=== PATIENT | female | born 1975 | race Caucasian/White ===

== ENCOUNTER 2022-08-12 19:47 | Emergency (ER) | payer MEDICAID, SELFPAY ==
[2022-08-12 20:44] VITALS: BP 157/96; PULSE 75; RESP 22; TEMP 37.3; O2SAT 95
--- NOTE | 2022-08-12 22:01 | ED_ITS ---
HPI - Abdominal Pain General Chief Complaint: Abdominal Pain Stated Complaint: Stomach pain past 4 days Time Seen by Provider: 08/12/22 21:40 History of Present Illness HPI narrative: 46-year-old woman presenting to the emergency department with complaint of 4 days of a burning epigastric pain. Over time she wants to eat she throws up. Status post cholecystectomy some years ago. No diarrhea no constipation. Has also been short of breath since COVID diagnosis in 2019. Did try what sounds like a liquid antacid but has not really helped. This pain does seem similar to her gallbladder related pain she had once upon a time. She later says it also hurts when she urinates. Sounds like ran out of her rescue inhaler a couple of days ago. Related Data Home Medications Medication Instructions Recorded Confirmed albuterol sulfate 90 mcg/actuation 2 inh inhalation Q4H PRN 08/12/22 08/12/22 aerosol inhaler budesonide-formoterol HFA 160 1 inh inhalation QHS 08/12/22 08/12/22 mcg-4.5 mcg/actuation aerosol inhaler (Symbicort) cetirizine 10 mg tablet 10 mg PO DAILY 08/12/22 08/12/22 fluticasone furoate 100 1 inh inhalation DAILY 08/12/22 08/12/22 mcg-vilanterol 25 mcg/dose inhalation powder (Breo Ellipta) Previous Rx's Medication Instructions Recorded albuterol sulfate 90 mcg/actuation 2 inh inhalation QID PRN shortness 08/13/22 aerosol inhaler of breath or wheezing #8.5 grams omeprazole 40 mg capsule,delayed 40 mg PO DAILY 14 days #14 caps 08/13/22 release ondansetron 4 mg disintegrating 4 mg PO QID PRN nausea and 08/13/22 tablet vomiting #12 tabs prednisone 20 mg tablet 40 mg PO DAILY 4 days #8 tabs 08/13/22 Allergies Allergy/AdvReac Type Severity Reaction Status Date / Time oseltamivir [From Tamiflu] Allergy Mild Hives Verified 08/12/22 20:50 penicillin V Allergy Mild Rash Verified 03/18/22 11:57 dandelion (Taraxacum Allergy Unknown test Verified 08/12/22 20:50 officinale) indicated cat and dog Allergy Mild Congestion, Uncoded 03/18/22 11:57 shortness of breath grass, pollens Allergy Mild Congestion, Uncoded 03/18/22 11:57 shortness of breath Review of Systems Status of ROS Reports: 10 or more systems reviewed and unremarkable except as noted in History and below [facility] Medical History Asthma Epiploic appendagitis History of severe acute respiratory syndrome coronavirus 2 (SARS-CoV-2) disease Surgical History History of cholecystectomy History of tubal ligation Family History Father Diabetes Gout High blood pressure Sister Diabetes mellitus during Maternal Grandmother Ovarian cancer Social History Narrative: Does not drink alcohol Does not use illicit drugs Non-smoker Smoking Status: Unknown if ever smoked Exam Narrative: Exam Narrative: Unpleasant. Clearly a little uncomfortable. Carefully casually groomed. Cranial nerves 2-12 intact. Mild labored breathing. Decreased breath sounds and diffuse trace wheeze. Rather sore to palpation in the central epigastrium. Abdomen otherwise soft and nontender. Normoactive bowel sounds. No right upper quadrant pain. Extremities are without edema. Const: Vital Signs, click to edit/add: Vital Signs - 24 hr 08/12/22 20:44 08/12/22 22:14 08/12/22 22:14 Temperature 99.1 F Pulse Rate [Left P ulse Oximeter] 75 66 Respiratory Rate 22 20 Blood Pressure [Ri ght Upper Arm] 157/96 H Pulse Oximetry 95 96 96 Oxygen Delivery Me thod Room Air Room Air 08/12/22 23:50 08/13/22 01:10 Temperature Pulse Rate [Left P ulse Oximeter] 69 69 Respiratory Rate 12 Blood Pressure [Ri ght Upper Arm] 115/85 Pulse Oximetry 95 95 Oxygen Delivery Me thod Room Air Room Air Documenting provider has reviewed patient's vital signs: yes Course Vital Signs Vital signs: Initial Vital Signs Temperature 99.1 F 08/12/22 20:44 Temperature Source Temporal Artery Scan 08/12/22 20:44 Pulse Rate 75 08/12/22 20:44 Respiratory Rate 22 08/12/22 20:44 Blood Pressure 157/96 H 08/12/22 20:44 Blood Pressure Mean 116 08/12/22 20:44 Blood Pressure Position Sitting 08/12/22 20:44 Pulse Oximetry 95 08/12/22 20:44 Oxygen Delivery Method 08/12/22 20:44 Vital Signs Temperature 99.1 F 08/12/22 20:44 Pulse Rate 75 08/12/22 20:44 Respiratory Rate 22 08/12/22 20:44 Blood Pressure 157/96 H 08/12/22 20:44 Pulse Oximetry 95 08/12/22 20:44 Oxygen Delivery Method 08/12/22 20:44 Temperature 99.1 F 08/12/22 20:44 Pulse Rate 69 08/13/22 01:10 Respiratory Rate 12 08/12/22 23:50 Blood Pressure 115/85 08/13/22 01:10 Pulse Oximetry 95 08/13/22 01:10 Oxygen Delivery Method 08/13/22 01:10 MDM - Abdominal Pain MDM Narrative Medical decision making narrative: Given DuoNeb. Reauscultation improved air movement and nearly no wheeze. Given Zofran and GI cocktail. Initially the GI cocktail did not seem to be helping much but with reassessment the pain seemed to have mostly resolved. Was able to tolerate oral intake. Did give prednisone as well. Labs reassuring. Lab Data Attestation: I reviewed the patient's lab results. Labs: Lab Results 08/12/22 08/12/22 08/12/22 Range/Units 22:50 22:50 22:50 WBC 10.22 (4.50-11.00) K/uL RBC 4.07 (4.00-5.20) m/uL Hgb 12.4 (12.0-16.0) gm/dL Hct 37.6 (33.0-51.0) % MCV 92 (80-100) fL MCH 31 (26-34) pg MCHC 33 (32-36) gm/dL RDW Coeff of Suzie 13.6 (11.5-15.5) % Plt Count 366 (140-440) K/uL Neut % (Auto) 59.1 (42.0-72.0) % Lymph % (Auto) 29.8 (20-44) % [place] % (Auto) 5.8 (0.0-11.0) % Eos % (Auto) 4.2 (0.0-7.0) % Baso % (Auto) 0.6 (0.0-3.0) % Neut # (Auto) 6.04 (1.7-7.0) K/uL Lymph # (Auto) 3.05 H (0.90-2.90) K/uL [place] # (Auto) 0.60 (0.00-0.90) K/UL Eos # (Auto) 0.43 (0.00-0.50) K/uL Baso # (Auto) 0.06 (0.00-0.30) K/uL Abs Immat Gran (auto) 0.05 (0.00-0.30) K/uL Imm/Tot Granulo (auto) 0.5 % Sodium 139 (135-149) mmol/L Potassium 3.5 L (3.6-5.1) mmol/L Chloride 107 (96-114) mmol/L Carbon Dioxide 26 (20-32) mmol/L BUN 24 (5-24) mg/dL Creatinine 0.7 (0.5-1.5) mg/dL Estimated Creat Clear 91.32 Estimated GFR 109 ml/min Glucose 101 (60-115) mg/dL Calcium 9.1 (8.4-10.6) mg/dL Total Bilirubin 0.3 (0.1-1.5) mg/dL Direct Bilirubin 0.1 (0.0-0.5) mg/dL AST 19 (12-35) U/L ALT 18 (4-35) U/L Alkaline Phosphatase 85 (40-150) U/L C-Reactive Protein < 0.5 L (0.5-1.0) mg/dL Total Protein 6.8 (6.0-8.3) g/dL Albumin 4.2 (3.3-5.0) g/dL Lipase 75 (23-300) U/L HCG, Qual Urine Color (Yellow) Urine Appearance (Clear) Urine pH (5.0-8.5) Ur Specific [place] (1.000-1.030) Urine Protein (Negative) Urine Glucose (UA) (Negative) Urine Ketones (Negative) Urine Blood (Negative) Urine Nitrite (Negative) Urine Bilirubin (Negative) Urine Urobilinogen (0.2-1.0) Ur Leukocyte Esterase (Negative) Urine RBC (0-2) Urine WBC (0-5) Ur Squamous Epith Cells (None-Few) Other Sediment (None) Urine Bacteria (None) 08/13/22 Range/Units 00:30 WBC (4.50-11.00) K/uL RBC (4.00-5.20) m/uL Hgb (12.0-16.0) gm/dL Hct (33.0-51.0) % MCV (80-100) fL MCH (26-34) pg MCHC (32-36) gm/dL RDW Coeff of Suzie (11.5-15.5) % Plt Count (140-440) K/uL Neut % (Auto) (42.0-72.0) % Lymph % (Auto) (20-44) % [place] % (Auto) (0.0-11.0) % Eos % (Auto) (0.0-7.0) % Baso % (Auto) (0.0-3.0) % Neut # (Auto) (1.7-7.0) K/uL Lymph # (Auto) (0.90-2.90) K/uL [place] # (Auto) (0.00-0.90) K/UL Eos # (Auto) (0.00-0.50) K/uL Baso # (Auto) (0.00-0.30) K/uL Abs Immat Gran (auto) (0.00-0.30) K/uL Imm/Tot Granulo (auto) % Sodium (135-149) mmol/L Potassium (3.6-5.1) mmol/L Chloride (96-114) mmol/L Carbon Dioxide (20-32) mmol/L BUN (5-24) mg/dL Creatinine (0.5-1.5) mg/dL Estimated Creat Clear Estimated GFR ml/min Glucose (60-115) mg/dL Calcium (8.4-10.6) mg/dL Total Bilirubin (0.1-1.5) mg/dL Direct Bilirubin (0.0-0.5) mg/dL AST (12-35) U/L ALT (4-35) U/L Alkaline Phosphatase (40-150) U/L C-Reactive Protein (0.5-1.0) mg/dL Total Protein (6.0-8.3) g/dL Albumin (3.3-5.0) g/dL Lipase (23-300) U/L HCG, Qual Cancelled Urine Color Yellow (Yellow) Urine Appearance Cloudy A (Clear) Urine pH 6.0 (5.0-8.5) Ur Specific [place] >= 1.030 (1.000-1.030) Urine Protein Negative (Negative) Urine Glucose (UA) Negative (Negative) Urine Ketones Trace A (Negative) Urine Blood Trace-intact A (Negative) Urine Nitrite Positive A (Negative) Urine Bilirubin Negative (Negative) Urine Urobilinogen 0.2 (0.2-1.0) Ur Leukocyte Esterase Negative (Negative) Urine RBC 0-2 (0-2) Urine WBC 2-5 (0-5) Ur Squamous Epith Cells Few (None-Few) Other Sediment YEAST (None) Urine Bacteria Many A (None) Discharge Plan Discharge Clinical Impression: Asthma exacerbation, Epigastric abdominal pain, Dehydration Patient Disposition: Home, Self-Care Condition: Improved Additional Instructions: Slow advance of diet over the next 24-36 hours. Diluted juices, soup broths to thicker soups and smoothies. Rice. [place]. This omeprazole can help decrease acid in your stomach. Would take this for 2 weeks and then reassess. We will be culturing your urine and call you if something comes of it. I think what he you were feeling was mostly related to dehydration. Prescriptions: New prednisone 20 mg tablet 40 mg PO DAILY 4 Days Qty: 8 1RF Rx Instructions: days 11-21 of therapy albuterol sulfate 90 mcg/actuation HFA aerosol inhaler 2 inh inhalation QID PRN (Reason: shortness of breath or wheezing) Qty: 8.5 1RF ondansetron 4 mg tablet,disintegrating 4 mg PO QID PRN (Reason: nausea and vomiting) Qty: 12 0RF Rx Instructions: dissolve in mouth omeprazole 40 mg capsule,delayed release(DR/EC) 40 mg PO DAILY 14 Days Qty: 14 0RF No Action cetirizine 10 mg tablet 10 mg PO DAILY albuterol sulfate 90 mcg/actuation HFA aerosol inhaler 2 inh INHALATION Q4H PRN budesonide-formoterol [Symbicort] 160-4.5 mcg/actuation HFA aerosol inhaler 1 inh inhalation QHS fluticasone furoate-vilanterol [Breo Ellipta] 100-25 mcg/dose blister with device 1 inh inhalation DAILY Follow Up/Referrals: Kathy Hou PA-C [Primary Care Provider] - Stand Alone Forms: Fluid-1 Info Instructions
[2022-08-12] MEDS: ONDANSETRON ODT 4 MG TAB PO (22:09)
[2022-08-12] MEDS: IPRAT-ALBUT 0.5-2.5 MG/3 ML NEB 1 NEB IH (22:09)
[2022-08-12] MEDS: GI COCKTAIL (VISC LIDO/ANTACID) 30 ML PO (22:10)
[2022-08-12 22:14] VITALS: PULSE 66; RESP 20; O2SAT 96
--- OUTSIDE RECORDS SUMMARY | 2022-08-12 22:20 | XMS_ITS | Encounter Summary ---
:1975 Author Organization [place] Address [facility] [place] [address] Care Team Providers Name Role Phone [facility] Primary Care Provider + [phone] Enrique Saenz MD Unavailable [phone] Glendy Brush Unavailable Pat Chavez PA-C Unavailable Encounter Details Date Type Department Care Team Description 05/13/2022 Travel Social History Tobacco Use Types Packs/Day Years Used Date Smoking Tobacco: Never Smokeless Tobacco: Never Sex Assigned at Date Recorded Not on file COVID-19 Exposure Response Date Recorded In the last 10 days, have you been in contact with No / Unsu re 05/13/2022 2:25 PM CDT someone who was confirmed or suspected to have Coronavirus/COVID-19? documented as of this encounter Plan of Treatment Not on filedocumented as of this encounter Visit Diagnoses Not on filedocumented in this encounter Additional Health Concerns Assessment Noted Time PHQ-9 Depression Total Score: 11 02/27/2022 9:09 AM CD T documented as of this encounter Care Teams Manager Presentation Relationship Specialty Start Date End Date [facility] PCP - General 11/20/21 [facility] [address] [place] [phone] Enrique Saenz MD Cardiovascular Disease 02/27/22 MD Ryan [address] [place] [address] Glendy Brush, Cardiac Rehabilitation 03/25/22 03/25/23 EP Therapist [place] [address] [address] [id number] Pat Chavez, Assigned Neuroscience 03/01/22 PA-C Provider [address] [place] [address] documented as of this encounter
--- OUTSIDE RECORDS SUMMARY | 2022-08-12 22:20 | XMS_ITS | Clinical Summary ---
:1975 Author Organization [place] Address [facility] [place] [address] Care Team Providers Name Role Phone [facility] Primary Care Provider [phone] Enrique Saenz MD Unavailable [phone] Glendy Brush Unavailable Pat Chavez PA-C Unavailable Allergies Active Allergy Reactions Severity Noted Date Comments Penicillins 04/12/2012 Medications Medication Sig Dispensed Refills Start Date End Date Status albuterol Take 1 vial (2.5 30 mL 0 03/11/2021 Ac tive (PROVENTIL) (2.5 mg) by MG/3ML) 0.083% neb nebulization solutionIndication every 6 hours as s: Severe needed for persistent asthma shortness of with exacerbation breath / dyspnea or wheezing EPINEPHrine (ANY Inject 0.3 mLs 0.6 mL 0 11/20/2021 Active BX GENERIC EQUIV) (0.3 mg) into the 0.3 MG/0.3ML muscle once as injection 2-pack needed for anaphylaxis budesonide-formote Inhale 2 puffs 10 g 3 03/08/2022 Active rol (SYMBICORT) into the lungs 160-4.5 MCG/ACT daily InhalerIndications : Severe persistent asthma with exacerbation albuterol (PROAIR Inhale 2 puffs 18 g 11 03/08/2022 Active HFA/PROVENTIL into the lungs HFA/VENTOLIN HFA) every 6 hours 108 (90 Base) MCG/ACT inhalerIndications : Anaphylaxis, initial encounter ipratropium - Take 1 vial (3 90 mL 0 02/21/2022 Discontinued albuterol 0.5 mLs) by 2 mg/2.5 mg/3 mL nebulization (DUONEB) 0.5-2.5 every 6 hours as (3) MG/3ML neb needed for solution shortness of breath / dyspnea or wheezing Active Problems Problem Noted Date Intermittent asthma with status asthmaticus, unspecifi ed asthma severity 03/07/2022 Elevated blood pressure reading without diagnosis of h ypertension 03/10/2021 Severe persistent asthma with exacerbation 03/10/2021 Acute respiratory failure with hypoxia 03/10/2021 Encounters Date Type Specialty Care Team Description 07/10/2022 Office Visit Kathy Nolasco SLP Shortness o f breath (Primary Dx) 07/10/2022 PRE VISIT Kathy Nolasco SLP Previsit 06/24/2022 Virtual Visit Sleep Medicine Pat Chavez, [facility] for PA-C appointment (Primary Rudy, Rose Dx) LAYLA Charles 06/19/2022 Office Visit Pat Washburn, Carlosnes s of breath PA-C (Primary Dx) Kathy Zepeda SLP 06/19/2022 PRE VISIT Kathy Nolasco SLP Previsit 05/20/2022 Travel 05/15/2022 Hospital Encounter CARDIAC REHAB Pat Chavez PA-C 1, Pulmonary Rehab 05/15/2022 Travel 05/13/2022 Hospital Encounter CARDIAC REHAB Pat Chavez PA-C 1, Pulmonary Rehab 05/13/2022 Travel from Last 3 Months Immunizations Name Administration Dates Next Due COVID-19 Vaccine 18+ (Moderna) 09/18/2021, 01/03/2021, 12/06 HepB-Adult 07/18/2016 Influenza Vaccine >6 months 09/18/2021, 07/15/2016 (Alfuria,Fluzone) MMR 12/13/2010 Td (Adult), Adsorbed 12/14/2010, 03/30/2008 Tdap (Adacel,Boostrix) 07/18/2016 Social History Tobacco Use Types Packs/Day Years Used Date Smoking Tobacco: Never Smokeless Tobacco: Never Sex Assigned at Date Recorded Not on file Last Filed Vital Signs Vital Sign Reading Time Taken Comments Blood Pressure 131/80 03/08/2022 8:06 AM CDT Pulse 92 03/08/2022 8:06 AM CDT Temperature 36.9 ??C (98.5 ??F) 03/08/2022 8:06 AM CDT Respiratory Rate 18 03/08/2022 8:06 AM CDT Oxygen Saturation 93% 03/08/2022 8:06 AM CDT Inhaled Oxygen Concentration - - Weight 86 kg (189 lb 8 oz) 03/07/2022 7:41 PM CDT Height 165.1 cm (5' 5) 02/23/2022 6:57 PM CDT Body Mass Index 31.53 02/23/2022 6:57 PM CDT Plan of Treatment Health Maintenance Due Date Last Done Comments ADVANCE CARE PLANNING 1975 ANNUAL REVIEW OF HM ORDERS 1976 ASTHMA ACTION PLAN [address] COLONOGRAPHY 1976 DEPRESSION ACTION PLAN 1976 FIT-DNA (Cologuard) 1976 FIT 1976 FLEX SIG 1976 MAMMO SCREENING 1976 YEARLY PREVENTIVE VISIT 1976 Pneumococcal Vaccine: 1982 Pediatrics (0 to 5 Years) and At-Risk Patients (6 to 64 Years) (1 - PCV) COLONOSCOPY 1986 COLORECTAL CANCER SCREENING 1986 HIV SCREENING 11/26/1991 HEPATITIS C SCREENING 1994 PAP 1997 HEPATITIS B IMMUNIZATION (2 08/15/2016 07/18/2016 of 3 - 3-dose series) COVID-19 Vaccine (4 - Booster 11/13/2021 09/18/2021, for Moderna series) 01/03/2021, 12/06/2020 LIPID 2021 INFLUENZA VACCINE (#1) 2022 09/18/2021, 07/15/2016 PHQ-9 08/29/2022 02/27/2022 DTAP/TDAP/TD IMMUNIZATION (2 07/18/2026 07/18/2016, - Td or Tdap) 12/14/2010, 03/30/2008 IPV IMMUNIZATION Aged Out No longer eligi ble based on patient's age to complete this to [facility] MENINGITIS IMMUNIZATION Aged Out No longe r eligible based on patient's age to complete this to [facility] Insurance Payer Benefit Plan / Subscriber ID Effective Dates Phone Addre ss Type Group [facility] [id number] 2021-Present [phone] [address] [place] [address] Advance Directives For more information, please contact: [phone] Latest Code Status on File Code Status Date Activated Date Inactivated Comments Full Code 03/07/2022 5:56 PM 03/08/2022 5:27 PM All basic and advanced life-sustaining interventions ar e performed as appropriate Question Answer Comments Code status determined by: Discussion with patient/ legal de cision maker Code Status History Code Status Date Activated Date Inactivated Comments Full Code 03/10/2021 9:22 AM 03/11/2021 11:56 AM All basic a nd advanced life-sustaining interventions are performed as bubba ropriate Question Answer Comments Code status determined by: Discussion with patient/ legal de cision maker Care Teams Trader Relationship Specialty Start Date End Date [facility] PCP - General 11/20/21 [place] [address] [place] [phone] Enrique Saenz MD Cardiovascular Disease 02/27/22 MD Ryan [address] [place] [phone] Glendy Brush, Cardiac Rehabilitation 03/25/22 03/25/23 EP Therapist [facility] [address] [phone] Pat Chavez, Assigned Neuroscience 03/01/22 MACKC Provider [address] [place] [address]
--- OUTSIDE RECORDS SUMMARY | 2022-08-12 22:20 | XMS_ITS | Encounter Summary ---
:1975 Author Organization [place] Address [facility] [place] [address] Care Team Providers Name Role Phone [facility] Primary Care Provider + [phone] Enrique Saenz MD Unavailable [phone] Glendy Brush Unavailable Pat Chavez PA-C Unavailable Reason for Visit Reason Onset Date Comments Previsit 06/19/2022 Encounter Details Date Type Department Care Team Description 06/19/2022 PRE VISIT [facility] Voice Sa julia Zepeda, PROFILING MACHINE SETUP OPERATOR Previsit Clinic [address] [place] [phone] Social History Tobacco Use Types Packs/Day Years Used Date Smoking Tobacco: Never Smokeless Tobacco: Never Sex Assigned at Date Recorded Not on file documented as of this encounter Miscellaneous Notes Telephone Encounter - Bebe Leyva Alana - 02/28/2022 1:48 PM CDT FUTURE VISIT INFORMATION FUTURE VISIT INFORMATION: ?? Date: 06/19/2022 ?? Time: 10 AM ?? Location: [facility] [place] REFERRAL INFORMATION: ?? Referring provider: Dr. Pat Arana ?? Referring providers clinic: [facility] - [facility]R ?? Reason for visit/diagnosis: Dyspnea, Covid RECORDS REQUESTED FROM: Clinic name Comments Records Status Imaging Status [facility] ([facility] 05/29/22, 02/27/22 - PMR OV with Dr. Kathy Brown [place] [facility] [place] 02/23/22 - ED OV with Dr. Duran 02/21/22 - ED OV with Dr. Cota 11/20/21 - ED OV with Dr. Mills 03/10/21 - Admission with [facility] [place] 09/19/20 - UC OV with Dr. Bushra Brown [facility] - Imaging 02/23/22 - CT Chest 11/20/21 - XR Chest 03/10/21 - XR Chest [facility] PACs documented in this encounter Plan of Treatment Not on filedocumented as of this encounter Visit Diagnoses Not on filedocumented in this encounter Additional Health Concerns Assessment Noted Time PHQ-9 Depression Total Score: 11 02/27/2022 9:09 AM CD T documented as of this encounter Care Teams Flight Teacher Relationship Specialty Start Date End Date Clinic, [facility] PCP - General 11/20/21 [facility] [address] [facility] [place] [phone] Enrique Saenz MD Cardiovascular Disease 02/27/22 MD Ryan [address] [place] [phone] Glendy Brush, Cardiac Rehabilitation 03/25/22 03/25/23 EP Therapist [facility] [address] [place] [address] Pat Chavez, Assigned Neuroscience 03/01/22 PA-C Provider [address] [place] [id number] documented as of this encounter
--- OUTSIDE RECORDS SUMMARY | 2022-08-12 22:20 | XMS_ITS | Encounter Summary ---
:1975 Author Organization [place] Address [facility] [place] [address] Care Team Providers Name Role Phone [facility] Primary Care Provider + [phone] Enrique Saenz MD Unavailable [phone] Glendy Brush Unavailable Pat Chavez PA-C Unavailable Encounter Details Date Type Department Care Team Description 05/20/2022 Travel Social History Tobacco Use Types Packs/Day Years Used Date Smoking Tobacco: Never Smokeless Tobacco: Never Sex Assigned at Date Recorded Not on file COVID-19 Exposure Response Date Recorded In the last 10 days, have you been in contact with No / Unsu re 05/20/2022 11:27 AM CDT someone who was confirmed or suspected to have Coronavirus/COVID-19? documented as of this encounter Plan of Treatment Not on filedocumented as of this encounter Visit Diagnoses Not on filedocumented in this encounter Additional Health Concerns Assessment Noted Time PHQ-9 Depression Total Score: 11 02/27/2022 9:09 AM CD T documented as of this encounter Care Teams Drafting Clerk Relationship Specialty Start Date End Date [facility] PCP - General 11/20/21 [facility] [address] [place] [phone] Enrique Saenz MD Cardiovascular Disease 02/27/22 MD Ryan [address] [place] [address] Glendy Brush, Cardiac Rehabilitation 03/25/22 03/25/23 EP Therapist [place] [address] [address] [phone] Pat Chavez, Assigned Neuroscience 03/01/22 PA-C Provider [address] [place] [address] documented as of this encounter
--- OUTSIDE RECORDS SUMMARY | 2022-08-12 22:20 | XMS_ITS | Encounter Summary ---
:1975 Author Organization [place] Address [address] [place] [address] Care Team Providers Name Role Phone [facility] Primary Care Provider + [phone] Enrique Saenz MD Unavailable [phone] Glendy Brush Unavailable Pat Chavez PA-C Unavailable Reason for Visit Reason Onset Date Comments No Show 06/24/2022 Consultation (Routine: Next available opening) - Authorized Specialty Diagnoses / Procedures Referred By Contact Refer red To Contact Diagnoses Snoring Pat Chavez PA-C [address] [place], [place] [address] Referral ID Status Reason Start Date Expiration Date Visits V isits Requested Authorized [id number] Authorized 02/27/2022 02/27/2023 1 1 Encounter Details Date Type Department Care Team Description 06/24/[address] [facility] [place] [address] No-show for Sleep Center [facility] PA-C [address] [phone] appointment (Primary [place] Dx) [address] [place] [address] Social History Tobacco Use Types Packs/Day Years Used Date Smoking Tobacco: Never Smokeless Tobacco: Never Sex Assigned at Date Recorded Not on file documented as of this encounter Progress Notes [facility] [place] PA-C - 06/24/2022 1:30 PM CDT This patient was a no show for this scheduled appointment. documented in this encounter Plan of Treatment Not on filedocumented as of this encounter Visit Diagnoses Diagnosis No-show for appointment - Primary documented in this encounter Additional Health Concerns Assessment Noted Time PHQ-9 Depression Total Score: 11 02/27/2022 9:09 AM CD T documented as of this encounter Care Teams Safe Deposit Attendant Relationship Specialty Start Date End Date Clinic, [facility] PCP - General 11/20/21 [facility] [address] [place] [address] Enrique Saenz MD Cardiovascular Disease 02/27/22 MD Ryan [address] [place] [phone] Glendy Brush, Cardiac Rehabilitation 03/25/22 03/25/23 EP Therapist [facility] [address] [place] [phone] Pat Chavez, Assigned Neuroscience 03/01/22 LAYLA Provider [address] [place] [phone] documented as of this encounter
--- OUTSIDE RECORDS SUMMARY | 2022-08-12 22:20 | XMS_ITS | Encounter Summary ---
:1975 Author Organization [place] Address formerly [facility] [place] [address] Care Team Providers Name Role Phone [facility] Primary Care Provider + [phone] Enrique Saenz MD Unavailable [phone] Glendy Brush Unavailable Pat Chavez PA-C Unavailable Encounter Details Date Type Department Care Team Description 05/15/2022 Travel Social History Tobacco Use Types Packs/Day Years Used Date Smoking Tobacco: Never Smokeless Tobacco: Never Sex Assigned at Date Recorded Not on file COVID-19 Exposure Response Date Recorded In the last 10 days, have you been in contact with No / Unsu re 05/15/2022 2:28 PM CDT someone who was confirmed or suspected to have Coronavirus/COVID-19? documented as of this encounter Plan of Treatment Not on filedocumented as of this encounter Visit Diagnoses Not on filedocumented in this encounter Additional Health Concerns Assessment Noted Time PHQ-9 Depression Total Score: 11 02/27/2022 9:09 AM CD T documented as of this encounter Care Teams Operating Room Manager Relationship Specialty Start Date End Date [facility] PCP - General 11/20/21 [facility] [address] [place] [phone] Enrique Saenz MD Cardiovascular Disease 02/27/22 MD Ryan [address] [place] [address] Glendy Brush, Cardiac Rehabilitation 03/25/22 03/25/23 EP Therapist [place] [address] YARI MARTINEZ [phone] Pat Chavez, Assigned Neuroscience 03/01/22 PA-C Provider [address] [place] [address] documented as of this encounter
--- OUTSIDE RECORDS SUMMARY | 2022-08-12 22:20 | XMS_ITS | Encounter Summary ---
:1975 Author Organization [place] Address [facility] [place] [address] Care Team Providers Name Role Phone [facility] Primary Care Provider + [phone] Enrique Saenz MD Unavailable [phone] Glendy Brush Unavailable Pat Chavez PA-C Unavailable Reason for Visit Reason Onset Date Comments Previsit 07/10/2022 Encounter Details Date Type Department Care Team Description 07/10/2022 PRE VISIT [facility] Voice Sa julia Zepeda, GLASS NOVELTY MAKER Previsit Clinic [address] [place] [phone] Social History Tobacco Use Types Packs/Day Years Used Date Smoking Tobacco: Never Smokeless Tobacco: Never Sex Assigned at Date Recorded Not on file documented as of this encounter Miscellaneous Notes Telephone Encounter - Bebe Leyva Alana - 06/20/2022 8:59 AM CDT FUTURE VISIT INFORMATION FUTURE VISIT INFORMATION: ?? Date: 07/10/2022 ?? Time: 3 PM ?? Location: [facility] REFERRAL INFORMATION: ?? Referring provider: Dr.Elena Bennie Arana ?? Referring providers clinic: [facility] ?? Reason for visit/diagnosis: Dyspnea, covid RECORDS REQUESTED FROM: Clinic name Comments Records Status Imaging Status [facility] 02/27/22 - PMR OV with Dr. Kathy Brown [facility] [place] 02/23/22 - ED OV with Dr. Duran 02/21/22 - ED OV with Dr. Cota 11/20/21 - ED OV with Dr. Mills 03/10/21 - Admission with Dr. Breanna Brown [facility] [place] 09/19/20 - UC OV with Dr. Bushra Brown [facility] - Imaging 02/23/22 - CT Chest 11/20/21 - XR Chest 03/10/21 - XR Chest [facility] PACs documented in this encounter Plan of Treatment Not on filedocumented as of this encounter Visit Diagnoses Not on filedocumented in this encounter Additional Health Concerns Assessment Noted Time PHQ-9 Depression Total Score: 11 02/27/2022 9:09 AM CD T documented as of this encounter Care Teams Post Doctoral Researcher Relationship Specialty Start Date End Date Clinic, [facility] PCP - General 11/20/21 [facility] [place] [address] [place] [address] Enrique Saenz MD Cardiovascular Disease 02/27/22 MD Ryan [address] [place] [address] 875215 Glendy Brush, Cardiac Rehabilitation 03/25/22 03/25/[address] [facility] [address] [place] [phone] Pat Chavez, Assigned Neuroscience 03/01/22 PA-C Provider [address] [place] [address] documented as of this encounter
--- OUTSIDE RECORDS SUMMARY | 2022-08-12 22:20 | XMS_ITS | Encounter Summary ---
:1975 Author Organization [place] Address [address] [place] [address] Care Team Providers Name Role Phone [facility], [facility] Primary Care Provider + [phone] Enrique Saenz MD Unavailable Glendy Brush Unavailable Pat Chavez PA-C Unavailable Reason for Visit Rehab Therapy Cardiac Therapy (Routine: Next available opening) - Authorized Specialty Diagnoses / Procedures Referred By Contact Refer red To Contact CARDIAC REHAB Diagnoses Mild intermittent asthma with exacerbation Post-COVID chronic dyspnea [address] [place] [address] Phone: Referral ID Status Reason Start Date Expiration Date Visits V isits Requested Authorized [id number] Authorized 02/28/2022 08/30/2022 365 365 Encounter Details Date Type Department Care Team Description 05/15/2022 Hospital Encounter [facility] Pat Chavez PA-C [address] [place] [address] Cardiac and Pulmonary 1, [facility] [address] [place] [address] Social History Tobacco Use Types Packs/Day Years Used Date Smoking Tobacco: Never Smokeless Tobacco: Never Sex Assigned at Date Recorded Not on file COVID-19 Exposure Response Date Recorded In the last 10 days, have you been in contact with No / Unsu re 05/15/2022 2:28 PM CDT someone who was confirmed or suspected to have Coronavirus/COVID-19? documented as of this encounter Medications at Time of Discharge Medication Sig Dispensed Refills Start Date End Date albuterol (PROAIR Inhale 2 puffs into the 18 g 11 03/08 HFA/PROVENTIL lungs every 6 hours HFA/VENTOLIN HFA) 108 (90 Base) MCG/ACT inhalerIndications: Anaphylaxis, initial encounter albuterol (PROVENTIL) Take 1 vial (2.5 mg) by 30 mL 0 0 03/11/2021 (2.5 MG/3ML) 0.083% neb nebulization every 6 solutionIndications: hours as needed for Severe persistent asthma shortness of breath / with exacerbation dyspnea or wheezing budesonide-formoterol Inhale 2 puffs into the 10 g 3 0 03/08/2022 (SYMBICORT) 160-4.5 lungs daily MCG/ACT InhalerIndications: Severe persistent asthma with exacerbation EPINEPHrine (ANY BX Inject 0.3 mLs (0.3 mg) 0.6 mL 0 GENERIC EQUIV) 0.3 into the muscle once as MG/0.3ML injection needed for anaphylaxis 2-pack documented as of this encounter Plan of Treatment Not on filedocumented as of this encounter Visit Diagnoses Not on filedocumented in this encounter Additional Health Concerns Assessment Noted Time PHQ-9 Depression Total Score: 11 02/27/2022 9:09 AM CD T documented as of this encounter Care Teams Knitting Machine Mechanic Relationship Specialty Start Date End Date [facility] PCP - General 11/20/21 [facility] [address] [place] [address] Enrique Saenz MD Cardiovascular Disease 02/27/22 MD Ryan [address] [place] [address] Glendy Brush, Cardiac Rehabilitation 03/25/22 03/25/23 EP Therapist [place] [address] YARI MARTINEZ [phone] Pat Chavez, Assigned Neuroscience 03/01/22 LAYLA Provider [address] [place] [address] [phone] documented as of this encounter
--- OUTSIDE RECORDS SUMMARY | 2022-08-12 22:20 | XMS_ITS | Encounter Summary ---
:1975 Author Organization [place] Address [facility] [place] [address] Care Team Providers Name Role Phone [facility], [facility] Primary Care Provider + [phone] Enrique Saenz MD Unavailable [phone] Glendy Brush Unavailable Pat Chavez PA-C Unavailable Reason for Visit Consultation (Routine: Next available opening) - Pending Review Specialty Diagnoses / Procedures Referred By Contact Refer red To Contact Otolaryngology Diagnoses Post-COVID chronic dyspnea Pat Chavez PA-C [address] [place] [phone] Referral ID Status Reason Start Date Expiration Date Visits V isits Requested Authorized [id number] Pending 02/27/2022 02/27/2023 1 1 Review Encounter Details Date Type Department Care Team Description 06/19/[address] [facility] Anahi Chavez PA-C [address] [place] [address] Shortness of breath Voice Clinic Kathy Zepeda, CARLOS [address] [place] [address] (Primary Dx) [address] 4[address] [place] [address] Social History Tobacco Use Types Packs/Day Years Used Date Smoking Tobacco: Never Smokeless Tobacco: Never Sex Assigned at Date Recorded Not on file COVID-19 Exposure Response Date Recorded In the last 10 days, have you been in contact with No / Unsu re 05/20/2022 11:27 AM CDT someone who was confirmed or suspected to have Coronavirus/COVID-19? documented as of this encounter Progress Notes Kathy Zepeda, CARLOS - 06/19/2022 10:00 AM CDT Patient no showed for today's initial evaluation for post-Covid dyspnea. Franca Solorzano (voice), M.S., [facility] Speech-Language Pathologist [facility] [phone] [email or web address] Pronouns: she/her/hers documented in this encounter Plan of Treatment Not on filedocumented as of this encounter Visit Diagnoses Diagnosis Shortness of breath - Primary documented in this encounter Additional Health Concerns Assessment Noted Time PHQ-9 Depression Total Score: 11 02/27/2022 9:09 AM CD T documented as of this encounter Care Teams Special Certificate Dictator Relationship Specialty Start Date End Date Clinic, [facility] PCP - General 11/20/21 [facility] [address] [place] [address] Enrique Saenz MD Cardiovascular Disease 02/27/22 MD Ryan [address] [place] [address] Glendy Brush, Cardiac Rehabilitation 03/25/22 03/25/23 EP Therapist [facility] [address] [place] [address] Pat Chavez, Assigned Neuroscience 03/01/22 PA-C Provider [address] [place] [address] documented as of this encounter
--- OUTSIDE RECORDS SUMMARY | 2022-08-12 22:21 | XMS_ITS | Encounter Summary ---
:1975 Author Organization [place] Address [address] [place] [address] Care Team Providers Name Role Phone [facility], [facility] Primary Care Provider + [phone] Enrique Saenz MD Unavailable [phone] Glendy Brush Unavailable Pat Chavez PA-C Unavailable Reason for Visit Rehab Therapy Cardiac Therapy (Routine: Next available opening) - Authorized Specialty Diagnoses / Procedures Referred By Contact Refer red To Contact CARDIAC REHAB Diagnoses Mild intermittent asthma with exacerbation Post-COVID chronic dyspnea [address] [place] [address] Phone: Referral ID Status Reason Start Date Expiration Date Visits V isits Requested Authorized [id number] Authorized 02/28/2022 08/30/2022 365 365 Encounter Details Date Type Department Care Team Description 04/22/2022 Hospital Encounter [facility] Pat Chavez PA-C [address] [place] [address] Cardiac and Pulmonary 1, [facility] [address] [place] [address] Social History Tobacco Use Types Packs/Day Years Used Date Smoking Tobacco: Never Smokeless Tobacco: Never Sex Assigned at Date Recorded Not on file COVID-19 Exposure Response Date Recorded In the last 10 days, have you been in contact with No / Unsu re 04/22/2022 2:40 PM CDT someone who was confirmed or [...] documented as of this encounter Care Teams Outside Sales Associate Relationship Specialty Start Date End Date [facility] PCP - General 11/20/21 [facility] [address] [place] [address] Enrique Saenz MD Cardiovascular Disease 02/27/22 MD Ryan [address] [place] [address] Glendy Brush, Cardiac Rehabilitation 03/25/22 03/25/23 EP Therapist [place] [address] YARI MARTINEZ [phone] Pat Chavez, Assigned Neuroscience 03/01/22 LAYLA Provider [address] [place] [phone] documented as of this encounter
--- OUTSIDE RECORDS SUMMARY | 2022-08-12 22:21 | XMS_ITS | Encounter Summary ---
:1975 Author Organization [place] Address [facility] [place] [address] Care Team Providers Name Role Phone [facility] Primary Care Provider + [phone] Enrique Saenz MD Unavailable [phone] Glendy Brush Unavailable Pat Chavez PA-C Unavailable Encounter Details Date Type Department Care Team Description 04/03/2022 Travel Social History Tobacco Use Types Packs/Day Years Used Date Smoking Tobacco: Never Smokeless Tobacco: Never Sex Assigned at Date Recorded Not on file COVID-19 Exposure Response Date Recorded In the last 10 days, have you been in contact with No / Unsu re 04/03/2022 2:14 PM CDT someone who was confirmed or suspected to have Coronavirus/COVID-19? documented as of this encounter Plan of Treatment Not on filedocumented as of this encounter Visit Diagnoses Not on filedocumented in this encounter Additional Health Concerns Assessment Noted Time PHQ-9 Depression Total Score: 11 02/27/2022 9:09 AM CD T documented as of this encounter Care Teams Seo Team Lead Relationship Specialty Start Date End Date [facility] PCP - General 11/20/21 [facility] [address] [place] [address] Enrique Saenz MD Cardiovascular Disease 02/27/22 MD Ryan [address] [place] [address] Glendy Brush, Cardiac Rehabilitation 03/25/22 03/25/23 EP Therapist [place] [address] YARI MARTINEZ [phone] Pat Chavez, Assigned Neuroscience 03/01/22 PA-C Provider [address] [place] [address] documented as of this encounter
--- OUTSIDE RECORDS SUMMARY | 2022-08-12 22:21 | XMS_ITS | Encounter Summary ---
:1975 Author Organization [place] Address [address] [place] [address] Care Team Providers Name Role Phone [facility], [facility] Primary Care Provider + [phone] Enrique Saenz MD Unavailable [phone] Glendy Brush Unavailable Pat Chavez PA-C Unavailable Reason for Visit Rehab Therapy Cardiac Therapy (Routine: Next available opening) - Authorized Specialty Diagnoses / Procedures Referred By Contact Refer red To Contact CARDIAC REHAB Diagnoses Mild intermittent asthma with exacerbation Post-COVID chronic dyspnea [address] [place] [address] Phone: Referral ID Status Reason Start Date Expiration Date Visits V isits Requested Authorized [id number] Authorized 02/28/2022 08/30/2022 365 365 Encounter Details Date Type Department Care Team Description 04/17/2022 Hospital Encounter [facility] Pat Chavez PA-C [address] [place] [address] Cardiac and Pulmonary 1, [facility] [address] [place] [address] Social History Tobacco Use Types Packs/Day Years Used Date Smoking Tobacco: Never Smokeless Tobacco: Never Sex Assigned at Date Recorded Not on file COVID-19 Exposure Response Date Recorded In the last 10 days, have you been in contact with No / Unsu re 04/17/2022 2:28 PM CDT someone who was confirmed [...] documented as of this encounter Care Teams It Account Manager Relationship Specialty Start Date End Date [facility] PCP - General 11/20/21 [facility] [address] [place] [address] Enrique Saenz MD Cardiovascular Disease 02/27/22 MD Ryan [address] [place] [address] Glendy Brush, Cardiac Rehabilitation 03/25/22 03/25/23 EP Therapist [place] [address] YARI MARTINEZ [address] Pat Chavez, Assigned Neuroscience 03/01/22 LAYLA Provider [address] [place] [phone] documented as of this encounter
--- OUTSIDE RECORDS SUMMARY | 2022-08-12 22:21 | XMS_ITS | Encounter Summary ---
:1975 Author Organization [place] Address [address] [place] [address] Care Team Providers Name Role Phone [facility], [facility] Primary Care Provider + [phone] Enrique Saenz MD Unavailable [phone] Glendy Brush Unavailable Pat Chavez PA-C Unavailable Reason for Visit Rehab Therapy Cardiac Therapy (Routine: Next available opening) - Authorized Specialty Diagnoses / Procedures Referred By Contact Refer red To Contact CARDIAC REHAB Diagnoses Mild intermittent asthma with exacerbation Post-COVID chronic dyspnea [address] [place] [address] Phone: Referral ID Status Reason Start Date Expiration Date Visits V isits Requested Authorized [id number] Authorized 02/28/2022 08/30/2022 365 365 Encounter Details Date Type Department Care Team Description 03/25/2022 Hospital Encounter [facility] Pat Chavez PA-C [address] [place] [address] Cardiac and Pulmonary 2, [facility] [address] [place] [address] Social History Tobacco Use Types Packs/Day Years Used Date Smoking Tobacco: Never Smokeless Tobacco: Never Sex Assigned at Date Recorded Not on file COVID-19 Exposure Response Date Recorded In the last 10 days, have you been in contact with No / Unsu re 03/25/2022 2:38 PM CDT someone who was confirmed or [...] documented as of this encounter Care Teams Attorney At Law Relationship Specialty Start Date End Date [facility] De La [facility] PCP - General 11/20/21 [facility] [address] [place] [address] Enrique Saenz MD Cardiovascular Disease 02/27/22 MD Ryan [address] [place] [address] Glendy Brush, Cardiac Rehabilitation 03/25/22 03/25/23 EP Therapist [place] [address] YARI MARTINEZ [phone] Pat Chavez, Assigned Neuroscience 03/01/22 LAYLA Provider [address] [place] [phone] documented as of this encounter
--- OUTSIDE RECORDS SUMMARY | 2022-08-12 22:21 | XMS_ITS | Encounter Summary ---
:1975 Author Organization [place] Address [facility] [place] [address] Care Team Providers Name Role Phone [facility] Primary Care Provider + [phone] Enrique Saenz MD Unavailable [phone] Glendy Brush Unavailable Pat Chavez PA-C Unavailable Encounter Details Date Type Department Care Team Description 04/10/2022 Travel Social History Tobacco Use Types Packs/Day Years Used Date Smoking Tobacco: Never Smokeless Tobacco: Never Sex Assigned at Date Recorded Not on file COVID-19 Exposure Response Date Recorded In the last 10 days, have you been in contact with No / Unsu re 04/10/2022 2:23 PM CDT someone who was confirmed or suspected to have Coronavirus/COVID-19? documented as of this encounter Plan of Treatment Not on filedocumented as of this encounter Visit Diagnoses Not on filedocumented in this encounter Additional Health Concerns Assessment Noted Time PHQ-9 Depression Total Score: 11 02/27/2022 9:09 AM CD T documented as of this encounter Care Teams Advice Clerk Relationship Specialty Start Date End Date [facility] PCP - General 11/20/21 [facility] [address] [place] [address] Enrique Saenz MD Cardiovascular Disease 02/27/22 MD Ryan [address] [place] [address] Glendy Brush, Cardiac Rehabilitation 03/25/22 03/25/23 EP Therapist [place] [address] YARI MARTINEZ [phone] Pat Chavez, Assigned Neuroscience 03/01/22 PA-C Provider [address] [place] [address] documented as of this encounter
--- OUTSIDE RECORDS SUMMARY | 2022-08-12 22:21 | XMS_ITS | Encounter Summary ---
:1975 Author Organization [place] Address [address] [place] [address] Care Team Providers Name Role Phone Clinic, [facility] Primary Care Provider + [phone] Enrique Saenz MD Unavailable [phone] Glendy Brush Unavailable Pat Chavez PA-C Unavailable Reason for Visit Rehab Therapy Cardiac Therapy (Routine: Next available opening) - Authorized Specialty Diagnoses / Procedures Referred By Contact Refer red To Contact CARDIAC REHAB Diagnoses Mild intermittent asthma with exacerbation Post-COVID chronic dyspnea [address] [place] [address] Phone: Referral ID Status Reason Start Date Expiration Date Visits V isits Requested Authorized [id number] Authorized 02/28/2022 08/30/2022 365 365 Encounter Details Date Type Department Care Team Description 04/03/2022 Hospital Encounter [facility] Pat Chavez PA-C [address] [place] [address] Cardiac and Pulmonary 1, [facility] Rehabilitation [address] [place] [address] Social History Tobacco Use Types [...] documented as of this encounter Care Teams Rehab Office Coordinator Relationship Specialty Start Date End Date [facility] De La Paz PCP - General 11/20/21 [facility] [address] [place] [address] Enrique Saenz MD Cardiovascular Disease 02/27/22 MD Ryan [address] [place] [address] Glendy Brush, Cardiac Rehabilitation 03/25/22 03/25/23 EP Therapist [place] [address] YARI MARTINEZ [address] Pat Chavez, Assigned Neuroscience 03/01/22 LAYLA Provider [address] [place] [phone] documented as of this encounter
--- OUTSIDE RECORDS SUMMARY | 2022-08-12 22:21 | XMS_ITS | Encounter Summary ---
:1975 Author Organization [place] Address [address] [place] [address] Care Team Providers Name Role Phone [facility], [facility] Primary Care Provider + [phone] Enrique Saenz MD Unavailable [phone] Glendy Brush Unavailable Pat Chavez PA-C Unavailable Reason for Visit Rehab Therapy Cardiac Therapy (Routine: Next available opening) - Authorized Specialty Diagnoses / Procedures Referred By Contact Refer red To Contact CARDIAC REHAB Diagnoses Mild intermittent asthma with exacerbation Post-COVID chronic dyspnea [address] [place] [address] Phone: Referral ID Status Reason Start Date Expiration Date Visits V isits Requested Authorized [id number] Authorized 02/28/2022 08/30/2022 365 365 Encounter Details Date Type Department Care Team Description 04/10/2022 Hospital Encounter [facility] Pat Chavez PA-C [address] [place] [address] Cardiac and Pulmonary 1, [facility] [address] [place] [address] Social History Tobacco Use Types [...] documented as of this encounter Care Teams Car Wash Attendant Automatic Relationship Specialty Start Date End Date [facility]ette De La Paz PCP - General 11/20/21 [facility] [address] [place] [address] Enrique Saenz MD Cardiovascular Disease 02/27/22 MD Ryan [address] [place] [address] Glendy Brush, Cardiac Rehabilitation 03/25/22 03/25/23 EP Therapist [place] [address] YARI MARTINEZ [phone] Pat Chavez, Assigned Neuroscience 03/01/22 LAYLA Provider [address] [place] [phone] documented as of this encounter
--- OUTSIDE RECORDS SUMMARY | 2022-08-12 22:21 | XMS_ITS | Encounter Summary ---
:1975 Author Organization [place] Address Counts include 234 beds at the [facility] [place] [address] Care Team Providers Name Role Phone [facility] Primary Care Provider + [phone] Enrique Saenz MD Unavailable [phone] Glendy Brush Unavailable Pat Chavez PA-C Unavailable Encounter Details Date Type Department Care Team Description 04/01/2022 Travel Social History Tobacco Use Types Packs/Day Years Used Date Smoking Tobacco: Never Smokeless Tobacco: Never Sex Assigned at Date Recorded Not on file COVID-19 Exposure Response Date Recorded In the last 10 days, have you been in contact with No / Unsu re 04/01/2022 2:16 PM CDT someone who was confirmed or suspected to have Coronavirus/COVID-19? documented as of this encounter Plan of Treatment Not on filedocumented as of this encounter Visit Diagnoses Not on filedocumented in this encounter Additional Health Concerns Assessment Noted Time PHQ-9 Depression Total Score: 11 02/27/2022 9:09 AM CD T documented as of this encounter Care Teams Propulsion Systems Engineer Relationship Specialty Start Date End Date [facility] PCP - General 11/20/21 [facility] [address] [place] [phone] Enrique Saenz MD Cardiovascular Disease 02/27/22 MD Ryan [address] [place] [address] Glendy Brush, Cardiac Rehabilitation 03/25/22 03/25/23 EP Therapist [place] [address] [address] [phone] Pat Chavez, Assigned Neuroscience 03/01/22 PA-C Provider [address] [place] [address] documented as of this encounter
--- OUTSIDE RECORDS SUMMARY | 2022-08-12 22:21 | XMS_ITS | Encounter Summary ---
:1975 Author Organization [place] Address [facility]ly [facility] [place] [address] Care Team Providers Name Role Phone [facility] Primary Care Provider + [phone] Enrique Saenz MD Unavailable [phone] Glendy Brush Unavailable Pat Chavez PA-C Unavailable Encounter Details Date Type Department Care Team Description 04/24/2022 Travel Social History Tobacco Use Types Packs/Day Years Used Date Smoking Tobacco: Never Smokeless Tobacco: Never Sex Assigned at Date Recorded Not on file COVID-19 Exposure Response Date Recorded In the last 10 days, have you been in contact with No / Unsu re 04/24/2022 4:08 PM CDT someone who was confirmed or suspected to have Coronavirus/COVID-19? documented as of this encounter Plan of Treatment Not on filedocumented as of this encounter Visit Diagnoses Not on filedocumented in this encounter Additional Health Concerns Assessment Noted Time PHQ-9 Depression Total Score: 11 02/27/2022 9:09 AM CD T documented as of this encounter Care Teams Trackmobile Operator Relationship Specialty Start Date End Date [facility] PCP - General 11/20/21 [facility] [address] [place] [phone] Enrique Saenz MD Cardiovascular Disease 02/27/22 MD Ryan [address] [place] [address] Glendy Brush, Cardiac Rehabilitation 03/25/22 03/25/23 EP Therapist [place] [address] [address] [phone] Pat Chavez, Assigned Neuroscience 03/01/22 PA-C Provider [address] [place] [address] documented as of this encounter
--- OUTSIDE RECORDS SUMMARY | 2022-08-12 22:21 | XMS_ITS | Encounter Summary ---
:1975 Author Organization [place] Address [address] [place] [address] Care Team Providers Name Role Phone [facility] Primary Care Provider + [phone] Enrique Saenz MD Unavailable [phone] Pat Chavez PA-C Unavailable Encounter Details Date Type Department Care Team Description 03/19/2022 Virtual Visit [facility] Lul Chaudhari LGSW BINTA (g eneralized anxiety disorder) (Primary Dx); Mental Health & Major depres sive disorder, recurrent episode, moderate with atypical features (H); Addiction [place] PTSD (post -traumatic stress disorder) [facility] [address] [place] [phone] Social History Tobacco Use Types Packs/Day Years Used Date Smoking Tobacco: Never Smokeless Tobacco: Never Sex Assigned at Date Recorded Not on file COVID-19 Exposure Response Date Recorded In the last 10 days, have you been in contact with No / Unsu re 03/11/2022 3:17 PM CDT someone who was confirmed or suspected to have Coronavirus/COVID-19? documented as of this encounter Progress Notes Lul Chaudhari LGSW - 03/19/2022 12:30 PM CDT Images from the original note were not included. [facility] Counseling Provider Name: Lul Chaudhari Credentials: TRAINING REPRESENTATIVE PATIENT'S NAME: Crystal Garcia PREFERRED NAME: PRONOUNS: she/her : 1975 AD[address]ESS: [address] [facility] [address] [facility]. NUMBER: [id number] DATE OF SERVICE: 03/19/22 START TIME: 12.30 END TIME: .30 PREFERRED PHONE: [phone] May we leave a program related message: Yes SERVICE MODALITY: Video Visit: Provider verified identity through the following two step process. Patient provided: Patient is known previously to provider Telemedicine Visit: The patient's condition can be safely assessed and treated via synchronous audioand visual telemedicine encounter. Reason for Telemedicine Visit: Patient has requested telehealth visit Originating Site (Patient Location): Patient's home Distant Site (Provider Location): Provider Remote Setting- Home Office Consent: The patient/guardian has verbally consented to: the potential risks and benefits of telemedicine (video visit) versus in person care; bill my insurance or make self-payment for services provided; and responsibility for payment of non-covered services. Patient would like the video invitation sent by: My Chart Mode of Communication:?? Video Conference via [employer] As the provider I attest to compliance with applicable laws and regulations related to telemedicine. UNIVERSAL ADULT Mental Health DIAGNOSTIC ASSESSMENT Identifying Information: Patient is a 46 year old, individual. Patient was referred for an assessment by referring provider. Patient attended the session alone. Chief Complaint: The reason for seeking services at this time is: Pt reported ???stress and depression.?? Pt reported having parenting challenges with first child who is currently in collage and stressed about current housing situation as her sold their home and bought a new one that needs a lot of repairs and there have not completed the repair work after one years of work being done on the new home. Currently renting pending the completion of repair work to move in.. The problem(s) began 02/17/2020. Patient has not attempted to resolve these concerns in the past. Social/Family History: Patient reported [place] They were raised by biological parents . Patient reported that their childhood was dysfunctional and very stressful with mum, grew up feeling very insincure. Patient described their current relationships with family of origin as stressful. The patient describes their cultural background as . Cultural influences and impact on patient's life structure, values, norms, and healthcare: . Contextual influences on patient's health include: Family Factors relating to childhood traumas and Health- Seeking Factors relating to anxiety, depression and panic attacks. These factors will be addressed in the Preliminary Treatment plan. Patientidentified their preferred language to be other. Patient reported they does not need the assistance of an jackaroo or other support involved in therapy. Patient reported had no significant delays in developmental tasks. Patient's highest education levelwas some college . Patient identified the following learning problems: none reported. Modifications will not be used to assist communication in therapy. Patient reports they are able to understand written materials. Patient reported the following relationship history Had a relationship with boyfriend at 17 and had a kid that later and later had another relationship And had a child before meeting current . Patient's current relationship status is for 22 years. Patient identified their sexual orientation as heterosexual. Patient reported having 3 child(seb). Patient identified and kids as part of their support system. Patient identified the quality of these relationships as ,supportive. Patient's current living/housing situation involves staying in own home/apartment. The immediate members of family and household include Cristela, 22,son and they report that housing is stable. Patient is currently employed fulltime. Patient reports their finances are obtained through employment. Patient does not identify finances as a current stressor. Patient reported that they have not been involved with the legal system. . Patient did not report being under probation/ parole/ jurisdiction. They are not under any current court jurisdiction. . Patient's Strengths and Limitations: Patient identified the following strengths or resources that will help them succeed in treatment: pentecostalism / episcopalian, commitment to health and well being, beth / spirituality, friends / good social support, family support, positive work environment, motivation and work ethic. Things that may interferewith the patient's success in treatment include: physical health concerns. Assessments: The following assessments were completed by patient for this visit: PHQ9: PHQ-9 SCORE 02/27/2022 PHQ-9 Total Score MyChart 11 (Moderate depression) PHQ-9 Total Score 11 GAD7: BINTA-7 SCORE 02/27/2022 Total Score 7 (mild anxiety) Total Score 7 PROMIS 10-Global Health (all questions and answers displayed): PROMIS 10 03/05/2022 In general, would you say your health is: 1 In general, would you say your quality of life is: 3 In general, how would you rate your physical health? 2 In general, how would you rate your mental health, including your mood and your ability to think? 3 In general, how would you rate your satisfaction with your social activities and relationships? 4 In general, please rate how well you carry out your usual social activities and roles. (This includes activities at home, at work and in your community, and responsibilities as a parent, child, spouse,employee, friend, etc.) 4 To what extent are you able to carry out your everyday physical activities such as walking, climbingstairs, carrying groceries, or moving a chair? 2 In the past 7 days, how often have you been bothered by emotional problems such as feeling anxious, depressed, or irritable? 4 In the past 7 days, how would you rate your fatigue on average? 3 In the past 7 days, how would you rate your pain on average, where 0 means no pain, and 10 means worst imaginable pain? 2 Global Mental Health Score 12 Global Physical Health Score 11 PROMIS TOTAL - SUBSCORES 23 Some recent data might be hidden Personal and Family Medical History: Patient does report a family history of mental health concerns. Patient reports family history is not on file.. Patient does report Mental Health Diagnosis and/or Treatment. Patient Patient reported the followingprevious diagnoses which include(s): Depression. Patient reported symptoms began 2003. Patient has received mental health services in the past: therapy with [facility]. Psychiatric Hospitalizations: [facility] . Patient denies a history of civil commitment. Patient is not receiving other mental health services. These include none. Patient has had a physical exam to rule out medical causes for current symptoms. Date of last physical exam was within the past year. Client was encouraged to follow up with PCP if symptoms were to develop. The patient has a [facility] Primary Care Provider, who is named Clinic, [facility].. Patient reports the following current medical concerns: asthma and no current dental concerns. Patient denies any issues with pain.. There are significant appetite / nutritional concerns / weight changes. Patient does not report a history of head injury / trauma / cognitive impairment. Patient reports not taking any current medications Medication Adherence: Patient reports not taking. . Patient Allergies: Allergies Allergen Reactions ??? Penicillins Medical History: No past medical history on file. Current Mental Status Exam: Appearance: Appropriate Eye Contact: Good Psychomotor: Normal Gait / station: no problem Attitude / Demeanor: Cooperative Interested Friendly Pleasant Speech Rate / Production: Emotional Volume: Normal volume Language: no obvious problem Mood: Anxious Depressed Anhedonia Affect: Tearful Worrisome Thought Content: Clear Thought Process: Coherent Associations: No loosening of associations Insight: Fair Judgment: fair Orientation: Person Place Time Situation Attention/concentration: Good Substance Use: Patient did not report a family history of substance use concerns; see medical history section for details. Patient has not received chemical dependency treatment in the past. Patient has not ever beento detox. Patient is not currently receiving any chemical dependency treatment. Substance History of use Age of first use Date of last use Pattern and duration of use (include amounts and frequency) Alcohol never used REPORTS SUBSTANCE USE: N/A Cannabis never used REPORTS SUBSTANCE USE: N/A Amphetamines never used REPORTS SUBSTANCE USE: N/A Cocaine/crack never used REPORTS SUBSTANCE USE: N/A Hallucinogens never used REPORTS SUBSTANCE USE: N/A Inhalants never used REPORTS SUBSTANCE USE: N/A Heroin never used REPORTS SUBSTANCE USE: N/A Other Opiates never used REPORTS SUBSTANCE USE: N/A Benzodiazepine never used REPORTS SUBSTANCE USE: N/A Barbiturates never used REPORTS SUBSTANCE USE: N/A Over the counter meds REPORTS SUBSTANCE USE: N/A Caffeine currently use 16 REPORTS SUBSTANCE USE: reports using substance 1 times per day and has 1 cup at a time. Patient reports heaviest use is current use. Nicotine never used REPORTS SUBSTANCE USE: N/A Other substances not listed above: Identify: REPORTS SUBSTANCE USE: N/A Patient reported the following problems as a result of their substance use: . Substance Use: No symptoms Based on the negative CAGE score and clinical interview there are not indications of drug or alcoholabuse. Significant Losses / Trauma / Abuse / Neglect Issues: Patient did not serve in the . There are indications or report of significant loss, trauma, abuse or neglect issues related to: areindications or report of significant loss, trauma, abuse or neglect issues related to. Reported of first child when pt was 17 Concerns for possible neglect are not present. Safety Assessment: Patient denies current homicidal ideation and behaviors. Patient denies current self-injurious ideation and behaviors. Patient denied risk behaviors associated with substance use. Patient denies any high risk behaviors associated with mental health symptoms. Patient reports the following current concerns for their personal safety: None. Patient reports there are firearms in the house. yes, they are secured. . History of Safety Concerns: Patient denied a history of homicidal ideation. Patient denied a history of personal safety concerns. Patient denied a history of assaultive behaviors. Patient denied a history of sexual assault behaviors. Patient denied a history of risk behaviors associated with substance use. Patient denies any history of high risk behaviors associated with mental health symptoms. Patient reports the following protective factors: forward or future oriented thinking; regular physical activity Risk Plan: See Recommendations for Safety and Risk Management Plan Review of Symptoms per patient report: Depression: Change in sleep, Lack of interest, Change in energy level, Feelings of hopelessness, Feelings of helplessness, Low self-worth, Feeling sad, down, or depressed and Frequent crying Lulu: No Symptoms Psychosis: No Symptoms Anxiety: Excessive worry, Nervousness, Physical complaints, such as headaches, stomachaches, muscle tension, Sleep disturbance and Ruminations Panic: Palpitations, Shortness of breath, Numbness and Sense of impending doom Post Traumatic Stress Disorder: Experienced traumatic event emotional abuse and neglect from mother,Reexperiencing of trauma, Avoids traumatic stimuli, Increased arousal and Nightmares Eating Disorder: No Symptoms ADD / ADHD: No symptoms Conduct Disorder: No symptoms Autism Spectrum Disorder: No symptoms Obsessive Compulsive Disorder: Cleaning Patient reports the following compulsive behaviors and treatment history: None reported. Diagnostic Criteria: Generalized Anxiety Disorder - Restlessness or feeling keyed up or on edge. - Being easily fatigued. - Difficulty concentrating or mind going blank. - Sleep disturbance (difficulty falling or staying asleep, or restless unsatisfying sleep). D. The focus of the anxiety and worry is not confined to features of an [place] I disorder. E. The anxiety, worry, or physical symptoms cause clinically significant distress or impairment in social, occupational, or other important areas of functioning. F. The disturbance is not due to the direct physiological effects of a substance (e.g., a drug of abuse, a medication) or a general medical condition (e.g., hyperthyroidism) and does not occur exclusively during a Mood Disorder, a Psychotic Disorder, or a Pervasive Developmental Disorder. - The aformentioned symptoms began 2 year(s) ago and occurs 5 days per week and is experienced as moderate. Major Depressive Disorder - Depressed mood. Note: In children and adolescents, can be irritable mood. - Diminished interest or pleasure in all, or almost all, activities. - Decreased sleep. - Fatigue or loss of energy. - Feelings of worthlessness or inappropriate guilt. - Diminished ability to think or concentrate, or indecisiveness. B) The symptoms cause clinically significant distress or impairment in social, occupational, or other important areas of functioning C) The episode is not attributable to the physiological effects of a substance or to another medicalcondition D) The occurence of major depressive episode is not better explained by other thought / psychotic disorders E) There has never been a manic episode or hypomanic episode Post- Traumatic Stress Disorder A. The person has been exposed to a traumatic event in which both of the following were present: (1) the person experienced, witnessed, or was confronted with an event or events that involved actual or threatened or serious injury, or a threat to the physical integrity of self or others B. The traumatic event is persistently reexperienced in one (or more) of the following ways: - Recurrent and intrusive distressing recollections of the event, including images, thoughts, or perceptions. Note: In young children, repetitive play may occur in which themes or aspects of the trauma are expressed. - Recurrent distressing dreams of the event. Note: In children, there may be frightening dreams without recognizable content. - Intense psychological distress at exposure to internal or external cues that symbolize or resemble an aspect of the traumatic event. C. Persistent avoidance of stimuli associated with the trauma and numbing of general responsiveness (not present before the trauma), as indicated by three (or more) of the following: - Markedly diminished interest or participation in significant activities. - Feeling of detachment or estrangement from others. - Sense of a foreshortened future (e.g., does not expect to have a career, marriage, children, or anormal life span). D. Persistent symptoms of increased arousal (not present before the trauma), as indicated by two (ormore) of the following: - Difficulty falling or staying asleep. - Irritability or outbursts of anger. E. Duration of the disturbance is more than 1 month. F. The disturbance causes clinically significant distress or impairment in social, occupational, or other important areas of functioning. Functional Status: Patient reports the following functional impairments: childcare / parenting, health maintenance and work / vocational responsibilities. Nonprogrammatic care: Patient is requesting basic services to address current mental health concerns. Clinical Summary: 1. Reason for assessment: Parenting challenges, housing problem, stressful filial relationship with mother and childhood traumas . 2. Psychosocial, Cultural and Contextual Factors: stressful relationship with mother/ housing/ parenting . 3. Principal DSM5 Diagnoses (Sustained by DSM5 Criteria Listed Above): 296.32 (F33.1) Major Depressive Disorder, Recurrent Episode, Moderate _ and With atypical features 300.02 (F41.1) Generalized Anxiety Disorder 309.81 (F43.10) Posttraumatic Stress Disorder (includes Posttraumatic Stress Disorder for Children 6Years and Younger) With delayed expression. 4. Other Diagnoses that is relevant to services: None at this time. 5. Provisional Diagnosis: 300.01 (F41.0) Panic Disorder as evidenced by reported Palpitations, Shortness of breath, Numbness and Sense of impending doom . 6. Prognosis: Expect Improvement. 7. Likely consequences of symptoms if not treated: Current condition could deteriorate causing adverse health problems with a negative impact on pt's psychosocial functioning. 8. Client strengths include: caring, employed, goal-focused, good listener, motivated and responsible parent . Recommendations: 1. Plan for Safety and Risk Management: Safety and Risk: Recommended that patient call 911 or go to the local ED should there be a change in any of these risk factors.. Report to child / adult protection services was NA. 2. Patient's identified NA. 3. Initial Treatment will focus on: Anxiety - with focus cognitive distortion and utilisng stress reduction skills. 4. Resources/Service Plan: Crib Tender services are not indicated. Modifications to assist communication are not indicated. Additional disability accommodations are not indicated. 5. Collaboration: Collaboration / coordination of treatment will be initiated with the following support professionals: None at this time. 6. Referrals: The following referral(s) will be initiated: NA. Next Scheduled Appointment: 04/02. A Release of Information has been obtained for the following: NA. Emergency Contact Erin: [phone] was obtained. 7. SANAM: SANAM: Discussed the general effects of drugs and alcohol on health and well-being. 8. Records: These were reviewed at time of assessment. Information in this assessment was obtained from the medical record and provided by patient who is a good historian. Patient will have open access to their mental health medical record. Provider Name/ Credentials: JULISSA Glynn March 19, 2022 ----- Service Performed and Documented by [facility]------ This note was reviewed and clinical supervision by FRANDY Jay [facility] 03/24/2022 documented in this encounter Plan of Treatment Not on filedocumented as of this encounter Visit Diagnoses Diagnosis BINTA (generalized anxiety disorder) - Jemma wagner Generalized anxiety disorder Major depressive disorder, recurrent epi sode, moderate with atypical features (H) PTSD (post-traumatic stress disorder) Posttraumatic stress disorder documented in this encounter Additional Health Concerns Assessment Noted Time PHQ-9 Depression Total Score: 11 02/27/2022 9:09 AM CD T documented as of this encounter Care Teams Lumpia Wrapper Maker Relationship Specialty Start Date End Date Clinic, [facility] PCP - General 11/20/21 [place] [address] [place] [phone] Enrique Saenz MD Cardiovascular Disease 02/27/22 MD Ryan [address] [place] [address] Pat Chavez, Assigned Neuroscience 03/01/22 [facility] Provider [address] [place] [address] [phone] documented as of this encounter
--- OUTSIDE RECORDS SUMMARY | 2022-08-12 22:21 | XMS_ITS | Encounter Summary ---
:1975 Author Organization [place] Address [address] [place] [address] Care Team Providers Name Role Phone Clinic, [facility] Primary Care Provider + [phone] Enrique Saenz MD Unavailable [phone] Glendy Brush Unavailable Pat Chavez PA-C Unavailable Reason for Visit Rehab Therapy Cardiac Therapy (Routine: Next available opening) - Authorized Specialty Diagnoses / Procedures Referred By Contact Refer red To Contact CARDIAC REHAB Diagnoses Mild intermittent asthma with exacerbation Post-COVID chronic dyspnea [address] [place] [place] [address] Phone: Referral ID Status Reason Start Date Expiration Date Visits V isits Requested Authorized [id number] Authorized 02/28/2022 08/30/2022 365 365 Encounter Details Date Type Department Care Team Description 05/08/2022 Hospital Encounter [facility] Pat Chavez PA-C [address] [place] [address] Cardiac and Pulmonary 1, [facility] [address] [place] [address] Social History Tobacco Use Types Packs/Day Years Used Date Smoking Tobacco: Never Smokeless Tobacco: Never Sex Assigned at Date Recorded Not on file COVID-19 Exposure Response Date Recorded In the last 10 days, have you been in contact with No / Unsu re 05/08/2022 2:25 PM CDT someone who was confirmed [...] documented as of this encounter Care Teams Travel Guide Relationship Specialty Start Date End Date Bernadette De La Paz PCP - General 11/20/21 [facility] [address] [place] [address] Enrique Saenz MD Cardiovascular Disease 02/27/22 MD Ryan [address] [place] [address] Glendy Brush, Cardiac Rehabilitation 03/25/22 03/25/23 EP Therapist [place] [address] YARI [place]INEZ [id number] Pat Chavez, Assigned Neuroscience 03/01/22 LAYLA Provider [address] [place] [id number] documented as of this encounter
--- OUTSIDE RECORDS SUMMARY | 2022-08-12 22:21 | XMS_ITS | Encounter Summary ---
:1975 Author Organization [place] Address [facility] [place] [address] Care Team Providers Name Role Phone [facility] Primary Care Provider + [phone] Enrique Saenz MD Unavailable [phone] Glendy Brush Unavailable Pat Chavez PA-C Unavailable Encounter Details Date Type Department Care Team Description 05/01/2022 Travel Social History Tobacco Use Types Packs/Day Years Used Date Smoking Tobacco: Never Smokeless Tobacco: Never Sex Assigned at Date Recorded Not on file COVID-19 Exposure Response Date Recorded In the last 10 days, have you been in contact with No / Unsu re 05/01/2022 2:23 PM CDT someone who was confirmed or suspected to have Coronavirus/COVID-19? documented as of this encounter Plan of Treatment Not on filedocumented as of this encounter Visit Diagnoses Not on filedocumented in this encounter Additional Health Concerns Assessment Noted Time PHQ-9 Depression Total Score: 11 02/27/2022 9:09 AM CD T documented as of this encounter Care Teams Olive Packer Relationship Specialty Start Date End Date [facility] PCP - General 11/20/21 [facility] [address] [place] [phone] Enrique Saenz MD Cardiovascular Disease 02/27/22 MD Ryan [address] [place] [address] Glendy Brush, Cardiac Rehabilitation 03/25/22 03/25/23 EP Therapist [place] [address] YARI MARTINEZ [id number] Pat Chavez, Assigned Neuroscience 03/01/22 PA-C Provider [address] [place] [address] documented as of this encounter
--- OUTSIDE RECORDS SUMMARY | 2022-08-12 22:21 | XMS_ITS | Encounter Summary ---
:1975 Author Organization [place] Address [address] [place] [address] Care Team Providers Name Role Phone Clinic, [facility] Primary Care Provider + [phone] Enriqeu Saenz MD Unavailable [phone] Glendy Brush Unavailable Pat Chavez PA-C Unavailable Reason for Visit Rehab Therapy Cardiac Therapy (Routine: Next available opening) - Authorized Specialty Diagnoses / Procedures Referred By Contact Refer red To Contact CARDIAC REHAB Diagnoses Mild intermittent asthma with exacerbation Post-COVID chronic dyspnea [address] [place] [address] Phone: Referral ID Status Reason Start Date Expiration Date Visits V isits Requested Authorized [id number] Authorized 02/28/2022 08/30/2022 365 365 Encounter Details Date Type Department Care Team Description 04/08/2022 Hospital Encounter [facility] Pat Chavez PA-C [address] [place] [address] Cardiac and Pulmonary 1, Rh Pulmonary Rehab Rehabilitation [address] [place] [address] Social History Tobacco Use Types Packs/Day Years Used Date Smoking Tobacco: Never Smokeless Tobacco: Never Sex Assigned at Date Recorded Not on file COVID-19 Exposure Response Date Recorded In the last 10 days, have you been in contact with No / Unsu re 04/08/2022 2:22 PM CDT someone who was confirmed or [...] documented as of this encounter Care Teams Contract Consultant Relationship Specialty Start Date End Date Bernadette De La Paz PCP - General 11/20/21 [facility] [address] [place] [address] Enrique Saenz MD Cardiovascular Disease 02/27/22 MD Ryan [address] [place] [address] Glendy Brush, Cardiac Rehabilitation 03/25/22 03/25/23 EP Therapist [place] [address] YARI MARTINEZ [id number] Pat Chavez, Assigned Neuroscience 03/01/22 LAYLA Provider [address] [place] [address] [id number] documented as of this encounter
--- OUTSIDE RECORDS SUMMARY | 2022-08-12 22:21 | XMS_ITS | Encounter Summary ---
:1975 Author Organization [place] Address [address] [place] [address] Care Team Providers Name Role Phone Clinic, [facility] Primary Care Provider + [phone] Enrique Saenz MD Unavailable [phone] Glendy Brush Unavailable Pat Chavez PA-C Unavailable Reason for Visit Rehab Therapy Cardiac Therapy (Routine: Next available opening) - Authorized Specialty Diagnoses / Procedures Referred By Contact Refer red To Contact CARDIAC REHAB Diagnoses Mild intermittent asthma with exacerbation Post-COVID chronic dyspnea [address] [place] [address] Phone: Referral ID Status Reason Start Date Expiration Date Visits V isits Requested Authorized [id number] Authorized 02/28/2022 08/30/2022 365 365 Encounter Details Date Type Department Care Team Description 05/01/[address] [facility] Pat Chavez PA-C [address] [place] [address] Cardiac and Pulmonary 1, Rh Pulmonary Rehab Rehabilitation [address] [place] [address] Social History Tobacco Use Types [...] documented as of this encounter Care Teams Rate Marker Relationship Specialty Start Date End Date Bernadette De La Paz PCP - General 11/20/21 [facility] [address] [place] [address] Enrique Saenz MD Cardiovascular Disease 02/27/22 MD Ryan [address] [place] [address] Glendy Brush, Cardiac Rehabilitation 03/25/22 03/25/23 EP Therapist [place] [address] YARI MARTINEZ [phone] Pat Chavez, Assigned Neuroscience 03/01/22 LAYLA Provider [address] [place] [address] [id number] documented as of this encounter
--- OUTSIDE RECORDS SUMMARY | 2022-08-12 22:21 | XMS_ITS | Encounter Summary ---
:1975 Author Organization [place] Address [facility] [place] [address] Care Team Providers Name Role Phone [facility] Primary Care Provider + [phone] Enrique Saenz MD Unavailable [phone] Glendy Brush Unavailable Pat Chavez PA-C Unavailable Encounter Details Date Type Department Care Team Description 04/22/2022 Travel Social History Tobacco Use Types Packs/Day [...] documented as of this encounter Care Teams Gunstock Spray Unit Adjuster Relationship Specialty Start Date End Date [facility] PCP - General 11/20/21 [facility] [address] [place] [phone] Enrique Saenz MD Cardiovascular Disease 02/27/22 MD Ryan [address] [place] [address] Glendy Brush, Cardiac Rehabilitation 03/25/22 03/25/23 EP Therapist [place] [address] YARI MARTINEZ [id number] Pat Chavez, Assigned Neuroscience 03/01/22 PA-C Provider [address] [place] [address] documented as of this encounter
--- OUTSIDE RECORDS SUMMARY | 2022-08-12 22:21 | XMS_ITS | Encounter Summary ---
:1975 Author Organization [place] Address [address] [place] [address] Care Team Providers Name Role Phone [facility] Primary Care Provider + [phone] Enrique Saenz MD Unavailable [phone] Glendy Brush Unavailable Pat Chavez PA-C Unavailable Reason for Visit Rehab Therapy Cardiac Therapy (Routine: Next available opening) - Authorized Specialty Diagnoses / Procedures Referred By Contact Refer red To Contact CARDIAC REHAB Diagnoses Mild intermittent asthma with exacerbation Post-COVID chronic dyspnea [address] [place] [address] Phone: Referral ID Status Reason Start Date Expiration Date Visits V isits Requested Authorized [id number] Authorized 02/28/2022 08/30/2022 365 365 Encounter Details Date Type Department Care Team Description 04/16/2022 Hospital Encounter [facility] Cardiac Pat Chavez and Pulmonary LAYLA [facility] [address] [address] [place], [place] [address] Social History Tobacco Use Types Packs/Day Years Used Date Smoking Tobacco: Never Smokeless Tobacco: Never Sex Assigned at Date Recorded Not on file COVID-19 Exposure Response Date Recorded In the last 10 days, have you been in contact with No / Unsu re 04/16/2022 3:14 PM CDT someone who was confirmed or [...] anaphylaxis 2-pack documented as of this encounter Progress Notes Moon Dodd P, RD, LD - 04/16/2022 3:16 PM CDT NUTRITION ASSESSMENT & EDUCATION NOTE REASON FOR ASSESSMENT Crystal Garcia is a 46 year old female seen by Registered Dietitian for 1:1 Pulmonary Rehab consult NUTRITION HISTORY ?? Information obtained from patient ?? Patient has been instructed to follow no diet in general ?? Previous diet education: none ?? Patient has attended no nutrition classes offered by cardiac rehab ?? Nutrition-related goals: healthy weight loss ?? Grocery shopping, cooking: no time to cook (no set time to eat) OR daughter ?? Frequency of eating out: 2-3 per week ?? Economic factors: (if any) patient has three jobs WORK SCHEDULE: 4:30AM-9:30AM; 10:30AM-3:30PM; 4:30PM-9:30PM Typical intake as follows: - first meal --> 3:30 PM: rice, tortillas, chicken OR other meat - Snacks: banana, vending machine (crackers), enjoys sweets - Fluids: water - just started drinking more water, coffee ?? Changes to diet since cardiac event: drinking more water ?? Barriers to dietary changes: work schedule NUTRITION DIAGNOSIS Food- and nutrition- related knowledge deficit related to general healthful nutrition as evidenced by pt without any formal education on the aforementioned diet INTERVENTIONS Nutrition Prescription: General Healthy Diet Emphasis on plate method for balanced meals Implementation ??? Assessed learning needs and learning preference. ??? Nutrition Education (Content): a) Provided handouts: a. General Healthful Nutrition Therapy b. MyPlate for Meal Planning c. Website info for Choose My Plate ??? Discussed healthy diet recommendations, including balanced meals TID, at least two food groups per snack ??? Nutrition Education (Application): a) Discussed eating habits and recommended alternative food choices: a. Emphasized fruits, vegetables, low sodium nuts/heart healthy fats, fish, low fat dairy b. Reviewed recipes and new food ideas --> encouraged quick options for ease of planning/preparing meals (lean deli meats, low fat cheese, cottage cheese, whole grain crackers, cut up fruits and vegetables, hummus, bulgarian yogurt, overnight oats) c. Encouraged water d. Discussed the importance of sleep and reducing stress Goals/Follow up/Monitoring For Cardiac Rehab Staff ?? Adherence to nutrition related recommendations, follow with cardiac rehab ?? Pt to include 3 meals per day, currently only having 1 plus snacks ?? Additional questions/concerns related to heart healthy guidelines Moon Dodd RD, LD Clinical Dietitian [facility] Cardiac and Pulmonary Rehab Office: [phone] DIRECT PATIENT CARE TIME: 30 MINUTES documented in this encounter Plan of Treatment Not on filedocumented as of this encounter Visit Diagnoses Not on filedocumented in this encounter Additional Health Concerns Assessment Noted Time PHQ-9 Depression Total Score: 11 02/27/2022 9:09 AM CD T documented as of this encounter Care Teams Light Adjuster Relationship Specialty Start Date End Date Bernadette De La Paz PCP - General 11/20/21 [facility] [address] [place] [address] Enrique Saenz MD Cardiovascular Disease 02/27/22 MD Ryan [address] [place] [address] [phone] Glendy Brush, Cardiac Rehabilitation 03/25/22 03/25/23 EP Therapist [place] [address] [place] [id number] Pat Chavez, Assigned Neuroscience 03/01/22 PA-C Provider [address] [place] [address] documented as of this encounter
--- OUTSIDE RECORDS SUMMARY | 2022-08-12 22:21 | XMS_ITS | Encounter Summary ---
:1975 Author Organization [place] Address [facility] [place] [address] Care Team Providers Name Role Phone Ana Cristina [facility] Primary Care Provider + [phone] Enrique Saenz MD Unavailable [phone] Glendy Brush Unavailable Pat Chvaez PA-C Unavailable Encounter Details Date Type Department Care Team Description 05/09/2022 [facility] Voice Sa julia Zepeda, AUTO FORMER MACHINE OPERATOR [phone] [place] [address] [place] [phone] Social History Tobacco Use Types Packs/Day [...] documented as of this encounter Care Teams Airport Electrician Relationship Specialty Start Date End Date Bernadette De La Paz PCP - General 11/20/21 [facility] [address] [place] [address] Enrique Saenz MD Cardiovascular Disease 02/27/22 MD Ryan [address] [place] [address] [phone] Glendy Brush, Cardiac Rehabilitation 03/25/22 03/25/23 EP Therapist [place] [address] [place] [id number] Pat Chavez, Assigned Neuroscience 03/01/22 PA-C Provider [address] [place] [address] documented as of this encounter
--- OUTSIDE RECORDS SUMMARY | 2022-08-12 22:21 | XMS_ITS | Encounter Summary ---
:1975 Author Organization [place] Address formerly [facility] [place] [address] Care Team Providers Name Role Phone [facility] Primary Care Provider + [phone] Enrique Saenz MD Unavailable [phone] Glendy Brush Unavailable Pat Chavez PA-C Unavailable Encounter Details Date Type Department Care Team Description 04/17/2022 Travel Social History Tobacco Use Types Packs/Day [...] documented as of this encounter Care Teams Clothes Model Relationship Specialty Start Date End Date [facility] PCP - General 11/20/21 [facility] [address] [place] [phone] Enrique Saenz MD Cardiovascular Disease 02/27/22 MD Ryan [address] [place] [address] Glendy Brush, Cardiac Rehabilitation 03/25/22 03/25/23 EP Therapist [place] [address] YARI MARTINEZ [id number] Pat Chavez, Assigned Neuroscience 03/01/22 PA-C Provider [address] [place] [address] documented as of this encounter
--- OUTSIDE RECORDS SUMMARY | 2022-08-12 22:21 | XMS_ITS | Encounter Summary ---
:1975 Author Organization [place] Address [facility] [place] [address] Care Team Providers Name Role Phone [facility] Primary Care Provider + [phone] Enrique Saenz MD Unavailable [phone] Pat ChavezC Unavailable Reason for Visit Reason Comments Shortness of Breath Auth/Cert Specialty Diagnoses / Procedures Referred By Contact Refer red To Contact Med Surg Diagnoses Acute respiratory failure with hypoxia (H) Intermittent asthma with status asthmaticus, unspecified asthma severity Intermittent asthma with status asthmaticus, unspecified asthma severity Acute respiratory failure with hypoxia (H) [facility] [address] [place], [place] [address] Phone: Fax: Referral ID Status Reason Start Date Expiration Date Visits Requ ested Visits Authorized [id number] 1 1 Encounter Details Date Type Department Care Team Description 03/07/2022 - [facility] Juan Case DO [facility] [address] [place] [place] [id number] Elevated blood pressure reading without diagnosis of hypertension (Primary Dx); 03/08/2022 Encounter [place] [facility] Shellie Maurer MD [facility] [address] [place] [address] Intermittent asthma with status asthmati cus, unspecified asthma severity; Surgical John Concepcion MD [facility] [address] [place] [address] Acute respiratory failure with hypoxia ( H); [address] Carlitos Aiken MD [address] [place] [address] Severe persistent asthma with exacerbati on; Blvd Anaphylaxis, [place] [address] Social History Tobacco Use Types Packs/Day Years Used Date Smoking Tobacco: Never Smokeless Tobacco: Never Sex Assigned at Date Recorded Not on file COVID-19 Exposure Response Date Recorded In the last 10 days, have you been in contact with No / Unsu re 03/07/2022 5:53 AM CDT someone who was confirmed or suspected to have Coronavirus/COVID-19? documented as of this encounter Last Filed Vital Signs Vital Sign Reading Time Taken Comments Blood Pressure 131/80 03/08/2022 8:06 AM CDT Pulse 92 03/08/2022 8:06 AM CDT Temperature 36.9 ??C (98.5 ??F) 03/08/2022 8:06 AM CDT Respiratory Rate 18 03/08/2022 8:06 AM CDT Oxygen Saturation 93% 03/08/2022 8:06 AM CDT Inhaled Oxygen Concentration - - Weight 86 kg (189 lb 8 oz) 03/07/2022 7:41 PM CDT Height - - Body Mass Index 31.53 02/23/2022 6:57 PM CDT documented in this encounter Discharge Summaries Florin Hahn MD - 03/08/2022 10:36 AM CDT [facility] Hospitalist Discharge Summary Date of Admission: 03/07/2022 Date of Discharge: 03/08/2022 Discharging Provider: Florin Hahn MD Discharge Service: Hospitalist Service Discharge Diagnoses ??? Acute hypoxic respiratory failure due to acute asthma exacerbation. Follow-ups Needed After Discharge Follow-up Appointments Follow-up and recommended labs and tests Follow up with primary care provider, [facility] 7 days for hospital follow- up. No follow up labs or test are needed. Discharge Disposition Discharged to home Condition at discharge: Stable Hospital Course 46-year-old female with history of bronchial asthma and prior ICU hospitalization for exacerbations who presented with increasing shortness of breath, coughing spells and wheezing. She initially required noninvasive positive pressure ventilation secondary to acute hypoxic respiratory failure. Now she has been weaned off oxygen. We will discharge her with steroid burst. She has Breo at home and will change to Symbicort that is covered by her insurance better. Follow-up with primary doctor and pulmonary as an outpatient. Consultations This Hospital Stay PULMONARY IP CONSULT CARE MANAGEMENT / SOCIAL WORK IP CONSULT Code Status Full Code Time Spent on this Encounter I, Florin Hahn MD, personally saw the patient today and spent less than or equal to 30 minutes discharging this patient. Florin Hahn MD [address] SURGICAL [address] [facility] [address] Physical Exam Vital Signs: Temp: 98.5 ??F (36.9 ??C) Temp src: Oral BP: 131/80 Pulse: 92 Resp: 18 SpO2: 93 % O2 Device: None (Room air) Oxygen Delivery: (S) 1 LPM Weight: 189 lbs 8 oz General Appearance: In no acute distress. Eyes: No icterus HEENT: Moist mucosa Respiratory: Clear to auscultation Cardiovascular: S1 is normal GI: Soft and nontender Lymph/Hematologic: Not examined Genitourinary: Not examined Skin: No rash Musculoskeletal: No edema Neurologic: Nonfocal Psychiatric: Normal mood Primary Care Physician [facility] [place] Orders Reason for your hospital stay Asthma exacerbation Follow-up and recommended labs and tests Follow up with primary care provider, [facility] within 7 days for hospital follow- up. No follow up labs or test are needed. Activity Your activity upon discharge: activity as tolerated Diet Follow this diet upon discharge: Orders Placed This Encounter Regular Diet Adult Significant Results and Procedures Most Recent 3 CBC's:Recent Labs Lab Test 03/07/22 0556 02/23/222 11/20/21 1651 WBC 10.7 11.8* 13.1* HGB 12.4 12.6 13.3 MCV 98 95 96 PLT 336 343 356 Most Recent 3 BMP's:Recent Labs Lab Test 03/07/22 0556 02/23/222 11/20/21 1651 NA 140 141 138 POTASSIUM 3.6 3.4 3.4 CHLORIDE 108 109 110* CO2 25 25 25 BUN 19 20 21 CR 0.61 0.84 0.63 ANIONGAP 7 7 3 GABINO 8.3* 8.4* 9.2 GLC 143* 146* 107* Most Recent 2 LFT's:No lab results found., Results for orders placed or performed during the hospital encounter of 03/07/22 XR Chest Port 1 View Narrative EXAM: XR CHEST PORT 1 VIEW LOCATION: [facility] DATE/TIME: 03/07/2022 6:02 AM INDICATION: SOB COMPARISON: None. Impression IMPRESSION: Negative chest. Discharge Medications Current Discharge Medication List START taking these medications Details budesonide-formoterol (SYMBICORT) 160-4.5 MCG/ACT Inhaler Inhale 2 puffs into the lungs daily Qty: 10 g, Refills: 3 Associated Diagnoses: Severe persistent asthma with exacerbation CONTINUE these medications which have CHANGED Details albuterol (PROAIR HFA/PROVENTIL HFA/VENTOLIN HFA) 108 (90 Base) MCG/ACT inhaler Inhale 2 puffs into the lungs every 6 hours Qty: 18 g, Refills: 11 Comments: Pharmacy may dispense brand covered by insurance (Proair, or proventil or ventolin or generic albuterol inhaler) Associated Diagnoses: Anaphylaxis, initial encounter predniSONE (DELTASONE) 20 MG tablet Take 2 tablets (40 mg) by mouth daily for 5 days Qty: 10 tablet, Refills: 0 Associated Diagnoses: Intermittent asthma with status asthmaticus, unspecified asthma severity CONTINUE these medications which have NOT CHANGED Details albuterol (PROVENTIL) (2.5 MG/3ML) 0.083% neb solution Take 1 vial (2.5 mg) by nebulization every 6 hours as needed for shortness of breath / dyspnea or wheezing Qty: 30 mL, Refills: 0 Associated Diagnoses: Severe persistent asthma with exacerbation EPINEPHrine (ANY BX GENERIC EQUIV) 0.3 MG/0.3ML injection 2-pack Inject 0.3 mLs (0.3 mg) into the muscle once as needed for anaphylaxis Qty: 0.6 mL, Refills: 0 STOP taking these medications fluticasone-vilanterol (BREO ELLIPTA) 200-25 MCG/INH inhaler Comments: Reason for Stopping: ipratropium - albuterol 0.5 mg/2.5 mg/3 mL (DUONEB) 0.5-2.5 (3) MG/3ML neb solution Comments: Reason for Stopping: Allergies Allergies Allergen Reactions ??? Penicillins documented in this encounter Medications at Time of Discharge Medication Sig Dispensed Refills Start Date End Date albuterol (PROAIR Inhale 2 puffs into 18 g 11 2 HFA/PROVENTIL the lungs every 6 HFA/VENTOLIN HFA) 108 hours (90 Base) MCG/ACT inhalerIndications: Anaphylaxis, initial encounter albuterol (PROVENTIL) Take 1 vial (2.5 mg) 30 mL 0 02/28 (2.5 MG/3ML) 0.083% neb by nebulization every solutionIndications: 6 hours as needed for Severe persistent shortness of breath / asthma with dyspnea or wheezing exacerbation budesonide-formoterol Inhale 2 puffs into 10 g 3 03/08 (SYMBICORT) 160-4.5 the lungs daily MCG/ACT InhalerIndications: Severe persistent asthma with exacerbation EPINEPHrine (ANY BX Inject 0.3 mLs (0.3 0.6 mL 0 022 GENERIC EQUIV) 0.3 mg) into the muscle MG/0.3ML injection once as needed for 2-pack anaphylaxis predniSONE (DELTASONE) Take 2 tablets (40 mg) 10 tablet 0 0 03/08/2022 03/13/2022 20 MG by mouth daily for 5 tabletIndications: days Intermittent asthma with status asthmaticus, unspecified asthma severity documented as of this encounter Progress Notes John Knapp, RT - 03/07/2022 6:16 AM CDT A BiPAP of 8/4 @ 30% was applied to the pt via the mask for an increase in WOB and/or SOB. The bridge of the nose is clean and dry. Pt is tolerating it well. Will continue to monitor and assess the pt's current respiratory status and needs. RT David on 03/07/2022 at 6:17 AM documented in this encounter H&P Notes Carlitos Wang MD - 03/07/2022 12:48 PM CDT [facility] History and Physical - Hospitalist Service Date of Admission: 03/07/2022 Assessment & Plan Crystal Garcia is a 46 year old female with known history of bronchial asthma, prior ICU hospitalization last year for asthma exacerbation, non-smoker, compliant with her long-term inhaler, who was inher usual state of health until earlier this morning when she started having increasing symptomatology of shortness of breath, coughing spells accompanied with wheezing. Problem list: #1 acute hypoxic respiratory failure initially requiring NIPPV support secondary to acute asthma andexacerbation #2 history of of bronchial asthma -Admit as inpatient. At risk for clinical deterioration. I agree that she is no longer requiring intensive care unit setting hospitalization. Fortunately she was titrated and discontinued on NIPPV -Continue oxygen support as able. Titrate as needed -We will continue IV corticosteroids for today. Consider rapid taper the next day. -I do not see any indications for antibiotics coverage -She mentioned that she is compliant with her long-term inhalers. She was seen by pulmonary service last year. Unfortunately she was not seen yet as outpatient follow-up. I will request formal pulmonary service evaluation during his hospitalization. -May have regular diet if continues to improve. Diet: Regular DVT Prophylaxis: Pneumatic Compression Devices and Ambulate every shift Ceballos Catheter: Not present Central Lines: None Cardiac Monitoring: None Code Status: Full code Clinically Significant Risk Factors Present on Admission # Obesity: Estimated body mass index is 30.45 kg/m?? as calculated from the following: Height as of 02/23/22: 1.651 m (5' 5). Weight as of this encounter: 83 kg (183 lb). Disposition Plan anticipating she will be requiring inpatient care at least in the next 24 to 36 hours The patient's care was discussed with the Patient. Carlitos Wang MD, MD Hospitalist Service [facility] Securely message with the [employer] Console (learn more here) Text page via [employer] Paging/Directory Chief Complaint Increasing shortness of breath History is obtained from the patient History of Present Illness Crystal Garcia is a 46 year old female with known history of bronchial asthma, prior ICU hospitalization last year for asthma exacerbation, non-smoker, compliant with her long-term inhaler, who was inher usual state of health until earlier this morning when she started having increasing symptomatology of shortness of breath, coughing spells accompanied with wheezing. Fortunately no passing out spells and denies any nausea, vomiting, bleeding tendencies, chills, abdominal pain. No mental status changes as well. She used her rescue inhalers that did not provide much relief of symptoms that promptedher to seek medical attention via EMS personnel. Upon initial evaluation she was found to be in distress and subsequently brought to the hospital for further evaluation and care. During her initial stay in the ED she was placed on bilevel PAP support, given with corticosteroids and continuous breathing treatments. Initial cardiac enzymes were negative, lactic acid was normal, bmp was normal. Initial plans for admission to intensive care unit setting due to respiratory failure needing BiPAP support. Case was discussed with [facility] ICU due to unavailability of beds she was not subsequentlytransferred right away. Fortunately her in clinical condition continues to improve. Emergency room and her BiPAP support was switched to oxygen mask and currently Ms. Rojas continues to demonstrate clinical improvement and was able to talk to me in full good sentences during my encounter. She endorses no other new complaints at that time. Review of Systems The 10 point Review of Systems is negative other than noted in the HPI or here. Past Medical History I have reviewed this patient's medical history and updated it with pertinent information if needed. As described above Past Surgical History I have reviewed this patient's surgical history and updated it with pertinent information if needed. No past surgical history on file. Social History I have reviewed this patient's social history and updated it with pertinent information if needed. Social History Tobacco Use ??? Smoking status: Never Smoker ??? 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 Does not have any family with smoke cigarettes Denies smoking marijuana, using or abusing heroine cocaine or any other illicit drugs. Family History No significant family history Prior to Admission Medications Prior to Admission Medications Prescriptions Last Dose Informant Patient Reported? Taking? EPINEPHrine (ANY BX GENERIC EQUIV) 0.3 MG/0.3ML injection 2-pack No No Sig: Inject 0.3 mLs (0.3 mg) into the muscle once as needed for anaphylaxis albuterol (PROAIR HFA/PROVENTIL HFA/VENTOLIN HFA) 108 (90 Base) MCG/ACT inhaler No No Sig: Inhale 2 puffs into the lungs every 6 hours albuterol (PROVENTIL) (2.5 MG/3ML) 0.083% neb solution No No Sig: Take 1 vial (2.5 mg) by nebulization every 6 hours as needed for shortness of breath / dyspnea or wheezing fluticasone-vilanterol (BREO ELLIPTA) 200-25 MCG/INH inhaler No No Sig: Inhale 1 puff into the lungs daily ipratropium - albuterol 0.5 mg/2.5 mg/3 mL (DUONEB) 0.5-2.5 (3) MG/3ML neb solution No No Sig: Take 1 vial (3 mLs) by nebulization every 6 hours as needed for shortness of breath / dyspnea or wheezing predniSONE (DELTASONE) 20 MG tablet No No Sig: Take two tablets (= 40mg) each day for 5 (five) days Facility-Administered Medications: None Allergies Allergies Allergen Reactions ??? Penicillins Physical Exam Vital Signs: Temp: 97.6 ??F (36.4 ??C) Temp src: Oral BP: (!) 123/94 Pulse: 87 Resp: 14 SpO2: 97 % O2 Device: BiPAP/CPAP Weight: 183 lbs 0 oz HEENT; Atraumatic, normocephalic, pinkish conjuctiva, pupils bilateral reactive Skin: warm and moist, no rashes Lymphatics: no cervical or axillary lymphandenopathy Lungs: Fair air entry, bilateral scattered wheezing in all lung aguirre, no crackles Heart: normal rate, normal rhythm, no rubs or gallops. Abdomen: normal bowel sounds, no tenderness, no peritoneal signs, no guarding Extremities: no deformities, no edema Neuro; follow commands, alert and oriented x3, spontaneous speech, coherent, moves all extremities spontaneously Psych; no hallucination, euthymic mood, not agitated Data Data reviewed today: I reviewed all medications, new labs and imaging results over the last 24 hours. I personally reviewed the EKG tracing showing I did not see any available EKG in [facility]. Recent Labs Lab 03/07/22 0556 WBC 10.7 HGB 12.4 MCV 98 PLT 336 NA 140 POTASSIUM 3.6 CHLORIDE 108 CO2 25 BUN 19 CR 0.61 ANIONGAP 7 GABINO 8.3* GLC 143* Most Recent 3 CBC's:Recent Labs Lab Test 03/07/22 0556 02/23/22191111/20/21 1651 WBC 10.7 11.8* 13.1* HGB 12.4 12.6 13.3 MCV 98 95 96 PLT 336 343 356 Most Recent 3 BMP's:Recent Labs Lab Test 03/07/22 0556 02/23/22191111/20/21 1651 NA 140 141 138 POTASSIUM 3.6 3.4 3.4 CHLORIDE 108 109 110* CO2 25 25 25 BUN 19 20 21 CR 0.61 0.84 0.63 ANIONGAP 7 7 3 GABINO 8.3* 8.4* 9.2 GLC 143* 146* 107* Most Recent 3 Troponin's:Recent Labs Lab Test 02/14/19 0029 TROPI <0.015 Most Recent 6 Bacteria Isolates From Any Culture (See EPIC Reports for Culture Details):No lab results found. Most Recent TSH and T4:No lab results found. Most Recent 6 glucoses:Recent Labs Lab Test 03/07/22 0556 02/23/22191111/20/21 1651 03/11/21 0820 03/11/21 0156 03/10/21 2114 GLC 143* 146* 107* 114* 156* 146* Most Recent Urinalysis:No lab results found. Most Recent ABG:Recent Labs Lab Test 03/07/22 0556 PH 7.30* Most Recent ESR & CRP:No lab results found. Recent Results (from the past 24 hour(s)) XR Chest Port 1 View Narrative EXAM: XR CHEST PORT 1 VIEW LOCATION: [facility] DATE/TIME: 03/07/2022 6:02 AM INDICATION: SOB COMPARISON: None. Impression IMPRESSION: Negative chest. documented in this encounter ED Notes Rose Pineda RN - 03/07/2022 3:30 PM CDT Switched pt from 3L oxymask to 3L NC. O2 maintained 96-97%. Pt denied increased work of breathing with change Shellie Maurer MD - 03/07/2022 11:19 AM CDT Patient is reassessed with initial plan to transfer to [facility], however no bed is available at that hospital and the patient is doing much better. She had a trial off of BiPAP and did well, and now is requiring 2 to 3 L of oxygen via nasal cannula with no distress at rest without hypoxia or significant respiratory distress. She becomes dyspneic with any movement or talking and therefore will still require admission but can be admitted here to a medical bed. I spoke with Dr. Wang who excepted the patient to his service. The patient felt comfortable this plan. All questions were answered prior to transfer of care. Disposition: The patient is admitted to the hospitalist service accepted by Dr. Wang. Diagnosis: (J45.22) Intermittent asthma with status asthmaticus, unspecified asthma severity (J96.01) Acute respiratory failure with hypoxia (H) Shellie Maurer MD 03/07/22 1122 Shahida Marcus RN - 03/07/2022 10:33 AM CDT [facility] ED Nurse Handoff Report Crystal Garcia is a 46 year old female ED Chief complaint: Shortness of Breath . ED Diagnosis: Final diagnoses: Intermittent asthma with status asthmaticus, unspecified asthma severity Acute respiratory failure with hypoxia (H) Allergies: Allergies Allergen Reactions ??? Penicillins Code Status: Full Code Activity level - Baseline/Home: Independent. Activity Level - Current: Independent. Lift room needed: No. Bariatric: No Residential Advisor Needed: No Isolation: No. Infection: Not Applicable. Vital Signs: Vitals: 03/07/22 0945 03/07/22 1000 03/07/22 1015 03/07/22 1030 BP: (!) 126/91 128/85 129/77 122/81 Pulse: 101 93 98 94 Resp: 16 18 15 18 Temp: TempSrc: SpO2: 100% 98% 97% 98% Weight: Cardiac Rhythm: , Pain level: Patient confused: No. Patient Falls Risk: Yes. Elimination Status: Has voided Patient Report - Initial Complaint: SOB. Focused Assessment: Arrived via EMS. Per EMS, pt was at work when sudden onset of difficulty breathing occurred. Hx of asthma Tests Performed: labs. Abnormal Results: . Treatments provided: Pt was initially placed on bipap with continuous neb, but has been weaned to oxymask. IVF, ABX, mag, solumedrol given. Family Comments: son at bedside OBS brochure/video discussed/provided to patient: N/A ED Medications: Medications albuterol (PROVENTIL) 60 mg in sodium chloride 0.9 % 32 mL continuous nebulization solution (15 mg/hr Nebulization New Bag 03/07/22629) budesonide (PULMICORT) neb solution 1 mg (1 mg Nebulization Given 03/07/22819) azithromycin 500 mg (ZITHROMAX) in 0.9% NaCl 250 mL intermittent infusion 500 mg (500 mg IntravenousNew Bag 03/07/22853) magnesium sulfate 2 g in water intermittent infusion (0 g Intravenous Stopped 03/07/22653) 0.9% sodium chloride BOLUS (0 mLs Intravenous Stopped 03/07/22853) albuterol (PROVENTIL) (2.5 MG/3ML) 0.083% neb solution (2.5 mg Given 03/07/22 0612) methylPREDNISolone sodium succinate (solu-MEDROL) injection 125 mg (125 mg Intravenous Given 03/07/22 0854) Drips infusing: No For the majority of the shift, the patient's behavior Green. Interventions performed were . Sepsis treatment initiated: No Patient tested for COVID 19 prior to admission: YES ED Nurse Name/Phone Number: Jessica SOLO, 10:33 AM RECEIVING UNIT ED HANDOFF REVIEW Above ED Nurse Handoff Report was reviewed: yes Reviewed by: Shahida Marcus, RN on March 07, 2022 at 3:44 PM Donna Osorio RN - 03/07/2022 6:02 AM CDT Arrived via EMS. Per EMS, pt was at work when sudden onset of difficulty breathing occurred. Hx of asthma. A&Ox4 Triage Assessment Row Name 03/07/22600 Triage Assessment (Adult) Airway WDL WDL Respiratory WDL Rhythm/Pattern, Respiratory shortness of breath [place] Coma Scale Best Eye Response 4-->(E4) spontaneous Best Motor Response 6-->(M6) obeys commands Best Verbal Response 5-->(V5) oriented Deepa Coma Scale Score 15 Thi Case DO - 03/07/2022 5:48 AM CDT History Chief Complaint: Shortness of Breath MAME Garcia is a 46 year old female with a history of asthma presenting with shortness of breath. Patient reports she works at [employer] and roughly around 4:30 AM developed sudden onset worsening dyspnea with associated wheezing. She denies any fever, chills, cough, chest pain, nausea, vomiting, abdominal pain diarrhea or other symptoms. She is COVID vaccinated. She reports this seems similar to prior asthma exacerbations. She denies a history of intubation. Of note she was recently evaluated in the ED for similar presentation. She underwent CT PE protocol at that point in time which was unremarkable. On EMS arrival she was notably hypoxic placed on nasal cannula and given 2 DuoNeb nebulizers in addition to an albuterol nebulizer. She was given 125 mg IV Solu-Medrol. ROS: Review of Systems Constitutional: Negative for chills and fever. Respiratory: Positive for shortness of breath. Negative for cough. Cardiovascular: Negative for chest pain. Gastrointestinal: Negative for abdominal pain, diarrhea, nausea and vomiting. All other systems reviewed and are negative. Allergies: Penicillins Medications: albuterol (PROAIR HFA/PROVENTIL HFA/VENTOLIN HFA) 108 (90 Base) MCG/ACT inhaler albuterol (PROVENTIL) (2.5 MG/3ML) 0.083% neb solution EPINEPHrine (ANY BX GENERIC EQUIV) 0.3 MG/0.3ML injection 2-pack fluticasone-vilanterol (BREO ELLIPTA) 200-25 MCG/INH inhaler ipratropium - albuterol 0.5 mg/2.5 mg/3 mL (DUONEB) 0.5-2.5 (3) MG/3ML neb solution predniSONE (DELTASONE) 20 MG tablet Past Medical History: Asthma Past Surgical History: No past surgical history on file. Family History: family history is not on file. Social History: reports that she has never smoked. She has never used smokeless tobacco. PCP: Clinic, [facility] Physical Exam Patient Vitals for the past 24 hrs: BP Temp Temp src Pulse Resp SpO2 Weight 03/07/22 0700 (!) 130/92 -- -- 94 20 98 % -- 03/07/22 0655 126/88 -- -- 92 19 98 % -- 03/07/22 0650 126/87 -- -- 89 19 98 % -- 03/07/22 0645 129/87 -- -- 92 20 99 % -- 03/07/22 0630 (!) 134/93 -- -- 88 26 97 % -- 03/07/22 0625 (!) 132/90 -- -- 92 23 97 % -- 03/07/22 0620 (!) 137/96 -- -- 90 21 97 % -- 03/07/22 0615 (!) 129/93 -- -- 90 24 98 % -- 03/07/22 0612 -- -- -- 91 21 97 % -- 03/07/22 0610 (!) 128/97 -- -- 89 24 97 % -- 03/07/22 0605 (!) 140/93 -- -- 90 30 99 % -- 03/07/22 0600 134/89 -- -- 93 29 99 % -- 03/07/22 0555 (!) 160/101 97.6 ??F (36.4 ??C) Oral 96 27 98 % -- 03/07/22 0554 -- -- -- -- -- -- 83 kg (183 lb) Physical Exam Nursing note and vitals reviewed. Constitutional: Well nourished. Moderate respiratory distress; on 10L Eyes: Conjunctiva normal. Pupils are equal, round, and reactive to light. ENT: Nose normal. Mucous membranes pink and moist. Neck: Normal range of motion. CVS: Normal rate, regular rhythm. Normal heart sounds. Pulmonary: Lungs with diffuse wheezing bilaterally; tachypnea, subcostal retractions GI: Abdomen soft. Nontender, nondistended. No rigidity or guarding. MSK: No calf tenderness or swelling. Neuro: Alert. Follows simple commands. Skin: Skin is warm and dry. Psychiatric: Anxious appearing Emergency Department Course ECG: ECG results from 03/07/22 EKG 12-lead, tracing only Value Systolic Blood Pressure Diastolic Blood Pressure Ventricular Rate 96 Atrial Rate 96 MO Interval 148 QRS Duration 78 QT 372 QTc 469 P [place] 80 R AXIS 21 T [place] 57 Interpretation ECG Sinus rhythm Nonspecific ST abnormality Abnormal ECG When compared with ECG of 23-FEB-2022 19:07, No significant change was found Confirmed by - EMERGENCY ROOM, PHYSICIAN ([id number]), subeditor CASEY WORLEY ([id number]) on 03/07/2022 6:40:58AM Imaging: XR Chest Port 1 View Final Result IMPRESSION: Negative chest. Report per radiology Laboratory: Labs Ordered and Resulted from Time of ED Arrival to Time of ED Departure BASIC METABOLIC PANEL - Abnormal Result Value Sodium 140 Potassium 3.6 Chloride 108 Carbon Dioxide (CO2) 25 Anion Gap 7 Urea Nitrogen 19 Creatinine 0.61 Calcium 8.3 (*) Glucose 143 (*) GFR Estimate >90 CBC WITH PLATELETS AND DIFFERENTIAL - Abnormal WBC Count 10.7 RBC Count 4.14 Hemoglobin 12.4 Hematocrit 40.5 MCV 98 MCH 30.0 MCHC 30.6 (*) RDW 14.0 Platelet Count 336 % Neutrophils 50 % Lymphocytes 38 % Monocytes 7 % Eosinophils 4 % Basophils 1 % Immature Granulocytes 0 NRBCs per 100 WBC 0 Absolute Neutrophils 5.4 Absolute Lymphocytes 4.1 Absolute Monocytes 0.7 Absolute Eosinophils 0.5 Absolute Basophils 0.1 Absolute Immature Granulocytes 0.0 Absolute NRBCs 0.0 ISTAT GASES LACTATE VENOUS POCT - Abnormal Lactic Acid POCT 1.8 Bicarbonate Venous POCT 25 O2 Sat, Venous POCT 30 (*) pCO2V Venous POCT 51 (*) pH Venous POCT 7.30 (*) pO2 Venous POCT 22 (*) TROPONIN I - Normal Troponin I High Sensitivity <3 INFLUENZA A/B & SARS-COV2 PCR MULTIPLEX - Normal Influenza A PCR Negative Influenza B PCR Negative RSV PCR Negative SARS CoV2 PCR Negative ISTAT HCG QUALITATIVE POCT - Normal HCG Qualitative POCT Negative Emergency Department Course: Reviewed: I reviewed nursing notes, vitals, past medical history and Care Everywhere Assessments: I obtained history and examined the patient as noted above. I rechecked patient Consults: 621 I spoke to die casting machine setter Dr. Perez at [facility] Interventions: Medications albuterol (PROVENTIL) 60 mg in sodium chloride 0.9 % 32 mL continuous nebulization solution (15 mg/hr Nebulization New Bag 03/07/22 0630) magnesium sulfate 2 g in water intermittent infusion (0 g Intravenous Stopped 03/07/22 0654) 0.9% sodium chloride BOLUS (1,000 mLs Intravenous New Bag 03/07/22 0606) albuterol (PROVENTIL) (2.5 MG/3ML) 0.083% neb solution (2.5 mg Given 03/07/22 0612) Disposition: The patient was discharged to home. Impression & Plan Medical Decision Making: Patient is a 46-year-old female with history of asthma presenting with acute onset dyspnea.. Patienttransition from nasal cannula to BiPAP immediately on arrival. She was initiated on continuous albuterol in addition to given IV magnesium. Chest x-ray without definitive pneumonia, fluid overload, widened mediastinum or pneumothorax. Labs without evidence to suggest underlying severe sepsis. Strong suspicion that patient's presentation is related to status asthmaticus. She reported significant symptom improvement while on BiPAP and no indication during my observation and no indication for further advanced airway support at this point time. EKG without STEMI; high sensitivity screening troponin negative, no reported active chest pain. Low clinical suspicion for ACS, PE or other serious cardiopulmonary process. The patient however is to benefit from ICU admission with trending of her oxygen needs at this point in time. Unfortunately there are no ICU beds available at [facility] today so she will needformal transfer. She was graciously accepted to [facility] ICU. Critical Care time: was 35 minutes for this patient excluding procedures. Diagnosis: ICD-10-CM 1. Intermittent asthma with status asthmaticus, unspecified asthma severity J45.22 2. Acute respiratory failure with hypoxia (H) J96.01 Discharge Medications: New Prescriptions No medications on file 03/07/2022 Thi Case DO McDonald, Lindsey E, DO 03/07/22 0718 documented in this encounter Miscellaneous Notes Plan of Care - Charmaine Ayala RN - 03/08/2022 1:21 PM CDT Goal Outcome Evaluation: Patient states she is ready for discharge. Per writers assessment, lungs have crackles. She continues to be SOB with walking to the bathroom. She continues to have a cough. States she is feeling betterthan when she came. Patient discharging to home. Medication changes discussed and patient stated unde rstanding. All belongings with patient. Discharge complete. Plan of Care - Jackie Garcia RN - 03/08/2022 6:51 AM CDT Pt A&Ox4. VSS, weaned to 2L of O2 via NC, O2 93%. LING. Denied pain. Up ad dionicio. LS clear w/ diminished bases. Infrequent dry cough. Solu-medrol given. Will cont POC. Plan of Care - Judie Peña RN - 03/07/2022 6:14 PM CDT Goal Outcome Evaluation: A/O x 4, VSS on 2 L NC 93- 95% O2 sat. Pt c/o headache; tylenol given with relief. LS diminished; denied chest pain. Up indep; regular diet. Pharmacy-Admission Medication History - Helen Solomon [facility] - 03/07/2022 1:39 PM CDT Admission medication history interview status for this patient is complete. See [facility] admission navigator for allergy information, prior to admission medications and immunization status. Medication history interview done, indicate source(s): Patient Medication history resources (including written lists, pill bottles, clinic record):[facility]: [place] Changes made to [employer] medication list: Added: None Changed: prednisone Reported as Not Taking: None Removed: albuterol nebs Actions taken by pharmacist (provider contacted, etc):None Additional medication history information:None Medication reconciliation/reorder completed by provider prior to medication history? N (Y/N) Prior to Admission medications Medication Sig Last Dose Taking? Auth Provider [place]eter End Date albuterol (PROAIR HFA/PROVENTIL HFA/VENTOLIN HFA) 108 (90 Base) MCG/ACT inhaler Inhale 2 puffs into the lungs every 6 hours 03/07/2022 at Unknown time Yes Roxana Carlos MD Yes fluticasone-vilanterol (BREO ELLIPTA) 200-25 MCG/INH inhaler Inhale 1 puff into the lungs daily 03/07/2022 at Unknown time Yes Roxana Carlos MD ipratropium - albuterol 0.5 mg/2.5 mg/3 mL (DUONEB) 0.5-2.5 (3) MG/3ML neb solution Take 1 vial (3 mLs) by nebulization every 6 hours as needed for shortness of breath / dyspnea or wheezing 03/07/2022 atUnknown time Yes Cuate Cota MD Yes predniSONE (DELTASONE) 10 MG tablet Take by mouth See Admin Instructions 02/22 started Prednisone taper: TAKE 4 TABLETS DAILY FOR 5 DAYS.THEN 2 TABS FOR 3 DAYS, THEN 1 TAB FOR 3 DAYS, THEN 0.5 TAB X 3 DAY 03/07 Pt had 2 more tabs to complete prednisone taper today 03/07/2022 at Unknown time Yes Unknown, Entered By History albuterol (PROVENTIL) (2.5 MG/3ML) 0.083% neb solution Take 1 vial (2.5 mg) by nebulization every 6 hours as needed for shortness of breath / dyspnea or wheezing Roxana Carlos MD Yes EPINEPHrine (ANY BX GENERIC EQUIV) 0.3 MG/0.3ML injection 2-pack Inject 0.3 mLs (0.3 mg) into the muscle once as needed for anaphylaxis Edwige Mills MD documented in this encounter Plan of Treatment Not on filedocumented as of this encounter Procedures Procedure Name Priority Date/Time Associated Comments Diagnosis XR CHEST PORT 1 VIEW STAT 03/07/2022 6:03 AM R esults for this CDT procedure are i n the results section. ISTAT HCG QUALITATIVE STAT 03/07/2022 6:01 AM Results for this POCT CDT procedure are in the results section. EXTRA GREEN TOP STAT 03/07/2022 5:57 AM Result s for this (LITHIUM HEPARIN) ON CDT procedu re are in ICE the results section. INFLUENZA A/B & STAT 03/07/2022 5:57 AM Result s for this SARS-COV2 PCR CDT procedure are in MULTIPLEX the results section. EXTRA HEPARINIZED STAT 03/07/2022 5:57 AM Resu lts for this SYRINGE CDT procedure are i n the results section. EXTRA TUBE STAT 03/07/2022 5:57 AM Results f or this CDT procedure are i n the results section. EXTRA RED TOP TUBE STAT 03/07/2022 5:57 AM Res ults for this CDT procedure are i n the results section. EXTRA BLUE TOP TUBE STAT 03/07/2022 5:57 AM Re sults for this CDT procedure are i n the results section. CBC WITH PLATELETS STAT 03/07/2022 5:56 AM Res ults for this AND DIFFERENTIAL CDT procedure a re in the results section. CBC WITH PLATELETS & STAT 03/07/2022 5:56 AM R esults for this DIFFERENTIAL CDT procedure are i n the results section. ISTAT GASES LACTATE STAT 03/07/2022 5:56 AM Re sults for this VENOUS POCT CDT procedure are i n the results section. TROPONIN I STAT 03/07/2022 5:56 AM Results f or this CDT procedure are i n the results section. BASIC METABOLIC PANEL STAT 03/07/2022 5:56 AM Results for this CDT procedure are i n the results section. EKG 12-LEAD, TRACING STAT 03/07/2022 5:53 AM R esults for this ONLY CDT procedure are i n the results section. documented in this encounter Results XR Chest Port 1 View (03/07/2022 6:03 AM CDT) Anatomical Region Laterality Modality Chest Digital Radiography Specimen (Source) Anatomical Collection Method Collection Time Re ceived Time Location / / Volume Laterality 03/07/2022 6:02 AM CDT Impressions 03/07/2022 6:31 AM CDT IMPRESSION: Negative chest. Narrative 03/07/2022 6:31 AM CDT EXAM: XR CHEST PORT 1 VIEW LOCATION: [facility] DATE/TIME: 03/07/2022 6:02 AM INDICATION: SOB COMPARISON: None. Procedure Note Aayush Ferraro MD - 03/07/2022Formattin g of this note might be different from the original. EXAM: XR CHEST PORT 1 VIEW LOCATION: [facility] DATE/TIME: 03/07/2022 6:02 AM INDICATION: SOB COMPARISON: None. IMPRESSION: Negative chest. Thi Case DO IMG DIAGNOSTIC IMAGING ORDER [place] iStat HCG Qualitative , POCT (03/07/2022 6:01 AM CDT) [facility] Method Time Signature HCG Negative Negative, 03/07/2022 [facility] Qualitative Indeterminate 6:13 AM CDT POC POCT Specimen Anatomical Collection Method Collection Time Receive d Time (Source) Location / / Volume Laterality Blood, venous BLOOD SPECIMEN / 03/07/2022 6:01 AM 03/2022 6:13 Unknown CDT AM CDT Thi Case DO LAB - BEAKER POCT Performing Organization Address City/[facility]/ZIP Code Phon e Number [place] [address] Care Lab [address] Lab (1st floor, no room number) Extra Green Top ([place] Heparin) ON ICE (03/07/2022 5:57 AM CDT) P athologist Signature Hold Specimen JI 03/07/2022 [facility] 7:18 AM CDT Specimen Anatomical Collection Method / Collection Time Recei binu Time (Source) Location / Volume Laterality Blood STRUCTURE OF RIGHT Venipuncture / 03/07/2022 5:57 07/03/2022 6:11 UPPER LIMB / Unknown AM CDT AM CDT Unknown Thi Case DO LAB - BLOOD ORDERABLES Performing Organization Address City/[facility]/ZIP Code Phon [place] [address] Care Lab [address] Lab (1st floor, no room number) Extra Heparinized Syringe (03/07/2022 5:57 AM CDT) athologist Signature Hold Specimen [facility] 03/07/2022 [facility] 7:18 AM CDT Specimen Anatomical Collection Method / Collection Time Recei binu Time (Source) Location / Volume Laterality Blood, venous STRUCTURE OF RIGHT Venipuncture / 03/07/2022 5:57 03/2022 6:10 UPPER LIMB / Unknown AM CDT AM CDT Unknown Thi Case DO LAB - BLOOD ORDERABLES Performing Organization Address City/[facility]/ZIP Code [place] [address] Care Lab [address] Lab (1st floor, no room number) Extra Red Top Tube (03/07/2022 5:57 AM CDT) athologist Signature Hold Specimen JIC 03/07/2022 [facility] 7:18 AM CDT Specimen Anatomical Collection Method / Collection Time Recei binu Time (Source) Location / Volume Laterality Blood STRUCTURE OF RIGHT Venipuncture / 03/07/2022 5:57 07/0 03/2022 6:12 UPPER LIMB / Unknown AM CDT AM CDT Unknown Thi Case DO LAB - BLOOD ORDERABLES Performing Organization Address City/[facility]/[place] [address] Care Lab [address] Lab (1st floor, no room number) Extra Blue Top Tube (03/07/2022 5:57 AM CDT) P athologist Signature Hold Specimen JIC 03/07/2022 LABORATORY 7:18 AM CDT Specimen Anatomical Collection Method / Collection Time Recei binu Time (Source) Location / Volume Laterality Blood STRUCTURE OF RIGHT Venipuncture / 03/07/2022 5:57 07/0 03/2022 6:11 UPPER LIMB / Unknown AM CDT AM CDT Unknown Thi Case DO LAB - BLOOD ORDERABLES Performing Organization Address City/[facility]/[place] [address] Care Lab [address] Lab (1st floor, no room number) Symptomatic; Unknown Influenza A/B & SARS-CoV2 (COVID-19) Virus PCR Multiplex Nasopharyngeal (03/07/2022 5:57 AM CDT) Analysis Performed At Patho logist Time Signature Influenza A Negative Negative 03/07/2022 LABORATORY PCR 7:11 AM CDT Influenza B Negative Negative 03/07/2022 LABORATORY PCR 7:11 AM CDT RSV PCR Negative Negative 03/07/2022 LABORATORY 7:11 AM CDT SARS CoV2 PCR Negative Negative 03/07/2022 LABORATORY 7:11 AM CDT Comment: NEGATIVE: SARS-CoV-2 (COVID-19) RNA not detected, presumed negative. Specimen Anatomical Location / Collection Method Collection Alfredo e Received Time (Source) Laterality / Volume Swab NASOPHARYNGEAL Non-blood 03/07/2022 5:57 03/07/2022 6:14 STRUCTURE / Unknown Collection / AM CDT AM CDT Unknown Narrative [facility] - 03/07/2022 7:11 AM CDT Testing was performed using the Xpert Xpress CoV2/Flu/RSV Assay on the [employer] GeneXpert Instrument. This test should be ordered for the detection of SARS-CoV-2 and influenza viruses in individuals who meet clinical and/or epidemiological cri teria. Test performance is unknown in asymptomatic patients. This test is for in vitro diagnostic use under the FDA EUA for laboratories certified under CLIA to p erform high or moderate complexity testi ng. This test has not been FDA cleared or approved. A negative result does not rule out the presence of PCR inhibitors in the specimen or target RNA in concentrat ion below the limit of detection for the assay. If only one viral target is positive but coinfection with multiple targets is suspected, the sample should be re-tested with another FDA cleared, approved , or authorized test, if coinfection wou ld change clinical management. This test was validated by the [facility]. These laboratories are certified under the Clinical Laboratory Improvement Amendments of 198 8 (CLIA-88) as qualified to perform high complexity laboratory testing. Thi Case DO LAB - MICRO GENERAL ORDERABL ES Performing Organization Address City/State/ZIP Code Phon [place] [id number] Care Lab [address] Lab (1st floor, no room number) (ABNORMAL) iStat Gases (lactate) venous, POCT (03/07/2022 5:56 AM CDT) [facility] Method Time Signature Lactic Acid POCT 1.8 <=2.0 03/07/2022 [facility] LAB[facility] Y mmol/L 6:13 AM CDT POC Bicarbonate 25 21 - 28 03/07/2022 [facility] Venous POCT mmol/L 6:13 AM CDT POC O2 Sat, Venous 30 (L) 94 - 100 03/07/2022 [facility] POCT % 6:13 AM CDT POC pCO2V Venous 51 (H) 40 - 50 03/07/2022 LABORATORY POCT mm Hg 6:13 AM CDT POC pH Venous POCT 7.30 (L) 7.32 - 03/07/2022 LABORATORY 7.43 6:13 AM CDT POC pO2 Venous POCT 22 (L) 25 - 47 03/07/2022 LABORATORY mm Hg 6:13 AM CDT POC Specimen Anatomical Collection Method Collection Time Receive d Time (Source) Location / / Volume Laterality Blood, venous BLOOD SPECIMEN / 03/07/2022 5:56 AM 07/0 03/2022 6:13 Unknown CDT AM CDT Thi E Case DO LAB - BEAKER POCT Performing Organization Address City/State/ZIP Code Phon e Number [place] [address] Care Lab [address] Lab (1st floor, no room number) (ABNORMAL) CBC with platelets and differential (03/07/2022 5:56 AM CDT) [facility] gist Method Time Signature WBC Count 10.7 4.0 - 03/07/2022 [facility] 11.0 6:20 AM CDT 10e3/uL RBC Count 4.14 3.80 - 03/07/2022 [facility] 5.20 6:20 AM CDT 10e6/uL Hemoglobin 12.4 11.7 - 03/07/2022 [facility] 15.7 g/dL 6:20 AM CDT Hematocrit 40.5 35.0 - 03/07/2022 [facility] 47.0 % 6:20 AM CDT MCV 98 78 - 100 03/07/2022 [facility] fL 6:20 AM CDT MCH 30.0 26.5 - 03/07/2022 [facility] 33.0 pg 6:20 AM CDT MCHC 30.6 (L) 31.5 - 03/07/2022 [facility] 36.5 g/dL 6:20 AM CDT RDW 14.0 10.0 - 03/07/2022 [facility] 15.0 % 6:20 AM CDT Platelet Count 336 150 - 450 03/07/2022 [facility] 10e3/uL 6:20 AM CDT % Neutrophils 50 % 03/07/2022 [facility] 6:20 AM CDT % Lymphocytes 38 % 03/07/2022 [facility] 6:20 AM CDT % Monocytes 7 % 03/07/2022 [facility] 6:20 AM CDT % Eosinophils 4 % 03/07/2022 [facility] 6:20 AM CDT % Basophils 1 % 03/07/2022 [facility] 6:20 AM CDT % Immature 0 % 03/07/2022 [facility] Granulocytes 6:20 AM CDT NRBCs per 100 0 <1 /100 03/07/2022 [facility] WBC 6:20 AM CDT Absolute 5.4 1.6 - 8.3 03/07/2022 [facility] Neutrophils 10e3/uL 6:20 AM CDT Absolute 4.1 0.8 - 5.3 03/07/2022 [facility] Lymphocytes 10e3/uL 6:20 AM CDT Absolute 0.7 0.0 - 1.3 03/07/2022 [facility] Monocytes 10e3/uL 6:20 AM CDT Absolute 0.5 0.0 - 0.7 03/07/2022 [facility] Eosinophils 10e3/uL 6:20 AM CDT Absolute 0.1 0.0 - 0.2 03/07/2022 [facility] Basophils 10e3/uL 6:20 AM CDT Absolute 0.0 <=0.4 03/07/2022 [facility] Immature 10e3/uL 6:20 AM CDT Granulocytes Absolute NRBCs 0.0 10e3/uL 03/07/2022 [facility] 6:20 AM CDT Specimen Anatomical Collection Method / Collection Time Recei binu Time (Source) Location / Volume Laterality Blood STRUCTURE OF RIGHT Venipuncture / 03/07/2022 5:56 07/0 03/2022 6:11 UPPER LIMB / Unknown AM CDT AM CDT Unknown Thi Case DO LAB - BLOOD ORDERABLES Performing Organization Address City/State/ZIP Code [place] [address] Care Lab [address] Lab (1st floor, no room number) Troponin I (03/07/2022 5:56 AM CDT) P athologist Signature Troponin I High <3 <54 ng/L 03/07/2022 [facility] Sensitivity 6:38 AM CDT Comment: This Troponin-I result was obta ined using a Siemens Dimension [place] High Sensitivity Troponin-I assay (TNIH). Eff ective 07/23/21, nine labs/sites in the [facility] switched from a Siemens [place] Contemporary Troponin I assay (CTNI) to a Siemens [place] High-Sensitivity Troponi n I assay (TNIH). Specimen Anatomical Collection Method / Collection Time Recei binu Time (Source) Location / Volume Laterality Blood STRUCTURE OF RIGHT Venipuncture / 03/07/2022 5:56 07/0 03/2022 6:11 UPPER LIMB / Unknown AM CDT AM CDT Unknown Thi Case DO LAB - BLOOD ORDERABLES Performing Organization Address City/State/ZIP Code Phon [place] [address] Care Lab [address] Lab (1st floor, no room number) (ABNORMAL) Basic metabolic panel (03/07/2022 5:56 AM CDT) Analysis Performed At Patho logist Time Signature Sodium 140 133 - 144 03/07/2022 LABORATORY mmol/L 6:35 AM CDT Potassium 3.6 3.4 - 5.3 03/07/2022 LABORATORY mmol/L 6:35 AM CDT Chloride 108 94 - 109 03/07/2022 LABORATORY mmol/L 6:35 AM CDT Carbon Dioxide 25 20 - 32 03/07/2022 LABORATORY (CO2) mmol/L 6:35 AM CDT Anion Gap 7 3 - 14 03/07/2022 [facility] mmol/L 6:35 AM CDT Urea Nitrogen 19 7 - 30 03/07/2022 LABORATORY mg/dL 6:35 AM CDT Creatinine 0.61 0.52 - 03/07/2022 LABORATORY 1.04 mg/dL 6:35 AM CDT Calcium 8.3 (L) 8.5 - 10.1 03/07/2022 LABORATORY mg/dL 6:35 AM CDT Glucose 143 (H) 70 - 99 03/07/2022 LABORATORY mg/dL 6:35 AM CDT GFR Estimate >90 >60 03/07/2022 LABORATORY mL/min/1.7 6:35 AM CDT 3m2 Comment: Effective August 20, 2021 eGF Rcr in adults is calculated using the 2020 CKD-EPI creatinine equation which includ es age and gender (Nunu et al., NEJM, DOI: 10.1056/XAUSqr0085616) Specimen Anatomical Collection Method / Collection Time Recei binu Time (Source) Location / Volume Laterality Blood STRUCTURE OF RIGHT Venipuncture / 03/07/2022 5:56 07/0 03/2022 6:11 UPPER LIMB / Unknown AM CDT AM CDT Unknown Thi Case DO LAB - BLOOD ORDERABLES Performing Organization Address City/State/ZIP Code Phon [place] [address] Care [address] Lab (1st floor, no room number) EKG 12-lead, tracing only (03/07/2022 5:53 AM CDT) Component Value Ref Range Test Analysis Performed Pathologis t Method Time At Signature Systolic Blood mmHg RADIOLOGY Pressure RESULTS Diastolic Blood mmHg RADIOLOGY Pressure RESULTS Ventricular Rate 96 BPM RADIOLOGY RESULTS Atrial Rate 96 BPM RADIOLOGY RESULTS MO Interval 148 ms RADIOLOGY RESULTS QRS Duration 78 ms RADIOLOGY RESULTS QT 372 ms RADIOLOGY RESULTS QTc 469 ms RADIOLOGY RESULTS P [place] 80 degrees RADIOLOGY RESULTS R AXIS 21 degrees RADIOLOGY RESULTS T [place] 57 degrees RADIOLOGY RESULTS Interpretation Sinus rhythm RADIOLOGY ECG Nonspecific ST abnormality RES ULTS Abnormal ECG When compared with ECG of 23-FEB-2022 19:07, No significant change was found Confirmed by - EMERGENCY MIKI Ramos PHYSICIAN ([id number]), subeditor CASEY WORLEY ([id number]) on 03/07/2022 6:40:58 AM Specimen Anatomical Collection Method Collection Time Receive d Time (Source) Location / / Volume Laterality 03/07/2022 5:53 AM 6:40 CDT AM CDT Thi Case DO ECG ORDERABLES Performing Organization Address City/State/ZIP Code Phon e Number RADIOLOGY RESULTS documented in this encounter Visit Diagnoses Diagnosis Elevated blood pressure reading without diagnosis of hypertension - Primary Intermittent asthma with status asthmati cus, unspecified asthma severity Acute respiratory failure with hypoxia ( H) Acute respiratory failure Severe persistent asthma with exacerbati on Unspecified asthma, with exacerbation Anaphylaxis, initial encounter Acute respiratory failure with hypoxia ( H) Acute respiratory failure Intermittent asthma with status asthmati cus, unspecified asthma severity documented in this encounter Admitting Diagnoses Diagnosis Acute respiratory failure with hypoxia ( H) Acute respiratory failure documented in this encounter Administered Medications Inactive Administered Medications - up to 3 most recent administrations Medication Order MAR Action Action Date Dose Rate Site 0.9% sodium chloride BOLUS New Bag 03/07/2022 6:06 AM CDT 1,000 mLs 1000 mL/hr Intravenous, 1,000 mL, ONCE, at 1,000 mL/hr, Administer over 1 Hours, On Thu03/07/22 at 0555, For 1 dose acetaminophen (TYLENOL) Suppository 650 mg 650 mg, Rectal, EVERY 6 HOURS PRN, mild pain, Starting on Thu03/07/22 at 2048, Maximum acetaminophen dose from all sources = 75 mg/kg /day not to exceed 4 grams/day. acetaminophen (TYLENOL) tablet 975 mg Given 03/07/2022 8:56 PM CDT 975 mg 975 mg, Oral, EVERY 6 HOURS PRN, mild pain, Starting on Thu03/07/22 at 2048, Maximum acetaminophen dose from all sources = 75 mg/kg/day not to exceed 4 grams/day. albuterol (PROVENTIL) (2.5 MG/3ML) 0.083% neb Given 6:12 AM CDT 2.5 mg solution Starting on Thu03/07/22 at 0601, For 1 dose, John Knapp: ar ayoubide albuterol (PROVENTIL) 60 mg in New Bag 03/07/2022 6:30 AM CDT 15 m g/hr 8 mL/hr sodium chloride 0.9 % 32 mL continuous nebulization solution 15 mg/hr (8 mL/hr), Nebulization, CONTINUOUS, Administer over 4 Hours, Starting on Thu03/07/22 at 0555, Admin as continuous neb via miniiheart set. Not for IV use. albuterol (PROVENTIL) neb solution 2.5 m g 2.5 mg, Nebulization, EVERY 6 HOURS PRN, wheezing, Starting on Thu03/07/22 at 2001 azithromycin 500 mg (ZITHROMAX) in 0.9% New Bag 03/07/2022 8:54 AM CDT 500 mg NaCl 250 mL intermittent infusion 500 mg STAT, 500 mg, Intravenous, EVERY 24 HOURS, First dose on Thu03/07/22 at 0810, Indications: status asthmaticus, antibiotic prophylaxis budesonide (PULMICORT) neb solution 1 mg Given 03/08/2022 7:27 AM CDT 1 mg 1 mg, Nebulization, 2 TIMES DAILY, First dose on Thu03/07/22 at 0810 Given 03/07/2022 8:10 PM CDT 1 mg Given 03/07/2022 8:20 AM CDT 1 mg ipratropium - albuterol 0.5 mg/2.5 mg/3 mL Given 03/07/2022 8:11 PM CDT (DUONEB) 0.5-2.5 (3) MG/3ML neb solution Starting on Thu03/07/22 at 2007, For 1 dose, Eddie Pritchard: cabinet override ipratropium - albuterol 0.5 mg/2.5 mg/3 mL Given 03/08/2022 7:28 AM CDT 3 mLs (DUONEB) neb solution 3 mL 3 mL, Nebulization, 4 TIMES DAILY RT, First dose on Thu03/07/22 at 2030 magnesium sulfate 2 g in water New Bag 03/07/2022 5:55 AM CDT 2 g 50 mL/hr intermittent infusion 2 g, Intravenous, Administer over 60 Minutes, at 50 mL/hr, ONCE, On Thu03/07/22 at 0555, For 1 dose magnesium sulfate 2 GM/50ML infusion Starting on Thu03/07/22 at 0552, For 1 dose, Sa Evert ra: cabinet override methylPREDNISolone sodium succinate Given 03/07/2022 8:54 AM CDT 125 mg (solu-MEDROL) injection 125 mg 125 mg, Intravenous, ONCE, On Thu03/07/22 at 0810, For 1 dose, Doses greater than or equal to 1000 mg administer over 60 minutes Doses greater than or equal to 500 mg administer over 30-60 minutes Doses greater than or equal to 250 mg administer over 15-30 minutes Doses less than or equal to 125 mg IVP over 3-5 minutes methylPREDNISolone sodium succinate Given 03/08/2022 8:10 AM CDT 40 mg (solu-MEDROL) injection 40 mg 40 mg, Intravenous, EVERY 8 HOURS, First dose on Thu03/07/22 at 1600, Doses greater than or equal to 1000 mg administer over 60 minutes Doses greater than or equal to 500 mg administer over 30-60 minutes Doses greater than or equal to 250 mg administer over 15-30 minutes Doses less than or equal to 125 mg IVP over 3-5 minutes Given 03/08/2022 1:15 AM CDT 40 mg Given 03/07/2022 4:20 PM CDT 40 mg documented in this encounter Active and Recently Administered Medications Times are shown in CDT. Scheduled Medication Order 03/06/2022 03/07/2022 03/08/2022 0.9% sodium chloride BOLUS (COMPLETED) 0 606 (New Bag - Provider: Donna Osorio, RN)0854 (Stopped - Provider: Jessica Funk, RN) Intravenous, 1,000 mL, ONCE, at 1,000 mL /hr, Administer over 1 Hours, On Thu03/07/22 at 0555, For 1 dose azithromycin 500 mg (ZITHROMAX) in 0.9% NaCl 250 mL intermittent infusion 500 mg (CANCELED) 0854 (New Bag - Provider: Omi Funk, RN)0954 (Stopped - Provider: Jessica Funk, RN) STAT, 500 mg, Intravenous, EVERY 24 HOUR S, First dose on Thu03/07/22 at 0810, Indications: status asthmaticus, antibiotic prophylaxis budesonide (PULMICORT) neb solution 1 mg 0820 (Given - Provider: Lindsey Scales RN)2009 (Given - Provider: Eddie Pritchard, RT) 07 (Given - Provider: Zakia Coats, RT) 1 mg, Nebulization, 2 TIMES DAILY, First dose on Thu03/07/22 at 0 810 ipratropium - albuterol 0.5 mg/2.5 mg/3 mL (DUONEB) neb solu tion 3 mL 2010 (Canceled Entry - Provider: Eddie Pritchard RT) 07 (Given - Provider: Zakia Coats RT)1200 (Canceled Entry - Provider: Orders Generic Provider - Comment: Automatically canceled at discontinue of medication order) 3 mL, Nebulization, 4 TIMES DAILY RT, First dose on Thu03/07/22 a t 2030 1600 (Canceled Entry - Provider: Orders Generic Provider - Comment: Automatically canceled at discontinue of medication order) magnesium sulfate 2 g in water intermittent infusion (COMPLE BROCK) 0555 (New Bag - Provider: Donna Osorio, GERMANIA)0654 (Stopped - Provider: Donna Osorio, GERMANIA) 2 g, Intravenous, Administer over 60 Min utes, at 50 mL/hr, ONCE, On Thu03/07/22 at 0555, For 1 dose methylPREDNISolone sodium succinate (solu-MEDROL) injection 125 mg (COMPLETED) 0854 (Given - Provider: Jessica Funk, GERMANIA) 125 mg, Intravenous, ONCE, On Thu03/07/22 at 0810, For 1 dose, Doses greater than or equal to 1000 mg administer over 60 minutes Doses greater than or equal to 500 mg administer over 30-60 minutes Doses greater than or equal to 250 mg administ er over 15-30 minutes Doses less than or equal to 125 mg IVP over 3-5 minutes methylPREDNISolone sodium succinate (solu-MEDROL) injection 40 mg 1620 (Given - Provider: Rose Pineda RN) 0115 (Given - Provider: Jackie Garcia, GERMANIA)0810 (Given - Provider: Charmaine Ayala RN)1600 (Canceled Entry - Provider: Orders Generic Provider - Comment: Automatically canceled at discontinue of medi cation order) 40 mg, Intravenous, EVERY 8 HOURS, First dose on Thu03/07/22 at 1600, Doses greater than or equal to 1000 mg administer over 60 minutes Doses greater than or equal to 500 mg administer over 30-60 minutes Doses greater than or equal to 250 mg a dminister over 15-30 minutes Doses less than or equal to 125 mg IVP over 3-5 minutes Continuous Medication Order 03/06/2022 03/07/2022 03/08/2022 albuterol (PROVENTIL) 60 mg in sodium ch loride 0.9 % 32 mL continuous nebulization solution (CANCELED) 0630 (New Bag - Provider: Chris Knapp, RT) 15 mg/hr (8 mL/hr), Nebulization, CONTIN UOUS, Administer over 4 Hours, Starting on Thu03/07/22 at 0555, Admin as continuous neb via miniiheart set. Not for IV use. PRN Medication Order 03/06/2022 03/07/2022 03/08/2022 acetaminophen (TYLENOL) Suppository 650 mg(Linked Group 1) 2055 (See Alternative - Provider: Judie Brush, GERMANIA) 650 mg, Rectal, EVERY 6 HOURS PRN, mild pain, Starting on Thu03/07/22 at 2048, Maximum acetaminophen dose from all sources = 75 mg/kg/day not to exceed 4 grams/day. acetaminophen (TYLENOL) tablet 975 mg(Linked Group 1) 2055 (Given - Provider: Judie Brush, RN) 975 mg, Oral, EVERY 6 HOURS PRN, mild pa in, Starting on Thu03/07/22 at 2047, Maximum acetaminophen dose from all sources = 75 mg/kg/day not to exceed 4 grams/day. albuterol (PROVENTIL) neb solution 2.5 mg 2.5 mg, Nebulization, EVERY 6 HOURS PRN, wheezing, Starting on Thu03/07/22 at 2001 No Frequency Medication Order 03/06/2022 03/07/2022 03/08/2022 albuterol (PROVENTIL) (2.5 MG/3ML) 0.083% neb solution (COMP LETED) 611 (Given - Provider: John Knapp, RT) Starting on Thu03/07/22 at 06, For 1 dose, John Knapp: reinaldo net override ipratropium - albuterol 0.5 mg/2.5 mg/3 mL (DUONEB) 0.5-2.5 (3) MG/3ML neb solution (COMPLETED) 2010 (Given - Provider: Eddie Pritchard, RT) Starting on Thu03/07/22 at 2006, For 1 dose, Eddie Pritchard: cab inet override Linked Groups Order Group 1: acetaminophen (TYLENOL) tablet 975 mgJump to med 975 mg, Oral, EVERY 6 HOURS PRN, mild pa in, Starting on Thu03/07/22 at 2047
Maximum acetaminophen dose from all sources = 75 mg/kg/day not to exceed 4 grams/day.
Or acetaminophen (TYLENOL) Suppository 650 mgJump to med 650 mg, Rectal, EVERY 6 HOURS PRN, mild pain, Starting on Thu03/07/22 at 2047
Maximum acetaminophen dose from all sources = 75 mg/kg/day not to exceed 4 grams/day.
documented in this encounter Additional Health Concerns Infection Onset Date Last Indicated Resolved Time Rule Out COVID-19 03/07/2022 03/07/2022 03/07/2022 7:1 1 AM CDT Assessment Noted Time PHQ-9 Depression Total Score: 11 02/27/2022 9:09 AM CD T documented as of this encounter Care Teams Coal Cager Relationship Specialty Start Date End Date Clinic, [facility] PCP - General 11/20/21 [place] [address] [place] [phone] Enrique Saenz MD Cardiovascular Disease 02/27/22 MD Ryan [address] [place] [address] Pat Chavez, Assigned Neuroscience 03/01/22 PA-C Provider [address] [place] [address] documented as of this encounter
--- OUTSIDE RECORDS SUMMARY | 2022-08-12 22:21 | XMS_ITS | Encounter Summary ---
:1975 Author Organization [place] Address [facility] [place] [address] Care Team Providers Name Role Phone [facility], [facility] Primary Care Provider + [phone] Enrique Saenz MD Unavailable [phone] Pat Chavez PA-C Unavailable Reason for Visit Reason Comments Post Covid Visit Followup Encounter Details Date Type Department Care Team Description 03/08/2022 Documentation Only [facility] Kathy, Post Covid Visit Physical Medicine and Eusebio Aguilar-[facility]up [facility] [address] [place] [address], [address] [place] [address] [place], [place] (Work) [phone] Social History Tobacco Use Types Packs/Day [...] documented as of this encounter Progress Notes Pipo Henderson - 03/08/2022 4:01 PM CDT Initial Visit Date: 02/27/22 Provider: Kathy Followup Requested STATUS DETAILS Original Provider LAB/Imaging Referrals STATUS Pulmonary Rehab Scheduled 03/11/22 Sleep Eval Scheduled 06/24/22 Cardiology Scheduled 04/08/22 ENT Utility Gelatin Maker Scheduled 06/19/22 Follow-up with Kathy scheduled 05/29/22. Pipo Henderson documented in this encounter Plan of Treatment Not on filedocumented as of this encounter Visit Diagnoses Not on filedocumented in this encounter Additional Health Concerns Assessment Noted Time PHQ-9 Depression Total Score: 11 02/27/2022 9:09 AM CD T documented as of this encounter Care Teams Trapeze Artist Relationship Specialty Start Date End Date Clinic, [facility] PCP - General 11/20/21 [place] [address] [place] [address] Enrique Saenz MD Cardiovascular Disease 02/27/22 MD Ryan [address] [place] [phone] Pat Cahvez, Assigned Neuroscience 03/01/22 PA-C Provider [address] [place] [phone] documented as of this encounter
--- OUTSIDE RECORDS SUMMARY | 2022-08-12 22:21 | XMS_ITS | Encounter Summary ---
:1975 Author Organization [place] Address [facility] [place] [address] Care Team Providers Name Role Phone [facility], [facility] Primary Care Provider + [phone] Enrique Saenz MD Unavailable [phone] Pat Chavez PA-C Unavailable Encounter Details Date Type Department Care Team Description 03/11/2022 Travel Social History Tobacco Use Types Packs/Day [...] documented as of this encounter Care Teams Cloud Automation Tester Relationship Specialty Start Date End Date [facility], [facility] PCP - General 11/20/21 [place] [address] [place] [address] Enrique Saenz MD Cardiovascular Disease 02/27/22 MD Ryan [address] [place] [address] [phone] Pat Chavez, Assigned Neuroscience 7/2/22 LAYLA Provider [address] [place] [address] [phone] documented as of this encounter
--- OUTSIDE RECORDS SUMMARY | 2022-08-12 22:21 | XMS_ITS | Encounter Summary ---
:1975 Author Organization [place] Address [facility] [place] [address] Care Team Providers Name Role Phone [facility] Primary Care Provider + [phone] Enrique Saenz MD Unavailable [phone] Glendy Brush Unavailable Pat Chavez PA-C Unavailable Encounter Details Date Type Department Care Team Description 05/08/2022 Travel Social History Tobacco Use Types Packs/Day [...] documented as of this encounter Care Teams Shoveler Relationship Specialty Start Date End Date [facility] PCP - General 11/20/21 [facility] [address] [place] [phone] Enrique Saenz MD Cardiovascular Disease 02/27/22 MD Ryan [address] [place] [address] Glendy Brush, Cardiac Rehabilitation 03/25/22 03/25/23 EP Therapist [place] [address] [address] [phone] Pat Chavez, Assigned Neuroscience 03/01/22 PA-C Provider [address] [place] [address] documented as of this encounter
--- OUTSIDE RECORDS SUMMARY | 2022-08-12 22:21 | XMS_ITS | Encounter Summary ---
:1975 Author Organization [place] Address [address] [place] [address] Care Team Providers Name Role Phone [facility] Primary Care Provider + [phone] Enrique Saenz MD Unavailable [phone] Pat Chavez PA-C Unavailable Reason for Referral Rehab Therapy Cardiac Therapy (Routine: Next available opening) - Authorized Specialty Diagnoses / Procedures Referred By Contact Refer red To Contact CARDIAC REHAB Diagnoses Mild intermittent asthma with exacerbation Post-COVID chronic dyspnea [address] [address] Phone: Referral ID Status Reason Start Date Expiration Date Visits V isits Requested Authorized [id number] Authorized 02/28/2022 08/30/2022 365 365 Reason for Visit Rehab Therapy Cardiac Therapy (Routine: Next available opening) - Authorized Specialty Diagnoses / Procedures Referred By Contact Refer red To Contact CARDIAC REHAB Diagnoses Mild intermittent asthma with exacerbation Post-COVID chronic dyspnea [address] [address] Phone: Referral ID Status Reason Start Date Expiration Date Visits V isits Requested Authorized [id number] Authorized 02/28/2022 08/30/2022 365 365 Encounter Details Date Type Department Care Team Description 03/11/2022 [facility] Anahi Chavez PA-C [address] [place] [id number] Mild intermittent asthma with exacerbati on; Encounter Cardiac and Pulmonary 1, Rh Pulmonary Rehab Post-COVID chronic dyspnea Rehabilitation [address] [place] [address] Social History Tobacco Use Types [...] asthma severity documented as of this encounter Plan of Treatment Scheduled Referrals Name Type Priority Associated Diagnoses Order S chedule Pulmonary Rehab Referral Routine: Next Mild intermittent 1 Occu rrences Referral available opening asthma with starting 0 03/11/2022 exacerbation until 03/11/2022 Post-COVID chronic dyspnea documented as of this encounter Procedures Procedure Name Priority Date/Time Associated Diagnosis Comme nts OXIMETRY - HIM SCAN 04/24/2022 5:00 PM CDT OXIMETRY - HIM SCAN 03/11/2022 4:30 PM CDT documented in this encounter Results OXIMETRY - HIM SCAN (04/24/2022 5:00 PM CDT) Specimen (Source) Anatomical Collection Method Collection Time Re ceived Time Location / / Volume Laterality 04/24/2022 5:00 PM CDT Narrative This result has an attachment that is no t available. Provider Outside PFT ORDERABLES OXIMETRY - HIM SCAN (03/11/2022 4:30 PM CDT) Specimen (Source) Anatomical Collection Method Collection Time Re ceived Time Location / / Volume Laterality 03/11/2022 4:30 PM CDT Narrative This result has an attachment that is no t available. Provider Outside PFT ORDERABLES documented in this encounter Visit Diagnoses Diagnosis Mild intermittent asthma with exacerbati on Unspecified asthma, with exacerbation Post-COVID chronic dyspnea documented in this encounter Additional Health Concerns Assessment Noted Time PHQ-9 Depression Total Score: 11 02/27/2022 9:09 AM CD T documented as of this encounter Care Teams Desk Interviewer Relationship Specialty Start Date End Date [facility], [facility] PCP - General 11/20/21 [place] [address] [place] [address] Enrique Saenz MD Cardiovascular Disease 02/27/22 MD Ryan [address] [place] [address] [phone] Pat Chavez, Assigned Neuroscience 03/01/22 PA-C Provider [address] [place] [address] documented as of this encounter
--- OUTSIDE RECORDS SUMMARY | 2022-08-12 22:21 | XMS_ITS | Encounter Summary ---
:1975 Author Organization [place] Address [facility] [place] [address] Care Team Providers Name Role Phone [facility] Primary Care Provider + [phone] Enrique Saenz MD Unavailable [phone] Glendy Brush Unavailable Pat Chavez PA-C Unavailable Encounter Details Date Type Department Care Team Description 03/25/2022 Travel Social History Tobacco Use Types Packs/Day [...] documented as of this encounter Care Teams Maintenance Mechanic Supervisor Relationship Specialty Start Date End Date [facility] PCP - General 11/20/21 [facility] [address] [place] [phone] Enrique Saenz MD Cardiovascular Disease 02/27/22 MD Ryan [address] [place] [address] Glendy Brush, Cardiac Rehabilitation 03/25/22 03/25/23 EP Therapist [place] [address] [place] [phone] Pat Chavez, Assigned Neuroscience 03/01/22 PA-C Provider [address] [place] [address] documented as of this encounter
--- OUTSIDE RECORDS SUMMARY | 2022-08-12 22:21 | XMS_ITS | Encounter Summary ---
:1975 Author Organization [place] Address [facility] [place] [address] Care Team Providers Name Role Phone [facility] Primary Care Provider + [phone] Enrique Saenz MD Unavailable [phone] Glendy Brush Unavailable Pat Chavez PA-C Unavailable Encounter Details Date Type Department Care Team Description 04/08/2022 Travel Social History Tobacco Use Types Packs/Day [...] documented as of this encounter Care Teams Pv Design Engineer Relationship Specialty Start Date End Date [facility] PCP - General 11/20/21 [facility] [address] [place] [phone] Enrique Saenz MD Cardiovascular Disease 02/27/22 MD Ryan [address] [place] [address] Glendy Brush, Cardiac Rehabilitation 03/25/22 03/25/23 EP Therapist [place] [address] [place] [phone] Pat Chavez, Assigned Neuroscience 03/01/22 PA-C Provider [address] [place] [address] documented as of this encounter
--- OUTSIDE RECORDS SUMMARY | 2022-08-12 22:21 | XMS_ITS | Encounter Summary ---
:1975 Author Organization [place] Address Count includes the [facility] [place] [address] Care Team Providers Name Role Phone [facility] Primary Care Provider + [phone] Enrique Saenz MD Unavailable Glendy Brush Unavailable Pat Chavez PA-C Unavailable Encounter Details Date Type Department Care Team Description 04/16/2022 Travel Social History Tobacco Use Types Packs/Day [...] documented as of this encounter Care Teams Chemical Treatment Operator Relationship Specialty Start Date End Date [facility] PCP - General 11/20/21 [facility] [address] [place] [phone] Enrique Saenz MD Cardiovascular Disease 02/27/22 MD Ryan [address] [place] [address] Glendy Brush, Cardiac Rehabilitation 03/25/22 03/25/23 EP Therapist [place] [address] [place] [phone] Pat Chavez, Assigned Neuroscience 03/01/22 PA-C Provider [address] [place] [address] documented as of this encounter
--- OUTSIDE RECORDS SUMMARY | 2022-08-12 22:21 | XMS_ITS | Encounter Summary ---
:1975 Author Organization [place] Address [address] [place] [address] Care Team Providers Name Role Phone [facility] [place] [facility] Primary Care Provider + [phone] Enrique Saenz MD Unavailable [phone] Glendy Brush Unavailable Pat Chavez PA-C Unavailable Encounter Details Date Type Department Care Team Description 03/07/2022 Hospital Encounter Tiana Singh MD [address] [facility] [place], [place] [address] (Wo rk) Social History Tobacco Use Types Packs/Day Years [...] filedocumented in this encounter Additional Health Concerns Infection Onset Date Last Indicated Resolved Time Rule Out COVID-19 03/07/2022 03/07/2022 03/07/2022 7:1 1 AM CDT Assessment Noted Time PHQ-9 Depression Total Score: 11 02/27/2022 9:09 AM CD T documented as of this encounter Care Teams Telecommunications Cable Jointer Relationship Specialty Start Date End Date [facility] PCP - General 3/23/22 [facility] [address] [place] [phone] Enrique Saenz MD Cardiovascular Disease 02/27/22 MD Ryan [address] [place], [place] [phone] Glendy Brush, Cardiac Rehabilitation 03/25/22 03/25/23 EP Therapist [facility] [address] [place] [address] Pat Chavez, Assigned Neuroscience 03/01/22 PA-C Provider [address] [place] [address] documented as of this encounter
--- OUTSIDE RECORDS SUMMARY | 2022-08-12 22:21 | XMS_ITS | Encounter Summary ---
:1975 Author Organization [place] Address [address] [place] [address] Care Team Providers Name Role Phone [facility] Primary Care Provider + [phone] Enrique Saenz MD Unavailable [phone] Glendy Brush Unavailable Pat Chavez PA-C Unavailable Reason for Visit Rehab Therapy Cardiac Therapy (Routine: Next available opening) - Authorized Specialty Diagnoses / Procedures Referred By Contact Refer red To Contact CARDIAC REHAB Diagnoses Mild intermittent asthma with exacerbation Post-COVID chronic dyspnea [address] [place] [address] Phone: Referral ID Status Reason Start Date Expiration Date Visits V isits Requested Authorized [id number] Authorized 02/28/2022 08/30/2022 365 365 Encounter Details Date Type Department Care Team Description 04/24/2022 Hospital Encounter [facility] Pat Chavez PA-C [address] [place] [address] Cardiac and Pulmonary 1, Rh Pulmonary Rehab Rehabilitation [address] [place] [address] Social History Tobacco Use Types [...] documented as of this encounter Care Teams Blind Teacher Relationship Specialty Start Date End Date Bernadette De La Paz PCP - General 11/20/21 [facility] [place] [facility] [address] [place] [address] Enrique Saenz MD Cardiovascular Disease 02/27/22 MD Ryan [address] [place] [address] Glendy Brush, Cardiac Rehabilitation 03/25/22 03/25/23 EP Therapist [place] [address] [place] [phone] Pat Chavez, Assigned Neuroscience 03/01/22 LAYLA Provider [address] [place] [phone] documented as of this encounter
--- OUTSIDE RECORDS SUMMARY | 2022-08-12 22:21 | XMS_ITS | Encounter Summary ---
:1975 Author Organization [place] Address [address] [place] [address] Care Team Providers Name Role Phone Clinic, [facility] Primary Care Provider + [phone] Enrique Saenz MD Unavailable [phone] Glendy Brush Unavailable Pat Chavez PA-C Unavailable Reason for Visit Rehab Therapy Cardiac Therapy (Routine: Next available opening) - Authorized Specialty Diagnoses / Procedures Referred By Contact Refer red To Contact CARDIAC REHAB Diagnoses Mild intermittent asthma with exacerbation Post-COVID chronic dyspnea [address] [place] [address] Phone: Referral ID Status Reason Start Date Expiration Date Visits V isits Requested Authorized [id number] Authorized 02/28/2022 08/30/2022 365 365 Encounter Details Date Type Department Care Team Description 04/01/[address] [facility] Pat Chavez PA-C [address] [place] [address] Cardiac and Pulmonary 1, Rh Pulmonary Rehab Rehabilitation [address] [place] [address] Social History Tobacco Use Types [...] documented as of this encounter Care Teams Mergers And Acquisitions Attorney Relationship Specialty Start Date End Date Bernadette De La Paz PCP - General 11/20/21 [facility] [address] [place] [phone] Enrique Saenz MD Cardiovascular Disease 02/27/22 MD Ryan [address] [place] [address] Glendy Brush, Cardiac Rehabilitation 03/25/22 03/25/23 EP Therapist [place] [address] [place] [address] Pat Chavez, Assigned Neuroscience 03/01/22 LAYLA Provider [address] [place] [phone] documented as of this encounter
--- OUTSIDE RECORDS SUMMARY | 2022-08-12 22:22 | XMS_ITS | Encounter Summary ---
:1975 Author Organization [place] Address [address] [place] [address] Care Team Providers Name Role Phone [facility] Primary Care Provider [phone] Encounter Details Date Type Department Care Team Description 01/31/2020 Travel Social History Tobacco Use Types Packs/Day Years Used Date Smoking Tobacco: Never Smokeless Tobacco: Never Sex Assigned at Date Recorded Not on file COVID-19 Exposure Response Date Recorded In the last month, have you been in contact with No / Unsure 01/31/2020 5:57 PM CDT someone who was confirmed or suspected to have Coronavirus / COVID-19? documented as of this encounter Plan of Treatment Not on filedocumented as of this encounter Visit Diagnoses Not on filedocumented in this encounter Care Teams Plant Taxonomist Relationship Specialty Start Date End Date [facility] PCP - General 02/13/19 11/19/[address] [place] [address] documented as of this encounter
--- OUTSIDE RECORDS SUMMARY | 2022-08-12 22:22 | XMS_ITS | Encounter Summary ---
:1975 Author Organization [employer] Address Replaced by [facility] [place] [address] Care Team Providers Name Role Phone [facility], [facility] Primary Care Provider [phone] Reason for Referral (Routine) - Closed Specialty Diagnoses / Procedures Referred By Contact Refer red To Contact Diagnoses Anaphylaxis, initial encounter Torsten Tomlinson MD Procedures RI ADRENALIN EPINEPHRINE 0.1 MG INJECTION [address] [facility] [place] [address] Referral ID Status Reason Start Date Expiration Date Visits Requ ested Visits Authorized [id number] Closed 09/19/2020 09/19/2021 1 1 ON SAWYER Encounter Details Date Type Department Care Team Description 09/19/[address] [facility] Torsten Tomlinson, Anap hylaxis, initial Urgent Care Solo [facility] encounter (Primary [address] [facility] [address]) [place], [place] [id number] [phone] Social History Tobacco Use Types Packs/Day Years Used Date Smoking Tobacco: Never Smokeless Tobacco: Never Sex Assigned at Date Recorded Not on file COVID-19 Exposure Response Date Recorded In the last month, have you been in contact with No / Unsure 09/19/2020 5:14 PM [facility] someone who was confirmed or suspected to have Coronavirus / COVID-19? documented as of this encounter Last Filed Vital Signs Vital Sign Reading Time Taken Comments Blood Pressure 123/86 09/19/2020 5:25 PM [facility] Pulse 88 09/19/2020 5:25 PM [facility] Temperature 36.3 ??C (97.4 ??F) 09/19/2020 5:25 PM [facility]ER Respiratory Rate - - Oxygen Saturation 99% 09/19/2020 5:25 PM [facility] Inhaled Oxygen Concentration - - Weight - - Height - - Body Mass Index - - documented in this encounter Patient Instructions Patient InstructionsToTorsten batista MD - 09/19/2020 5:15 PM CST Possible exposures today: Ingredients from the pork and rice that you had to eat today (pork, peppers, paprika, garlic, etc). Consider also the perfume as a trigger. I am wondering particularly about this. Consider also whether some of the cleaning solutions could be a trigger. For right now, we will prescribe a steroid medication for you to help settle down the allergic response. Continue using the Logan daily. We will add Pepcid (famotidine) for further blockage of histamine and to settle your stomach. I will also prescribe an inhaler for you to use in case you develop wheezing in the chest. I advise seeing an position classification specialist to consider some testing to see if specific triggers can be identified. A primary care provider can help you with a referral to position classification specialist. I don't know whether COVID-19 has anything to do with this; it probably isn't a practical question right now as our treatment will be the same. You do not have symptoms right now that indicate COVID-19. Your current symptoms indicate a severe, acute allergic response. ON SAWYER documented in this encounter Progress Notes Torsten Tomlinson MD - 09/19/2020 5:15 PM CST Assessment & Plan Anaphylaxis, initial encounter This patient presents with acute onset of congestion, dyspnea, subjective throat swelling, eye swelling and wheeze after an unknown exposure. She has a background of chronic rhinitis symptoms that havebeen variably responsive to non-sedating H1 blockers. Differential diagnosis primarily focused on acute anaphylaxis. The trigger is unknown however her coworker's perfume is a definite suspect. Other causes of this acute presentation include acute heart failure or venous thromboembolic event. Neither of these conditions are supported by her exam, fortunately. She responded well to epinephrine and diphenhydramine here in clinic. Will proceed with steroid therapy and expand her antihistamine with scheduled H1 and H2 blockade. I have recommended referral to an outfitter cabin to do some investigation for identifying substances to avoid. - EPINEPHrine (ANY BX GENERIC EQUIV) injection 0.3 mg - diphenhydrAMINE (BENADRYL) injection 50 mg - fexofenadine (LOGAN) 60 MG tablet; Take 1 tablet (60 mg) by mouth daily - RI ADRENALIN EPINEPHRINE 0.1 MG INJECTION - INJECTION INTRAMUSCULAR OR SUB-Q - famotidine (PEPCID) 20 MG tablet; Take 1 tablet (20 mg) by mouth 2 times daily - predniSONE (DELTASONE) 20 MG tablet; Take 3 tablets (60 mg) by mouth daily for 5 days - albuterol (PROAIR HFA/PROVENTIL HFA/VENTOLIN HFA) 108 (90 Base) MCG/ACT inhaler; Inhale 2 puffs into the lungs every 6 hours See Patient Instructions for follow-up Torsten Tomlinson MD [facility] Crystal Garcia, a 44 year old female, presents for evaluation of dyspnea. This happened acutely about 45 minutes ago with associated cough and a sense of post nasal drip. Acute onset of nasal congestion, throat swelling and cough/wheeze, dizziness, itching in the ears and eyes. Prior to onset of thiscurrent reaction she had eaten some spicy pork has difficulty identifying particular exposures (either ingested food or exposure to inhaled substance other than a perfume). She was at work when this happened. 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 She notes that her exposure to a coworker's perfume seems to really be an acute factor. She also is noting a fairly constant sense of metallic taste in the mouth. She has also noted a fairly constant sense of relatively mild nasal congestion on a daily basis that she manages with Logan. Past medical history indicates that she had an illness in March that seems very consistent with COVID-19 including loss of taste/smell, fatigue, headache, diarrhea. Other family members had similar symptoms. Nobody in the family was tested. The family isolated and treated this as if it was COVID-19 but they were told not to pursue in-person medical evaluation at that time. Review of Systems Constitutional, HEENT, cardiovascular, pulmonary, gi and gu systems are negative, except as otherwise noted. Objective BP 123/86 (BP Location: Left arm, Patient Position: Sitting, Cuff Size: Adult Regular) Pulse 88 Temp 97.4 ??F (36.3 ??C) (Oral) SpO2 99% There is no height or weight on file to calculate BMI. Physical Exam GENERAL: adult female, acutely dyspneic and fearful EYES: PERRL, conjunctiva clear, bilateral periocular swelling (mild) HENT: ear canals and TM's normal and edema of the soft palate with post nasal drip NECK: no adenopathy, no asymmetry, masses, or scars and thyroid normal to palpation RESP: upon initial exam, she is tachypneic with diffuse expiratory wheeze; 15 minutes following administration of epinephrine and diphenhydramine IM, the wheeze is cleared and respiratory mechanics arenormalized; speaking full sentences comfortably CV: regular rates and rhythm, normal S1 S2, no S3 or S4 and no murmur, click or rub - ABDOMEN: soft, nontender, without hepatosplenomegaly or masses and bowel sounds normal EXT: no cyanosis, clubbing or edema; peripheral pulses are brisk and symmetric in the radials, dorsalis pedis and posterior tibials bilaterally SKIN: no suspicious lesions or rashes No results found for this or any previous visit (from the past 24 hour(s)). ON SAWYER documented in this encounter Plan of Treatment Not on filedocumented as of this encounter Visit Diagnoses Diagnosis Anaphylaxis, initial encounter - Primary documented in this encounter Administered Medications Inactive Administered Medications - up to 3 most recent administrations Medication Order MAR Action Action Date Dose Rate Site diphenhydrAMINE (BENADRYL) Given 09/19/2020 6:16 PM 50 mg Left Deltoid injection 50 mg BUTTON SAWYER 50 mg, Intramuscular, ONCE, On Thu09/19/20 at 1800, For 1 dose, For ordered IV doses 1-50 mg, give IV Push undiluted. Give each 25mg over a minimum of 1 minute. Extend in non-emergency EPINEPHrine (ANY BX GENERIC EQUIV) Given 09/19/2020 5:10 PM BUTTON SAWYER 0.3 mg Left Thigh injection 0.3 mg 0.3 mg, Intramuscular, ONCE, On Thu09/19/20 at 1800, For 1 dose documented in this encounter Care Teams Administrator Health Care Facility Relationship Specialty Start Date End Date Clinic, [facility] PCP - General 02/13/19 11/19/[address] [place] [id number] documented as of this encounter
--- OUTSIDE RECORDS SUMMARY | 2022-08-12 22:22 | XMS_ITS | Encounter Summary ---
:1975 Author Organization [place] Address [address] [place] [address] Care Team Providers Name Role Phone [facility], [facility] Primary Care Provider [phone] Encounter Details Date Type Department Care Team Description 02/15/2020 Travel Social History Tobacco Use Types Packs/Day Years Used Date Smoking Tobacco: Never Smokeless Tobacco: Never Sex Assigned at Date Recorded Not on file COVID-19 Exposure Response Date Recorded In the last month, have you been in contact with No / Unsure 02/15/2020 7:31 PM CDT someone who was confirmed or suspected to have Coronavirus / COVID-19? documented as of this encounter Plan of Treatment Not on filedocumented as of this encounter Visit Diagnoses Not on filedocumented in this encounter Care Teams Loom Mechanic Relationship Specialty Start Date End Date [facility] PCP - General 02/13/19 11/19/[address] [place] [id number] documented as of this encounter
--- OUTSIDE RECORDS SUMMARY | 2022-08-12 22:22 | XMS_ITS | Encounter Summary ---
:1975 Author Organization [place] Address [facility] [place] [address] Care Team Providers Name Role Phone [facility], 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
--- OUTSIDE RECORDS SUMMARY | 2022-08-12 22:22 | XMS_ITS | Encounter Summary ---
:1975 Author Organization [place] Address [facility] [place] [address] Care Team Providers Name Role Phone [facility], [facility] Primary Care Provider [phone] Reason for Visit Reason Comments Shortness of Breath Encounter Details Date Type Department Care Team Description 11/20/2021 Emergency [facility] Edwige Mills Ana phylaxiseamus, initial encounter; [facility] Emergency Dep t Moderate persistent asthma with exacerba tion [address] [facility] [place], [place] [address] [address] [facility] [phone] [address] [place], [place] [address] (Wo rk) Social History Tobacco Use Types Packs/Day Years Used Date Smoking Tobacco: Never Smokeless Tobacco: Never Sex Assigned at Date Recorded Not on file documented as of this encounter Last Filed Vital Signs Vital Sign Reading Time Taken Comments Blood Pressure 104/76 11/20/2021 7:20 PM CDT Pulse 94 11/20/2021 7:20 PM CDT Temperature 37 ??C (98.6 ??F) 11/20/2021 5:57 PM CDT Respiratory Rate 12 11/20/2021 7:20 PM CDT Oxygen Saturation 97% 11/20/2021 7:20 PM CDT Inhaled Oxygen Concentration - - Weight - - Height - - Body Mass Index - - documented in this encounter Discharge Instructions Discharge InstructionsEdwige Mills MD - 11/20/2021 7:07 PM CDT Take Benadryl 50 mg every 6 hours as needed for allergic reaction (do not drive for 6 hours after ) AttachmentsThe following attachments cannot be sent through Care Everywhere. Anaphylaxis (Vietnamese)Asthma, Acute (Adult) (Vietnamese)documented in this encounter Medications at Time of Discharge Medication Sig Dispensed Refills Start Date End Date albuterol (PROVENTIL) Take 1 vial (2.5 mg) 30 mL 0 02/28 (2.5 MG/3ML) 0.083% neb by nebulization every solutionIndications: 6 hours as needed for Severe persistent shortness of breath / asthma with dyspnea or wheezing exacerbation EPINEPHrine (ANY BX Inject 0.3 mLs (0.3 0.6 mL 0 022 GENERIC EQUIV) 0.3 mg) into the muscle MG/0.3ML injection once as needed for 2-pack anaphylaxis famotidine (PEPCID) 20 Take 1 tablet (20 mg) 10 tablet 0 2021 MG tablet by mouth 2 times daily for 5 days albuterol (PROAIR Inhale 2 puffs into 18 g 0 1 03/08/2022 HFA/PROVENTIL the lungs every 6 HFA/VENTOLIN HFA) 108 hours (90 Base) MCG/ACT inhalerIndications: Anaphylaxis, initial encounter fluticasone-vilanterol Inhale 1 puff into the 1 each 0 0 03/12/2021 03/08/2022 (BREO ELLIPTA) 200-25 lungs daily MCG/INH inhalerIndications: Severe persistent asthma with exacerbation predniSONE (DELTASONE) Take two tablets (= 10 tablet 1 10/3003/07/2022 20 MG tablet 40mg) each day for 5 (five) days documented as of this encounter ED Notes Lindsey Del Rio RN - 11/20/2021 4:24 PM CDT Pt reports sudden onset asthma exacerbation at 1530 today. At clinic, given inhaler. EMS gave duonebx2 and 125mg solu-medrol with improvement of breathing. Pt still wheezing on arrival and tachypnea. End tidal for EMS 21-22. Hx asthma Katherine Barry RN - 11/20/2021 4:17 PM CDT Bed: [facility] Expected date: 11/20/21 Expected time: Means of arrival: Comments: Going to [employer] [place] at 7 pm Edwige Mills MD - 11/20/2021 4:17 PM CDT History Chief Complaint: Shortness of Breath MAME Garcia is a 45 year old female with history of asthma who presents with shortness of breath. The patient reports that she thinks she may be having an allergic reaction and asthma exacerbation after riding in her husbands car today that is filled with paint. She states she had an onset of shortness of breath and dizziness at 1530. The patient was seen in the clinic where her oxygen stats were88 and given inhaler which improved them to 96. The patient was still experiencing symptoms and was transferred to ED for further evaluation and care. EMS reports they gave patient 2 DuoNebs and 200 mgsolumedrol en route and improved oxygen stats to 100. The patient states she still has persistent jeevan rtness of breath and difficulty breathing. The patient denies any fever, chest pain, cough, leg painor swelling and congestion. She denies any known sick contacts and states she was feeling well priorto this afternoon. Review of Systems Constitutional: Negative for fever. HENT: Negative for congestion. Respiratory: Positive for shortness of breath. Negative for cough. Cardiovascular: Negative for chest pain and leg swelling. Musculoskeletal: Negative for myalgias (leg pain). Neurological: Positive for dizziness. All other systems reviewed and are negative. Allergies: Penicillins Tamiflu Medications: Albuterol proair Proventil Neb Pepcid Breo Ellipta Past Medical History: Asthma Seasonal allergies Social History: The patient presents alone. Denies tobacco use. Physical Exam Patient Vitals for the past 24 hrs: BP Temp Temp src Pulse Resp SpO2 11/20/21 1850 114/73 -- -- 87 20 99 % 11/20/21 1815 119/77 -- -- 90 22 98 % 11/20/21 1800 129/76 -- -- 93 16 97 % 11/20/21 1757 -- 98.6 ??F (37 ??C) Oral -- -- -- 11/20/21 1745 128/85 -- -- 86 19 96 % 11/20/21 1730 129/84 -- -- 87 -- -- 11/20/21 1715 130/83 -- -- 91 -- -- 11/20/21 1700 139/89 -- -- 88 26 99 % 11/20/21 1645 137/85 -- -- 89 27 95 % 11/20/21 1630 -- -- -- -- -- 100 % 11/20/21 1625 (!) 143/99 -- -- 91 28 98 % Physical Exam Nursing note and vitals reviewed. Constitutional: Appears well-developed and well-nourished. Speaking full sentences. Auditory wheezes. Labored breathing with moderate tachypnea. Occasional dry sounding cough. HENT: Head: Atraumatic. Mouth/Throat: Oropharynx is clear and moist. No oropharyngeal exudate. Eyes: Pupils are equal, round, and reactive to light. Neck: Normal range of motion. Neck supple. No tracheal deviation present. No thyromegaly present. Cardiovascular: Normal rate, regular rhythm, no murmur Pulmonary/Chest: Expiratory wheezes bilateral with decreased air movement. Abdominal: Soft. Bowel sounds are normal. Exhibits no distension and no mass. There is no tenderness. There is no rebound and no guarding. Musculoskeletal: Exhibits no edema. Lymphadenopathy: No cervical adenopathy. Neurological: Alert and oriented to person, place, and time. Skin: Skin is warm and dry. No rash noted. No pallor. Emergency Department Course Imaging: XR Chest 2 Views Final Result IMPRESSION: Negative chest. Report per radiology Laboratory: Labs Ordered and Resulted from Time of ED Arrival to Time of ED Departure BASIC METABOLIC PANEL - Abnormal Result Value Sodium 138 Potassium 3.4 Chloride 110 (*) Carbon Dioxide (CO2) 25 Anion Gap 3 Urea Nitrogen 21 Creatinine 0.63 Calcium 9.2 Glucose 107 (*) GFR Estimate >90 BLOOD GAS VENOUS - Abnormal pH Venous 7.27 (*) pCO2 Venous 56 (*) pO2 Venous 25 Bicarbonate Venous 25 Base Excess/Deficit (+/-) -2.6 FIO2 0 CBC WITH PLATELETS AND DIFFERENTIAL - Abnormal WBC Count 13.1 (*) RBC Count 4.42 Hemoglobin 13.3 Hematocrit 42.5 MCV 96 MCH 30.1 MCHC 31.3 (*) RDW 14.6 Platelet Count 356 % Neutrophils 53 % Lymphocytes 35 % Monocytes 6 % Eosinophils 5 % Basophils 1 % Immature Granulocytes 0 NRBCs per 100 WBC 0 Absolute Neutrophils 7.0 Absolute Lymphocytes 4.6 Absolute Monocytes 0.8 Absolute Eosinophils 0.6 Absolute Basophils 0.1 Absolute Immature Granulocytes 0.0 Absolute NRBCs 0.0 HCG QUALITATIVE - Normal hCG Serum Qualitative Negative Procedures Emergency Department Course: Assessments: 1617 I obtained history and examined the patient as noted above. 1650 I returned to check on patient. Patient states improvement with interventions below. 1902 I rechecked the patient and explained findings. She is feeling much better and wheezes have resolved. Interventions: Medications magnesium sulfate 2 g in water intermittent infusion (0 g Intravenous Stopped 11/20/211755) predniSONE (DELTASONE) tablet 60 mg (60 mg Oral Given 11/20/211637) albuterol (PROVENTIL) neb solution 5 mg (2.5 mg Nebulization Given 11/20/211757) famotidine (PEPCID) injection 20 mg (20 mg Intravenous Given 11/20/211645) diphenhydrAMINE (BENADRYL) injection 50 mg (50 mg Intravenous Given 11/20/211642) EPINEPHrine (ADRENALIN) kit 0.3 mg (0.3 mg Intramuscular Given 11/20/211647) ipratropium - albuterol 0.5 mg/2.5 mg/3 mL (DUONEB) neb solution 6 mL (6 mLs Nebulization Given 11/20/211644) Disposition: The patient was discharged to home. Impression & Plan [facility] Diagnoses: None Medical Decision Making: Crystal Garcia is a 45 year old female with past medical history of asthma and allergic reactions who presents for evaluation of shortness of breath. Signs and symptoms are consistent with anaphylaxisand asthma exacerbation. A broad differential was considered including foreign body, asthma, pneumonia, bronchitis, reactive airway disease, pneumothorax, cardiac equivalent, viral induced wheezing, allergic phenomena, etc. She feels improved after interventions here in ED. There are no signs at this point of any serious etiologies including those mentioned above. No indication for hospitalization at this time including no hypoxia, no marked increase in respiratory rate, minimal to no retractions, rapidity of resolution, lack of serious systemic symptoms, lack of respiratory difficulty and no oral or pharyngeal swelling. She looks well at discharge and symptoms have stabilized and improved. We didwatch here for 2 hours prior to considering discharge. She was treated here with medications as noted above. Will send home with epipen, steroids, antihistamines. Close followup with primary care physician. Return of anaphylactic symptoms were discussed with patient and they were instructed to inject epi-pen and call 911 should these symptoms occur. There is no signs of anaphylactic shock. Return if increased wheezing, progressive shortness of breath, develops fever greater than 102. All questions were answered and the patient is amenable for discharge at this time. Diagnosis: ICD-10-CM 1. Anaphylaxis, initial encounter T78.2XXA 2. Moderate persistent asthma with exacerbation J45.41 Discharge Medications: New Prescriptions EPINEPHRINE (ANY BX GENERIC EQUIV) 0.3 MG/0.3ML INJECTION 2-PACK Inject 0.3 mLs (0.3 mg) into the muscle once as needed for anaphylaxis FAMOTIDINE (PEPCID) 20 MG TABLET Take 1 tablet (20 mg) by mouth 2 times daily for 5 days PREDNISONE (DELTASONE) 20 MG TABLET Take two tablets (= 40mg) each day for 5 (five) days Scribe Disclosure: Stefany Lowe, am serving as a scribe at 4:22 PM on 11/20/2021 to document services personally performed by Edwige Mills MD based on my observations and the provider's statements to me. Edwige Mills MD 11/21/21 0016 documented in this encounter Plan of Treatment Not on filedocumented as of this encounter Procedures Procedure Name Priority Date/Time Associated Comments Diagnosis XR CHEST 2 VIEWS STAT 11/20/2021 6:29 PM Resul ts for this CDT procedure are i n the results section. CBC WITH PLATELETS STAT 11/20/2021 4:51 PM Res ults for this AND DIFFERENTIAL CDT procedure a re in the results section. CBC WITH PLATELETS & STAT 11/20/2021 4:51 PM R esults for this DIFFERENTIAL CDT procedure are i n the results section. HCG QUALITATIVE STAT 11/20/2021 4:51 PM Result s for this CDT procedure are i n the results section. BLOOD GAS VENOUS STAT 11/20/2021 4:51 PM Resul ts for this CDT procedure are i n the results section. BASIC METABOLIC PANEL STAT 11/20/2021 4:51 PM Results for this CDT procedure are i n the results section. documented in this encounter Results XR Chest 2 Views (11/20/2021 6:29 PM CDT) Anatomical Region Laterality Modality Chest Digital Radiography Specimen (Source) Anatomical Collection Method Collection Time Re ceived Time Location / / Volume Laterality 11/20/2021 6:20 PM CDT Impressions 11/20/2021 6:43 PM CDT IMPRESSION: Negative chest. Narrative 11/20/2021 6:43 PM CDT EXAM: XR CHEST 2 VW LOCATION: [facility] DATE/TIME: 11/20/2021 6:20 PM INDICATION: SOB COMPARISON: 03/10/2021 Procedure Note Josafat Shrestha MD - 11/20/2021Formattin g of this note might be different from the original. EXAM: XR CHEST 2 VW LOCATION: [facility] DATE/TIME: 11/20/2021 6:20 PM INDICATION: SOB COMPARISON: 03/10/2021 IMPRESSION: Negative chest. Edwige Mills MD IMG DIAGNOSTIC IMAGING ORDER HAMIDA (ABNORMAL) CBC with platelets and differential (11/20/2021 4:51 PM CDT) [facility] gist Method Time Signature WBC Count 13.1 (H) 4.0 - 11/20/2021 [facility] 11.0 5:32 PM CDT 10e3/uL RBC Count 4.42 3.80 - 11/20/2021 [facility] 5.20 5:32 PM CDT 10e6/uL Hemoglobin 13.3 11.7 - 11/20/2021 [facility] 15.7 g/dL 5:32 PM CDT Hematocrit 42.5 35.0 - 11/20/2021 [facility] 47.0 % 5:32 PM CDT MCV 96 78 - 100 11/20/2021 [facility] fL 5:32 PM CDT MCH 30.1 26.5 - 11/20/2021 [facility] 33.0 pg 5:32 PM CDT MCHC 31.3 (L) 31.5 - 11/20/2021 [facility] 36.5 g/dL 5:32 PM CDT RDW 14.6 10.0 - 11/20/2021 [facility] 15.0 % 5:32 PM CDT Platelet Count 356 150 - 450 11/20/2021 [facility] 10e3/uL 5:32 PM CDT % Neutrophils 53 % 11/20/2021 [facility] 5:32 PM CDT % Lymphocytes 35 % 11/20/2021 [facility] 5:32 PM CDT % Monocytes 6 % 11/20/2021 [facility] 5:32 PM CDT % Eosinophils 5 % 11/20/2021 [facility] 5:32 PM CDT % Basophils 1 % 11/20/2021 [facility] 5:32 PM CDT % Immature 0 % 11/20/2021 [facility] Granulocytes 5:32 PM CDT NRBCs per 100 0 <1 /100 11/20/2021 [facility] WBC 5:32 PM CDT Absolute 7.0 1.6 - 8.3 11/20/2021 [facility] Neutrophils 10e3/uL 5:32 PM CDT Absolute 4.6 0.8 - 5.3 11/20/2021 [facility] Lymphocytes 10e3/uL 5:32 PM CDT Absolute 0.8 0.0 - 1.3 11/20/2021 [facility] Monocytes 10e3/uL 5:32 PM CDT Absolute 0.6 0.0 - 0.7 11/20/2021 [facility] Eosinophils 10e3/uL 5:32 PM CDT Absolute 0.1 0.0 - 0.2 11/20/2021 [facility] Basophils 10e3/uL 5:32 PM CDT Absolute 0.0 <=0.4 11/20/2021 [facility] Immature 10e3/uL 5:32 PM CDT Granulocytes Absolute NRBCs 0.0 10e3/uL 11/20/2021 [facility] 5:32 PM CDT Specimen Anatomical Collection Method / Collection Time Recei binu Time (Source) Location / Volume Laterality Blood VENOUS LINE / Venipuncture / 11/20/2021 4:51 2 5:05 Unknown Unknown PM CDT PM CDT Edwige Mills MD LAB - BLOOD ORDERABLES Performing Organization Address [facility]/ZIP Code [place] [address] [facility] [address] Lab (1st floor, no room number) HCG QUALitative (blood) (11/20/2021 4:51 PM CDT) [facility] Method Time Signature hCG Serum Negative Negative SAMUEL 11/20/2021 [facility] Qualitative 5:30 PM CDT Comment: This test is for screening purp oses. Results should be interpreted along with the clinical picture. Confirmation testing is available if warranted by ordering [id number], HCG Quantitative . Specimen Anatomical Collection Method / Collection Time Recei binu Time (Source) Location / Volume Laterality Blood VENOUS LINE / Venipuncture / 11/20/2021 4:51 2 5:05 Unknown Unknown PM CDT PM CDT Edwige Mills MD LAB - BLOOD ORDERABLES Performing Organization Address City/[facility]/ZIP Code [place] [address] [facility] [address] Lab (1st floor, no room number) (ABNORMAL) Blood gas venous (11/20/2021 4:51 PM CDT) [facility] Method Time Signature pH Venous 7.27 (L) 7.32 - 11/20/2021 [facility] 7.43 5:59 PM CDT pCO2 Venous 56 (H) 40 - 50 11/20/2021 [facility] mm Hg 5:59 PM CDT pO2 Venous 25 25 - 47 11/20/2021 [facility] mm Hg 5:59 PM CDT Bicarbonate 25 21 - 28 11/20/2021 [facility] Venous mmol/L 5:59 PM CDT Base -2.6 -7.7 - 11/20/2021 [facility] Excess/Deficit 1.9 5:59 PM CDT (+/-) mmol/L FIO2 0 SAMUEL 11/20/2021 [facility] 5:59 PM CDT Specimen Anatomical Collection Method / Collection Time Recei binu Time (Source) Location / Volume Laterality Blood, venous VENOUS LINE / Venipuncture / 11/20/2021 4:51 11/21/19 5:05 Unknown Unknown PM CDT PM CDT Edwige Mills MD LAB - BLOOD ORDERABLES Performing Organization Address City/State/ZIP Code [place] [address] [facility] [address] Lab (1st floor, no room number) (ABNORMAL) Basic metabolic panel (11/20/2021 4:51 PM CDT) Analysis Performed At Patho logist Time Signature Sodium 138 133 - 144 11/20/2021 [facility] mmol/L 5:27 PM CDT Potassium 3.4 3.4 - 5.3 11/20/2021 [facility] mmol/L 5:27 PM CDT Chloride 110 (H) 94 - 109 11/20/2021 [facility] mmol/L 5:27 PM CDT Carbon Dioxide 25 20 - 32 11/20/2021 [facility] (CO2) mmol/L 5:27 PM CDT Anion Gap 3 3 - 14 11/20/2021 [facility] mmol/L 5:27 PM CDT Urea Nitrogen 21 7 - 30 11/20/2021 [facility] mg/dL 5:27 PM CDT Creatinine 0.63 0.52 - 11/20/2021 [facility] 1.04 mg/dL 5:27 PM CDT Calcium 9.2 8.5 - 10.1 11/20/2021 [facility] mg/dL 5:27 PM CDT Glucose 107 (H) 70 - 99 11/20/2021 [facility] mg/dL 5:27 PM CDT GFR Estimate >90 >60 11/20/2021 [facility] mL/min/1.7 5:27 PM CDT 3m2 Comment: Effective August 20, 2021 eGF Rcr in adults is calculated using the 2020 CKD-EPI creatinine equation which includ es age and gender (Nunu et al., NEJM, DOI: 10.1056/AJEBfb7638767) Specimen Anatomical Collection Method / Collection Time Recei binu Time (Source) Location / Volume Laterality Blood VENOUS LINE / Venipuncture / 11/20/2021 4:51 5:05 Unknown Unknown PM CDT PM CDT Edwige Mills MD LAB - BLOOD ORDERABLES Performing Organization Address City/State/ZIP [place] [address] Care Lab [address] Lab (1st floor, no room number) documented in this encounter Visit Diagnoses Diagnosis Anaphylaxis, initial encounter Moderate persistent asthma with exacerba tion Unspecified asthma, with exacerbation documented in this encounter Administered Medications Inactive Administered Medications - up to 3 most recent administrations Medication Order MAR Action Action Date Dose Rate Site albuterol (PROVENTIL) neb solution Given 11/20/2021 5:58 PM CDT 2.5 mg 5 mg 5 mg, Nebulization, ONCE, On Thu11/20/21 at 1630, For 1 dose diphenhydrAMINE (BENADRYL) injection 50 mg Given 11/20/2021 4:43 PM CDT 50 mg 50 mg, Intravenous, ONCE, On Thu11/20/21 at 1630, For 1 dose EPINEPHrine (ADRENALIN) kit 0.3 mg Given 11/20/2021 4:48 PM CDT 0.3 mg 0.3 mg, Intramuscular, ONCE, On Thu11/20/21 at 1635, For 1 dose, See kit labeling for dosing instructions. Not for direct undiluted intravenous injection (1mg/mL = 1:1000). Protect from light. famotidine (PEPCID) injection 20 mg Given 11/20/2021 4:46 PM CDT 20 mg 20 mg, Intravenous, Administer over 2 Minutes, ONCE, On Thu11/20/21 at 1635, For 1 dose, For ordered IV doses 1-20 mg, give IV Push diluted with 5-10 mL NS over a minimum of 2 minutes. ipratropium - albuterol 0.5 mg/2.5 mg/3 mL (DUONEB) 0.5-2.5 (3) MG/3ML neb solution Starting on Thu11/20/21 at 1624, For 1 d Giorgi bojorquez Aja: cabinet override ipratropium - albuterol 0.5 mg/2.5 mg/3 mL Given 11/20/2021 4:45 PM CDT 6 mLs (DUONEB) neb solution 6 mL 6 mL, Nebulization, ONCE, On Thu11/20/21 at 1645, For 1 dose magnesium sulfate 2 g in water Started 11/20/2021 4:45 PM CDT 2 g 50 mL/hr intermittent infusion 2 g, Intravenous, Administer over 60 Minutes, at 50 mL/hr, ONCE, On Thu11/20/21 at 1630, For 1 dose predniSONE (DELTASONE) tablet 60 mg Given 11/20/2021 4:38 PM CDT 60 mg 60 mg, Oral, ONCE, On Thu11/20/21 at 1630, For 1 dose documented in this encounter Active and Recently Administered Medications Times are shown in CDT. Scheduled Medication Order 11/18/2021 11/19/2021 11/20/2021 albuterol (PROVENTIL) neb solution 5 mg (COMPLETED) 1758 (Given - Provider: Nicole Pal RN - Comment: Pt recieved 2 duonebs already. MD wants to give just one albuterol neb.) 5 mg, Nebulization, ONCE, On Thu11/20/21 at 1630, For 1 dose diphenhydrAMINE (BENADRYL) injection 50 mg (COMPLETED) 164 (Given - Provider: Andrés Corona RN) 50 mg, Intravenous, ONCE, On Thu11/20/21 at 1630, For 1 dose EPINEPHrine (ADRENALIN) kit 0.3 mg (COMPLETED) 164 (Given - Provider: Andrés Corona RN) 0.3 mg, Intramuscular, ONCE, On 11/20 at 1635, For 1 dose, See kit labeling for dosing instructions. Not for direct undiluted intravenous injection (1mg/mL = 1:1000). Protect from light. famotidine (PEPCID) injection 20 mg (COMPLETED) 164 (Given - Provider: Andrés Corona RN) 20 mg, Intravenous, Administer over 2 Mi nutes, ONCE, On Thu11/20/21 at 1635, For 1 dose, For ordered IV doses 1-20 mg, give IV Push diluted with 5-10 mL NS over a minimum of 2 minutes. ipratropium - albuterol 0.5 mg/2.5 mg/3 mL (DUONEB) neb solution 6 mL (COMPLETED) 1645 (Given - Provid er: Andrés Corona RN - Comment: MD Gato verbal order) 6 mL, Nebulization, ONCE, On Thu11/20/21 at 1645, For 1 dose magnesium sulfate 2 g in water intermittent infusion (COMPLETED) 164 (Started - Provider: Andrés Corona RN)1756 (Stopped - Provider: Nicole Pal RN) 2 g, Intravenous, Administer over 60 Min utes, at 50 mL/hr, ONCE, On Thu11/20/21 at 1630, For 1 dose predniSONE (DELTASONE) tablet 60 mg (COMPLETED) 163 (Given - Provider: Andrés Corona RN) 60 mg, Oral, ONCE, On Thu11/20/21 at 1630, For 1 dose documented in this encounter Care Teams Biomedical Service Engineer Relationship Specialty Start Date End Date Clinic, [facility] PCP - General 11/20/21 [address] [place] [address] documented as of this encounter
--- OUTSIDE RECORDS SUMMARY | 2022-08-12 22:22 | XMS_ITS | Encounter Summary ---
:1975 Author Organization [place] Address [address] [place] [address] Care Team Providers Name Role Phone [facility] Primary Care Provider [phone] Encounter Details Date Type Department Care Team Description 03/10/2021 Travel Social History Tobacco Use Types Packs/Day Years Used Date Smoking Tobacco: Never Smokeless Tobacco: Never Sex Assigned at Date Recorded Not on file COVID-19 Exposure Response Date Recorded In the last month, have you been in contact with No / Unsure 03/10/2021 7:31 AM CDT someone who was confirmed or suspected to have Coronavirus / COVID-19? documented as of this encounter Plan of Treatment Not on filedocumented as of this encounter Visit Diagnoses Not on filedocumented in this encounter Care Teams Casting Carrier Relationship Specialty Start Date End Date [facility] PCP - General 02/13/19 11/19/[address] [place] [id number] documented as of this encounter
--- OUTSIDE RECORDS SUMMARY | 2022-08-12 22:22 | XMS_ITS | Encounter Summary ---
:1975 Author Organization [place] Address [address] [place] [address] Care Team Providers Name Role Phone [facility], [facility] Primary Care Provider + [phone] Enrique Saenz MD Unavailable [phone] Pat Chavez PA-C Unavailable Reason for Referral Rehab Therapy Cardiac Therapy (Routine: Next available opening) - Pending Review Specialty Diagnoses / Procedures Referred By Contact Refer red To Contact Diagnoses Post-COVID chronic dyspnea Roberto Coleman MD [address] [facility] [address] [place] [address] Referral ID Status Reason Start Date Expiration Date Visits V isits Requested Authorized [id number] Pending 03/04/2022 03/04/2023 1 1 Review Encounter Details Date Type Department Care Team Description 03/04/2022 Orders Only [facility] Cardiac Speaker, Josef, Post-COVID chronic and Pulmonary EP dyspnea (Primary Dx) Rehabilitation [place] [address] [facility], [address] [place] [address] [place] [id number] Social History Tobacco Use Types Packs/Day Years Used Date Smoking Tobacco: Never Smokeless Tobacco: Never Sex Assigned at Date Recorded Not on file COVID-19 Exposure Response Date Recorded In the last 10 days, have you been in contact with No / Unsu re 02/23/2022 6:49 PM CDT someone who was confirmed or suspected to have Coronavirus/COVID-19? documented as of this encounter Plan of Treatment Scheduled Referrals Name Type Priority Associated Diagnoses Order S chedule Pulmonary Rehab Referral Routine: Next Post-COVID chronic Expec ryan: Referral available opening dyspnea 03/04/2022 (Approximate), Expires: 03/04/2023 documented as of this encounter Visit Diagnoses Diagnosis Post-COVID chronic dyspnea - Primary documented in this encounter Additional Health Concerns Assessment Noted Time PHQ-9 Depression Total Score: 11 02/27/2022 9:09 AM CD T documented as of this encounter Care Teams Forklift Mechanic Relationship Specialty Start Date End Date Clinic, [facility] PCP - General 11/20/21 [place] [address] [place] [address] Enrique Saenz MD Cardiovascular Disease 02/27/22 MD [place] [address] [place] [address] Pat Chavez, Assigned Neuroscience 03/01/22 PA-C Provider [address] [place] [address] documented as of this encounter
--- OUTSIDE RECORDS SUMMARY | 2022-08-12 22:22 | XMS_ITS | Encounter Summary ---
:1975 Author Organization [place] Address [facility] [place] [address] Care Team Providers Name Role Phone [facility], [facility] Primary Care Provider [phone] Reason for Visit Reason Comments Asthma Exacerbation Encounter Details Date Type Department Care Team Description [facility] [place] asthma with [address] [facility] exacerbation [place] [address] [address] [facility] [phone] [place], [place] [address] (Wo rk) Social History Tobacco Use Types Packs/Day Years Used Date Smoking Tobacco: Never Smokeless Tobacco: Never Sex Assigned at Date Recorded Not on file documented as of this encounter Last Filed Vital Signs Vital Sign Reading Time Taken Comments Blood Pressure 128/93 02/21/2022 7:15 AM CDT Pulse 92 02/21/2022 7:15 AM CDT Temperature 36.5 ??C (97.7 ??F) 02/21/2022 6:07 AM CDT Respiratory Rate 16 02/21/2022 7:15 AM CDT Oxygen Saturation 93% 02/21/2022 7:15 AM CDT Inhaled Oxygen Concentration - - Weight - - Height - - Body Mass Index - - documented in this encounter Discharge Instructions Discharge InstructionsCuate Cota MD - 02/21/2022 7:26 AM CDT Please alternate Combivent with albuterol at home. Use prednisone daily at home and a tapering dose as prescribed. Continue your Zyrtec. Return to the emergency room with severe increasing shortness ofbreath or chest pain. AttachmentsThe following attachments cannot be sent through Care Everywhere. Asthma Triggers, Understanding (Micronesian)Asthma, Acute (Adult) (Micronesian) documented in this encounter Medications at Time [...] needed for 2-pack anaphylaxis predniSONE (DELTASONE) Take 4 tablets daily 32 tablet 0 03/03/2022 10 MG tablet for 5 days, take 2 tablets daily for 3 days, take 1 tablet daily for 3 days, take half a tablet for 3 days. albuterol (PROAIR Inhale 2 puffs into 18 g 0 03/08/2022 HFA/PROVENTIL the lungs every 6 HFA/VENTOLIN HFA) 108 hours (90 Base) MCG/ACT inhalerIndications: Anaphylaxis, initial encounter fluticasone-vilanterol Inhale 1 puff into the 1 each 0 0 03/12/2021 03/08/2022 (BREO ELLIPTA) 200-25 lungs daily MCG/INH inhalerIndications: Severe persistent asthma with exacerbation ipratropium - albuterol Take 1 vial (3 mLs) by 90 mL 0 02/21/2022 03/08/2022 0.5 mg/2.5 mg/3 mL nebulization every 6 (DUONEB) 0.5-2.5 (3) hours as needed for MG/3ML neb solution shortness of breath / dyspnea or wheezing predniSONE (DELTASONE) Take two tablets (= 10 tablet 1 10/3003/07/2022 20 MG tablet 40mg) each day for 5 (five) days documented as of this encounter ED Notes Lynnette Mckinney RN - 02/21/2022 6:08 AM CDT Pt aox4, ABCs intact. Pt arrives via EMS from work for evaluation of asthma exacerbation. Pt states that she has a hx of asthma exacerbations and seasonal allergies. Pt states that she went to bed feeling congested and woke up SOB so she did an albuterol neb and duoneb that provided her with not relief. Patient went to work because they have very strict policies. Patient states that once she got towork her work of breathing increased and she started to feel dizzy. EMS gave her an albuterol and duoneb. Initially on room air patient was 88%. Triage Assessment Row Name 02/21/22 0608 Respiratory WDL Respiratory WDL X;cough;rhythm/pattern Rhythm/Pattern, Respiratory shortness of breath;shallow;labored;dyspnea on exertion Cough Type congested Lynnette Mckinney RN - 02/21/2022 6:04 AM CDT Bed: HW01 Expected date: Expected time: Means of arrival: Comments: [id number] Cuate Cota MD - 02/21/2022 6:04 AM CDT History Chief Complaint: Asthma Exacerbation HPI Crystal Garcia is a 46 year old female with history of asthma and allergies who presents via EMS with an asthma exacerbation. Per the patient, she felt congested going to be last night. She awoke at 0200 feeling short of breath so she used her nebulizer. After she went to work at 0330 she also felt dizzy and fatigued. She was given albuterol and duoneb en route by EMS. Review of Systems Constitutional: Positive for fatigue. Respiratory: Positive for shortness of breath. Neurological: Positive for dizziness. All other systems reviewed and are negative. Allergies: Penicillins Medications: Albuterol Epinephrine Fluticasone-Vilanterol Prednisone Past Medical History: Asthma, severe Social History: Patient is unaccompanied. Patient arrived via EMS. Physical Exam Patient Vitals for the past 24 hrs: BP Temp Temp src Pulse Resp SpO2 02/21/22 0607 130/86 97.7 ??F (36.5 ??C) Oral 85 24 99 % Physical Exam Vitals reviewed. Constitutional: Appearance: She is obese. HENT: Head: Normocephalic. Right Ear: Tympanic membrane normal. Left Ear: Tympanic membrane normal. Mouth/Throat: Mouth: Mucous membranes are moist. Cardiovascular: Rate and Rhythm: Normal rate and regular rhythm. Pulmonary: Breath sounds: Wheezing present. Abdominal: General: Abdomen is flat. Palpations: Abdomen is soft. Musculoskeletal: General: Normal range of motion. Skin: General: Skin is warm. Capillary Refill: Capillary refill takes less than 2 seconds. Neurological: General: No focal deficit present. Mental Status: She is alert. Psychiatric: Mood and Affect: Mood normal. Emergency Department Course Emergency Department Course: Reviewed: I reviewed nursing notes, vitals and past medical history Assessments: 06 I obtained history and examined the patient as noted above. 07 I rechecked the patient and explained findings. Interventions: 629 predniSONE (DELTASONE) tablet 60 mg 06 ipratropium - albuterol 0.5 mg/2.5 mg/3 mL (DUONEB) neb solution 3 mL Disposition: The patient was discharged to home. Impression & Plan Medical Decision Making: Patient presents with increasing shortness of breath. Patient's examination is normal with a normal respiratory rate and a normal speech pattern without signs of tachypnea or hypoxia. Patient is wheezing. DuoNeb and steroids were given. Patient improved with these interventions. Suspect asthma exacerbation may be related to the heat or the environment. No clinical concern for infection at this time patient is offered reassurance and discharged home and return with worsening condition. No clinical concern for PE pneumonia or other complication due to active wheezing history of asthma and normal other vital signs. Diagnosis: ICD-10-CM 1. Mild intermittent asthma with exacerbation J45.21 Discharge Medications: New Prescriptions IPRATROPIUM - ALBUTEROL 0.5 MG/2.5 MG/3 ML (DUONEB) 0.5-2.5 (3) MG/3ML NEB SOLUTION Take 1 vial (3 mLs) by nebulization every 6 hours as needed for shortness of breath / dyspnea or wheezing PREDNISONE (DELTASONE) 10 MG TABLET Take 4 tablets daily for 5 days, take 2 tablets daily for 3 days, take 1 tablet daily for 3 days, take half a tablet for 3 days. Scribe Disclosure: Jim Lowe, am serving as a scribe at 6:22 AM on 02/21/2022 to document services personally performed by Cuate Cota MD based on my observations and the provider's statements to me. Cuate Cota MD 02/24/22 1521 documented in this encounter Plan of Treatment Not on filedocumented as of this encounter Visit Diagnoses Diagnosis Mild intermittent asthma with exacerbati on Unspecified asthma, with exacerbation documented in this encounter Administered Medications Inactive Administered Medications - up to 3 most recent administrations Medication Order MAR Action Action Date Dose Rate Site ipratropium - albuterol 0.5 mg/2.5 Given 02/21/2022 6:31 AM CDT 3 mLs mg/3 mL (DUONEB) neb solution 3 mL 3 mL, Nebulization, ONCE, On Thu02/21/22 at 0630, For 1 dose predniSONE (DELTASONE) tablet 60 mg Given 02/21/2022 6:30 AM CDT 60 mg 60 mg, Oral, ONCE, On Thu02/21/22 at 0630, For 1 dose documented in this encounter Active and Recently Administered Medications Times are shown in CDT. Scheduled Medication Order 02/19/2022 02/20/2022 02/21/2022 ipratropium - albuterol 0.5 mg/2.5 mg/3 mL (DUONEB) neb solution 3 mL (COMPLETED) 630 (Given - Provid er: Vanessa Flores RN) 3 mL, Nebulization, ONCE, On Thu02/21/22 at 0630, For 1 dose predniSONE (DELTASONE) tablet 60 mg (COMPLETED) 629 (Given - Provider: Vanessa Flores RN) 60 mg, Oral, ONCE, On Thu02/21/22 at 0630, For 1 dose documented in this encounter Care Teams Chief Console Operator Relationship Specialty Start Date End Date Clinic, [facility] PCP - General 11/20/21 [address] [place] [address] documented as of this encounter
--- OUTSIDE RECORDS SUMMARY | 2022-08-12 22:22 | XMS_ITS | Encounter Summary ---
:1975 Author Organization [place] Address [facility] [place] [address] Care Team Providers Name Role Phone [facility], [facility] Primary Care Provider [phone] Reason for Visit Reason Comments Laceration pt was cooking and cut L bhatti d index finger Encounter Details Date Type Department Care Team Description 01/31/2020 Office Visit [facility] Josafat Black Laceration of left Urgent Care Solo Ngo DO index finger without [address] [place] [address] foreign body without [place], [place] damage to nail, initial [id number] encounter (Primary Dx) [phone] Social History Tobacco Use Types Packs/Day Years [...] Sign Reading Time Taken Comments Blood Pressure 116/80 01/31/2020 6:03 PM CDT Pulse 67 01/31/2020 6:03 PM CDT Temperature - - Respiratory Rate 16 01/31/2020 6:03 PM CDT Oxygen Saturation 99% 01/31/2020 6:03 PM CDT Inhaled Oxygen Concentration - - Weight - - Height - - Body Mass Index - - documented in this encounter Progress Notes Josafat Black DO - 01/31/2020 6:00 PM CDT SUBJECTIVE: @RVF@.ident who presents to the clinic with a laceration on the finger sustained hour(s)ago. This is a accidental injury. Mechanism of injury: knife. Associated symptoms: Denies numbness, weakness, or loss of function Last tetanus booster within 10 years: yes No past medical history on file. Allergies Allergen Reactions ??? Penicillins Social History Tobacco Use ??? Smoking status: Never Smoker ??? Smokeless tobacco: Never Used Substance Use Topics ??? Alcohol use: Not on file ROS: Neuro: good distal sensation Motor: normal rom and strenght Hem: capillary refill < 2 sec EXAM: The patient appears today in alert,no apparent distress distressVITALS: BP 116/80 Pulse 67 Resp 16 SpO2 99% Size of laceration: 3 centimeters Characteristics of the laceration: clean and straight Tendon function intact: yes Sensation to light touch intact: yes Pulses/Capillary refill intact: yes ICD-10-CM 1. Laceration of left index finger without foreign body without damage to nail, initial encounter S61.211A REPAIR SUPERFICIAL, WOUND BODY 2.6-7.5 CM acetaminophen (TYLENOL) tablet 1,000 mg Procedure Note:Wound injected with 1 cc's of Lidocaine 1% plain Good anesthesia was obtainedPrepped and draped in the usual sterile fashion Wound cleaned with sterile water Wound irrigatedLaceration was closed using 5-0 nylon interrupted sutures After care instructions:Keep wound clean Sutures out in 10 days Signs of infection discussed today documented in this encounter Plan of Treatment Not on filedocumented as of this encounter Procedures Procedure Name Priority Date/Time Associated Diagnosis Comme nts REPAIR SUPERFICIAL, Routine 01/31/2020 6:59 PM CDT Lacerati on of left WOUND BODY 2.6-7.5 CM index finger withou t foreign body without damage to nail, initial encounter documented in this encounter Visit Diagnoses Diagnosis Laceration of left index finger without foreign body without damage to nail, initial encounter - Primary documented in this encounter Administered Medications Inactive Administered Medications - up to 3 most recent administrations Medication Order MAR Action Action Date Dose Rate Site acetaminophen (TYLENOL) tablet Given 01/31/2020 7:05 PM CDT 1,00 0 mg 1,000 mg 1,000 mg, Oral, ONCE, On Thu01/31/20 at 1915, For 1 dose, Maximum acetaminophen dose from all sources = 75 mg/kg/day not to exceed 4 gram documented in this encounter Care Teams Lead Software Test Engineer Relationship Specialty Start Date End Date Clinic, [facility] PCP - General 02/13/19 11/19/[address] [place] [address] documented as of this encounter
--- OUTSIDE RECORDS SUMMARY | 2022-08-12 22:22 | XMS_ITS | Encounter Summary ---
:1975 Author Organization Penelope Address [facility] [place] [address] Care Team Providers Name Role Phone [facility], [facility] Primary Care Provider [phone] Reason for Referral Mental Health Outpatient (Priority: 1-2 Weeks) - Pending Review Specialty Diagnoses / Procedures Referred By Contact Refer red To Contact Behavioral Health Diagnoses Anxiety Shellie Duran MD [facility] Maurizio HERNADNEZ [address] [place], [place] [id number] 5 Referral ID Status Reason Start Date Expiration Date Visits V isits Requested Authorized [id number] Pending 02/23/2022 02/23/2023 1 1 Review Consultation (Routine: Next available opening) - Pending Review Specialty Diagnoses / Procedures Referred By Contact Refer red To Contact Physical Medicine and Diagnoses Mild intermittent asthma with exacerbation Shellie Duran MD Rehabilitation [facility] Maurizio HERNANDE[address] [place], [place] [address] 5 Referral ID Status Reason Start Date Expiration Date Visits V isits Requested Authorized [id number] Pending 02/23/2022 02/23/2023 1 1 Review Reason for Visit Reason Comments Shortness of Breath Encounter Details Date Type Department Care Team Description 02/23/2022 [facility] Shellie Byrne MD Shortness of breath; [facility] Emergency [facility] d intermittent asthma with exacerbation; Dept [place] Anxiety [address] [facility] [address] [place], [place] [phone] [place] [address] (Wo rk) Social History Tobacco Use Types [...] Sign Reading Time Taken Comments Blood Pressure 115/78 02/23/2022 9:30 PM CDT Pulse 87 02/23/2022 9:30 PM CDT Temperature 36.8 ??C (98.3 ??F) 02/23/2022 6:57 PM CDT Respiratory Rate 18 02/23/2022 9:30 PM CDT Oxygen Saturation 96% 02/23/2022 9:30 PM CDT Inhaled Oxygen Concentration - - Weight 81.2 kg (179 lb) 02/23/2022 6:57 PM CDT Height 165.1 cm (5' 5) 02/23/2022 6:57 PM CDT Body Mass Index 29.79 02/23/2022 6:57 PM CDT documented in this encounter Discharge Instructions AttachmentsThe following attachments cannot be sent through Care Everywhere. Anxiety Reaction ([place])Asthma, Understanding ([place])documented in this encounter Medications at Time of [...] documented as of this encounter ED Notes Monalisa Shah RN - 02/23/2022 9:53 PM CDT Patient discharged home with . Vital signs stable at discharge. Education provided regarding avs reviewed. Pt verbalized understanding. IV removed. Catheter intact. All questions answered. Carey Rowland RN - 02/23/2022 6:53 PM CDT Arrives via EMS from home after feeling like she was wheezing while making dinner in kitchen. Went to take inhaler and family told her she should do a nebulizer. Became anxious and went outside. Reported chest tightness and numbness/tingling of arms. Tachypneic upon arrival to ED. BS=98 en route. Satti ng 96-97% with neb going en route. 94% on RA here in ED. Rcvd duoneb en route. ABCD's intact, A/O x 4. Triage Assessment Row Name 02/23/22 949 Triage Assessment (Adult) Airway WDL WDL Respiratory WDL Respiratory WDL X;all Rhythm/Pattern, Respiratory tachypneic;labored Cough Frequency frequent Cough Type dry Cognitive/Neuro/Behavioral WDL Cognitive/Neuro/Behavioral WDL WDL Kaleb Marcus RN - 02/23/2022 6:42 PM CDT Bed: ED31 Expected date: 02/23/22 Expected time: 6:32 PM Means of arrival: Ambulance Comments: [id number] Shellie Duran MD - 02/23/2022 6:42 PM CDT History Chief Complaint: Shortness of breath HPI Crystal Garcia is a 46 year old female with a history of asthma and allergies who presents via EMS to the emergency department for evaluation of shortness of breath. The patient reports she had a previous COVID infection in May of 2020, and since then she has had continued respiratory complications. Over the last two week the patient endorses she has begun to become easily tired doing simple tasks, and has been deeling like she has been gasping for air. was seen two days ago in this emergency department after a syncopal episode at work. She was prescribed prednisone at that time. Then tonight while making dinner, began to develop mild wheezing. She reports she went to use her inhaler, but became anxious when prompted by her family to use her nebulizer. At this time she alsobegan to develop chest tightness and numbness/tingling of her arms. EMS was called, and upon arrive they found the patient to be tachypneic. The patients O2 stats were 94% on RA, and stating 96-97% with nebulizer. Here, the patient reports her chest feels heavy, as though someone is sitting on her chest. She also reports her a mild headache, and decreased fluid intake. She denied any history of blood clots. She also denied any use of alcohol or smoking. Review of Systems Constitutional: Positive for fatigue. Respiratory: Positive for chest tightness and shortness of breath. Neurological: Positive for weakness, numbness and headaches. All other systems reviewed and are negative. Allergies: Penicillins Medications: albuterol (PROAIR HFA/PROVENTIL HFA/VENTOLIN HFA) 108 (90 Base) MCG/ACT inhaler albuterol (PROVENTIL) (2.5 MG/3ML) 0.083% neb solution EPINEPHrine (ANY BX GENERIC EQUIV) 0.3 MG/0.3ML injection 2-pack fluticasone-vilanterol (BREO ELLIPTA) 200-25 MCG/INH inhaler ipratropium - albuterol 0.5 mg/2.5 mg/3 mL (DUONEB) 0.5-2.5 (3) MG/3ML neb solution predniSONE (DELTASONE) 10 MG tablet predniSONE (DELTASONE) 20 MG tablet Past Medical History: Severe persistent asthma with exacerbation Past Surgical History: Gallbladder removed Social History: Primary care provider: Clinic, [facility] The patient presents to the ED via EMS. Physical Exam Patient Vitals for the past 24 hrs: BP Temp Temp src Pulse Resp SpO2 Height Weight 02/23/22 2130 115/78 -- -- 87 18 96 % -- -- 02/23/222029 117/73 -- -- 90 21 95 % -- -- 02/23/222014 -- -- -- -- -- 94 % -- -- 02/23/221999 133/87 -- -- 88 -- -- -- -- 02/23/22 1930 (!) 133/91 -- -- 89 15 94 % -- -- 02/23/22 1900 120/82 -- -- 81 19 94 % -- -- 02/23/22 1857 (!) 142/82 98.3 ??F (36.8 ??C) Oral 82 24 94 % 1.651 m (5' 5) 81.2 kg (179 lb) Physical Exam General: alert, anxious HENT: mucous membranes moist CV: regular rate, regular rhythm Resp: Tachypnea, increased work of breathing at rest. Poor air movement posteriorly, scattered wheezes anteriorly. GI: abdomen soft and nontender, no guarding MSK: no bony tenderness Skin: appropriately warm and dry Extremities: no edema, calves non-tender Neuro: alert, clear speech, oriented Psych: anxious Emergency Department Course ECG: ECG results from 02/23/22 EKG 12-lead, tracing only Value Systolic Blood Pressure Diastolic Blood Pressure Ventricular Rate 81 Atrial Rate 81 MA Interval 128 QRS Duration 82 QT 376 QTc 436 P Stringer 69 R AXIS -13 T Stringer 47 Interpretation ECG Sinus rhythm Normal ECG When compared with ECG of 13-FEB-2019 23:20, No significant change was found Imaging: CT Chest Pulmonary Embolism w Contrast Final Result IMPRESSION: 1. No pulmonary embolus, aortic dissection, or aneurysm. 2. Status post cholecystectomy. Report per radiology Laboratory: Labs Ordered and Resulted from Time of ED Arrival to Time of ED Departure BASIC METABOLIC PANEL - Abnormal Result Value Sodium 141 Potassium 3.4 Chloride 109 Carbon Dioxide (CO2) 25 Anion Gap 7 Urea Nitrogen 20 Creatinine 0.84 Calcium 8.4 (*) Glucose 146 (*) GFR Estimate 87 D DIMER QUANTITATIVE - Abnormal D-Dimer Quantitative 0.61 (*) BLOOD GAS VENOUS WITH OXYHEMOGLOBIN - Abnormal pH Venous 7.39 pCO2 Venous 42 pO2 Venous 54 (*) Bicarbonate Venous 25 FIO2 0 Oxyhemoglobin Venous 86 (*) Base Excess/Deficit (+/-) -0.2 CBC WITH PLATELETS AND DIFFERENTIAL - Abnormal WBC Count 11.8 (*) RBC Count 4.11 Hemoglobin 12.6 Hematocrit 38.9 MCV 95 MCH 30.7 MCHC 32.4 RDW 14.0 Platelet Count 343 % Neutrophils 70 % Lymphocytes 24 % Monocytes 3 % Eosinophils 2 % Basophils 1 % Immature Granulocytes 0 NRBCs per 100 WBC 0 Absolute Neutrophils 8.3 Absolute Lymphocytes 2.8 Absolute Monocytes 0.4 Absolute Eosinophils 0.3 Absolute Basophils 0.1 Absolute Immature Granulocytes 0.0 Absolute NRBCs 0.0 TROPONIN I - Normal Troponin I High Sensitivity 3 INFLUENZA A/B & SARS-COV2 PCR MULTIPLEX - Normal Influenza A PCR Negative Influenza B PCR Negative RSV PCR Negative SARS CoV2 PCR Negative Procedures: Emergency Department Course: Reviewed: I reviewed nursing notes, vitals, past medical history, Care Everywhere and MIIC Assessments: 1842 I obtained history and examined the patient as noted above. 2144 I rechecked the patient and explained findings. Patient ambulatory with sat 96%, no increased work of Breathing. Interventions: 1918 ipratropium - albuterol 0.5 mg/2.5 mg/3 mL (DUONEB) neb solution 3 mL, Nebulization 1935 ipratropium - albuterol 0.5 mg/2.5 mg/3 mL (DUONEB) neb solution 3 mL, Nebulization Disposition: The patient was discharged to home. Impression & Plan Medical Decision Making: Crystal Garcia is a 46 year old female with history of asthma and shortness of breath since COVID 19 infection, who presents with shortness of breath and anxiety. On exam, she has normal oxygen saturation. She has mild scattered wheezing and tachypnea. There seems to be a component of anxiety as well. No evidence for ACS with negative troponin and EKG without ischemia. D-dimer was elevated, but PE study negative and no evidence for pneumonia or volume overload. Patient is feeling much better following the above interventions. Ambulatory with normal sat. notes history of increased stress related to work and family stressors. Patient has had follow up with multiple specialists given new respiratory issues following COVID 19 infection. I have placed a mental health referral, and also a referral to the long COVID clinic at [facility]. Return to the ED for increased difficulty breathing, fever, chest pain, or other concerns. Covid-19 Crystal Garcia was evaluated during a global COVID-19 pandemic, which necessitated consideration that the patient might be at risk for infection with the SARS-CoV-2 virus that causes COVID-19. Applicable protocols for evaluation were followed during the patient's care. COVID-19 was considered as part of the patient's evaluation. Diagnosis: ICD-10-CM 1. Shortness of breath R06.02 2. Mild intermittent asthma with exacerbation J45.21 Adult Post Covid Clinic Referral 3. Anxiety F41.9 Adult Mental Health Donor Specialist Referral Discharge Medications: Discharge Medication List as of 02/23/2022 9:53 PM Scribe Disclosure: Kathryn Lowe, am serving as a scribe at 6:43 PM on 02/23/2022 to document services personally performed by Shellie Duran MD based on my observations and the provider's statements to me. Shellie Duran MD 02/26/22 5799 documented in this encounter Plan of Treatment Scheduled Referrals Name Type Priority Associated Diagnoses Order S chedule Adult Post Covid Referral Routine: Next Mild intermittent Expec ryan: Clinic Referral available opening asthma with 022 exacerbation (Approximate), Expires: 02/23/2023 Adult Mental Health Referral Priority: 1-2 Weeks Anxiety E xpected: Donor Specialist Referral (Approximate), Expires: 02/23/2023 documented as of this encounter Procedures Procedure Name Priority Date/Time Associated Comments Diagnosis CT CHEST PULMONARY STAT 02/23/2022 8:50 PM Res ults for this EMBOLISM W CONTRAST CDT procedur e are in the results section. INFLUENZA A/B & STAT 02/23/2022 7:19 PM Result s for this SARS-COV2 PCR CDT procedure are in MULTIPLEX the results section. EXTRA TUBE STAT 02/23/2022 7:12 PM Results f or this CDT procedure are i n the results section. EXTRA PURPLE TOP TUBE STAT 02/23/2022 7:12 PM Results for this CDT procedure are i n the results section. EXTRA GREEN TOP STAT 02/23/2022 7:12 PM Result s for this (LITHIUM HEPARIN) TUBE CDT proce dure are in the results section. EXTRA RED TOP TUBE STAT 02/23/2022 7:12 PM Res ults for this CDT procedure are i n the results section. CBC WITH PLATELETS AND STAT 02/23/2022 7:12 PM Results for this DIFFERENTIAL CDT procedure are i n the results section. CBC WITH PLATELETS & STAT 02/23/2022 7:12 PM R esults for this DIFFERENTIAL CDT procedure are i n the results section. TROPONIN I STAT 02/23/2022 7:12 PM Results f or this CDT procedure are i n the results section. D DIMER QUANTITATIVE STAT 02/23/2022 7:12 PM R esults for this CDT procedure are i n the results section. BLOOD GAS VENOUS WITH STAT 02/23/2022 7:12 PM Results for this OXYHEMOGLOBIN CDT procedure are in the results section. BASIC METABOLIC PANEL STAT 02/23/2022 7:12 PM Results for this CDT procedure are i n the results section. EKG 12-LEAD, TRACING STAT 02/23/2022 7:07 PM R esults for this ONLY CDT procedure are i n the results section. documented in this encounter Results CT Chest Pulmonary Embolism w Contrast (02/23/2022 8:50 PM CDT) Anatomical Region Laterality Modality Chest, SUBRAD CT BODY, UMP CT CHEST Comp uted Tomography Specimen (Source) Anatomical Collection Method Collection Time Re ceived Time Location / / Volume Laterality 02/23/2022 8:49 PM CDT Impressions 02/23/2022 9:09 PM CDT IMPRESSION: 1. ??No pulmonary embolus, aortic dissec tion, or aneurysm. 2. ??Status post cholecystectomy. Narrative 02/23/2022 9:09 PM CDT EXAM: CT CHEST PULMONARY EMBOLISM W CONTRAST LOCATION: [facility] DATE/TIME: 02/23/2022 8:49 PM INDICATION: shortness of breath COMPARISON: None. TECHNIQUE: CT chest pulmonary angiogram during arterial phase injection of IV contrast. Multiplanar reformats and MIP reconstructions were performed. Dose reduction techniques were used. CONTRAST: 73mL Isovue 370 FINDINGS: ANGIOGRAM CHEST: Pulmonary arteries are normal caliber and negative for pulmonary emboli. Thoracic aorta is negative for dissection. No CT evidence of right heart strain. LUNGS AND PLEURA: Normal. MEDIASTINUM/AXILLAE: Normal. CORONARY ARTERY CALCIFICATION: None. UPPER ABDOMEN: Status post cholecystecto my. MUSCULOSKELETAL: Normal. Procedure Note John Welsh MD - 02/23/2022F ormatting of this note might be different from the original. EXAM: CT CHEST PULMONARY EMBOLISM W CONT RAST LOCATION: [facility] DATE/TIME: 02/23/2022 8:49 PM INDICATION: shortness of breath COMPARISON: None. TECHNIQUE: CT chest pulmonary angiogram during arterial phase injection of IV contrast. Multiplanar reformats and MIP reconstructions were performed. Dose reduction techniques were used. CONTRAST: 73mL Isovue 370 FINDINGS: ANGIOGRAM CHEST: Pulmonary arteries are normal caliber and negative for pulmonary emboli. Thoracic aorta is negative for dissection. No CT evidence of right heart strain. LUNGS AND PLEURA: Normal. MEDIASTINUM/AXILLAE: Normal. CORONARY ARTERY CALCIFICATION: None. UPPER ABDOMEN: Status post cholecystecto my. MUSCULOSKELETAL: Normal. IMPRESSION: 1. No pulmonary embolus, aortic dissecti on, or aneurysm. 2. Status post cholecystectomy. Shellie Duran MD IMG CT ORDERABLES Symptomatic; Yes; 02/21/2022 Influenza A/B & SARS-CoV2 (COVID-19) Virus PCR Multiplex Nasopharyngeal (02/23/2022 7:19 PM CDT) Analysis Performed At Patho logist Time Signature Influenza A Negative Negative 02/23/2022 [facility] PCR 8:06 PM CDT Influenza B Negative Negative 02/23/2022 [facility] PCR 8:06 PM CDT RSV PCR Negative Negative 02/23/2022 [facility] 8:06 PM CDT SARS CoV2 PCR Negative Negative 02/23/2022 [facility] 8:06 PM CDT Comment: NEGATIVE: SARS-CoV-2 (COVID-19) RNA not detected, presumed negative. Specimen Anatomical Location / Collection Method Collection Alfredo e Received Time (Source) Laterality / Volume Swab NASOPHARYNGEAL Non-blood 02/23/2022 7:19 02/23/2022 7:25 STRUCTURE / Unknown Collection / PM CDT PM CDT Unknown Narrative [facility] - 02/23/2022 8:06 PM CDT Testing was performed using the Xpert Xpress CoV2/Flu/RSV Assay on the [employer] GeneXpert Instrument. This test should be ordered [...] management. This test was validated by the [facility] [employer]. These laboratories are certified under the Clinical Laboratory Improvement Amendments of 198 8 (CLIA-88) as qualified to perform high complexity laboratory testing. Shellie Duran MD LAB - MICRO GENERAL ORDERABL ES Performing Organization Address City/State/[place] [address] Care [facility] [address] Lab (1st floor, no room number) Extra Purple Top Tube (02/23/2022 7:12 PM CDT) athologist Signature Hold Specimen [facility] 02/23/2022 [facility] 8:18 PM CDT Specimen Anatomical Collection Method / Collection Time Recei binu Time (Source) Location / Volume Laterality Blood STRUCTURE OF LEFT Venipuncture / 02/23/2022 7:12 02/23 7:16 HAND / Unknown Unknown PM CDT PM CDT Shellie Duran MD LAB - BLOOD ORDERABLES Performing Organization Address City/[facility]/[place] [phone] Care [facility] [address] Lab (1st floor, no room number) Extra Green Top ([place] Heparin) Tube (02/23/2022 7:12 PM CDT) athologist Signature Hold Specimen [facility] 02/23/2022 [facility] 8:18 PM CDT Specimen Anatomical Collection Method / Collection Time Recei binu Time (Source) Location / Volume Laterality Blood STRUCTURE OF LEFT Venipuncture / 02/23/2022 7:12 02/23 7:16 HAND / Unknown Unknown PM CDT PM CDT Shellie Duran MD LAB - BLOOD ORDERABLES Performing Organization Address City/[facility]/[place] [address] Care [facility] [address] Lab (1st floor, no room number) Extra Red Top Tube (02/23/2022 7:12 PM CDT) athologist Signature Hold Specimen [facility] 02/23/2022 [facility] 8:18 PM CDT Specimen Anatomical Collection Method / Collection Time Recei binu Time (Source) Location / Volume Laterality Blood STRUCTURE OF LEFT Venipuncture / 02/23/2022 7:12 06/26 /2022 7:16 HAND / Unknown Unknown PM CDT PM CDT Shellie Duran MD LAB - BLOOD ORDERABLES Performing Organization Address City/State/ZIP Code Phon e Number [place] [address] Care [facility] [address] Lab (1st floor, no room number) (ABNORMAL) CBC with platelets and differential (02/23/2022 7:12 PM CDT) [facility] Method Time Signature WBC Count 11.8 (H) 4.0 - 02/23/2022 [facility] 11.0 7:19 PM CDT 10e3/uL RBC Count 4.11 3.80 - 02/23/2022 [facility] 5.20 7:19 PM CDT 10e6/uL Hemoglobin 12.6 11.7 - 02/23/2022 [facility] 15.7 g/dL 7:19 PM CDT Hematocrit 38.9 35.0 - 02/23/2022 [facility] 47.0 % 7:19 PM CDT MCV 95 78 - 100 02/23/2022 [facility] fL 7:19 PM CDT MCH 30.7 26.5 - 02/23/2022 [facility] 33.0 pg 7:19 PM CDT MCHC 32.4 31.5 - 02/23/2022 [facility] 36.5 g/dL 7:19 PM CDT RDW 14.0 10.0 - 02/23/2022 [facility] 15.0 % 7:19 PM CDT Platelet Count 343 150 - 450 02/23/2022 [facility] 10e3/uL 7:19 PM CDT % Neutrophils 70 % 02/23/2022 [facility] 7:19 PM CDT % Lymphocytes 24 % 02/23/2022 [facility] 7:19 PM CDT % Monocytes 3 % 02/23/2022 [facility] 7:19 PM CDT % Eosinophils 2 % 02/23/2022 [facility] 7:19 PM CDT % Basophils 1 % 02/23/2022 [facility] 7:19 PM CDT % Immature 0 % 02/23/2022 [facility] Granulocytes 7:19 PM CDT NRBCs per 100 0 <1 /100 02/23/2022 [facility] WBC 7:19 PM CDT Absolute 8.3 1.6 - 8.3 02/23/2022 [facility] Neutrophils 10e3/uL 7:19 PM CDT Absolute 2.8 0.8 - 5.3 02/23/2022 [facility] Lymphocytes 10e3/uL 7:19 PM CDT Absolute 0.4 0.0 - 1.3 02/23/2022 [facility] Monocytes 10e3/uL 7:19 PM CDT Absolute 0.3 0.0 - 0.7 02/23/2022 [facility] Eosinophils 10e3/uL 7:19 PM CDT Absolute 0.1 0.0 - 0.2 02/23/2022 [facility] Basophils 10e3/uL 7:19 PM CDT Absolute 0.0 <=0.4 02/23/2022 [facility] Immature 10e3/uL 7:19 PM CDT Granulocytes Absolute NRBCs 0.0 10e3/uL 02/23/2022 [facility] 7:19 PM CDT Specimen Anatomical Collection Method / Collection Time Recei binu Time (Source) Location / Volume Laterality Blood STRUCTURE OF LEFT Venipuncture / 02/23/2022 7:12 02/23 7:16 HAND / Unknown Unknown PM CDT PM CDT Shellie Duran MD LAB - BLOOD ORDERABLES Performing Organization Address City/State/ZIP Code Phon e Number [place] [address] Care Lab [address] Lab (1st floor, no room number) (ABNORMAL) Blood gas venous and oxyhgb (02/23/2022 7:12 PM CDT) Analysis Performed At Patho logist Time Signature pH Venous 7.39 7.32 - 02/23/2022 [facility] 7.43 7:24 PM CDT pCO2 Venous 42 40 - 50 mm 02/23/2022 [facility] Hg 7:24 PM CDT pO2 Venous 54 (H) 25 - 47 mm 02/23/2022 [facility] Hg 7:24 PM CDT Bicarbonate 25 21 - 28 02/23/2022 [facility] Venous mmol/L 7:24 PM CDT FIO2 0 SAMUEL 02/23/2022 [facility] 7:24 PM CDT Comment: room air Oxyhemoglobin Venous 86 (H) 70 - 75 % 02/23/2022 7:24 PM [facility] CDT Base Excess/Deficit (+/-) -0.2 -7.7 - 1.9 02/23/2022 7: 24 PM [facility] mmol/L CDT Specimen Anatomical Collection Method / Collection Time Recei binu Time (Source) Location / Volume Laterality Blood, venous STRUCTURE OF LEFT Venipuncture / 02/23/2022 7:12 06/2 01/2022 7:16 UPPER LIMB / Unknown PM CDT PM CDT Unknown Shellie Duran MD LAB - BLOOD ORDERABLES Performing Organization Address City/State/ZIP Code Phon e Number [place] [address] Care Lab [address] Lab (1st floor, no room number) Troponin I (now) (02/23/2022 7:12 PM CDT) P athologist Signature Troponin I High 3 <54 ng/L 02/23/2022 [facility] Sensitivity 7:45 PM CDT Comment: This Troponin-I result was obta ined using a Siemens Dimension Waldron High Sensitivity Troponin-I assay (TNIH). Eff ective 07/23/21, nine labs/sites in the [facility] switched from a Siemens Waldron Contemporary Troponin I assay (CTNI) to a Siemens Waldron High-Sensitivity Troponi n I assay (TNIH). Specimen Anatomical Collection Method / Collection Time Recei binu Time (Source) Location / Volume Laterality Blood STRUCTURE OF LEFT Venipuncture / 02/23/2022 7:12 02/23 7:16 HAND / Unknown Unknown PM CDT PM CDT Shellie Duran MD LAB - BLOOD ORDERABLES Performing Organization Address City/[facility]/ZIP Code Phon e Number [place] [address] Care Lab [address] Lab (1st floor, no room number) (ABNORMAL) D dimer quantitative (02/23/2022 7:12 PM CDT) Patholo gist Method Time Signature D-Dimer 0.61 (H) 0.00 - 02/23/2022 [facility] Quantitative 0.50 7:30 PM CDT ug/mL FEU Specimen Anatomical Collection Method / Collection Time Recei binu Time (Source) Location / Volume Laterality Blood STRUCTURE OF LEFT Venipuncture / 02/23/2022 7:12 02/23 7:16 UPPER LIMB / Unknown PM CDT PM CDT Unknown Narrative [facility] - 02/23/2022 7:30 PM CDT This D-dimer assay is intended for use i n conjunction with a clinical pretest probability assessment model to exclude pulmonary embolism (PE) and deep venous thrombosis (DVT) in outpatients suspecte d of PE or DVT. The cut-off value is 0.50 ug/mL FEU. Shellie Duran MD LAB - BLOOD ORDERABLES Performing Organization Address City/State/ZIP Code Phon [place] [address] Care [facility] [address] Lab (1st floor, no room number) (ABNORMAL) Basic metabolic panel (02/23/2022 7:12 PM CDT) Analysis Performed At Patho logist Time Signature Sodium 141 133 - 144 02/23/2022 [facility] mmol/L 7:40 PM CDT Potassium 3.4 3.4 - 5.3 02/23/2022 [facility] mmol/L 7:40 PM CDT Chloride 109 94 - 109 02/23/2022 [facility] mmol/L 7:40 PM CDT Carbon Dioxide 25 20 - 32 02/23/2022 [facility] (CO2) mmol/L 7:40 PM CDT Anion Gap 7 3 - 14 02/23/2022 [facility] mmol/L 7:40 PM CDT Urea Nitrogen 20 7 - 30 02/23/2022 [facility] mg/dL 7:40 PM CDT Creatinine 0.84 0.52 - 02/23/2022 [facility] 1.04 mg/dL 7:40 PM CDT Calcium 8.4 (L) 8.5 - 10.1 02/23/2022 [facility] mg/dL 7:40 PM CDT Glucose 146 (H) 70 - 99 02/23/2022 [facility] mg/dL 7:40 PM CDT GFR Estimate 87 >60 02/23/2022 [facility] mL/min/1.7 7:40 PM CDT 3m2 Comment: Effective August 20, 2021 eGF Rcr in adults is calculated using the 2020 CKD-EPI creatinine equation which includ es age and gender (Nunu et al., NEJM, DOI: 10.1056/XAOZqz4373450) Specimen Anatomical Collection Method / Collection Time Recei binu Time (Source) Location / Volume Laterality Blood STRUCTURE OF LEFT Venipuncture / 02/23/2022 7:12 02/23 7:16 HAND / Unknown Unknown PM CDT PM CDT Shellie Duran MD LAB - BLOOD ORDERABLES Performing Organization Address City/State/ZIP Code Phon e [place] [phone] [facility] [address] Lab (1st floor, no room number) EKG 12-lead, tracing only (02/23/2022 7:07 PM CDT) Component Value Ref Range Test Analysis Performed Pathologis t Method Time At Signature Systolic Blood mmHg RADIOLOGY Pressure RESULTS Diastolic Blood mmHg RADIOLOGY Pressure RESULTS Ventricular Rate 81 BPM RADIOLOGY RESULTS Atrial Rate 81 BPM RADIOLOGY RESULTS MA Interval 128 ms RADIOLOGY RESULTS QRS Duration 82 ms RADIOLOGY RESULTS QT 376 ms RADIOLOGY RESULTS QTc 436 ms RADIOLOGY RESULTS P Stringer 69 degrees RADIOLOGY RESULTS R AXIS -13 degrees RADIOLOGY RESULTS T Stringer 47 degrees RADIOLOGY RESULTS Interpretation Sinus rhythm RADIOLOGY ECG Normal ECG RESULTS When compared with ECG of 13-FEB-2019 23:20, No significant change was found Confirmed by - EMERGENCY MIKI Ramos, PHYSICIAN ([id number]), fan mail editor RUFINA BROWN ([id number]) on 02/24/2022 6:44:29 AM Specimen Anatomical Collection Method Collection Time Receive d Time (Source) Location / / Volume Laterality 02/23/2022 7:07 PM 6:44 CDT AM CDT Shellie Duran MD ECG ORDERABLES Performing Organization Address City/State/ZIP Code Phon e Number RADIOLOGY RESULTS documented in this encounter Visit Diagnoses Diagnosis Shortness of breath Mild intermittent asthma with exacerbati on Unspecified asthma, with exacerbation Anxiety Anxiety state, unspecified documented in this encounter Administered Medications Inactive Administered Medications - up to 3 most recent administrations Medication Order MAR Action Action Date Dose Rate Site iopamidol (ISOVUE-370) solution Given 02/23/2022 8:52 PM CDT 73 mLs 500 mL 500 mL, Intravenous, ONCE, On 02/23/22 at 2054, For 1 dose ipratropium - albuterol 0.5 mg/2.5 mg/3 mL Given 02/23/2022 7:36 PM CDT 3 mLs (DUONEB) neb solution 3 mL 3 mL, Nebulization, EVERY 15 MIN, First dose on 02/23/22 at 1855, For 3 doses, Unless contraindicated per nursing assessment. Notify provider if dose is held. Given 02/23/2022 7:19 PM CDT [address] Scan Flush Use Given 02/23/2022 8:52 PM CDT 92 mLs Intravenous, 100 mL, ONCE, On 02/23/22 at 2054, For 1 dose, This entry is for use by Radiology to intermittently used as a flush in patients receiving a CT scan. documented in this encounter Active and Recently Administered Medications Times are shown in CDT. Scheduled Medication Order 02/21/2022 02/22/2022 02/23/2022 iopamidol (ISOVUE-370) solution 500 mL (COMPLETED) 2051 (Given - Provider: Drew Reaves) 500 mL, Intravenous, ONCE, On 02/23/22 at 2054, For 1 dose ipratropium - albuterol 0.5 mg/2.5 mg/3 mL (DUONEB) neb solution 3 mL 1854 (Due)1918 (Given - Provider: Carey Rowland, RN)193 (Given - Provider: Nicole Pal, GERMANIA) 3 mL, Nebulization, EVERY 15 MIN, First dose on 02/23/22 at 1855, For 3 doses, Unless contraindicated per nursing assessment. Notify provider if dose is held. Sodium Chloride for CT Scan Flush Use (COMPLETED) 2051 (Given - Provider: Drew Reaves) Intravenous, 100 mL, ONCE, On Sun 2 at 2054, For 1 dose, This entry is for use by Radiology to intermittently used as a flush in patients receiving a CT scan. documented in this encounter Additional Health Concerns Infection Onset Date Last Indicated Resolved Time Rule Out COVID-19 02/23/2022 02/23/2022 02/23/2022 8:0 6 PM CDT documented as of this encounter Care Teams Collar Trimmer Relationship Specialty Start Date End Date Clinic, [facility] PCP - General 11/20/21 [id number] [place] [phone] documented as of this encounter
--- OUTSIDE RECORDS SUMMARY | 2022-08-12 22:22 | XMS_ITS | Encounter Summary ---
:1975 Author Organization [place] Address [address] [place] [address] Care Team Providers Name Role Phone [facility]ly [facility] Primary Care Provider [phone] Enrique Saenz MD Unavailable [phone] Pat Chavez PA-C Unavailable Reason for Visit Mental Health Outpatient (Priority: 1-2 Weeks) - Pending Review Specialty Diagnoses / Procedures Referred By Contact Refer red To Contact Behavioral Health Diagnoses Anxiety Shellie Duran MD [facility] [address] [place], [place] [address] Referral ID Status Reason Start Date Expiration Date Visits V isits Requested Authorized [id number] Pending 02/23/2022 02/23/2023 1 1 Review Encounter Details Date Type Department Care Team Description 03/05/2022 Virtual Visit [facility] Shellie Duran MD [facility] [address] [place], [place] [address] Adjustment disorder with mixed anxiety a nd depressed mood (Primary Dx); Mental Health & Abu, Lul, JULISSA Anxiety Addiction [facility] [address] [place] [phone] Social History Tobacco Use Types Packs/Day Years Used Date Smoking Tobacco: Never Smokeless Tobacco: Never Sex Assigned at Date Recorded Not on file COVID-19 Exposure Response Date Recorded In the last 10 days, have you been in contact with No / Unsu re 03/05/2022 9:36 AM CDT someone who was confirmed or suspected to have Coronavirus/COVID-19? documented as of this encounter Progress Notes Lul Chaudhari, JULISSA - 03/05/2022 9:00 AM CDT Images from the original note were not included. [facility] Counseling Mental Health & Addiction Services Progress Note - Initial Visit Patient Name: Crystal Garcia Date: 03/05/2022 Service Type: Individual Visit Start Time: 9.00 Visit End Time: 9.48 Visit #: 1 Attendees: Client attended alone Service Modality: Phone Visit: Provider verified identity through the following two step process. Patient provided: Patient photo, Patient and Patient address The patient has been notified of the following: We have found that certain health care needs can be provided without the need for a face to face visit. This service lets us provide the care you need with a phone conversation. I will have full access to your [facility] medical record during this entire phone call. I will be taking notes for your medical record. Since this is like an office visit, we will bill your insurance company for this service. There are potential benefits and risks of telephone visits (e.g. limits to patient confidentiality) that differ from in-person visits.?Confidentiality still applies for telephone services, and nobody will record the visit. It is important to be in a quiet, private space that is free of distractions (in cluding cell phone or other devices) during the visit.?? If during the course of the call I believe a telephone visit is not appropriate, you will not be charged for this service Consent has been obtained for this service by care security team lead: Yes DATA: Interactive Complexity: No Crisis: No Presenting Concerns/ Current Stressors: Pt reported ???stress and depression.?? Pt reported [...] the completion of repair work to move in. ASSESSMENT: Mental Status Assessment: Appearance: phone session, unable to assess Eye Contact: phone session, unable to assess Psychomotor Behavior: Normal Attitude: Cooperative Interested Orientation: Person Place Time Situation Speech Rate / Production: Normal/ Responsive Volume: Normal Mood: Anxious Depressed Affect: Appropriate Worrisome Thought Content: Clear Thought Form: Coherent Insight: Good Safety Issues and Plan for Safety and Risk Management: Talbot Suicide Severity Rating Scale (Lifetime/Recent) Talbot Suicide Severity Rating (Lifetime/Recent) 03/05/2022 1. Wish to be (Lifetime) 0 2. Non-Specific Active Suicidal Thoughts (Lifetime) 0 Actual Attempt (Lifetime) 0 Has subject engaged in non-suicidal self-injurious behavior? (Lifetime) 0 Interrupted Attempts (Lifetime) 0 Aborted or Self-Interrupted Attempt (Lifetime) 0 Preparatory Acts or Behavior (Lifetime) 0 Calculated C-SSRS Risk Score (Lifetime/Recent) No Risk Indicated Patient denies current fears or concerns for personal safety. Patient denies current or recent suicidal ideation or behaviors. Patient denies current or recent homicidal ideation or behaviors. Patient denies current or recent self injurious behavior or ideation. Patient denies other safety concerns. Recommended that patient call 911 or go to the local ED should there be a change in any of these risk factors. Patient reports there are firearms in the house. The firearms are secured in a locked space. Diagnostic Criteria: Adjustment Disorder A. The development of emotional or behavioral symptoms in response to an identifiable stressor(s) occurring within 3 months of the onset of the stressor(s) B. These symptoms or behaviors are clinically significant, as evidenced by one or both of the following: - Marked distress that is out of proportion to the severity/intensity of the stressor (with consideration for external context & culture) - Significant impairment in social, occupational, or other important areas of functioning C. The stress-related disturbance does not meet criteria for another disorder & is not not an exacerbation of another mental disorder D. The symptoms do not represent normal bereavement E. Once the stressor or its consequences have terminated, the symptoms do not persist for more than an additional 6 months * Adjustment Disorder with Mixed Anxiety and Depressed Mood: The predominant manifestation is a combination of depression and anxiety DSM5 Diagnoses: (Sustained by DSM5 Criteria Listed Above) Diagnoses: Adjustment Disorders 309.28 (F43.23) With mixed anxiety and depressed mood Psychosocial & Contextual Factors: Parenting challenges/ Housing problems WHODAS 2.0 (12 item): No flowsheet data found. Intervention: - Motivational Interviewing: Utilizing OARS to build insight around situation, observing barriers patient is seeing in here ability to effectively manage son's behavioral problems and housing issues and identifying what is needed to mitigate negative feelings associated with stressors. Collateral Reports Completed: Not Applicable PLAN: (Homework, other): 1. Provider will continue Diagnostic Assessment. Patient was given the following to do until next session: Read provided handout about Coping with Stress 2. Provider recommended the following referrals: None at this time. 3. Suicide Risk and Safety Concerns were assessed for Crystal Avilashirley Chaudhari [facility] March 05, 2022 ----- Service Performed and Documented by [facility]------ This note was reviewed and clinical supervision by FRANDY Jay [facility] 03/05/2022 documented in this encounter Plan of Treatment Not on filedocumented as of this encounter Visit Diagnoses Diagnosis Adjustment disorder with mixed anxiety a nd depressed mood - Primary Anxiety Anxiety state, unspecified documented in this encounter Additional Health Concerns Assessment Noted Time PHQ-9 Depression Total Score: 11 02/27/2022 9:09 AM CD T documented as of this encounter Care Teams Felt Carbonizer Relationship Specialty Start Date End Date Clinic, [facility] PCP - General 11/20/21 [place] [address] [place] [phone] Enrique Saenz MD Cardiovascular Disease 02/27/22 MD Ryan [address] [place] [phone] Pat Chavez, Assigned Neuroscience 03/01/22 PA-C Provider [address] [place], [place] [phone] documented as of this encounter
--- OUTSIDE RECORDS SUMMARY | 2022-08-12 22:22 | XMS_ITS | Encounter Summary ---
:1975 Author Organization [place] Address [facility] [place] [address] Care Team Providers Name Role Phone [facility], [facility] Primary Care Provider [phone] Reason for Visit Reason Comments Asthma Auth/Cert Specialty Diagnoses / Procedures Referred By Contact Refer red To Contact Intensive Care Diagnoses Elevated blood pressure reading without diagnosis of hypertension Severe persistent asthma with exacerbation Acute respiratory failure with hypoxia (H) Acute respiratory failure with hypoxia (H) Icu Severe persistent asthma wit h exacerbation Elevated blood pressure reading without diagnosis of hypertension [address] [place] [address] Phone: Fax: Referral ID Status Reason Start Date Expiration Date Visits Requ ested Visits Authorized [id number] 1 1 Encounter Details Date Type Department Care Team Description [facility] [address] [place] [address] Acute respiratory failure with hypoxia ( H); 03/11/2021 Encounter [facility] Roxana Kim MD [address] [place] [address] Severe persistent asthma with exacerbati on; [address] Elevated bloo d pressure reading without diagnosis of hypertension; Dhaval Anaphylaxis, [place] [address] Social History Tobacco Use Types [...] Sign Reading Time Taken Comments Blood Pressure 120/76 03/11/2021 8:00 AM CDT Pulse 65 03/11/2021 8:00 AM CDT Temperature 36.8 ??C (98.3 ??F) 03/11/2021 8:00 AM CDT Respiratory Rate 16 03/11/2021 8:00 AM CDT Oxygen Saturation 96% 03/11/2021 8:00 AM CDT Inhaled Oxygen Concentration - - Weight 80.6 kg (177 lb 11.1 oz) 03/11/2021 2:00 AM CDT Height 165.1 cm (5' 5) 03/10/2021 9:19 AM CDT Body Mass Index 29.57 03/10/2021 9:19 AM CDT documented in this encounter Discharge Summaries Roxana Kim MD - 03/11/2021 8:23 AM CDT [facility] Discharge Summary Name: Crystal Garcia Date of : 1975 Age: [age] year old Date of Discharge: 03/11/2021 9:55 AM Date of Admission: 03/10/2021 Primary Care Provider: [facility] Discharge Physician: Roxana Kim MD Discharging Service: Hospitalist Discharge Diagnoses: 1. Acute respiratory distress secondary to acute asthma exacerbation with mild respiratory acidosis 2. History of COVID-19 in 03/2020 3. Lack of medical insurance 4. Steroid-induced hyperglycemia Follow-ups Needed After Discharge Follow up with PCP in 7-10 days Hospital Course: Crystal Garcia is a 45 year old female with PMH including asthma and allergies who was admitted on 03/10/2021 with 1 day of progressively worsening shortness of breath and was found to have acute asthma exacerbation with mild respiratory acidosis initially requiring BiPAP therapy for respiratory distress. By the time patient arrived on the floor she was no longer requiring BiPAP therapy and respiratory status improved significantly. Treated for asthma exacerbation with steroids and also prescribed Breo Ellipta upon discharge. ?? 1. Acute respiratory distress secondary to acute asthma exacerbation with mild respiratory acidosis:Patient had been on Trelegy but ran out of this medication 5 days ago (cannot afford it due to lack of medical insurance). Developed progressive shortness of breath over the past 24 hours which acutelyworsened. When she presented to the emergency room she had acute respiratory distress requiring BiPAP therapy. By the time she arrived in the ICU she was able to be removed from BiPAP and had improved significantly with treatments in the emergency room (steroids, nebulizers). She has noticed worseningrespiratory symptoms since she had Covid in 03/2020. She received IV Solu-Medrol the night prior to discharge on the day of discharge was transitioned to oral prednisone. She will complete a 10-day prednisone taper. She was seen by pulmonary medicine who recommended that she have a separate prescription for prednisone 20 mg tablets (take 2 pills daily, 40 mg, for 5 days for worsening asthma). She was s tarted on Brio Ellipta which was filled prior to discharge. Refill of albuterol inhaler also given to the patient. Pharmacy liaison was consulted and provided a list of asthma medications as well as placed to fill these given her lack of medical insurance. She will follow up with primary care in 7 to 10 days. ?? 2. History of COVID-19 in 03/2020: Patient had acute illness with cough, fever and malaise with loss of taste and smell in 03/2020. Her entire household was sick. They did not seek medical attention and recovered at home. In the subsequent months she has noticed that she has been having worsening shortness of breath with exertion. COVID-19 negative this admission. ?? 3. Lack of Medical Insurance: SW consulted. ?? 4. Hyperglycemia: Globin A1c was 5.5. Hyperglycemia due to steroids. Discharge Disposition: Discharged to home Allergies: Allergies Allergen Reactions ??? Penicillins Condition on Discharge: Discharge condition: Stable Discharge vitals: Blood pressure 118/82, pulse 65, temperature 97.9 ??F (36.6 ??C), temperature source Oral, resp. rate 18, height 1.651 m (5' 5), weight 80.6 kg (177 lb 11.1 oz), SpO2 96 %. Code status on discharge: Full Code History of Illness: See detailed admission note for full details. Physical Exam: Blood pressure 118/82, pulse 65, temperature 97.9 ??F (36.6 ??C), temperature source Oral, resp. rate 18, height 1.651 m (5' 5), weight 80.6 kg (177 lb 11.1 oz), SpO2 96 %. Wt Readings from Last 1 Encounters: 03/11/21 80.6 kg (177 lb 11.1 oz) General: Alert, awake, no acute distress. HEENT: Normocephalic, atraumatic, eyes anicteric and without scleral injection, EOMI, MMM. Cardiac: RRR, normal S1, S2. No m/g/r. No LE edema. Pulmonary: Normal chest rise, normal work of breathing. Lungs CTAB without crackles or wheezing Abdomen: soft, non-tender, non-distended. Normoactive BS. No guarding or rebound tenderness. Extremities: no deformities. Warm, well perfused. Skin: no rashes or lesions noted. Warm and Dry. Neuro: No focal deficits noted. Speech clear. Coordination and strength grossly normal. Psych: Appropriate affect. Alert and oriented x3 Procedures other than Imaging: BiPAP Telemetry Phlebotomy Imaging: Results for orders placed or performed during the hospital encounter of 03/10/21 XR Chest Port 1 View Narrative XR CHEST PORT 1 VIEW 03/10/2021 7:32 AM HISTORY: sob COMPARISON: Chest x-ray 03/28/2013 Impression IMPRESSION: Negative chest. GARY MCCLOUD MD Consultations: Consultations This Hospital Stay SOCIAL WORK IP CONSULT PHARMACY LIAISON FOR MEDICATION COVERAGE CONSULT PULMONARY IP CONSULT Recent Lab Results: Recent Labs Lab 03/10/21 1446 03/10/21 0632 PHV 7.42 7.32 PO2V 73* 43 PCO2V 35* 52* HCO3V 23 27 Recent Labs Lab 03/10/21 1428 03/10/21 0632 WBC 9.4 8.3 HGB 13.0 13.2 HCT 39.8 41.4 MCV 93 95 PLT 373 411 Recent Labs Lab 03/11/21 0820 03/11/21 0156 03/10/21 2114 03/10/21 0632 NA -- -- -- 140 POTASSIUM -- -- -- 3.6 CHLORIDE -- -- -- 107 CO2 -- -- -- 28 ANIONGAP -- -- -- 5 GLC 114* 156* 146* 111* BUN -- -- -- 21 CR -- -- -- 0.75 GFRESTIMATED -- -- -- >90 GABINO -- -- -- 9.1 Recent Labs Lab 03/11/21 0820 03/11/21 0156 03/10/21 2114 03/10/21 1607 03/10/21 1209 GLC 114* 156* 146* 201* 229* Pending Results: Unresulted Labs Ordered in the Past 30 Days of this Admission No orders found for last 31 day(s). Discharge Instructions and Follow-Up: Discharge Orders Reason for your hospital stay You were hospitalized for an asthma exacerbation which was triggered by running out of your inhaler. You have been changed to a different inhaler (Breo Ellipta) which is less expensive. You will also complete a taper of Prednisone. Follow-up and recommended labs and tests Follow up with primary care provider, [facility], within 7-10 days to evaluate medication change and for hospital follow- up. No follow up labs or test are needed. Activity Your activity upon discharge: activity as tolerated Discharge Instructions You will have an extra prescription of Prednisone. You should take 40 mg daily for 5 days at the start of an asthma exacerbation and notify your primary care doctor. Diet Follow this diet upon discharge: Orders Placed This Encounter Regular Diet Adult Discharge Medications Discharge Medication List as of 03/11/2021 8:47 AM START taking these medications Details fluticasone-vilanterol (BREO ELLIPTA) 200-25 MCG/INH inhaler Inhale 1 puff into the lungs daily, Disp-1 each, R-0, E-Prescribe !! predniSONE (DELTASONE) 20 MG tablet Take 3 tablets (60 mg) by mouth daily for 2 days, THEN 2 tablets (40 mg) daily for 3 days, THEN 1 tablet (20 mg) daily for 4 days., Disp-16 tablet, R-0, E-Prescribe !! predniSONE (DELTASONE) 20 MG tablet Take 40 mg daily for 5 days at the start of an asthma exacerbation, Disp-10 tablet, R-0, E-Prescribe !! - Potential duplicate medications found. Please discuss with provider. CONTINUE these medications which have CHANGED Details albuterol (PROAIR HFA/PROVENTIL HFA/VENTOLIN HFA) 108 (90 Base) MCG/ACT inhaler Inhale 2 puffs into the lungs every 6 hours, Disp-18 g, R-0, E-PrescribePharmacy may dispense brand covered by insurance (Proair, or proventil or ventolin or generic albuterol inhaler) albuterol (PROVENTIL) (2.5 MG/3ML) 0.083% neb solution Take 1 vial (2.5 mg) by nebulization every 6 hours as needed for shortness of breath / dyspnea or wheezing, Disp-30 mL, R-0, E-Prescribe CONTINUE these medications which have NOT CHANGED Details famotidine (PEPCID) 20 MG tablet Take 1 tablet (20 mg) by mouth 2 times daily, Disp-60 tablet, R-1, E-Prescribe STOP taking these medications Afwfygfznwx-Vlhlpuugl-Hhmemmcgkz (TRELEGY ELLIPTA) 200-62.5-25 MCG/INH oral inhaler Comments: Reason for Stopping: Time Spent on this Encounter I, Roxana Kim MD, personally saw the patient today and spent greater than 30 minutes discharging this patient. Roxana Kim MD documented in this encounter Discharge Instructions Discharge InstructionsCox, Roxana Patel MD - 03/11/2021 8:23 AM CDT Pharmacy was able to look at coverage for asthma medications. You can bring this to your primary care doctor as well. Lowest schofield medications in each class that are indicated for asthma shown below. ?? If patient will be uninsured for an extended period of time, I would recommend filling generic medications through [facility]. They are a fully licensed, non-profit mail order pharmacy that offers generic medications at prices far below what any retail pharmacy can offer, even with the use of a discount card. Physicians can e-prescribe medications to them, or existing prescriptions can be transferred. ?? Beta-2 Agonist Inhalers Ventolin: $61/inhaler. Generic albuterol HFA: $59/inhaler. Can be obtained from [email or web address] mail order pharmacy for $35/inhaler. ?? Avery Spiriva: $427. ?? ICS Arnuity: $169. ?? LABA/ICS AirDuo generic: $110. Can be obtained from [facility] mail order pharmacy for $90. Advair generic: $279-$453. Can be obtained from [facility] mail order pharmacy for $100/inhaler (100/50), $120 (250/50) or $150 (500/50). ?? Nebulizer solutions DuoNeb: $17 for 30 vials. Can be obtained from [facility] mail order pharmacy for $25 for 90 vials Albuterol: $14 for 30 vials. Can be obtained from [facility] mail order pharmacy for $15 for 75 vials. documented in this encounter Medications at Time of Discharge Medication Sig Dispensed Refills Start Date End Date albuterol (PROVENTIL) Take 1 vial (2.5 mg) 30 mL 0 02/28 (2.5 MG/3ML) 0.083% neb by nebulization every solutionIndications: 6 hours as needed for Severe persistent shortness of breath / asthma with dyspnea or wheezing exacerbation predniSONE (DELTASONE) Take 3 tablets (60 mg) 16 tablet 0 0 03/12/2021 03/21/2021 20 MG by mouth daily for 2 tabletIndications: days, THEN 2 tablets Severe persistent (40 mg) daily for 3 asthma with days, THEN 1 tablet exacerbation (20 mg) daily for 4 days. albuterol (PROAIR Inhale 2 puffs into 18 g 0 03/08/2022 HFA/PROVENTIL the lungs every 6 HFA/VENTOLIN HFA) 108 hours (90 Base) MCG/ACT inhalerIndications: Anaphylaxis, initial encounter famotidine (PEPCID) 20 Take 1 tablet (20 mg) 60 tablet 1 11/20/2021 MG tabletIndications: by mouth 2 times daily Anaphylaxis, initial encounter fluticasone-vilanterol Inhale 1 puff into the 1 each 0 0 03/12/2021 03/08/2022 (BREO ELLIPTA) 200-25 lungs daily MCG/INH inhalerIndications: Severe persistent asthma with exacerbation predniSONE (DELTASONE) Take 40 mg daily for 5 10 tablet 0 0 03/11/2021 11/20/2021 20 MG days at the start of tabletIndications: an asthma exacerbation Severe persistent asthma with exacerbation documented as of this encounter Progress Notes Melanie Perry LSW - 03/11/2021 9:31 AM CDT CM: SW will ask FC to follow for Health ins support. Pharmacy will fill meds and add to Hospital bill Rodney Bazzi RT - 03/10/2021 10:46 AM CDT RT- Patient transported to ICU from ER 16 on a 1L NC. SpO2 94-96%. No complications noted during transport. Patient remains on 1L NC, BIPAP on standby in room. RT Jessy on 03/10/2021 at 10:47 AM documented in this encounter H&P Notes Roxana Kim MD - 03/10/2021 8:12 AM CDT [facility] Hospitalist Admission Note Name: Crystal Garcia Date of : 1975 Age: [age] year old Date of admission: 03/10/2021 Primary care provider: Ana Cristina, [facility] Chief Complaint: SOB Assessment and Plan: Crystal Garcia is a 45 year old female with PMH including asthma and allergies who was admitted on 03/10/2021 with 1 day of progressively worsening shortness of breath and was found to have acute asthma exacerbation with mild respiratory acidosis initially requiring BiPAP therapy for respiratory distress. 1. Acute respiratory distress secondary to acute asthma exacerbation with mild respiratory acidosis:Patient had been on Trelegy but ran out of this medication 5 days ago (cannot afford it due to lack of medical insurance). Developed progressive shortness of breath over the past 24 hours which acutelyworsened. When she presented to the emergency room she had acute respiratory distress requiring BiPAP therapy. By the time she arrived in the ICU she was able to be removed from BiPAP and had improved significantly with treatments in the emergency room (steroids, nebulizers). She has noticed worseningrespiratory symptoms since she had Covid in 03/2020. -Scheduled DuoNebs -Solu-Medrol 60 mg IV twice daily, if improving tomorrow she can be transitioned to prednisone 60 mgdaily with plan to taper prednisone over 10 days -Pulmonary consulted, appreciate recommendations -Patient should also have a separate prescription for prednisone 20 mg tablets (take 2 pills daily, 40 mg, for 5 days for worsening asthma) -Switch to Breo (this is the inhaler we have on formulary here) -Pharmacy liaison consult to determine which inhaler would be best coverage (Advair versus Dulera versus Symbicort or equivalent with high-dose steroid part) -As needed albuterol Addendum: Patient has been stable into the afternoon, can transfer to the medical floor. 2. History of COVID-19 in 03/2020: Patient had acute illness with cough, fever and malaise with loss of taste and smell in 03/2020. Her entire household was sick. They did not seek medical attention and recovered at home. In the subsequent months she has noticed that she has been having worsening shortness of breath with exertion. -Pending COVID-19 from this admission 3. Lack of Medical Insurance: SW consulted. 4. Hyperglycemia: Likely steroids induced but will check HgbA1c. Add Medium sliding scale insulin. Diet: Regular Diet Adult DVT Prophylaxis: Enoxaparin (Lovenox) SQ Ceballos Catheter: Not present Code Status: Full Code Disposition Plan Expected discharge: Admit to ICU recommended to prior living arrangement once respiratory status improved. Entered: Roxana Kim MD 03/10/2021, 8:12 AM The patient's care was discussed with the Bedside Nurse, Patient, Patient's Family and Pulmonary Sales Enablement Consultant. Roxana Kim MD [facility] Risk Factors Present on Admission History of Present Illness: Crystal Garcia is a 45 year old female with PMH including asthma and allergies who was admitted on 03/10/2021 with 1 day of progressively worsening shortness of breath and was found to have acute asthma exacerbation with mild respiratory acidosis initially requiring BiPAP therapy for respiratory distress. History was obtained through patient interview, chart review and discussion with Dr. Lewis in the ER. The patient tells me that she had COVID-19 in 03/2020. She never sought medical care or had a test but had fever, malaise and shortness of breath with loss of taste and smell. Her entire household was ill and they all recovered at home. Subsequently she noticed that she was having worsening shortness of breath with exertion which had not been up problem prior to this time. She was seen in 08/2020 when she had acute onset shortness of breath with congestion and a sensation of her throat swelling. This reportedly started after she had been eating. She presented to urgent care and received IM epinephrine, antihistamines as well as a burst of prednisone with a referral to allergy. She did see an planning supervisor and had skin testing. She was told she was allergic to 25 different things including a lot of airborne allergens. It was recommended that she avoid allergens and take antihistamines. Due to her persistent respiratory symptoms she saw primary care and was prescribed Trelegy as well as albuterol as needed. She found that Trelegy was very helpful for her respiratory issues but she last took this on 03/05. She ran out of the medication and could not afford it, particularly as she does not have medical insurance. Since this time she has been having worsening shortness of breath with significant coughing and chest tightness. Over the past 24 hours this is worsened significantly to the point that she had severe cough and shortness of breath. Mainly the cough was nonproductive. She had been using her rescue inhaler but this was not effective in relieving her symptoms. She finally woke her up at 6 AM today and came to the emergency room. When she presented to the emergency room she was in respiratory distress so started on BiPAP therapy. She was given steroids and nebulizer treatments and transferred to the ICU. She was taken off BiPAPand appears comfortable. She states she feels much improved from when she presented to the emergencyroom. Past Medical History: 1. Asthma 2. COVID-19 in 03/2020 3. Allergies Past Surgical History: 1. Cholecystectomy Social History: Social History Tobacco Use ??? Smoking status: Never Smoker ??? Smokeless tobacco: Never Used Substance Use Topics ??? Alcohol use: Not on file Social History Social History Narrative ??? Not on file Patient has never smoked. She does not use alcohol. 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 Family History: No history of asthma Allergies: Allergies Allergen Reactions ??? Penicillins Medications: Medications Prior to Admission Medication Sig Dispense Refill Last Dose ??? albuterol (PROAIR HFA/PROVENTIL HFA/VENTOLIN HFA) 108 (90 Base) MCG/ACT inhaler Inhale 2 puffs into the lungs every 6 hours 1 Inhaler 1 03/10/2021 at am ??? albuterol (PROVENTIL) (2.5 MG/3ML) 0.083% neb solution Take 2.5 mg by nebulization every 6 hoursas needed for shortness of breath / dyspnea or wheezing Past Week at Unknown time ??? Hqivztfvsru-Dpnxncarp-Qsggbugvpz (TRELEGY ELLIPTA) 200-62.5-25 MCG/INH oral inhaler Inhale 1 puff into the lungs daily Past Week at Unknown time ??? famotidine (PEPCID) 20 MG tablet Take 1 tablet (20 mg) by mouth 2 times daily 60 tablet 1 Unknown at Unknown time Review of Systems: A Comprehensive greater than 10 system review of systems was carried out. Pertinent positives and negatives are noted above. Otherwise negative for contributory information. Physical Exam: Blood pressure (!) 123/97, pulse 77, temperature 98.4 ??F (36.9 ??C), temperature source Oral, resp.rate 25, weight 72 kg (158 lb 12.8 oz), SpO2 98 %. Wt Readings from Last 1 Encounters: 03/10/21 72 kg (158 lb 12.8 oz) Exam: General: Alert, awake, no acute distress. HEENT: NC/AT, eyes anicteric and without injection, EOMI, face symmetric. Dentition WNL, MMM. Cardiac: RRR, normal S1, S2. No murmurs/g/r. No LE edema Pulmonary: Normal chest rise, normal work of breathing. Somewhat decreased breath sounds but currently no crackles or wheezing Abdomen: soft, non-tender, non-distended. Normoactive BS. No guarding or rebound tenderness. Extremities: no deformities. Warm, well perfused. Skin: no rashes or lesions noted. Warm and Dry. Neuro: No focal deficits noted. Speech clear. Coordination and strength grossly normal. Psych: Appropriate affect. Alert and oriented x3 Data Reviewed Today: Imaging: Results for orders placed or performed during the hospital encounter of 03/10/21 XR Chest Port 1 View Narrative XR CHEST PORT 1 VIEW 03/10/2021 7:32 AM HISTORY: sob COMPARISON: Chest x-ray 03/28/2013 Impression IMPRESSION: Negative chest. GARY MCCLOUD MD Labs: Recent Labs Lab 03/10/21 0632 PHV 7.32 PO2V 43 PCO2V 52* HCO3V 27 Recent Labs Lab 03/10/21 0632 WBC 8.3 HGB 13.2 HCT 41.4 MCV 95 PLT 411 Recent Labs Lab 03/10/21 1209 03/10/21 0942 03/10/21 0632 NA -- -- 140 POTASSIUM -- -- 3.6 CHLORIDE -- -- 107 CO2 -- -- 28 ANIONGAP -- -- 5 GLC 229* 113* 111* BUN -- -- 21 CR -- -- 0.75 GFRESTIMATED -- -- >90 GABINO -- -- 9.1 Recent Labs Lab 03/10/21 0735 DD 0.41 Roxana Kim MD Hospitalist [facility] documented in this encounter Consult Notes Olimpia Silva N - 03/11/2021 7:53 AM CDTAssociated Order(s): PHARMACY LIAISON FOR MEDICATION COVERAGE CONSULT Coverage check on inhalers. Patient is uninsured. Lowest schofield medications in each class that are indicated for asthma shown below. If patient will be uninsured for an extended period of time, I would recommend filling generic medications through [facility]. They are a fully licensed, non-profit mail order pharmacy that offers generic medications at prices far below what any retail pharmacy can offer, even with the use of a discount card. Physicians can e-prescribe medications to them, or existing prescriptions can be transferred. Beta-2 Agonist Inhalers Ventolin: $61/inhaler. Generic albuterol HFA: $59/inhaler. Can be obtained from [facility] [facility] mail order pharmacy for $35/inhaler. Avery Spiriva: $427. ICS Arnuity: $169. LABA/ICS AirDuo generic: $110. Can be obtained from [facility] mail order pharmacy for $90. Advair generic: $279-$453. Can be obtained from [facility] mail order pharmacy for $100/inhaler (100/50), $120 (250/50) or $150 (500/50). Nebulizer solutions DuoNeb: $17 for 30 vials. Can be obtained from [facility] mail order pharmacy for $25 for 90 vials Albuterol: $14 for 30 vials. Can be obtained from [facility] mail order pharmacy for $15 for 75 vials. Cinthya Silva, Communication Assistant/Liaison, Discharge Pharmacy [phone] Barrett Tabares MD - 03/10/2021 9:55 AM CDTAssociated Order(s): PULMONARY IP CONSULT [facility] Pulmonary, Allergy, Critical Care and Sleep Medicine Initial Consultation March 10, 2021 Crystal Garcia Age: [age] year old Date of : 1975 Date of Admission: 03/10/2021 Reason for Consultation: acute asthma Requesting Physician: Dr kim Primary care provider: [facility], [facility] Assessment and Plan: Crystal Garcia is a 45 year old female admitted on 03/10/2021. Acute asthma exacerbation. Mild respiratory acidosis although already improved clinically. Use of Trelegy and asthma as a first medication is a little unusual and probably not necessary. All of this seems to be associated with a likely COVID infection 11 months ago. Recommendations are 4 times daily DuoNebs, IV methylprednisolone at a dose of 40 to 60 mg twice a day and if there is improvement tomorrow switch to 60 mg of prednisone. When ready to be discharged Taper prednisone over to 0 over a 10-day course. Also give a prescription separately for prednisone 20 mg pills take 2 pills daily, 40 mg, for 5 days for asthma worsening Patient was counseled regarding use of a home prednisone plan asthma symptoms worsen. I recommend a more affordable medication such as Advair, Dulera or Symbicort or equivalent with the high-dose steroid part. And prn albuterol. If she does have persistent symptom or has to take the prednisone burst more than once or twice, then follo w-up with a stockroom attendant with pulmonary function testing. Chief Complaint: History obtained from patient, , chart review. History of Present Illness: Patient is a 45-year-old female who prior to March 2020 had no respiratory symptoms. She had excellent exercise capacity and had no allergy problems. In March she and manyof her other household members had acute illness consistent with Covid. She had cough and fever and malaise. She never did seek medical attention and she recovered from the acute illness. However in the months afterwards she noted increased shortness of breath with exertion which was never an issue for her previously. This was not severe however and she did not seek medical attention until an urgent care visit in August where she had progressive shortness of breath, nasal congestion eye swelling and a subjective throat swelling. She was felt to have anaphylaxis and got a subcu injection of epinephrine antihistamines and 5 days of 60 mg of prednisone with referral to allergy. Patient states the prednisone was very effective for her. She did see an planning supervisor, although I do not see any records in the medical record, and had skin testing was told she was allergic to 25 different things including a lot of airborne allergens. No specific recommendations were made beyond allergen avoidance and antihistamines. Patient continued to have episodes of shortness of breath, chest tightness occasional wheezing and cough. She then was prescribed Trelegy inhaler as well as albuterol as needed. However the Trelegy inhaler was not affordable for her and in the last 4 days has had increasing shortness of breath, slightcough productive of minimal yellow sputum. Nocturnal awakening. Chest tightness chest heaviness thatwas not responding to her rescue albuterol therefore she came the emergency room around 7:00 this morning. She was in mild respiratory distress but this improved with BiPAP. She had mild acute respiratory acidosis. She was given intravenous steroids and nebulizers and transferred to the intensive care unit.As she already feels a little bit better and is not needing BiPAP. The patient is a non-smoker. 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 No other exposure to toxic inhalants. No vaping. Never had childhood respiratory chronic illnesses. Past Medical History: Asthma Past Surgical History: Social History: Social History Socioeconomic History ??? Marital status: Spouse name: Not on file ??? Number of children: Not on file ??? Years of education: Not on file ??? Highest education level: Not on file Occupational History ??? Not on file Tobacco Use ??? Smoking status: Never Smoker ??? Smokeless tobacco: Never Used Substance and Sexual Activity ??? Alcohol use: Not on file ??? Drug use: Not on file ??? Sexual activity: Not on file Other Topics Concern ??? Not on file Social History Narrative ??? Not on file Social Determinants of Health Financial Resource Strain: ??? Difficulty of Paying Living Expenses: Food Insecurity: ??? Worried About Running Out of Food in the Last Year: ??? Ran Out of Food in the Last Year: Transportation Needs: ??? Lack of Transportation (Medical): ??? Lack of Transportation (Non-Medical): Physical Activity: ??? Days of Exercise per Week: ??? Minutes of Exercise per Session: Stress: ??? Feeling of Stress : Social Connections: ??? Frequency of Communication with Friends and Family: ??? Frequency of Social Gatherings with Friends and Family: ??? Attends Church Services: ??? Active Member of Clubs or Organizations: ??? Attends Club or Organization Meetings: ??? Marital Status: Intimate Partner Violence: ??? Fear of Current or Ex-Partner: ??? Emotionally Abused: ??? Physically Abused: ??? Sexually Abused: Tobacco: none Significant inhalational exposures: no Family History: Family history. Son and daughter had recurrent bronchitis as a young children but now that they are in their teenage years have had no difficulty are on no medications. Allergies: Please see allergy list which was reviewed this admission. Medications: ??? enoxaparin ANTICOAGULANT 40 mg Subcutaneous Q24H ??? famotidine 20 mg Oral BID ??? fluticasone-vilanterol 1 puff Inhalation Daily ??? methylPREDNISolone 62.5 mg Intravenous BID albuterol, glucose OR dextrose OR glucagon, ondansetron OR ondansetron, polyethylene glycol, prochlorperazine OR prochlorperazine OR prochlorperazine, senna-docusate OR senna-docusate Review of Systems: CONSTITUTIONAL: negative for fever, chills, change in weight INTEGUMENTARY/SKIN: no rash or obvious new lesions ENT/MOUTH: no sore throat, new sinus pain but slight nasal drainage RESP: see interval history CV: negative for chest pain, palpitations or peripheral edema GI: no nausea, vomiting, change in stools : no dysuria MUSCULOSKELETAL: no myalgias, arthralgias ENDOCRINE: blood sugars with adequate control PSYCHIATRIC: mood stable LYMPHATIC: no new lymphadenopathy HEME: no bleeding or easy bruisability NEURO: no numbness, weakness, headaches Physical Exam: Temp: [97.5 ??F (36.4 ??C)-98.4 ??F (36.9 ??C)] 97.5 ??F (36.4 ??C) Pulse: [69-124] 69 Resp: [16-28] 16 BP: (112-182)/(80-125) 123/88 FiO2 (%): [40 %] 40 % SpO2: [91 %-98 %] 94 % No intake or output data in the 24 hours ending 03/10/21 0955 Constitutional: Awake, alert and in no apparent distress, gives history without much dyspnea Eyes: Nonicteric ENT: oral mucosa moist without lesions Neck: without supraclavicular or cervical lymphadenopathy Lungs: Good air flow. Rare wheezes bilateral No crackles. No rhonchi. Cardiovascular: Normal S1 and S2. RRR. No murmur, gallop or rub. Abdomen: soft, nontender, nondistended. No HSM. Musculoskeletal: No edema. Neurologic: Alert and conversant. Skin: Warm, dry. No rash Data: All laboratory and imaging data reviewed. CMP Recent Labs Lab 03/10/21 0942 03/10/21 0632 NA -- 140 POTASSIUM -- 3.6 CHLORIDE -- 107 CO2 -- 28 ANIONGAP -- 5 GLC 113* 111* BUN -- 21 CR -- 0.75 GFRESTIMATED -- >90 GABINO -- 9.1 CBC Recent Labs Lab 03/10/21 0632 WBC 8.3 RBC 4.37 HGB 13.2 HCT 41.4 MCV 95 MCH 30.2 MCHC 31.9 RDW 13.8 PLT 411 INR Recent Labs Lab 03/10/21 0735 INR 0.91 Arterial Blood Gas Recent Labs Lab 03/10/21 0632 O2PER 0 No results found for: SDES No results found for: CULT 5% eosinophils. Chest x-ray images reviewed by me show clear lungs. documented in this encounter ED Notes Nery Rothman RN - 03/10/2021 8:16 AM CDT [facility] ED Nurse Handoff Report Crystal Garcia is a 45 year old female ED Chief complaint: Asthma . ED Diagnosis: Final diagnoses: Acute respiratory failure with hypoxia (H) Severe persistent asthma with exacerbation Elevated blood pressure reading without diagnosis of hypertension Allergies: Allergies Allergen Reactions ??? Penicillins Code Status: Full Code Activity level - Baseline/Home: Independent. Activity Level - Current: Stand by Assist. Lift room needed: No. 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 Infection: Not Applicable. Vital Signs: Vitals: 03/10/21 0700 03/10/21 0715 03/10/21 0730 03/10/21 0731 BP: (!) 131/94 (!) 125/98 (!) 123/97 Pulse: 77 84 77 Resp: Temp: TempSrc: SpO2: 96% 96% 98% Weight: 72 kg (158 lb 12.8 oz) Cardiac Rhythm: , Pain level: Patient confused: No. Patient Falls Risk: No. Elimination Status: Has voided Patient Report - Initial Complaint: Patient having increased SOB due to Asthma. Focused Assessment: Patient diagnosed with COVID last March has had increasing issues with control of Asthma since, today patient arrived unable to get asthma uncontrol Tests Performed: Labs, Imaging. Abnormal Results: Labs Ordered and Resulted from Time of ED Arrival Up to the Time of Departure from the ED BLOOD GAS VENOUS WITH OXYHEMOGLOBIN - Abnormal; Notable for the following components: Result Value pCO2 Venous 52 (*) All other components within normal limits D DIMER QUANTITATIVE - Normal Narrative: This D-dimer assay is intended for use in conjunction with a clinical pretest probability assessment model to exclude pulmonary embolism (PE) and deep venous thrombosis (DVT) in outpatients suspected of PE or DVT. The cut-off value is 0.50 ug/mL FEU. INR - Normal EXTRA RED TOP TUBE EXTRA GREEN TOP (LITHIUM HEPARIN) TUBE EXTRA PURPLE TOP TUBE CBC WITH PLATELETS AND DIFFERENTIAL BASIC METABOLIC PANEL BLOOD GAS VENOUS EXTRA BLOOD CULTURE BOTTLE EXTRA BLUE TOP TUBE EXTRA GREEN TOP (LITHIUM HEPARIN) ON ICE CBC WITH PLATELETS PULSE OXIMETRY NURSING PULSE OXIMETRY NURSING MAY SALINE LOCK IV EXTRA TUBE Narrative: The following orders were created for panel order [place] Draw. Procedure Abnormality Status --------- ------ Extra Red Top Tube[[id number]] Final result Extra Green Top ([place]...[[id number]] Final result Extra Purple Top Tube[[id number]] Final result Please view results for these tests on the individual orders. CBC WITH PLATELETS & DIFFERENTIAL Narrative: The following orders were created for panel order CBC with platelets differential. Procedure Abnormality Status --------- ------ CBC with platelets and d...[[id number]] Final result Please view results for these tests on the individual orders. CBC WITH PLATELETS & DIFFERENTIAL EXTRA TUBE Narrative: The following orders were created for panel order Extra Tube. Procedure Abnormality Status --------- ------ Extra Blood Culture Bottle[[id number]] In process Extra Blue Top Tube[[id number]] Extra Green Top ([place]...[[id number]] In process Please view results for these tests on the individual orders. XR Chest Port 1 View Final Result IMPRESSION: Negative chest. GARY MCCLOUD MD . Treatments provided: Bipap, Medications Family Comments: present OBS brochure/video discussed/provided to patient: N/A ED Medications: Medications 0.9% sodium chloride BOLUS (has no administration in time range) sodium chloride 0.9% infusion (has no administration in time range) methylPREDNISolone sodium succinate (solu-MEDROL) injection 125 mg (125 mg Intravenous Given ) albuterol (PROVENTIL) neb solution 2.5 mg (2.5 mg Nebulization Given 03/10/21 9151) Drips infusing: Yes For the majority of the shift, the patient's behavior Green. Interventions performed were NOne. Sepsis treatment initiated: No Patient tested for COVID 19 prior to admission: YES ED Nurse Name/Phone Number: Nery Rothman RN, 8:16 AM Boyd Felix RN - 03/10/2021 6:23 AM CDT Asthma exacerbation today. 2-3 word dyspnea in triage. Pt states ran out of Trelegy Ellipta 200mcg/62.5mcg/25mcg inhaler. GCS 15 Miguel Lewis MD - 03/10/2021 6:19 AM CDT History Chief Complaint: Asthma HPI Crystal Garcia is a 45 year old female with history of COVID-19 and asthma who presents with shortness of breath. The patient's significant other states that this morning the patient began to be increasingly short of breath and seemed to be gasping for air. The patient has had asthma since being diagnosed with COVID- 19 in March 2020 but is otherwise healthy. The patient says she ran out of her inhaler and feels improved on the breathing machine here in the ER. She notes she is also experiencing nausea and light-headedness. She denies vomiting, diarrhea, blood in stool, or chance of . Review of Systems Respiratory: Positive for shortness of breath. Gastrointestinal: Positive for nausea. Negative for blood in stool, diarrhea and vomiting. Neurological: Positive for light-headedness. All other systems reviewed and are negative. Allergies: Penicillins Medications: Albuterol inhaler Rupal Trelegy ellipta Past Medical History: COVID-19 Asthma Social History: The patient presents with significant other. The patient arrives from home. Physical Exam Patient Vitals for the past 24 hrs: BP Temp Temp src Pulse Resp SpO2 Weight 03/10/21 0900 123/88 -- -- 69 -- 93 % -- 03/10/21 0845 (!) 112/91 -- -- 71 -- 95 % -- 03/10/2130 117/84 -- -- 81 -- 91 % -- 03/10/2115 114/87 -- -- 72 -- 92 % -- 03/10/2100 114/84 -- -- 70 -- 98 % -- 03/10/2145 115/80 -- -- 69 -- 97 % -- 03/10/21730 -- -- -- -- -- -- 72 kg (158 lb 12.8 oz) 03/10/21729 (!) 123/97 -- -- 77 -- 98 % -- 03/10/2115 (!) 125/98 -- -- 84 -- 96 % -- 03/10/21699 (!) 131/94 -- -- 77 -- 96 % -- 03/10/2151 -- -- -- 80 25 96 % -- 03/10/2145 (!) 126/97 -- -- 80 -- 98 % -- 03/10/21629 -- -- -- -- -- 95 % -- 03/10/2124 (!) 182/125 98.4 ??F (36.9 ??C) Oral 124 28 92 % -- Physical Exam General: The patient is alert. Moderate respiratory distress. HENT: Mucous membranes moist. Cardiovascular: Regular rate and rhythm. Good pulses in all four extremities. Normal capillary refill and skin turgor. Respiratory: Wheezing throughout. No nasal flaring. No retractions. No crackles. Gastrointestinal: Abdomen soft. No guarding, no rebound. No palpable hernias. Musculoskeletal: No gross deformity. Skin: No rashes or petechiae. Neurologic: The patient is alert and oriented x3. GCS 15. No testable cranial nerve deficit. Followscommands with clear and appropriate speech. Gives appropriate answers. Good strength in all extremities. No gross neurologic deficit. Gross sensation intact. Pupils are round and reactive. No meningismus. Lymphatic: No cervical adenopathy. No lower extremity swelling. Psychiatric: The patient is non-tearful. Emergency Department Course Imaging: XR Chest Port 1 View Negative chest. GARY MCCLOUD MD Reading per radiology Laboratory: CBC: WBC 8.3, HGB 13.2, PLT 411 BMP: Glucose 111 (H) o/w WNL (Creatinine 0.75) Blood gas venous: pH: 7.32, PCO2: 52 (H), PO2: 43, Bicarbonate: 27, Oxyhgb: 70, FIO2 0 Room Air, base excess -0.3 Ddimer: 0.41 INR: 0.91 Emergency Department Course: Reviewed: I reviewed nursing notes, vitals, past medical history and care everywhere Assessments: 630 I obtained history and examined the patient as noted above. Consults: [address] Kim of the hospitalist service. They agree to accept care of the patient. Interventions: 647 Solu-medrol 125 mg IV 0651 Albuterol 2.5 mg Nebulization Disposition: The patient was admitted to the hospital under the care of Dr. Kim. Impression & Plan Medical Decision Making: The patient presented quite significantly hypoxic short of breath and was very started on BiPAP. Thepatient said this started acutely this morning she has had Covid in the past I therefore did consider the possibly of PE however D-dimer is thankfully negative. There is no signs of pneumothorax on herchest x-ray she does not appear to have flash pulmonary edema. With the wheezing in her lung this sounds more like bronchospasm or an asthma episode. She was treated aggressive with antiasthma medication but improved on the BiPAP and was admitted to the ICU. Critical care time 35 minutes in excluding procedures. Covid-19 Crystal Garcia was evaluated during a global COVID-19 pandemic, which necessitated consideration that the patient might be at risk for infection with the SARS-CoV-2 virus that causes COVID-19. Applicable protocols for evaluation were followed during the patient's care. COVID-19 was considered as part of the patient's evaluation. The plan for testing is: a test was obtained during this visit. Diagnosis: ICD-10-CM 1. Acute respiratory failure with hypoxia (H) J96.01 2. Severe persistent asthma with exacerbation J45.51 3. Elevated blood pressure reading without diagnosis of hypertension R03.0 Scribe Disclosure: Jewell Lowe, am serving as a scribe at 6:31 AM on 03/10/2021 to document services personally performed by Miguel Lewis MD based on my observations and the provider's statements to me. Miguel Lewis MD 03/10/21 1025 documented in this encounter Miscellaneous Notes Plan of Care - Francesca Barrett RN - 03/11/2021 8:34 AM CDT ICU End of Shift Summary. For vital signs and complete assessments, please see documentation flowsheets. Pertinent assessments: A&Ox4. VSS. Eating and drinking well. Denies SOB/LING. 96% RA. Lungs dim, but clear. Headache - ibupofen given, nausea, PO zofran given. AVS reviewed with pt. Discharge home with meds and all belongings at this time with to transport. Major Shift Events: discharge home Plan (Upcoming Events): discharge home Discharge/Transfer Needs: tbd Bedside Shift Report Completed : y Bedside Safety Check Completed: y Plan of Care - Leonora Sotomayor RN - 03/11/2021 5:48 AM CDT ICU End of Shift Summary. For vital signs and complete assessments, please see documentation flowsheets. Pertinent assessments: AO. Denies pain. VSS. Lungs clear. RA. Denies SOB. Ambulating to bathroom, steady on feet. Tolerating diet. Major Shift Events: none Plan (Upcoming Events): SW to see today Discharge/Transfer Needs: Home Bedside Shift Report Completed : Y Bedside Safety Check Completed: Y Plan of Care - German Kirkland RN - 03/10/2021 6:40 PM CDT ICU End of Shift Summary. For vital signs and complete assessments, please see documentation flowsheets. Pertinent assessments: Pt has been stable since the transfer from ED. A/O. Afebrile. Rhythm sinus, no ectopy. Weaned off O2 and sating well on RA. Denies SOB or chest pain/pressure. Pulmonary toilet encouraged. BG in 200s, SSI initiated. Steroids and bronchodilators continued. Will continue to monitor. Major Shift Events: As above Plan (Upcoming Events): To transfer out once bed available. Discharge/Transfer Needs: Transfer to med/surg Bedside Shift Report Completed : y Bedside Safety Check Completed:y Pharmacy-Admission Medication History - Edwina Dominguez - 03/10/2021 8:26 AM CDT Admission medication history interview status for this patient is complete. See [facility] admission navigator for allergy information, prior to admission medications and immunization status. Medication history interview done, indicate source(s): Patient's Cyril Medication history resources (including written lists, pill bottles, clinic record):None Pharmacy: [facility] in [place] Changes made to [employer] medication list: Added: trelegy ellipta, albuterol neb Deleted: rupal Changed: nothing Actions taken by pharmacist (provider contacted, etc):None Additional medication history information: Patient's explained that the patient ran out of her trelegy ellipta inhaler due to their pharmacy not having the inhaler in stock. The patient's said that she has albuterol neb solution that she uses just in case, and that she has been using it more now that she ran out of her trelegy inhaler. The patient had been taking the new inhaler for about 2 months. The patient was filling her prescriptions at [facility] in [place], but her and her recently moved to [place] (3 days ago). They don't have an established [facility] they'd [facility] to [facility], but asked that we send a new prescription of trelegy to a [facility] that has the inhaler on hand. For that reason, the discharge pharmacy is [facility] until we confirm a [facility] nearby that has the inhaler. The patient's was unsure if she was taking famotidine. Additionally, the patient's mentioned she started taking a gummy multivitamin a few days ago. Medication reconciliation/reorder completed by provider prior to medication history? N (Y/N) Prior to Admission medications Medication Sig Last Dose Taking? Auth Provider albuterol (PROAIR HFA/PROVENTIL HFA/VENTOLIN HFA) 108 (90 Base) MCG/ACT inhaler Inhale 2 puffs into the lungs every 6 hours 03/10/2021 at am Yes Torsten Tomlinson MD Tclngabqqsf-Seevwpbll-Avomifxuub (TRELEGY ELLIPTA) 200-62.5-25 MCG/INH oral inhaler Inhale 1 puff into the lungs daily Past Week at Unknown time Yes Unknown, Entered By History albuterol (PROVENTIL) (2.5 MG/3ML) 0.083% neb solution Take 2.5 mg by nebulization every 6 hours as needed for shortness of breath / dyspnea or wheezing Past Week at Unknown at Unknown time Yes Unknown, Entered By History famotidine (PEPCID) 20 MG tablet Take 1 tablet (20 mg) by mouth 2 times daily Unknown at Unknown time Torsten Tomlinson MD Associated attestation - Helen Solomon RPH - 03/10/2021 8:51 AM CDT ok documented in this encounter Plan of Treatment Not on filedocumented as of this encounter Procedures Procedure Name Priority Date/Time Associated Comments Diagnosis GLUCOSE BY METER Routine 03/11/2021 8:20 AM Resul ts for this CDT procedure are i n the results section. GLUCOSE BY METER Routine 03/11/2021 1:56 AM Resul ts for this CDT procedure are i n the results section. GLUCOSE BY METER Routine 03/10/2021 9:14 PM Resul ts for this CDT procedure are i n the results section. GLUCOSE BY METER Routine 03/10/2021 4:07 PM Resul ts for this CDT procedure are i n the results section. BLOOD GAS VENOUS WITH STAT 03/10/2021 2:46 PM Results for this OXYHEMOGLOBIN CDT procedure are in the results section. HEMOGLOBIN A1C Add-On 03/10/2021 2:28 PM Results for this CDT procedure are i n the results section. CBC WITH PLATELETS STAT 03/10/2021 2:28 PM Res ults for this CDT procedure are i n the results section. GLUCOSE BY METER Routine 03/10/2021 12:09 Results for this PM CDT procedure are i n the results section. SARS-COV2 (COVID-19) STAT 03/10/2021 11:13 Res ults for this VIRUS RT-PCR AM CDT procedure are i n the results section. COVID-19 VIRUS STAT 03/10/2021 11:13 Results f or this (CORONAVIRUS) BY PCR AM CDT procedu re are in the results section. GLUCOSE BY METER Routine 03/10/2021 9:42 AM Resul ts for this CDT procedure are i n the results section. EXTRA GREEN TOP STAT 03/10/2021 7:41 AM Result s for this (LITHIUM HEPARIN) ON CDT procedu re are in ICE the results section. EXTRA TUBE STAT 03/10/2021 7:41 AM Results f or this CDT procedure are i n the results section. EXTRA BLOOD CULTURE STAT 03/10/2021 7:41 AM Re sults for this BOTTLE CDT procedure are i n the results section. INR STAT 03/10/2021 7:35 AM Results f or this CDT procedure are i n the results section. D DIMER QUANTITATIVE STAT 03/10/2021 7:35 AM R esults for this CDT procedure are i n the results section. XR CHEST PORT 1 VIEW STAT 03/10/2021 7:32 AM R esults for this CDT procedure are i n the results section. EXTRA TUBE STAT 03/10/2021 6:32 AM Results f or this CDT procedure are i n the results section. EXTRA PURPLE TOP TUBE STAT 03/10/2021 6:32 AM Results for this CDT procedure are i n the results section. EXTRA GREEN TOP STAT 03/10/2021 6:32 AM Result s for this (LITHIUM HEPARIN) TUBE CDT proce dure are in the results section. EXTRA RED TOP TUBE STAT 03/10/2021 6:32 AM Res ults for this CDT procedure are i n the results section. CBC WITH PLATELETS AND STAT 03/10/2021 6:32 AM Results for this DIFFERENTIAL CDT procedure are i n the results section. CBC WITH PLATELETS & STAT 03/10/2021 6:32 AM R esults for this DIFFERENTIAL CDT procedure are i n the results section. BLOOD GAS VENOUS WITH STAT 03/10/2021 6:32 AM Results for this OXYHEMOGLOBIN CDT procedure are in the results section. BASIC METABOLIC PANEL STAT 03/10/2021 6:32 AM Results for this CDT procedure are i n the results section. documented in this encounter Results (ABNORMAL) Glucose by meter (03/11/2021 8:20 AM CDT) P athologist Signature GLUCOSE BY 114 (H) 70 - 99 03/11/2021 [facility] METER POCT mg/dL 9:55 AM CDT POC Specimen Anatomical Collection Method Collection Time Receive d Time (Source) Location / / Volume Laterality Blood BLOOD SPECIMEN / 03/11/2021 8:20 AM 03/11 9:55 Unknown CDT AM CDT Roxana Kim MD LAB - BEAKER POCT Performing Organization Address City/State/ZIP Code [place] [address] [facility] [address] Lab (1st floor, no room number) (ABNORMAL) Glucose by meter (03/11/2021 1:56 AM CDT) P athologist Signature GLUCOSE BY 156 (H) 70 - 99 03/11/2021 [facility] METER POCT mg/dL 2:03 AM CDT POC Specimen Anatomical Collection Method Collection Time Receive d Time (Source) Location / / Volume Laterality Blood BLOOD SPECIMEN / 03/11/2021 1:56 AM 03/11 2:03 Unknown CDT AM CDT Roxana Kim MD LAB - BEAKER POCT Performing Organization Address City/State/ZIP Code [place] [address] Care Lab [address] Lab (1st floor, no room number) (ABNORMAL) Glucose by meter (03/10/2021 9:14 PM CDT) P athologist Signature GLUCOSE BY 146 (H) 70 - 99 03/10/2021 [facility] METER POCT mg/dL 9:21 PM CDT POC Specimen Anatomical Collection Method Collection Time Receive d Time (Source) Location / / Volume Laterality Blood BLOOD SPECIMEN / 03/10/2021 9:14 PM 03/10 9:21 Unknown CDT PM CDT Roxana Kim MD LAB - BEAKER POCT Performing Organization Address City/State/ZIP Code [place] [address] Care Lab [address] Lab (1st floor, no room number) (ABNORMAL) Glucose by meter (03/10/2021 4:07 PM CDT) P athologist Signature GLUCOSE BY 201 (H) 70 - 99 03/10/2021 [facility] METER POCT mg/dL 4:14 PM CDT POC Comment: Dr/RN Notified Specimen Anatomical Collection Method Collection Time Receive d Time (Source) Location / / Volume Laterality Blood BLOOD SPECIMEN / 03/10/2021 4:07 PM 03/10 4:14 Unknown CDT PM CDT Roxana Kim MD LAB - BEAKER POCT Performing Organization Address City/[facility]/ZIP Code [place] [address] Care Lab [address] Lab (1st floor, no room number) (ABNORMAL) Blood gas venous and oxyhgb (03/10/2021 2:46 PM CDT) Analysis Performed At Patho logist Time Signature pH Venous 7.42 7.32 - 03/10/2021 [facility] 7.43 2:57 PM CDT pCO2 Venous 35 (L) 40 - 50 mm 03/10/2021 [facility] Hg 2:57 PM CDT pO2 Venous 73 (H) 25 - 47 mm 03/10/2021 [facility] Hg 2:57 PM CDT Bicarbonate 23 21 - 28 03/10/2021 [facility] Venous mmol/L 2:57 PM CDT FIO2 2 SAMUEL 03/10/2021 [facility] 2:57 PM CDT Comment: Litter Oxyhemoglobin Venous 94 (H) 70 - 75 % 03/10/2021 2:57 PM [facility] CDT Base Excess/Deficit (+/-) -1.4 -7.7 - 1.9 03/10/2021 2: 57 PM [facility] mmol/L CDT Specimen Anatomical Collection Method / Collection Time Recei binu Time (Source) Location / Volume Laterality Blood, venous STRUCTURE OF RIGHT Venipuncture / 03/10/2021 2:46 07/2021 2:47 HAND / Unknown Unknown PM CDT PM CDT Roxana Kim MD LAB - BLOOD ORDERABLES Performing Organization Address [facility]/ZIP [facility] [place] [address] Care Lab [address] Lab (1st floor, no room number) Hemoglobin A1c (03/10/2021 2:28 PM CDT) athologist Signature Hemoglobin A1C 5.5 0.0 - 5.6 03/10/2021 [facility] % 3:32 PM CDT Comment: Normal <5.7% Prediabetes 5.7-6.4% ?? Diabetes 6.5% or higher Note: Adopted from ADA consensus guideli darline. Specimen Anatomical Collection Method / Collection Time Recei binu Time (Source) Location / Volume Laterality Blood STRUCTURE OF LEFT Venipuncture / 03/10/2021 2:28 03/10 3:30 HAND / Unknown Unknown PM CDT PM CDT Roxana Kim MD LAB - BLOOD ORDERABLES Performing Organization Address [facility] [address] Care Lab [address] Lab (1st floor, no room number) CBC (platelets, no diff) (03/10/2021 2:28 PM CDT) athologist Signature WBC Count 9.4 4.0 - 11.0 03/10/2021 [facility] 10e3/uL 3:31 PM CDT RBC Count 4.27 3.80 - 03/10/2021 [facility] 5.20 3:31 PM CDT 10e6/uL Hemoglobin 13.0 11.7 - 03/10/2021 [facility] 15.7 g/dL 3:31 PM CDT Hematocrit 39.8 35.0 - 03/10/2021 [facility] 47.0 % 3:31 PM CDT MCV 93 78 - 100 03/10/2021 [facility] fL 3:31 PM CDT MCH 30.4 26.5 - 03/10/2021 [facility] 33.0 pg 3:31 PM CDT MCHC 32.7 31.5 - 03/10/2021 [facility] 36.5 g/dL 3:31 PM CDT RDW 13.8 10.0 - 03/10/2021 [facility] 15.0 % 3:31 PM CDT Platelet Count 373 150 - 450 03/10/2021 [facility] 10e3/uL 3:31 PM CDT Specimen Anatomical Collection Method / Collection Time Recei binu Time (Source) Location / Volume Laterality Blood STRUCTURE OF LEFT Venipuncture / 03/10/2021 2:28 03/10 3:30 HAND / Unknown Unknown PM CDT PM CDT Roxana Kim MD LAB - BLOOD ORDERABLES Performing Organization Address City/State/ZIP Code [place] [address] Care Lab [address] Lab (1st floor, no room number) (ABNORMAL) Glucose by meter (03/10/2021 12:09 PM CDT) P athologist Signature GLUCOSE BY 229 (H) 70 - 99 03/10/2021 [facility] METER POCT mg/dL 12:17 PM CDT POC Specimen Anatomical Collection Method Collection Time Receive d Time (Source) Location / / Volume Laterality Blood BLOOD SPECIMEN / 03/10/2021 12:09 021 Unknown PM CDT 12:17 PM CDT Roxana Kim MD LAB - BEAKER POCT Performing Organization Address City/State/ZIP Code Phon e [place] [address] Care Lab [address] Lab (1st floor, no room number) SARS-COV2 (COVID-19) Virus RT-PCR (03/10/2021 11:13 AM CDT) Analysis Performed At Patho logist Time Signature SARS CoV2 PCR Negative Negative 03/10/2021 LABORATORY 12:08 PM CDT Comment: NEGATIVE: SARS-CoV-2 (COVID-19) RNA not detected, presumed negative. Specimen Anatomical Location / Collection Method Collection Alfredo e Received Time (Source) Laterality / Volume Swab NASOPHARYNGEAL Non-blood 03/10/2021 11:13 STRUCTURE / Unknown Collection / AM CDT 11:51 AM CDT Unknown Narrative LABORATORY - 03/10/2021 12:08 PM CDT Testing was performed using the ladarius?? SARS-CoV-2 & Influenza A/B Assay on the ladarius?? Miranda?? System. ??This test shoul d be ordered for the detection of SARS-COV-2 in individuals who meet SARS-CoV-2 clini gabino and/or epidemiological criteria. Test performance is unknown in asymptomatic p atients. ??This test is for in vitro diagnostic use under the FDA EUA for lab oratories certified under CLIA to perform moderate and/or high complexity testing. This test has not been FDA cleared or approved. ??A negative test does not rul e out the presence of PCR inhibitors in the specimen or target RNA in concentration below the limit of detection for the assay. The possibility of a false negative shou ld be considered if the patient's recent exposure or clinical presentation sugges ts COVID-19. ??[facility] are certified under the Clinical Laborat ory Improvement Amendments of 1988 (CLIA-88) as qualified to perform moderate and/or high complexity laboratory testing. Roxana Kim MD LAB - MICRO GENERAL ORDERABL ES Performing Organization Address City/State/ZIP Code [place] [address] Care Lab [address] [facility] Lab (1st floor, no room number) (ABNORMAL) Glucose by meter (03/10/2021 9:42 AM CDT) P athologist Signature GLUCOSE BY 113 (H) 70 - 99 03/10/2021 LABORATORY METER POCT mg/dL 9:49 AM CDT POC Specimen Anatomical Collection Method Collection Time Receive d Time (Source) Location / / Volume Laterality Blood BLOOD SPECIMEN / 03/10/2021 9:42 AM 03/10 9:49 Unknown CDT AM CDT Roxana Kim MD LAB - BEAKER POCT Performing Organization Address City/State/ZIP Code Phon e [place] [address] Care Lab [address] Lab (1st floor, no room number) Extra Green Top (Bradford Heparin) ON ICE (03/10/2021 7:41 AM CDT) athologist Signature Hold Specimen JIC 03/10/2021 [facility] 8:46 AM CDT Specimen Anatomical Collection Method Collection Time Receive d Time (Source) Location / / Volume Laterality Blood STRUCTURE OF LEFT VAD(CVC, PICC) / 03/10/2021 7:41 AM 03/10/2021 7:42 UPPER LIMB / Unknown CDT AM CDT Unknown Miguel Lewis MD LAB - BLOOD ORDERABLES Performing Organization Address City/[facility]/ZIP Code [place] [address] Care Lab [address] Lab (1st floor, no room number) Extra Blood Culture Bottle (03/10/2021 7:41 AM CDT) athologist Signature Hold Specimen JIC 03/10/2021 [facility] 8:46 AM CDT Specimen Anatomical Collection Method Collection Time Receive d Time (Source) Location / / Volume Laterality Blood STRUCTURE OF LEFT VAD(CVC, PICC) / 03/10/2021 7:41 AM 03/10/2021 7:42 UPPER LIMB / Unknown CDT AM CDT Unknown Miguel Lewis MD LAB - BLOOD ORDERABLES Performing Organization Address City/[facility]/ZIP Code [place] [address] Care Lab [address] Lab (1st floor, no room number) INR (03/10/2021 7:35 AM CDT) athologist Signature INR 0.91 0.85 - 1.15 03/10/2021 [facility] 7:52 AM CDT Comment: Effective 03/10/2021, the refere nce range for this assay has changed. Specimen Anatomical Collection Method Collection Time Receive d Time (Source) Location / / Volume Laterality Blood STRUCTURE OF LEFT VAD(CVC, PICC) / 03/10/2021 7:35 AM 03/10/2021 7:35 UPPER LIMB / Unknown CDT AM CDT Unknown Miguel Lewis MD LAB - BLOOD ORDERABLES Performing Organization Address City/State/ZIP Code [place] [address] Care Lab [address] Lab (1st floor, no room number) D dimer quantitative (03/10/2021 7:35 AM CDT) Analysis Performed At Patho logist Time Signature D-Dimer 0.41 0.00 - 03/10/2021 [facility] Quantitative 0.50 ug/mL 7:52 AM CDT FEU Specimen Anatomical Collection Method Collection Time Receive d Time (Source) Location / / Volume Laterality Blood STRUCTURE OF LEFT VAD(CVC, PICC) / 03/10/2021 7:35 AM 03/10/2021 7:35 UPPER LIMB / Unknown CDT AM CDT Unknown Narrative [facility] - 03/10/2021 7:52 AM CDT This D-dimer assay is intended for use i n conjunction with a clinical pretest probability assessment model to exclude pulmonary embolism (PE) and deep venous thrombosis (DVT) in outpatients suspecte d of PE or DVT. The cut-off value is 0.50 ug/mL FEU. Miguel Lewis MD LAB - BLOOD ORDERABLES Performing Organization Address City/[facility]/ZIP Code [place] [address] Care Lab [address] Lab (1st floor, no room number) XR Chest Port 1 View (03/10/2021 7:32 AM CDT) Anatomical Region Laterality Modality Chest Digital Radiography Specimen (Source) Anatomical Location Collection Method / Collectio n Time Received Time / Laterality Volume Impressions 03/10/2021 7:38 AM CDT IMPRESSION: Negative chest. GARY MCCLOUD MD Narrative 03/10/2021 7:38 AM CDT XR CHEST PORT 1 VIEW 03/10/2021 7:32 AM HISTORY: sob COMPARISON: Chest x-ray 03/28/2013 Procedure Note Gary Mccloud MD - 03/10/2021Form atting of this note might be different from the original. XR CHEST PORT 1 VIEW 03/10/2021 7:32 AM HISTORY: sob COMPARISON: Chest x-ray 03/28/2013 IMPRESSION: Negative chest. GARY MCCLOUD MD Miguel Lewis MD IMG DIAGNOSTIC IMAGING ORDER HAMIDA CBC with platelets and differential (03/10/2021 6:32 AM CDT) [facility] Signature WBC Count 8.3 4.0 - 11.0 03/10/2021 [facility] 10e3/uL 7:53 AM CDT RBC Count 4.37 3.80 - 03/10/2021 [facility] 5.20 7:53 AM CDT 10e6/uL Hemoglobin 13.2 11.7 - 03/10/2021 [facility] 15.7 g/dL 7:53 AM CDT Hematocrit 41.4 35.0 - 03/10/2021 [facility] 47.0 % 7:53 AM CDT MCV 95 78 - 100 03/10/2021 [facility] fL 7:53 AM CDT MCH 30.2 26.5 - 03/10/2021 [facility] 33.0 pg 7:53 AM CDT MCHC 31.9 31.5 - 03/10/2021 [facility] 36.5 g/dL 7:53 AM CDT RDW 13.8 10.0 - 03/10/2021 [facility] 15.0 % 7:53 AM CDT Platelet Count 411 150 - 450 03/10/2021 [facility] 10e3/uL 7:53 AM CDT % Neutrophils 40 % 03/10/2021 [facility] 7:53 AM CDT % Lymphocytes 49 % 03/10/2021 [facility] 7:53 AM CDT % Monocytes 5 % 03/10/2021 [facility] 7:53 AM CDT % Eosinophils 5 % 03/10/2021 [facility] 7:53 AM CDT % Basophils 1 % 03/10/2021 [facility] 7:53 AM CDT % Immature 0 % 03/10/2021 [facility] Granulocytes 7:53 AM CDT NRBCs per 100 WBC 0 <1 /100 03/10/2021 [facility] RY 7:53 AM CDT Absolute 3.3 1.6 - 8.3 03/10/2021 [facility] Neutrophils 10e3/uL 7:53 AM CDT Absolute 4.1 0.8 - 5.3 03/10/2021 [facility] Lymphocytes 10e3/uL 7:53 AM CDT Absolute 0.4 0.0 - 1.3 03/10/2021 [facility] Monocytes 10e3/uL 7:53 AM CDT Absolute 0.4 0.0 - 0.7 03/10/2021 [facility] Eosinophils 10e3/uL 7:53 AM CDT Absolute 0.1 0.0 - 0.2 03/10/2021 [facility] Basophils 10e3/uL 7:53 AM CDT Absolute Immature 0.0 <=0.0 03/10/2021 [facility] RY Granulocytes 10e3/uL 7:53 AM CDT Absolute NRBCs 0.0 10e3/uL 03/10/2021 [facility] 7:53 AM CDT Specimen Anatomical Collection Method Collection Time Receive d Time (Source) Location / / Volume Laterality Blood STRUCTURE OF LEFT VAD(CVC, PICC) / 03/10/2021 6:32 AM 03/10/2021 6:46 UPPER LIMB / Unknown CDT AM CDT Unknown Miguel Lewis MD LAB - BLOOD ORDERABLES Performing Organization Address City/State/ZIP Code [place] [address] Care Lab [address] Lab (1st floor, no room number) (ABNORMAL) Basic metabolic panel (03/10/2021 6:32 AM CDT) Analysis Performed At Patho logist Time Signature Sodium 140 133 - 144 03/10/2021 [facility] mmol/L 8:31 AM CDT Potassium 3.6 3.4 - 5.3 03/10/2021 [facility] mmol/L 8:31 AM CDT Chloride 107 94 - 109 03/10/2021 [facility] mmol/L 8:31 AM CDT Carbon Dioxide 28 20 - 32 03/10/2021 [facility] (CO2) mmol/L 8:31 AM CDT Anion Gap 5 3 - 14 03/10/2021 [facility] mmol/L 8:31 AM CDT Urea Nitrogen 21 7 - 30 03/10/2021 LABORATORY mg/dL 8:31 AM CDT Creatinine 0.75 0.52 - 03/10/2021 LABORATORY 1.04 mg/dL 8:31 AM CDT Calcium 9.1 8.5 - 10.1 03/10/2021 LABORATORY mg/dL 8:31 AM CDT Glucose 111 (H) 70 - 99 03/10/2021 LABORATORY mg/dL 8:31 AM CDT GFR Estimate >90 >60 03/10/2021 LABORATORY mL/min/1.7 8:31 AM CDT 3m2 Comment: As of March 10, 2021, eGFR is ca lculated by the CKD-EPI creatinine equation, without race adjustment. eGFR can be inf luenced by muscle mass, exercise, and diet. The reported eGFR is an estimation only and is only applicable if the renal function is stable. Specimen Anatomical Collection Method Collection Time Receive d Time (Source) Location / / Volume Laterality Blood STRUCTURE OF LEFT VAD(CVC, PICC) / 03/10/2021 6:32 AM 03/10/2021 6:46 UPPER LIMB / Unknown CDT AM CDT Unknown Miguel Lewis MD LAB - BLOOD ORDERABLES Performing Organization Address City/State/ZIP [place] [address] Care Lab [address] Lab (1st floor, no room number) Extra Purple Top Tube (03/10/2021 6:32 AM CDT) P athologist Signature Hold Specimen [facility] 03/10/2021 LABORATORY 8:03 AM CDT Specimen Anatomical Collection Method Collection Time Receive d Time (Source) Location / / Volume Laterality Blood STRUCTURE OF LEFT VAD(CVC, PICC) / 03/10/2021 6:32 AM 03/10/2021 6:46 UPPER LIMB / Unknown CDT AM CDT Unknown Miguel Lewis MD LAB - BLOOD ORDERABLES Performing Organization Address City/State/ZIP [place] [address] Care Lab [address] Lab (1st floor, no room number) Extra Green Top (Bradford Heparin) Tube (03/10/2021 6:32 AM CDT) P athologist Signature Hold Specimen JIC 03/10/2021 [facility] 8:03 AM CDT Specimen Anatomical Collection Method Collection Time Receive d Time (Source) Location / / Volume Laterality Blood STRUCTURE OF LEFT VAD(CVC, PICC) / 03/10/2021 6:32 AM 03/10/2021 6:46 UPPER LIMB / Unknown CDT AM CDT Unknown Miguel Lewis MD LAB - BLOOD ORDERABLES Performing Organization Address City/State/ZIP Code [place] [address] Care Lab [address] Lab (1st floor, no room number) Extra Red Top Tube (03/10/2021 6:32 AM CDT) athologist Signature Hold Specimen JI 03/10/2021 [facility] 8:03 AM CDT Specimen Anatomical Collection Method Collection Time Receive d Time (Source) Location / / Volume Laterality Blood STRUCTURE OF LEFT VAD(CVC, PICC) / 03/10/2021 6:32 AM 03/10/2021 6:46 UPPER LIMB / Unknown CDT AM CDT Unknown Miguel Lewis MD LAB - BLOOD ORDERABLES Performing Organization Address City/State/ZIP Code [place] [address] Care Lab [address] Lab (1st floor, no room number) (ABNORMAL) Blood gas venous and oxyhgb (03/10/2021 6:32 AM CDT) Analysis Performed At Patho logist Time Signature pH Venous 7.32 7.32 - 03/10/2021 [facility] 7.43 6:55 AM CDT pCO2 Venous 52 (H) 40 - 50 mm 03/10/2021 [facility] Hg 6:55 AM CDT pO2 Venous 43 25 - 47 mm 03/10/2021 [facility] Hg 6:55 AM CDT Bicarbonate 27 21 - 28 03/10/2021 [facility] Venous mmol/L 6:55 AM CDT FIO2 0 SAMUEL 03/10/2021 [facility] 6:55 AM CDT Comment: ROOM AIR Oxyhemoglobin Venous 70 70 - 75 % 03/10/2021 6:55 AM CDT [facility] Base Excess/Deficit (+/-) -0.3 -7.7 - 1.9 03/10/2021 6: 55 AM CDT [facility] mmol/L Specimen Anatomical Collection Method Collection Time Receive d Time (Source) Location / / Volume Laterality Blood, venous STRUCTURE OF LEFT VAD(CVC, PICC) / 03/10/2021 6:32 AM 03/10/2021 6:44 UPPER LIMB / Unknown CDT AM CDT Unknown Miguel Lewis MD LAB - BLOOD ORDERABLES Performing Organization Address City/State/ZIP Code [place] [address] Care Lab [address] Lab (1st floor, no room number) documented in this encounter Visit Diagnoses Diagnosis Acute respiratory failure with hypoxia ( H) Acute respiratory failure Severe persistent asthma with exacerbati on Unspecified asthma, with exacerbation Elevated blood pressure reading without diagnosis of hypertension Anaphylaxis, initial encounter Elevated blood pressure reading without diagnosis of hypertension Severe persistent asthma with exacerbati on Unspecified asthma, with exacerbation Acute respiratory failure with hypoxia ( H) Acute respiratory failure documented in this encounter Admitting Diagnoses Diagnosis Elevated blood pressure reading without diagnosis of hypertension documented in this encounter Administered Medications Inactive Administered Medications - up to 3 most recent administrations Medication Order MAR Action Action Date Dose Rate Site albuterol (PROVENTIL) neb solution Given 03/10/2021 6:51 AM CDT 2.5 mg 2.5 mg 2.5 mg, Nebulization, ONCE, On 03/10/21 at 0650, For 1 dose dextrose 50 % injection 25-50 mL 25-50 mL, Intravenous, EVERY 15 MIN PRN, low blood sug ar, Administer over 1-5 Minutes, Starting on 03/10/21 at 0922 , Use if have IV access, BG less than 70 mg/dL and meet dose criteria below: Dose if conscious and alert (or disorientated) and NPO = 25 mL Dose if unconscious / no t alert = 50 mL Give first dose for initial blood glucose less than 70 mg/dL. If blood glucose at 15 minute recheck is less than or equal to 100 mg/dL continue to a dminister carbohydrate treatment every 15 minutes, as needed, based on blood gluco se and assessment parameters until blood glucose level is above 100 mg/dL. Vesica nt. For ordered doses up to 25 g, give IV Push undiluted. Give each 5g over 1 minute. dextrose 50 % injection 25-50 mL 25-50 mL, Intravenous, EVERY 15 MIN PRN, low blood sug ar, Administer over 1-5 Minutes, Starting on 03/10/21 at 1248 , Use if have IV access, BG less than 70 mg/dL and meet dose criteria below: Dose if conscious and alert (or disorientated) and NPO = 25 mL Dose if unconscious / no t alert = 50 mL Give first dose for initial blood glucose less than 70 mg/dL. If blood glucose at 15 minute recheck is less than or equal to 100 mg/dL continue to a dminister carbohydrate treatment every 15 minutes, as needed, based on blood gluco se and assessment parameters until blood glucose level is above 100 mg/dL. Vesica nt. For ordered doses up to 25 g, give IV Push undiluted. Give each 5g over 1 minute. enoxaparin ANTICOAGULANT (LOVENOX) injection Given 07/2021 11:26 AM CDT 40 mg 40 mg 40 mg, Subcutaneous, EVERY 24 HOURS, First dose on Thu03/10/21 at 1000, HOLD if platelet count falls below 50% of baseline or less than 100,000/??L and notify provider. famotidine (PEPCID) tablet 20 mg Given 03/11/2021 8:11 AM CDT 20 mg 20 mg, Oral, 2 TIMES DAILY, First dose on Thu03/10/21 at 0930 Given 03/10/2021 9:16 PM CDT 20 mg Given 03/10/2021 11:26 AM CDT 20 mg fluticasone-vilanterol (BREO ELLIPTA) 200-25 Given 07/2021 7:43 AM CDT 1 puff MCG/INH inhaler 1 puff 1 puff, Inhalation, DAILY, First dose on Thu03/10/21 at 1000, *Do not use more frequently than once daily.* Rinse mouth after use. Check the dose counter on the inhaler to ensure there are doses remaining before administering. Given 03/10/2021 11:31 AM CDT 1 puff glucagon injection 1 mg 1 mg, Subcutaneous, EVERY 15 MIN PRN, low blood sugar, May repeat x 1 only, Starting on 03/10/21 at 0922, May giv e SQ or IM. ONLY use glucagon IF patient has NO IV access AND is UNABLE to swallo w AND blood glucose is LESS than or EQUAL to 50 mg/dL. If ordered IV, give IV Push over 1 minute . Reconstitute with 1mL sterile water. glucagon injection 1 mg 1 mg, Subcutaneous, EVERY 15 MIN PRN, low blood sugar, May repeat x 1 only, Starting on 03/10/21 at 1248, May giv e SQ or IM. ONLY use glucagon IF patient has NO IV access AND is UNABLE to swallo w AND blood glucose is LESS than or EQUAL to 50 mg/dL. If ordered IV, give IV Push over 1 minute . Reconstitute with 1mL sterile water. glucose gel 15-30 g 15-30 g, Oral, EVERY 15 MIN PRN, low blo od sugar, Starting on 03/10/21 at 0922, Give first dose for initial blood glucose less than 70 mg/dL per the dosing instructions below. If blood glucose at 15 minute rechecks is still less than or equal to 100 mg/dL, continue to administ er doses per blood glucose parameters every 15 minutes, as needed, until blood glucose level is ab ove 100 mg/dL. Dosing Instructions: ~If patient is conscious a nd able to swallow and NO enteral tube For initial BG 51-69mg/dL OR 15 minute reche ck BG 51- 100 mg/dL - give 15 g For BG less than or equal to 50 mg/dL - give 30 g ~ If Enteral tube For initial BG 51-69mg/dL OR 15 minute recheck BG 51- 100 mg/dL - give apple juice 120 mL (4 oz or 15 g of CHO) via enteral tube For BG less than o r equal to 50 mg/dL - Give apple juice 240 mL (8 oz or 30 g of CHO) via enteral tub e ~Oral gel is preferable for conscious and able to swallow patient. ~IF gel unavail able or patient refuses may provide apple juice per Enteral tube dosing instructio ns. Document juice on I and O flowsheet. glucose gel 15-30 g 15-30 g, Oral, EVERY 15 MIN PRN, low blo od sugar, Starting on Thu03/10/21 at 1248, Give first dose for initial blood glucose less than 70 mg/dL per the dosing instructions below. If blood glucose at 15 minute rechecks is still less than or equal to 100 mg/dL, continue to administ er doses per blood glucose parameters every 15 minutes, as needed, until blood glucose level is ab ove 100 mg/dL. Dosing Instructions: ~If patient is conscious a nd able to swallow and NO enteral tube For initial BG 51-69mg/dL OR 15 minute reche ck BG 51- 100 mg/dL - give 15 g For BG less than or equal to 50 mg/dL - give 30 g ~ If Enteral tube For initial BG 51-69mg/dL OR 15 minute recheck BG 51- 100 mg/dL - give apple juice 120 mL (4 oz or 15 g of CHO) via enteral tube For BG less than o r equal to 50 mg/dL - Give apple juice 240 mL (8 oz or 30 g of CHO) via enteral tub e ~Oral gel is preferable for conscious and able to swallow patient. ~IF gel unavail able or patient refuses may provide apple juice per Enteral tube dosing instructio ns. Document juice on I and O flowsheet. ibuprofen (ADVIL/MOTRIN) tablet 400 mg Given 03/11/2021 8:11 AM CDT 400 mg 400 mg, Oral, EVERY 4 HOURS PRN, moderate pain (4-6), Starting on 03/11/21 at 0806, Give with food. insulin aspart (NovoLOG) injection (RAPID Given 03/10/2021 6:04 PM CDT 2 Units ACTING) 1-7 Units, Subcutaneous, 3 TIMES DAILY BEFORE MEALS, First dose on Thu03/10/21 at 1300, Correction Scale - MEDIUM INSULIN RESISTANCE DOSING Do Not give Correction Insulin if Pre-Meal BG less than 140. For Pre-Meal BG 140 - 189 give 1 unit. For Pre-Meal BG 190 - 239 give 2 units. For Pre-Meal BG 240 - 289 give 3 units. For Pre-Meal BG 290 - 339 give 4 units. For Pre-Meal BG 340- 399 give 5 units. For Pre-Meal BG 400-449 give 6 units For Pre-Meal BG greater than or equal to 450 give 7 units. To be given with prandial insulin, and based on pre-meal blood glucose. Notify provider if glucose greater than or equal to 350 mg/dL after administration of correction dose. If given at mealtime, administer within 30 minutes of start of meal insulin aspart (NovoLOG) injection (RAPI D ACTING) 1-5 Units, Subcutaneous, AT BEDTIME, First dose on Thu03/10/21 at 2200, MEDIUM INSULIN RESISTANCE DOSING Do Not give Be dtime Correction Insulin if BG less than 200. For BG 200 - 249 give 1 units. For BG 250 - 299 give 2 units. For BG 300 - 349 give 3 units. For BG 350 -399 give 4 units. For BG gre ater than or equal to 400 give 5 units. Notify provider if glucose greater than or equal to 350 mg/dL after administration of correction dose. If given at mealtim e, administer within 30 minutes of start of meal ipratropium - albuterol 0.5 mg/2.5 mg/3 mL (DUONEB) neb solution 3 mL 3 mL, Nebulization, EVERY 4 HOURS shadia MARIA, Starting on Thu03/10/21 at 1254 methylPREDNISolone sodium succinate Given 03/10/2021 6:48 AM CDT 125 mg (solu-MEDROL) injection 125 mg 125 mg, Intravenous, ONCE, On Thu03/10/21 at 0640, For 1 dose, Doses greater than or equal to 1000mg administer over 60 minutes Doses greater than or equal to 500mg administer over 30-60 minutes Doses greater than or equal to 250mg administer over 15-30 minutes Doses less than or equal to 125mg IVP over 3-5 minutes Give IV Doses 125mg and less IV Push over 2-3 minutes - reconstitute with 2 mL of bacteriostatic water if no diluent is provided. Doses greater than 125 mg need to be in at least 50 mL IVPB. methylPREDNISolone sodium succinate Given 03/10/2021 6:04 PM CDT 62.5 mg (solu-MEDROL) injection 62.5 mg 62.5 mg (rounded from 60 mg), Intravenous, 2 TIMES DAILY, First dose on Thu03/10/21 at 1800, For 1 dose, Doses greater than or equal to 1000mg administer over 60 minutes Doses greater than or equal to 500mg administer over 30-60 minutes Doses greater than or equal to 250mg administer over 15-30 minutes Doses less than or equal to 125mg IVP over 3-5 minutes Give IV Doses 125mg and less IV Push over 2-3 minutes - reconstitute with 2 mL of bacteriostatic water if no diluent is provided. Doses greater than 125 mg need to be in at least 50 mL IVPB. ondansetron (ZOFRAN) injection 4 mg 4 mg, Intravenous, EVERY 6 HOURS PRN, nausea, vomiting , Administer over 2-5 Minutes, Starting on 03/10/21 at 0922 , Give IF patient unable to tolerate oral medication. This is Step 1 of nausea and vomiting lunaashely rubi. If nausea not resolved in 15 minutes, go to Step 2 pro chlorperazine (COMPAZINE). Irritant. For ordered IV doses 0.1-4 mg, give IV Push undiluted over 2-5 minutes. ondansetron (ZOFRAN-ODT) ODT tab 4 mg Given 03/11/2021 8:11 AM CDT 4 mg 4 mg, Oral, EVERY 6 HOURS PRN, nausea, vomiting, Starting on 03/10/21 at 0922, This is Step 1 of nausea and vomiting management. If nausea not resolved in 15 minutes, go to Step 2 prochlorperazine (COMPAZINE). With dry hands, peel back foil backing and gently remove tablet. Do not push oral disintegrating tablet through foil backing. Administer immediately on tongue and oral disintegrating tablet dissolves in seconds, then swallow with saliva. Liquid not required. predniSONE (DELTASONE) tablet 60 mg Given 03/11/2021 8:11 AM CDT 60 mg 60 mg, Oral, DAILY, First dose on 03/11/21 at 0900 prochlorperazine (COMPAZINE) injection 1 0 mg 10 mg, Intravenous, EVERY 6 HOURS PRN, nausea, vomitin g, Administer over 1-2 Minutes, Starting on 03/10/21 at 0922, IF patient u nable to tolerate oral medication. This is Step 2 of nausea and vomiting management. Give if nausea not resolved 15 minutes after giving ondanse jose (ZOFRAN). For ordered IV doses 0.1-10 mg, give IV push undiluted, each 5 mg over 1 minute. prochlorperazine (COMPAZINE) suppository 25 mg 25 mg, Rectal, EVERY 12 HOURS PRN, nausea, vomiting, S tarting on 03/10/21 at 0922, This is Step 2 of nausea and vomit ing management. Give if nausea not resolved 15 minutes after giving ondansetron (ZOFRAN). prochlorperazine (COMPAZINE) tablet 10 m g 10 mg, Oral, EVERY 6 HOURS PRN, vomiting , Starting on 03/10/21 at 0922, This is Step 2 of nausea and vomiting management . Give if nausea not resolved 15 minutes after giving ondansetron (ZOFRAN). senna-docusate (SENOKOT-S/PERICOLACE) 8. 6-50 MG per tablet 1 tablet 1 tablet, Oral, 2 TIMES DAILY PRN, const ipation, Starting on 03/10/21 at 0922, If no bowel movement in 24 hours, increa se to 2 tablets PO. Hold for loose stools. This is the first step of a three step constipation tr eatment. Hold for loose stools. senna-docusate (SENOKOT-S/PERICOLACE) 8. 6-50 MG per tablet 2 tablet 2 tablet, Oral, 2 TIMES DAILY PRN, const ipation, Starting on 03/10/21 at 0922, Hold for loose stools. This is the first step of a thr ee step constipation treatment. Hold for loose stools. documented in this encounter Active and Recently Administered Medications Times are shown in CDT. Scheduled Medication Order 03/09/2021 03/10/2021 03/11/2021 albuterol (PROVENTIL) neb solution 2.5 mg (COMPLETED) 0651 (Given - Provider: RT Tee) 2.5 mg, Nebulization, ONCE, On 03/10/21 at 0650, For 1 dose enoxaparin ANTICOAGULANT (LOVENOX) injection 40 mg 1126 (Given - Provider: German Kirkland RN) 1000 (Canceled Entry - Provider: Orders Generic Provider - Comment: Automatically canceled at discontinue of medication order) 40 mg, Subcutaneous, EVERY 24 HOURS, Fir st dose on 03/10/21 at 1000, HOLD if platelet count falls below 50% of baseline or less than 100,000/??L and notify provider. famotidine (PEPCID) tablet 20 mg 1126 (G iven - Provider: German Kirkland RN)2116 (Given - Provider: Leonora Sotomayor, [place]) 0811 (Given - Provider: Francesca Barrett RN) 20 mg, Oral, 2 TIMES DAILY, First dose on 03/10/21 at 0930 fluticasone-vilanterol (BREO ELLIPTA) 200-25 MCG/INH inhaler 1 puff 1131 (Given - Provider: German Kirkland RN) 0743 (Given - Provider: Lynnette Donohue rf, RT) 1 puff, Inhalation, DAILY, First dose on 03/10/21 at 1000, *Do not use more frequently than once daily.* Rinse mouth after use. Check the dose counter on the inhaler to ensure there are doses remaining before administering. insulin aspart (NovoLOG) injection (RAPID ACTING) 1418 (z Missed (do not use) - Provider: German Kirkland RN - Reason: Other)1804 (Given - Provider: German Kirkland RN) 0831 (z Missed (do not use) - Provider: Francesca Barrett RN - Reason: Order parameters not met) 1-7 Units, Subcutaneous, 3 TIMES DAILY B EFORE MEALS, First dose on Thu03/10/21 at 1300, Correction Scale - MEDIUM INSULIN RESISTANCE DOSING Do Not give Correction Insulin if Pre-Meal BG less than 140. F or Pre-Meal BG 140 - 189 give 1 unit. Fo r Pre-Meal BG 190 - 239 give 2 units. For Pre-Meal BG 240 - 289 give 3 units. For Pre-Meal BG 290 - 339 give 4 units. For Pre-Meal BG 340- 399 give 5 units. For P re-Meal BG 400-449 give 6 units For Pre- Meal BG greater than or equal to 450 give 7 units. To be given with prandial insulin, and based on pre-meal blood glucose. Notify provider if glucose greater than or equal to 350 mg/dL after administrat ion of correction dose. If given at mealtime, administer within 30 minutes of start of meal insulin aspart (NovoLOG) injection (RAPID ACTING) 2114 (z Missed (do not use) - Provider: Leonora Sotomayor RN - Reason: Order parameters not met - Comment: 146) 1-5 Units, Subcutaneous, AT BEDTIME, Fir st dose on 03/10/21 at 2200, MEDIUM INSULIN RESISTANCE DOSING Do Not give Bedtime Correction Insulin if BG less than 200. For BG 200 - 249 give 1 units. For BG 250 - 299 give 2 units. For BG 300 - 34 9 give 3 units. For BG 350 -399 give 4 units. For BG greater than or equal to 400 give 5 units. Notify provider if glucose greater than or equal to 350 mg/dL afte r administration of correction dose. If given at mealtime, administer within 30 minutes of start of meal methylPREDNISolone sodium succinate (solu-MEDROL) injection 125 mg (COMPLETED) 0648 (Given - Provider: Lynnette Mckinney, RN) 125 mg, Intravenous, ONCE, On Thu 1 at 0640, For 1 dose, Doses greater than or equal to 1000mg administer over 60 minutes Doses greater than or equal to 500mg administer over 30-60 minutes Doses g reater than or equal to 250mg administer over 15-30 minutes Doses less than or equal to 125mg IVP over 3-5 minutes Give IV Doses 125mg and less IV Push over 2- 3 minutes - reconstitute with 2 mL of bacte riostatic water if no diluent is provide d. Doses greater than 125 mg need to be in at least 50 mL IVPB. methylPREDNISolone sodium succinate (solu-MEDROL) inje ction 62.5 mg (COMPLETED) 180 (Given - Provider: German Kirkland RN) 62.5 mg (rounded from 60 mg), Intravenou s, 2 TIMES DAILY, First dose on Thu03/10/21 at 1800, For 1 dose, Doses greater than or equal to 1000mg administer over 60 minutes Doses greater than or equal to 5 00mg administer over 30-60 minutes Doses greater than or equal to 250mg administer over 15-30 minutes Doses less than or equal to 125mg IVP over 3-5 minutes Give IV Doses 125mg and less IV Push over 2-3 minutes - reconstitute with 2 mL of bernardino teriostatic water if no diluent is provided. Doses greater than 125 mg need to be in at least 50 mL IVPB. predniSONE (DELTASONE) tablet 60 mg 0811 (Given - Provider: Francesca Barrett RN) 60 mg, Oral, DAILY, First dose on Thu03/11/21 at 0900 PRN Medication Order 03/09/2021 03/10/2021 03/11/2021 albuterol (PROVENTIL) neb solution 2.5 mg 2.5 mg, Nebulization, EVERY 6 HOURS PRN, shortness of breath / dyspnea, wheezing, Starting on 03/10/21 at 0922 dextrose 50 % injection 25-50 mL(Linked Group 1) 25-50 mL, Intravenous, EVERY 15 MIN PRN, low blood sugar, Administer over 1-5 Minutes, Starting on 03/10/21 at 0922, Use if have IV access, BG less than 70 mg/dL and meet dose criteria below: Dose if conscious and alert (or disorientated) and NPO = 25 mL Dose if unconscious / not alert = 50 mL Give first dose for initial blood glucose less than 70 mg/dL. If blood glucose at 15 minute recheck is les s than or equal to 100 mg/dL continue to administer carbohydrate treatment every 15 minutes, as needed, based on blood glucose and assessment parameters until blood glucose level is above 100 mg/dL. Ves icant. For ordered doses up to 25 g, giv e IV Push undiluted. Give each 5g over 1 minute. dextrose 50 % injection 25-50 mL(Linked Group 2) 25-50 mL, Intravenous, EVERY 15 MIN PRN, low blood sugar, Administer over 1-5 Minutes, Starting on 03/10/21 at 1248, Use if have IV access, BG less than 70 mg/dL and meet dose criteria below: Dose if conscious and alert (or disorientated) and NPO = 25 mL Dose if unconscious / not alert = 50 mL Give first dose for initial blood glucose less than 70 mg/dL. If blood glucose at 15 minute recheck is les s than or equal to 100 mg/dL continue to administer carbohydrate treatment every 15 minutes, as needed, based on blood glucose and assessment parameters until blood glucose level is above 100 mg/dL. Ves icant. For ordered doses up to 25 g, giv e IV Push undiluted. Give each 5g over 1 minute. glucagon injection 1 mg(Linked Group 1) 1 mg, Subcutaneous, EVERY 15 MIN PRN, lo w blood sugar, May repeat x 1 only, Starting on 03/10/21 at 0922, May give SQ or IM. ONLY use glucagon IF patient has NO IV access AND is UNABLE to swallow AND blood glucose is LESS than or EQUAL to 50 mg/dL. If ordered IV, give IV Push over 1 minute. Reconstitute with 1mL sterile water. glucagon injection 1 mg(Linked Group 2) 1 mg, Subcutaneous, EVERY 15 MIN PRN, lo w blood sugar, May repeat x 1 only, Starting on 03/10/21 at 1248, May give SQ or IM. ONLY use glucagon IF patient has NO IV access AND is UNABLE to swallow AND blood glucose is LESS than or EQUAL to 50 mg/dL. If ordered IV, give IV Push over 1 minute. Reconstitute with 1mL sterile water. glucose gel 15-30 g(Linked Group 1) 15-30 g, Oral, EVERY 15 MIN PRN, low blo od sugar, Starting on 03/10/21 at 0922, Give first dose for initial blood glucose less than 70 mg/dL per the dosing instructions below. If blood glucose at 15 minute rechecks is still less than or eq ual to 100 mg/dL, continue to administer doses per blood glucose parameters every 15 minutes, as needed, until blood glucose level is above 100 mg/dL. Dosing Inst ructions: ~If patient is conscious and a ble to swallow and NO enteral tube For initial BG 51-69mg/dL OR 15 minute recheck BG 51- 100 mg/dL - give 15 g For BG less than or equal to 50 mg/dL - give 30 g ~ If Enteral tube For initial BG 51-69mg/ dL OR 15 minute recheck BG 51- 100 mg/dL - give apple juice 120 mL (4 oz or 15 g of CHO) via enteral tube For BG less than or equal to 50 mg/dL - Give apple juice 240 mL (8 oz or 30 g of CHO) via entera l tube ~Oral gel is preferable for conscious and able to swallow patient. ~IF gel unavailable or patient refuses may provide apple juice per Enteral tube dosing i nstructions. Document juice on I and O flowsheet. glucose gel 15-30 g(Linked Group 2) 15-30 g, Oral, EVERY 15 MIN PRN, low blo od sugar, Starting on 03/10/21 at 1248, Give first dose for initial blood glucose less than 70 mg/dL per the dosing instructions below. If blood glucose at 15 minute rechecks is still less than or eq ual to 100 mg/dL, continue to administer doses per blood glucose parameters every 15 minutes, as needed, until blood glucose level is above 100 mg/dL. Dosing Inst ructions: ~If patient is conscious and a ble to swallow and NO enteral tube For initial BG 51-69mg/dL OR 15 minute recheck BG 51- 100 mg/dL - give 15 g For BG less than or equal to 50 mg/dL - give 30 g ~ If Enteral tube For initial BG 51-69mg/ dL OR 15 minute recheck BG 51- 100 mg/dL - give apple juice 120 mL (4 oz or 15 g of CHO) via enteral tube For BG less than or equal to 50 mg/dL - Give apple juice 240 mL (8 oz or 30 g of CHO) via entera l tube ~Oral gel is preferable for conscious and able to swallow patient. ~IF gel unavailable or patient refuses may provide apple juice per Enteral tube dosing i nstructions. Document juice on I and O flowsheet. ibuprofen (ADVIL/MOTRIN) tablet 400 mg 810 (Given - Provider: Francesca Barrett RN) 400 mg, Oral, EVERY 4 HOURS PRN, moderat e pain, Starting on Thu03/11/21 at 0806, Give with food. ipratropium - albuterol 0.5 mg/2.5 mg/3 mL (DUONEB) neb solution 3 mL 3 mL, Nebulization, EVERY 4 HOURS PRN, w heezing, Starting on Thu03/10/21 at 1254 ondansetron (ZOFRAN) injection 4 mg(Linked Group 3) 810 (See Alternative - Provider: Francesca Barrett RN) 4 mg, Intravenous, EVERY 6 HOURS PRN, na usea, vomiting, Administer over 2-5 Minutes, Starting on Thu03/10/21 at 0922, Give IF patient unable to tolerate oral medication. This is Step 1 of nausea and vom iting management. If nausea not resolved in 15 minutes, go to Step 2 prochlorperazine (COMPAZINE). Irritant. For ordered IV doses 0.1-4 mg, give IV Push undiluted over 2-5 minutes. ondansetron (ZOFRAN-ODT) ODT tab 4 mg(Linked Group 3) 810 (Given - Provider: Francesca Barrett RN) 4 mg, Oral, EVERY 6 HOURS PRN, nausea, v omiting, Starting on 03/10/21 at 0922, This is Step 1 of nausea and vomiting management. If nausea not resolved in 15 minutes, go to Step 2 prochlorperazine (C OMPAZINE). With dry hands, peel back foi l backing and gently remove tablet. Do not push oral disintegrating tablet through foil backing. Administer immediately on tongue and oral disintegrating tablet d issolves in seconds, then swallow with saliva. Liquid not requir ed. polyethylene glycol (MIRALAX) Packet 17 g 17 g, Oral, DAILY PRN, constipation, Sta rting on 03/10/21 at 0922, Give in 8oz of water, juice, or soda. Hold for loose stools. This is the second step of a three step constipation treatment. 1 Packe t = 17 grams. Mix each gram with at leas t 1/2 ounce (15 mL) of water - 8 ounces for 17 g dose, 4 ounces for 8.5 g dose, 2 ounces for 4 g dose. Follow with the same volume of water. Hold for loose stools. prochlorperazine (COMPAZINE) injection 10 mg(Linked Group 4) 10 mg, Intravenous, EVERY 6 HOURS PRN, n ausea, vomiting, Administer over 1-2 Minutes, Starting on 03/10/21 at 0922, IF patient unable to tolerate oral medication. This is Step 2 of nausea and vomitin g management. Give if nausea not resolve d 15 minutes after giving ondansetron (ZOFRAN). For ordered IV doses 0.1-10 mg, give IV push undiluted, each 5 mg over 1 minute. prochlorperazine (COMPAZINE) suppository 25 mg(Linked Group 4) 25 mg, Rectal, EVERY 12 HOURS PRN, nause a, vomiting, Starting on 03/10/21 at 0922, This is Step 2 of nausea and vomiting management. Give if nausea not resolved 15 minutes after giving ondansetron (ZOFRAN). prochlorperazine (COMPAZINE) tablet 10 mg(Linked Group 4) 10 mg, Oral, EVERY 6 HOURS PRN, vomiting , Starting on 03/10/21 at 0922, This is Step 2 of nausea and vomiting management. Give if nausea not resolved 15 minutes after giving ondansetron (ZOFRAN). senna-docusate (SENOKOT-S/PERICOLACE) 8. 6-50 MG per tablet 1 tablet(Linked Group 5) 1 tablet, Oral, 2 TIMES DAILY PRN, const ipation, Starting on 03/10/21 at 0922, If no bowel movement in 24 hours, increase to 2 tablets PO. Hold for loose stools. This is the first step of a three step constipation treatment. Hold for loose stools. senna-docusate (SENOKOT-S/PERICOLACE) 8. 6-50 MG per tablet 2 tablet(Linked Group 5) 2 tablet, Oral, 2 TIMES DAILY PRN, const ipation, Starting on 03/10/21 at 0922, Hold for loose stools. This is the first step of a three step constipation treatment. Hold for loose stools. Linked Groups Order Group 1: glucose gel 15-30 gJump to med 15-30 g, Oral, EVERY 15 MIN PRN, low blo od sugar, Starting on 03/10/21 at 0922
Give first dose for initial blood glucose less than 70 mg/dL per the dosing instructions below. If bl ood glucose at 15 minute rechecks is sti ll less than or equal to 100 mg/dL, continue to administer doses per blood glucose parameters every 15 minutes, as needed, until blood glucose level is above 100 mg/dL. Dosing Instructions:&n bsp;~If patient is conscious and able to swallow and NO enteral tube For initial BG 51-69mg/dL OR 15 minute recheck BG 51- 100 mg/dL - give 1 5 g For BG less than or equal to 50 mg/dL - give 30 g ~ If Enteral tube For initial BG 51-69mg/dL OR 15 minute recheck BG 51- 100 mg/dL - give apple juice 120 mL (4 oz or 15 g of CHO) via enteral tube For BG le ss than or equal to 50 mg/dL - Give apple juice 240 mL (8 oz or 30 g of CHO) via enteral tube ~Oral gel is preferable for conscious and able to swall ow patient. ~IF gel unavailable or patient refuses may provide apple juice per Enteral tube dosing instructions. Document juice on I and O flowsheet.
Or dextrose 50 % injection 25-50 mLJump to med 25-50 mL, Intravenous, EVERY 15 MIN PRN, low blood sugar, Administer over 1-5 Minutes, Starting on 03/10/21 at 0922
Use if have IV access, BG less than 70 mg/dL and meet dose criteria below: Dose if conscious and alert (or di sorientated) and NPO = 25 mL Dose if unconscious / not alert = 50 mL Give first dose for initial blood glucose less than 70&nb sp; mg/dL. If blood gluc ose at 15 minute recheck is less than or equal to 100 mg/dL continue to administer carbohydrate treatment every 15 minutes, as needed, based on blood glucose and assessment parameters until blood glucose level is above 100 mg/dL. Vesicant. For ordered doses up to 25 g, give IV Push undiluted. Give each 5g over 1 minute.
Or glucagon injection 1 mgJump to med 1 mg, Subcutaneous, EVERY 15 MIN PRN, lo w blood sugar, May repeat x 1 only, Starting on 03/10/21 at 0922
May give SQ or IM. ONLY use glucagon IF patient has NO IV access AND is UNABLE to swa llow AND blood glucose is LESS than or E QUAL to 50 mg/dL. If ordered IV, give IV Push over 1 minute. Reconstitute with 1mL sterile water.
Group 2: glucose gel 15-30 gJump to med 15-30 g, Oral, EVERY 15 MIN PRN, low blo od sugar, Starting on 03/10/21 at 1248
Give first dose for initial blood glucose less than 70 mg/dL per the dosing instructions below. If bl ood glucose at 15 minute rechecks is sti ll less than or equal to 100 mg/dL, continue to administer doses per blood glucose parameters every 15 minutes, as needed, until blood glucose level is above 100 mg/dL. Dosing Instructions:&n bsp;~If patient is conscious and able to swallow and NO enteral tube For initial BG 51-69mg/dL OR 15 minute recheck BG 51- 100 mg/dL - give 1 5 g For BG less than or equal to 50 mg/dL - give 30 g ~ If Enteral tube For initial BG 51-69mg/dL OR 15 minute recheck BG 51- 100 mg/dL - give apple juice 120 mL (4 oz or 15 g of CHO) via enteral tube For BG le ss than or equal to 50 mg/dL - Give apple juice 240 mL (8 oz or 30 g of CHO) via enteral tube ~Oral gel is preferable for conscious and able to swall ow patient. ~IF gel unavailable or patient refuses may provide apple juice per Enteral tube dosing instructions. Document juice on I and O flowsheet.
Or dextrose 50 % injection 25-50 mLJump to med 25-50 mL, Intravenous, EVERY 15 MIN PRN, low blood sugar, Administer over 1-5 Minutes, Starting on 03/10/21 at 1248
Use if have IV access, BG less than 70 mg/dL and meet dose criteria below: Dose if conscious and alert (or di sorientated) and NPO = 25 mL Dose if unconscious / not alert = 50 mL Give first dose for initial blood glucose less than 70&nb sp; mg/dL. If blood gluc ose at 15 minute recheck is less than or equal to 100 mg/dL continue to administer carbohydrate treatment every 15 minutes, as needed, based on blood glucose and assessment parameters until blood glucose level is above 100 mg/dL. Vesicant. For ordered doses up to 25 g, give IV Push undiluted. Give each 5g over 1 minute.
Or glucagon injection 1 mgJump to med 1 mg, Subcutaneous, EVERY 15 MIN PRN, lo w blood sugar, May repeat x 1 only, Starting on 03/10/21 at 1248
May give SQ or IM. ONLY use glucagon IF patient has NO IV access AND is UNABLE to swa llow AND blood glucose is LESS than or E QUAL to 50 mg/dL. If ordered IV, give IV Push over 1 minute. Reconstitute with 1mL sterile water.
Group 3: ondansetron (ZOFRAN-ODT) ODT tab 4 mgJump to med 4 mg, Oral, EVERY 6 HOURS PRN, nausea, v omiting, Starting on 03/10/21 at 0922
This is Step 1 of nausea and vomiting management. If nausea not resolved in 15 minutes, go to Step 2 prochlorperazine (COMPAZINE).&nb sp;With dry hands, peel back foil backing and gently remove tablet. Do not push oral disintegrating tablet through foil backing. Administer immediately on ton allie and oral disintegrating tablet disso lves in seconds, then swallow with saliva. Liquid not required.
Or ondansetron (ZOFRAN) injection 4 mgJump to med 4 mg, Intravenous, EVERY 6 HOURS PRN, na usea, vomiting, Administer over 2-5 Minutes, Starting on 03/10/21 at 0922
Give IF patient unable to tolerate oral medication. This is Step 1 of nausea and vomiting management. If na usea not resolved in 15 minutes, go to Step 2 prochlorperazine (COMPAZINE). Irritant. For ordered IV doses 0.1-4 mg, give IV Push undiluted over 2-5 minutes.
Group 4: prochlorperazine (COMPAZINE) injection 10 mgJump to med 10 mg, Intravenous, EVERY 6 HOURS PRN, n ausea, vomiting, Administer over 1-2 Minutes, Starting on 03/10/21 at 0922
IF patient unable to tolerate oral medication. This is Step 2 of nausea and vomiting management. Give if nausea not resolved 15 minutes after giving ondansetron (ZOFRAN). For ordered IV doses 0.1-10 mg, give IV push undiluted, each 5 mg over 1 minute.
Or prochlorperazine (COMPAZINE) tablet 10 mgJump to med 10 mg, Oral, EVERY 6 HOURS PRN, vomiting , Starting on 03/10/21 at 0922
This is Step 2 of nausea and vomiting management. Give if nausea not resolved 15 minutes after giving ondansetron (ZOFRAN).
Or prochlorperazine (COMPAZINE) suppository 25 mgJump to med 25 mg, Rectal, EVERY 12 HOURS PRN, nause a, vomiting, Starting on 03/10/21 at 0922
This is Step 2 of nausea and vomiting management. Give if nausea not resolved 15 minutes after giving ondansetron (ZOFRAN).
Group 5: senna-docusate (SENOKOT-S/PERICOLACE) 8.6-50 MG per tablet 1 tabletJump to med 1 tablet, Oral, 2 TIMES DAILY PRN, const ipation, Starting on 03/10/21 at 0922
If no bowel movement in 24 hours, increase to 2 tablets PO. Hold for loose stools. T his is the first step of a three step co nstipation treatment. Hold for loose stools.
Or senna-docusate (SENOKOT-S/PERICOLACE) 8.6-50 MG per tablet 2 tabletJump to med 2 tablet, Oral, 2 TIMES DAILY PRN, const ipation, Starting on 03/10/21 at 0922
Hold for loose stools. This is the first step of a three step constipation treatment. Hold for loose stools.
documented in this encounter Care Teams Educational Advisor Relationship Specialty Start Date End Date [facility], [facility] PCP - General 02/13/19 11/19/[address] [place] [id number] documented as of this encounter
--- OUTSIDE RECORDS SUMMARY | 2022-08-12 22:22 | XMS_ITS | Encounter Summary ---
:1975 Author Organization [place] Address [facility] [place] [address] Care Team Providers Name Role Phone [facility], [facility] Primary Care Provider + [phone] Enrique Saenz MD Unavailable [phone] Pat Chavez PA-C Unavailable Encounter Details Date Type Department Care Team Description 03/05/2022 Documentation Only [facility] Physical [facility] [address] [place] [address] [place] [id number] [phone] (Work) [phone] Social History Tobacco Use Types Packs/Day Years Used Date Smoking Tobacco: Never Smokeless Tobacco: Never Sex Assigned at Date Recorded Not on file COVID-19 Exposure Response Date Recorded In the last 10 days, have you been in contact with No / Unsu re 02/23/2022 6:49 PM CDT someone who was confirmed or suspected to have Coronavirus/COVID-19? documented as of this encounter Progress Notes Bryan Alvarado - 03/05/2022 8:18 AM CDT Received records form [facility] and sent to scanning as well as emailed to Dr Ruelas. Bryan Arnold documented in this encounter Plan of Treatment Not on filedocumented as of this encounter Visit Diagnoses Not on filedocumented in this encounter Additional Health Concerns Assessment Noted Time PHQ-9 Depression Total Score: 11 02/27/2022 9:09 AM CD T documented as of this encounter Care Teams Window Glass Cutter Off Relationship Specialty Start Date End Date Clinic, [facility] PCP - General 11/20/21 [place] [address] [place] [phone] Enrique Saenz MD Cardiovascular Disease 02/27/22 MD Ryan [address] [place] [address] Pat Chavez, Assigned Neuroscience 03/01/22 PA-C Provider [address] [place] [address] documented as of this encounter
--- OUTSIDE RECORDS SUMMARY | 2022-08-12 22:22 | XMS_ITS | Encounter Summary ---
:1975 Author Organization [place] Address [facility] [place] [address] Care Team Providers Name Role Phone [facility] Primary Care Provider + [phone] Enrique Saenz MD Unavailable [phone] Glendy Brush Unavailable Pat Chavez PA-C Unavailable Encounter Details Date Type Department Care Team Description 11/20/2021 Documentation Only INTERFACED REPORT Unknown, Provider Social History Tobacco Use Types Packs/Day Years Used Date Smoking Tobacco: Never Smokeless Tobacco: Never Sex Assigned at Date Recorded Not on file documented as of this encounter Plan of Treatment Not on filedocumented as of this encounter Visit Diagnoses Not on filedocumented in this encounter Additional Health Concerns Infection Onset Date Last Indicated Resolved Time Rule Out COVID-19 02/23/2022 02/23/2022 02/23/2022 8:0 6 PM CDT Rule Out COVID-19 03/07/2022 03/07/2022 03/07/2022 7:1 1 AM CDT documented as of this encounter Care Teams Drafting Layout Man Relationship Specialty Start Date End Date [facility] PCP - General 11/20/21 [facility] [address] [place] [id number] Enrique Saenz MD Cardiovascular Disease 02/27/22 MD Ryan [address] [place] [address] Glendy Brush, Cardiac Rehabilitation 03/25/22 03/25/23 EP Therapist [place] [id number] [facility] [phone] Pat Chavez, Assigned Neuroscience 03/01/22 PARamaC Provider [address] [place] [address] documented as of this encounter
--- OUTSIDE RECORDS SUMMARY | 2022-08-12 22:22 | XMS_ITS | Encounter Summary ---
:1975 Author Organization [place] Address [address] [place] [address] Care Team Providers Name Role Phone [facility] Primary Care Provider [phone] Encounter Details Date Type Department Care Team Description 09/19/2020 Travel Social History Tobacco Use Types Packs/Day Years Used Date Smoking Tobacco: Never Smokeless Tobacco: Never Sex Assigned at Date Recorded Not on file COVID-19 Exposure Response Date Recorded In the last month, have you been in contact with No / Unsure 09/19/2020 5:14 PM SPINNER[employer] PERSON someone who was confirmed or suspected to have Coronavirus / COVID-19? documented as of this encounter Plan of Treatment Not on filedocumented as of this encounter Visit Diagnoses Not on filedocumented in this encounter Care Teams Applied Technologist Relationship Specialty Start Date End Date [facility] PCP - General 02/13/19 11/19/[address] [place] [id number] documented as of this encounter
--- OUTSIDE RECORDS SUMMARY | 2022-08-12 22:22 | XMS_ITS | Encounter Summary ---
:1975 Author Organization [place] Address Formerly [facility] [place] [address] Care Team Providers Name Role Phone [facility] Primary Care Provider [phone] Enrique Saenz MD Unavailable [phone] Reason for Referral Consultation (Routine: Next available opening) - Authorized Specialty Diagnoses / Procedures Referred By Contact Refer red To Contact Diagnoses Snoring Pat Chavez PA-C [address] [place] [address] 5 Referral ID Status Reason Start Date Expiration Date Visits V isits Requested Authorized [id number] Authorized 02/27/2022 02/27/2023 1 1 V Cardio consult (Routine: Next available opening) - Pending Review Specialty Diagnoses / Procedures Referred By Contact Refer red To Contact Cardiovascular Disease Diagnoses Orthopnea Chest pressure Pat Chavez PA-C [address] [place] [address] Referral ID Status Reason Start Date Expiration Date Visits V isits Requested Authorized [id number] Pending 02/27/2022 02/27/2023 1 1 Review ehab Therapy Cardiac Therapy (Routine: Next available opening) - Authorized Specialty Diagnoses / Procedures Referred By Contact Refer red To Contact CARDIAC REHAB Diagnoses Mild intermittent asthma with exacerbation Post-COVID chronic dyspnea [id number] [place] [address] Phone: Referral ID Status Reason Start Date Expiration Date Visits V isits Requested Authorized [id number] Authorized 02/28/2022 08/30/2022 365 365 Consultation (Routine: Next available opening) - Pending Review Specialty Diagnoses / Procedures Referred By Contact Refer red To Contact Otolaryngology Diagnoses Post-COVID chronic dyspnea Pat Chavez PA-C [address] [place], [place] [address] Referral ID Status Reason Start Date Expiration Date Visits V isits Requested Authorized [id number] Pending 02/27/2022 02/27/2023 1 1 Review Consultation (Routine: Next available opening) - Pending Review Specialty Diagnoses / Procedures Referred By Contact Refer red To Contact Otolaryngology Diagnoses Post-COVID chronic dyspnea Pat Chavez PA-C [address] [place] [address] 5 Referral ID Status Reason Start Date Expiration Date Visits V isits Requested Authorized [id number] Pending 02/27/2022 02/27/2023 1 1 Review Reason for Visit Reason Comments Video Visit Consultation (Routine: Next available opening) - Pending Review Specialty Diagnoses / Procedures Referred By Contact Refer red To Contact Physical Medicine and Diagnoses Mild intermittent asthma with exacerbation Shellie Duran MD Rehabilitation [facility] [address] [place] [address] 5 Referral ID Status Reason Start Date Expiration Date Visits V isits Requested Authorized [id number] Pending 02/23/2022 02/23/2023 1 1 Review Encounter Details Date Type Department Care Team Description 02/27/2022 Virtual Visit [facility] Shellie Duran MD [facility] [address] [place], [place] [id number] Post-COVID chronic dyspnea (Primary Dx); Physical Medicine and Pat Chavez PA-C [address] [place] [address] Post-COVID chronic fatigue; Rehabilitation Clinic [facility] Orthopnea; [address] [place] [address] SE Chest pressure; 3rd Floor Mild intermittent asthma wit h exacerbation; [place], [place] Long COVID [phone] Social History Tobacco Use Types Packs/Day Years Used Date Smoking Tobacco: Never Smokeless Tobacco: Never Sex Assigned at Date Recorded Not on file COVID-19 Exposure Response Date Recorded In the last 10 days, have you been in contact with No / Unsu re 02/23/2022 6:49 PM CDT someone who was confirmed or suspected to have Coronavirus/COVID-19? documented as of this encounter Patient Instructions Patient InstructionsPat Chavez PA-C - 02/27/2022 10:30 AM CDT Post COVID Self Care Suggestions: Fatigue Management: [email or web address]://www.archives-pmr.org/action/[email or web address]?[email or web address] Self Care: https://fibroguide.med.[facility]/pain-care/self-care/ Recovery World Health Organization: https://apps.who.int/iris/bitstream/handle/70416/553029/WHO-EURO- 3311-574-0219431134-47192-oro.pdf Breathing exercises: https://www.[facility].org/health/sjmiildqow-ttw-jcxdmbbm/coronavirus/coron xbolvk-dvudbjcu-zsupoklpf-exercises Fax number for PM[facility]R Clinic [facility]: [phone] documented in this encounter Progress Notes Pat Chavez PA-C - 02/27/2022 10:30 AM CDT is a 46 year old who is being evaluated via a billable video visit. Patient denies any changes since echeck-in regarding medication and allergies and states all information entered during echeck-in remains accurate. How would you like to obtain your AVS? MyChart If the video visit is dropped, the invitation should be resent by: Text to cell phone: [phone] Will anyone else be joining your video visit? No Assessment/ Impression: 1. Post-COVID chronic dyspnea Patient with dyspnea on exertion and with speaking. Discussed breathing process mechanic and recommend patient see ENT/VOice therapy due to continue shortness of breath on several pulmonary medications. Will also place referral for pulmonary rehab. - Adult ENT Coin Machine Mechanic Referral; Future - Adult ENT Coin Machine Mechanic Referral; Future - Pulmonary Rehab Referral; Future 2. Post-COVID chronic fatigue Patient with chronic fatigue post COVID which is likely due to several reasons. Patient has sleep disturbance from her snoring and may have fatigue due to sleep apnea. I do not have recent labs from outside provider and will request notes along with labs and imaging. Discussed energy conservation and will start the PT/OT COVID-19 program for her. If labs need to be drawn will send patient a message after reviewing current labs and let her know. 3. Snoring Patient endorse snoring, and night time waking's of shortness of breath along with am headaches. Discussed this is concerning for sleep apnea and would contribute to patientsdaytime fatigue. Will placereferral for sleep evaluation. - Adult Sleep Eval & Management Referral; Future 4. Orthopnea/hest pressure Patient with history of snoring as well as now orthopnea and chest pressure. Recent EKG and Echo from October 2021 in [facility] is reassuring however patient does endorse chest pressure, back pain and shortness of breath with exertion. Discussed warning symptoms and when to present for evaluation. Will place referral to Cardiology for further evaluation. - Adult Cardiology Eval Coin Machine Mechanic Referral; Future 6. 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 However these notes are not available in our system. Will request notes to see patients current lung function and imaging. Patient has not completed pulmonary rehab and discussed this with patient to help with her shortness of breath. Referral placed. - Adult Post Covid Clinic Referral - Pulmonary Rehab Referral; Future 7. Long COVID Discussed COVID and Post COVID with patient. Educational materials provided and all questions answered. Plan: 1. I reviewed present knowledge on long-Covid. Education was provided and question were answered. 2. Orders/Referrals as above 3. Will advised patient on test results 4. I will follow up with Crystal Garcia in 3 months. I will review progress and consider need for any other therapeutic interventions. If there are any questions and/or concerns she will call the clinic. On day of encounter time spent in chart review and with patient in consultation, exam, education andcoordination of care, and documentation: 70 minutes Pat Chavez PA-C [facility] PHYSICAL MEDICINE AND REHABILITATION CLINIC [facility] This 46 year old female presents to the [facility] Rehabilitation Medicine Post-COVID clinic as a new consult to evaluate continuing symptoms after COVID infection initially diagnosed The week of May 14 2020.. Crystal Garcia presented to [facility] on week of May 14 2020 complaining of sore throat, congestion, shortness of breath, cough, fever, chills, headache, generalized aches and pains, diarrhea, nausea, fatigue, weakness, decreased taste and decreased smell. Treatment was symptomatic. Continuing symptoms include fatigue, generalized aches, weakness, cough, shortness of breath, headache, dizziness, brain fog, distractibility, anxiety and depression. Patient feels very tired completing a task at work. Patient states this is also happening at home ans she had difficulty competing tasks as well at home without fatigue. Patient since her infection has also notice she becomes short of breath with exertion. Patient has been working with [employer] and has been on several inhalers. Unfortunately outside notes are not available. Patient also will wake up short of breath, patient states she does snore and will wake up gasping for air. Patient will get short of breath when she talks as well. She will get short of breath with activity and need to stop due to chest pressure as well. She also develops fatigue as well. She does endorse upper back pain that she states is tightness. She has not seen cardiology or completed any rehabilitation programs. Patient is also have headaches, she will have this when she is short of breath. She will develop this when shewakes up, she does endorses headaches in the am as well. . Past medical history is significant for Asthma, depression and anxiety. The patient was vaccinated against COVID X3. 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 Crystal Garcia feels they are functioning at 50% of pre COVID level. History of COVID-19 infection: May 2020 Date of first symptoms: May 2020 Diagnosis: PCR ( result unavailable in system) Hospitalization: No Treatment: None Current Symptoms: See subjective Goals of Care: increase energy, decrease shortness of breath, decrease chest pain, decrease anxiety,decrease depression and improve quality of life PHQ Assesment Total Score(s) 02/27/2022 PHQ-2 Score 4 PHQ-9 Score 11 Some recent data might be hidden BINTA-7 Results 02/27/2022 BINTA 7 TOTAL SCORE 7 (mild anxiety) Some recent data might be hidden PTSD Screen Score 02/27/2022 Have you ever experienced this kind of event? No Some recent data might be hidden PROMIS-29 02/27/2022 PROMIS Physical Function T-Score 37.9 (moderate dysfunction) PROMIS Anxiety T-Score 65.3 (moderate) PROMIS Depression T-Score 65.7 (moderate) PROMIS Fatigue T-Score 64.6 (moderate) PROMIS Sleep Disturbance T-Score 57.9 (mild) PROMIS Ability to Participate in Social Roles & Activities T-Score 40.3 (mild dysfunction) PROMIS Pain Interference T-Score 59.9 (mild) PROMIS Pain Intensity 6 No past medical history on file. No past surgical history on file. No family history on file. Social History Tobacco Use ??? Smoking status: Never Smoker ??? Smokeless tobacco: Never Used Current Outpatient Medications: ??? albuterol (PROAIR HFA/PROVENTIL HFA/VENTOLIN HFA) 108 (90 Base) MCG/ACT inhaler, Inhale 2 puffs into the lungs every 6 hours, Disp: 18 g, Rfl: 0 ??? albuterol (PROVENTIL) (2.5 MG/3ML) 0.083% neb solution, Take 1 vial (2.5 mg) by nebulization every 6 hours as needed for shortness of breath / dyspnea or wheezing, Disp: 30 mL, Rfl: 0 ??? EPINEPHrine (ANY BX GENERIC EQUIV) 0.3 MG/0.3ML injection 2-pack, Inject 0.3 mLs (0.3 mg) into the muscle once as needed for anaphylaxis, Disp: 0.6 mL, Rfl: 0 ??? fluticasone-vilanterol (BREO ELLIPTA) 200-25 MCG/INH inhaler, Inhale 1 puff into the lungs daily, Disp: 1 each, Rfl: 0 ??? ipratropium - albuterol 0.5 mg/2.5 mg/3 mL (DUONEB) 0.5-2.5 (3) MG/3ML neb solution, Take 1 vial(3 mLs) by nebulization every 6 hours as needed for shortness of breath / dyspnea or wheezing, Disp:90 mL, Rfl: 0 ??? predniSONE (DELTASONE) 10 MG tablet, Take 4 tablets daily for 5 days, take 2 tablets daily for 3days, take 1 tablet daily for 3 days, take half a tablet for 3 days., Disp: 32 tablet, Rfl: 0 ??? predniSONE (DELTASONE) 20 MG tablet, Take two tablets (= 40mg) each day for 5 (five) days, Disp:10 tablet, Rfl: 1 Answers to ROS/HPI submitted by patient on 02/27/2022 Review of Systems Constitutional: Positive for chills and fatigue. Negative for fever. HENT: Positive for ear pain. Negative for ear discharge, hearing loss, mouth sores, nosebleeds, sinus pain, sore throat, tinnitus and trouble swallowing. Eyes: Negative for pain and redness. Respiratory: Positive for shortness of breath and wheezing. Negative for cough. Gastrointestinal: Positive for diarrhea. Negative for abdominal pain, constipation, heartburn, nausea, rectal pain and vomiting. Endocrine: Positive for polydipsia. Negative for polyphagia. Genitourinary: Positive for dyspareunia, urgency and vaginal discharge. Negative for difficulty urinating, dysuria, flank pain, genital sores and hematuria. Musculoskeletal: Positive for arthralgias, back pain, joint swelling, myalgias and neck pain. Skin: Negative for rash. Neurological: Positive for dizziness, weakness and headaches. Negative for tremors, seizures and numbness. Psychiatric/Behavioral: Positive for decreased concentration. Negative for hallucinations. The patient is nervous/anxious. Objective Vitals - Patient Reported Weight (Patient Reported): 79.8 kg (176 lb) Pain Score: Mild Pain (3) (Just sensitive) Pain Loc: Eye Objective Vitals: No vitals were obtained today due to virtual visit. Physical Exam GENERAL: Healthy, alert and no distress EYES: Eyes grossly normal to inspection. No discharge or erythema, or obvious scleral/conjunctival abnormalities. RESP: No audible wheeze, cough, or visible cyanosis. No visible retractions or increased work of breathing. SKIN: Visible skin clear. No significant rash, abnormal pigmentation or lesions. NEURO: Cranial nerves grossly intact. Mentation and speech appropriate for age. PSYCH: Mentation appears normal, affect normal/bright, judgement and insight intact, normal speech and appearance well-groomed. No results found for: CRP No results found for: SED Last Renal Panel: Sodium Date Value Ref Range Status 02/23/2022 141 133 - 144 mmol/L Final 02/14/2019 141 133 - 144 mmol/L Final Potassium Date Value Ref Range Status 02/23/2022 3.4 3.4 - 5.3 mmol/L Final 02/14/2019 3.4 3.4 - 5.3 mmol/L Final Chloride Date Value Ref Range Status 02/23/2022 109 94 - 109 mmol/L Final 02/14/2019 107 94 - 109 mmol/L Final Carbon Dioxide Date Value Ref Range Status 02/14/2019 27 20 - 32 mmol/L Final Carbon Dioxide (CO2) Date Value Ref Range Status 02/23/2022 25 20 - 32 mmol/L Final Anion Gap Date Value Ref Range Status 02/23/2022 7 3 - 14 mmol/L Final 02/14/2019 7 3 - 14 mmol/L Final Glucose Date Value Ref Range Status 02/23/2022 146 (H) 70 - 99 mg/dL Final 02/14/2019 105 (H) 70 - 99 mg/dL Final Urea Nitrogen Date Value Ref Range Status 02/23/2022 20 7 - 30 mg/dL Final 02/14/2019 22 7 - 30 mg/dL Final Creatinine Date Value Ref Range Status 02/23/2022 0.84 0.52 - 1.04 mg/dL Final 02/14/2019 0.64 0.52 - 1.04 mg/dL Final GFR Estimate Date Value Ref Range Status 02/23/2022 87 >60 mL/min/1.73m2 Final Comment: Effective August 20, 2021 eGFRcr in adults is calculated using the 2020 CKD- EPI creatinine equation which includes age and gender (Nunu et al., NE, DOI: 10.[facility]6/[id number]) 02/14/2019 >90 >60 mL/min/[1.73_m2] Final Comment: Non GFR Calc Starting 08/17/2018, serum creatinine based estimated GFR (eGFR) will be calculated using the Chronic Kidney Disease Epidemiology Collaboration (CKD-EPI) equation. Calcium Date Value Ref Range Status 02/23/2022 8.4 (L) 8.5 - 10.1 mg/dL Final 02/14/2019 8.3 (L) 8.5 - 10.1 mg/dL Final Albumin Date Value Ref Range Status 03/28/2013 4.7 3.9 - 5.1 g/dL Final Lab Results Component Value Date WBC 11.8 02/23/2022 WBC 9.3 02/14/2019 Lab Results Component Value Date RBC 4.11 02/23/2022 RBC 3.81 02/14/2019 Lab Results Component Value Date HGB 12.6 02/23/2022 HGB 11.9 02/14/2019 Lab Results Component Value Date HCT 38.9 02/23/2022 HCT 36.4 02/14/2019 No components found for: MCT Lab Results Component Value Date MCV 95 02/23/2022 MCV 96 02/14/2019 Lab Results Component Value Date MCH 30.7 02/23/2022 MCH 31.2 02/14/2019 Lab Results Component Value Date MCHC 32.4 02/23/2022 MCHC 32.7 02/14/2019 Lab Results Component Value Date RDW 14.0 02/23/2022 RDW 13.8 02/14/2019 Lab Results Component Value Date PLT 343 02/23/2022 PLT 312 02/14/2019 Lab Results Component Value Date A1C 5.5 03/10/2021 No results found for: TSH No results found for: VITDT No results for input(s): MAG in the last [id number] hours. Last Comprehensive Metabolic Panel: Sodium Date Value Ref Range Status 02/23/2022 141 133 - 144 mmol/L Final 02/14/2019 141 133 - 144 mmol/L Final Potassium Date Value Ref Range Status 02/23/2022 3.4 3.4 - 5.3 mmol/L Final 02/14/2019 3.4 3.4 - 5.3 mmol/L Final Chloride Date Value Ref Range Status 02/23/2022 109 94 - 109 mmol/L Final 02/14/2019 107 94 - 109 mmol/L Final Carbon Dioxide Date Value Ref Range Status 02/14/2019 27 20 - 32 mmol/L Final Carbon Dioxide (CO2) Date Value Ref Range Status 02/23/2022 25 20 - 32 mmol/L Final Anion Gap Date Value Ref Range Status 02/23/2022 7 3 - 14 mmol/L Final 02/14/2019 7 3 - 14 mmol/L Final Glucose Date Value Ref Range Status 02/23/2022 146 (H) 70 - 99 mg/dL Final 02/14/2019 105 (H) 70 - 99 mg/dL Final Urea Nitrogen Date Value Ref Range Status 02/23/2022 20 7 - 30 mg/dL Final 02/14/2019 22 7 - 30 mg/dL Final Creatinine Date Value Ref Range Status 02/23/2022 0.84 0.52 - 1.04 mg/dL Final 02/14/2019 0.64 0.52 - 1.04 mg/dL Final GFR Estimate Date Value Ref Range Status 02/23/2022 87 >60 mL/min/1.73m2 Final Comment: Effective August 20, 2021 eGFRcr in adults is calculated using the 2020 CKD- EPI creatinine equation which includes age and gender (Nunu et al., NEJM, DOI: 10.1056/XCSBsk8770608) 02/14/2019 >90 >60 mL/min/[1.73_m2] Final Comment: Non GFR Calc Starting 08/17/2018, serum creatinine based estimated GFR (eGFR) will be calculated using the Chronic Kidney Disease Epidemiology Collaboration (CKD-EPI) equation. Calcium Date Value Ref Range Status 02/23/2022 8.4 (L) 8.5 - 10.1 mg/dL Final 02/14/2019 8.3 (L) 8.5 - 10.1 mg/dL Final Bilirubin Total Date Value Ref Range Status 03/28/2013 0.6 0.2 - 1.3 mg/dL Final Alkaline Phosphatase Date Value Ref Range Status 03/28/2013 69 40 - 150 U/L Final ALT Date Value Ref Range Status 03/28/2013 33 0 - 50 U/L Final AST Date Value Ref Range Status 03/28/2013 18 0 - 45 U/L Final Most Recent D-dimer: Recent Labs Lab Test 02/23/22 1912 DD 0.61* Video-Visit Details Video visit Start time:10:21 AM Type of service: Video Visit Video End Time:10:55 AM Originating Location (pt. Location): Other : Car Distant Location (provider location): [facility] PHYSICAL MEDICINE AND REHABILITATION CLINIC [place] Platform used for Video Visit: Lizzy documented in this encounter Plan of Treatment Scheduled Referrals Name Type Priority Associated Diagnoses Order S chedule Adult ENT Coin Machine Mechanic Referral Routine: Next Post-COVID chronic E xpected: Referral available opening dyspnea 02/27/2022 (Approximate), Expires: 02/27/2023 Adult ENT Coin Machine Mechanic Referral Routine: Next Post-COVID chronic E xpected: Referral available opening dyspnea 02/27/2022 (Approximate), Expires: 02/27/2023 Pulmonary Rehab Referral Routine: Next Mild intermittent Expect ed: Referral available opening asthma with 02/27/2022 exacerbation (Approximate), Post-COVID chronic Expires: dyspnea 02/27/2023 Adult Cardiology Referral Routine: Next Orthopnea Expected: Eval Coin Machine Mechanic available opening Chest pressure 2021 Referral (Approximate), Expires: 02/27/2023 Adult Sleep Eval & Referral Routine: Next Snoring Expected : Management Referral available opening (Approximate), Expires: 02/27/2023 documented as of this encounter Visit Diagnoses Diagnosis Post-COVID chronic dyspnea - Primary Post-COVID chronic fatigue Snoring Other dyspnea and respiratory abnormalit y Orthopnea Chest pressure Other chest pain Mild intermittent asthma with exacerbati on Unspecified asthma, with exacerbation Long COVID documented in this encounter Additional Health Concerns Assessment Noted Time PHQ-9 Depression Total Score: 11 02/27/2022 9:09 AM CD T documented as of this encounter Care Teams Sticker Hand Relationship Specialty Start Date End Date Clinic, [facility] PCP - General 11/20/21 [place] [address] [place] [address] Enrique Saenz MD MD Cardiovascular Disease 02/27/[address] [place] [id number] documented as of this encounter
--- OUTSIDE RECORDS SUMMARY | 2022-08-12 22:22 | XMS_ITS | Encounter Summary ---
:1975 Author Organization [place] Address [address] [place] [address] Care Team Providers Name Role Phone [facility] Primary Care Provider [phone] Encounter Details Date Type Department Care Team Description 02/23/2022 Travel Social History Tobacco Use Types Packs/Day [...] documented as of this encounter Care Teams Air Bag Stripper Relationship Specialty Start Date End Date [facility] PCP - General 11/20/21 [address] [place] [address] documented as of this encounter
--- OUTSIDE RECORDS SUMMARY | 2022-08-12 22:23 | XMS_ITS | Encounter Summary ---
:1975 Author Organization Justin Address [address] [place] [address] Care Team Providers Name Role Phone [facility] Primary Care Provider [phone] Reason for Visit Reason Comments Anxiety Encounter Details Date Type Department Care Team Description 02/13/2019 - Emergency [facility] Roman Rios MD Anxiety; 02/14/2019 [facility] Emergency [facility] [address] [facility] [address] [id number] [place] [address] [phone] (Wo rk) Social History Tobacco Use Types Packs/Day Years Used Date Smoking Tobacco: Never Assessed Sex Assigned at Date Recorded Not on file documented as of this encounter Last Filed Vital Signs Vital Sign Reading Time Taken Comments Blood Pressure 96/66 02/14/2019 2:00 AM CDT Pulse 72 02/14/2019 2:00 AM CDT Temperature 36.8 ??C (98.3 ??F) 02/13/2019 11:20 PM CDT Respiratory Rate 15 02/13/2019 11:20 PM CDT Oxygen Saturation 98% 02/14/2019 2:00 AM CDT Inhaled Oxygen Concentration - - Weight - - Height - - Body Mass Index - - documented in this encounter Discharge Instructions Discharge InstructionsRoman Rios MD - 02/14/2019 1:35 AM CDT Discharge Instructions Mental Health Concerns You were seen today for mental health concerns, such as depression, severe anxiety, or suicidal thinking. Your doctor feels that you do not require hospitalization at this time. However, your symptoms may become worse, and you may need to return to the Emergency Department. Most treatments of depression and suicidal thoughts are a process rather than a single intervention. Medications and counseling can take several weeks or more to help. It is important to follow up as discussed with your family doctor or counselor. By accepting these discharge instructions: You promise to not harm yourself or others. You agree that if you feel you are becoming unable to keep that promise, you will do something to help yourself before you do anything to harm yourself or others. You agree to keep any safety plan arranged on your visit here today. You agree to take any medication prescribed or recommended by your doctor. If you are getting worse, you can contact a friend or a family member, contact your counselor or family doctor, contact a crisis line, or other options discussed with the doctor or therapist today. At any time, you can call 911 and return to the emergency department for more help. You understand that follow-up is essential to your treatment, and you will make and keep appointments recommended on your visit today. How to improve your mental health and prevent suicide: Involve others by letting family, friends, counselors know. Do not isolate yourself. Avoid alcohol or drugs. Remove weapons, poisons from your home. Try to stick to routines for eating, sleeping and getting regular exercise. Try to get into sunlight. Bright natural light not only treats seasonal affective disorder but also depression. Increase safe activities that you enjoy. If you feel worse, contact [phone], or call 911, or your family doctor/counselor for additional assistance. If you were given a prescription for medicine here today, be sure to read all of the information (including the package insert) that comes with your prescription. This will include important information about the medicine, its side effects, and any warnings that you need to know about. The pharmacist who fills the prescription can provide more information and answer questions you may have about the medicine. If you have questions or concerns that the pharmacist cannot address, please call or return to the Emergency Department. Opioid Medication Information Pain medications are among the most commonly prescribed medicines, so we are including this information for all our patients. If you did not receive pain medication or get a prescription for pain medicine, you can ignore it. You may have been given a prescription for an opioid (narcotic) pain medicine and/or have received apain medicine while here in the Emergency Department. These medicines can make you drowsy or impaired. You must not drive, operate dangerous equipment, or engage in any other dangerous activities whiletaking these medications. If you drive while taking these medications, you could be arrested for DUI, or driving under the influence. Do not drink any alcohol while you are taking these medications. Opioid pain medications can cause addiction. If you have a history of chemical dependency of any type, you are at a higher risk of becoming addicted to pain medications. Only take these prescribed medications to treat your pain when all other options have been tried. Take it for as short a time and asfew doses as possible. Store your pain pills in a secure place, as they are frequently stolen and provide a dangerous opportunity for children or visitors in your house to start abusing these powerful medications. We will not replace any lost or stolen medicine. As soon as your pain is better, you should flush all your remaining medication. Many prescription pain medications contain Tylenol?? (acetaminophen), including Vicodin??, Tylenol #3??, Rowe??, Lortab??, and Percocet??. You should not take any extra pills of Tylenol?? if you are using these prescription medications or you can get very sick. Do not ever take more than 3000 mg of acetaminophen in any 24 hour period. All opioids tend to cause constipation. Drink plenty of water and eat foods that have a lot of fiber, such as fruits, vegetables, prune juice, apple juice and high fiber cereal. Take a laxative if you don?t move your bowels at least every other day. Miralax??, Milk of Magnesia, Colace??, or Senna?? can be used to keep you regular. Remember that you can always come back to the Emergency Department if you are not able to see your regular doctor in the amount of time listed above, if you get any new symptoms, or if there is anything that worries you. Discharge Instructions Dizziness (Lightheaded) Today you were seen for dizziness. Dizziness can be caused by many things. At this time, your doctorhas found no signs that your dizziness is due to a serious or life-threatening condition. However, sometimes there is a serious problem that does not show up right away, and it is important for you to follow up with your regular doctor as instructed. The most common cause of dizziness is called a vasovagal reaction. This is the kind of dizziness people get when they have their blood drawn or see unpleasant things. This can also happen with dehydration, extreme emotion, nausea, severe pain and also sometimes with urinating or coughing. This type ofdizziness is not serious. It is more common to be lightheaded when you are warm, when you have been standing still for a long time, when you haven?t eaten or had very much to drink, and many other factors. Many times there are several things all going on together that caused your spell today. As you get older, your blood vessels get more stiff, and it is common to have dizziness, especially when you first stand up. If you have been lying down, be sure to sit for a few minutes before standing up, andalways sit right down if you feel faint. Other causes of dizziness include heart disease, irregular heartbeat, side effects from medications,effects of drugs and alcohol, blood pressure changes, infections, and blood loss (anemia). Some of these causes can be serious and even life threatening. Be sure to follow your doctor?s discharge instructions for follow up with other doctors to further evaluate your problem. Return to the Emergency Department if: You pass out (fainting or falling out), especially during exercise. You develop chest pain, chest pressure or difficulty breathing. Your feel an irregular heartbeat. You have excessive vaginal bleeding, or blood in your stool or vomit. You have a high fever. Your symptoms get worse or more frequent. If when you begin to feel dizzy, it is important to sit down or lay down immediately to prevent injury from falling. If you were given a prescription for medicine here today, be sure to read all of the information (including the package insert) that comes with your prescription. This will include important information about the medicine, its side effects, and any warnings that you need to know about. The pharmacist who fills the prescription can provide more information and answer questions you may have about the medicine. If you have questions or concerns that the pharmacist cannot address, please call or return to the Emergency Department. Opioid Medication Information Pain medications are among the most commonly prescribed medicines, so we are including this information for all our patients. If you did not receive pain medication or get a prescription for pain medicine, you can ignore it. You may have been given a prescription for an opioid (narcotic) pain medicine and/or have received apain medicine while here in the Emergency Department. These medicines can make you drowsy or impaired. You must not drive, operate dangerous equipment, or engage in any other dangerous activities whiletaking these medications. If you drive while taking these medications, you could be arrested for DUI, or driving under the influence. Do not drink any alcohol while you are taking these medications. Opioid pain medications can cause addiction. If you have a history of chemical dependency of any type, you are at a higher risk of becoming addicted to pain medications. Only take these prescribed medications to treat your pain when all other options have been tried. Take it for as short a time and asfew doses as possible. Store your pain pills in a secure place, as they are frequently stolen and provide a dangerous opportunity for children or visitors in your house to start abusing these powerful medications. We will not replace any lost or stolen medicine. As soon as your pain is better, you should flush all your remaining medication. Many prescription pain medications contain Tylenol?? (acetaminophen), including Vicodin??, Tylenol #3??, Rowe??, Lortab??, and Percocet??. You should not take any extra pills of Tylenol?? if you are using these prescription medications or you can get very sick. Do not ever take more than 3000 mg of acetaminophen in any 24 hour period. All opioids tend to cause constipation. Drink plenty of water and eat foods that have a lot of fiber, such as fruits, vegetables, prune juice, apple juice and high fiber cereal. Take a laxative if you don?t move your bowels at least every other day. Miralax??, Milk of Magnesia, Colace??, or Senna?? can be used to keep you regular. Remember that you can always come back to the Emergency Department if you are not able to see your regular doctor in the amount of time listed above, if you get any new symptoms, or if there is anything that worries you. documented in this encounter ED Notes Boyd Felix RN - 02/13/2019 11:19 PM CDT Pt states onset of anxiety with associated ear pain, dizziness, and left sided arm pain while arguing with earlier andra. Pt states symptoms have improved during EMS transport. Pt states has been feeling anxious and paranoid recently but denies SI/HI. ABCs intact GCS 15 Lul Garrett RN - 02/13/2019 11:14 PM CDT Bed: ED11 Expected date: 02/13/19 Expected time: 10:58 PM Means of arrival: Ambulance Comments: Bernadette Celsa8 Roman Rios MD - 02/13/2019 11:14 PM CDT History Chief Complaint: Anxiety HPI Crystal Garcia is a 43 year old female who presents to the ED via EMS for evaluation of anxiety. The patient states that she was having an argument with her andra when she started to feel increasingly anxious and started breathing quickly. She was nervous and her noticed that her tongue was off to one side and she started having generalized muscle cramps. Her subsequently called EMS. En route to the ED, she states that her symptoms have resolved. She also reports that she feels generally weak, has a mild headache, and has been increasingly stressed lately secondary to work and family issues. She otherwise denies any suicidal ideation or homicidal ideation. Allergies: Penicillins Medications: The patient is currently on no regular medications. Past Medical History: The patient denies any significant past medical history. Past Surgical History: The patient does not have any pertinent past surgical history. Family History: No past pertinent family history. Social History: Presents with her family. Marital Status: Review of Systems Neurological: Positive for headaches. Psychiatric/Behavioral: Negative for suicidal ideas. The patient is nervous/anxious. All other systems reviewed and are negative. Physical Exam First Vitals: BP: 115/73 Pulse: 66 Temp: 98.3 ??F (36.8 ??C) Resp: 15 SpO2: 97 % Physical Exam Constitutional: Oriented to person, place, and time. Anxious. HENT: Head: Normocephalic. Mouth/Throat: Oropharynx is clear and moist. Eyes: EOM are normal. Pupils are equal, round, and reactive to light. Neck: Neck supple. Cardiovascular: Normal rate, regular rhythm and normal heart sounds. Exam reveals no gallop and no friction rub. No murmur heard. Pulmonary/Chest: Effort normal and breath sounds normal. No respiratory distress. No wheezes. No rales. No reproducible chest wall pain. Abdominal: Soft. No distension. No tenderness. No rebound and no guarding. Musculoskeletal: Normal range of motion. Neurological: Alert and oriented to person, place, and time. Moves all 4 extremities spontaneously. CN intact. No ataxia. Skin: No rash noted. No pallor. Psych: Anxious. Denies SI Emergency Department Course ECG: Indication: anxiety Time: 2320 Vent. Rate 66 bpm. MA interval 140. QRS duration 82. QT/QTc 418/438. P-R-T axis 51 1 37. Normal sinus rhythm. Nonspecific T wave abnormality. Abnormal ECG. Read time: 2320 Laboratory: CBC: WBC: 9.3, HGB: 11.9, PLT: 312 BMP: Glucose 105 (H), Calcium 8.3 (L), o/w WNL (Creatinine: 0.64) HCG: negative 0029 Troponin: <0.015 Interventions: 0025 NS 1,000 mLs IV Ativan 1 mg PO Emergency Department Course: Nursing notes and vitals reviewed. (2325) I performed an exam of the patient as documented above. EKG obtained in the ED, see results above. IV inserted. Medicine administered as documented above. Blood drawn. This was sent to the lab for further testing, results above. A social work consult was ordered and DEC met with the patient. Findings were discussed. 0150 I rechecked the patient and discussed the results of her workup thus far. Findings and plan explained to the Patient. Patient discharged home with instructions regarding supportive care, medications, and reasons to return. The importance of close follow-up was reviewed. I personally reviewed the laboratory results with the Patient and answered all related questions prior to discharge. Impression & Plan Medical Decision Making: Patient is a 43 year old female that came in for primarily anxiety after argument with her . Patient has been having feelings of hopelessness although denies suicidal ideation, therefore [facility] was consulted which did offer outpatient services which the patient was in agreement with. I seeno reason the patient would need an MARTY hold or need for inpatient psychiatric admission. She has been feeling generalized weakness and dizziness, denies vertigo, therefore I did end up getting EKG andbasic lab work to evaluate for anemia, ACS equivalent, or other causes which was otherwise reassuring. Told to follow up with her PCP as well as mental health and return for any worsening symptoms or concerns. Diagnosis: ICD-10-CM 1. Anxiety F41.9 HCG QUALitative (blood) 2. Weakness generalized R53.1 Disposition: discharged to home Scribe Disclosure: I, Mark Fu, am serving as a scribe on 02/13/2019 at 11:31 PM to personally document services performed by Roman Rios MD based on my observations and the provider's statements to me. Mark Fu 02/13/2019 [facility] EMERGENCY DEPARTMENT Roman Rios MD 02/14/19 0421 documented in this encounter Plan of Treatment Not on filedocumented as of this encounter Procedures Procedure Name Priority Date/Time Associated Comments Diagnosis CBC WITH PLATELETS & STAT 02/14/2019 12:29 Res ults for this DIFFERENTIAL AM CDT procedure are i n the results section. TROPONIN I STAT 02/14/2019 12:29 Results for this AM CDT procedure are i n the results section. HCG QUALITATIVE STAT 02/14/2019 12:29 Anxiety Results for this AM CDT procedure are i n the results section. BASIC METABOLIC PANEL STAT 02/14/2019 12:29 Re sults for this AM CDT procedure are i n the results section. EKG 12-LEAD, TRACING STAT 02/13/2019 11:20 Res ults for this ONLY PM CDT procedure are i n the results section. documented in this encounter Results Troponin I (now) (02/14/2019 12:29 AM CDT) P athologist Signature Troponin I ES <0.015 0.000 - 02/14/2019 [place] 0.045 ug/L 1:04 AM CDT [facility] Comment: The 99th percentile for upper reference range is 0.045 ug/L. ??Troponin values in the range of 0.045 - 0.120 ug/L may b e associated with risks of adverse clinical events. Specimen Anatomical Collection Method Collection Time Receive d Time (Source) Location / / Volume Laterality Blood specimen 02/14/2019 12:29 9 (specimen) AM CDT 12:34 AM CDT Roman Rios MD LAB - BLOOD ORDERABLES Performing Organization Address [facility] e Number [facility] [address], [place] [address] [place] [address] [address], [place] [address], [facility] [phone] HCG QUALitative (blood) (02/14/2019 12:29 AM CDT) [facility] Time Signature HCG Qualitative Negative NEG^Negati 02/14/2019 [place] Serum ve 1:35 AM [facility] Comment: This test is for screening purposes. ??R esults should be interpreted along with the clinical picture. ??Confirmation te sting is available if warranted by ordering [id number], HCG Quantitative Pregna ncy. Specimen Anatomical Collection Method Collection Time Receive d Time (Source) Location / / Volume Laterality Blood specimen 02/14/2019 12:29 9 (specimen) AM CDT 12:34 AM CDT Roman Rios MD LAB - BLOOD ORDERABLES Performing Organization Address [facility] e Number [facility] [address], [place] [address] [place] [address] [address] [place], [place] [address], [facility] [phone] (ABNORMAL) Basic metabolic panel (BMP) (02/14/2019 12:29 AM CDT) athologist Signature Sodium 141 133 - 144 02/14/2019 [place] mmol/L 12:54 AM [facility] Potassium 3.4 3.4 - 5.3 02/14/2019 [place] mmol/L 12:54 AM [facility] Chloride 107 94 - 109 02/14/2019 [place] mmol/L 12:54 AM [facility] Carbon Dioxide 27 20 - 32 02/14/2019 [place] mmol/L 12:59 AM [facility] Anion Gap 7 3 - 14 02/14/2019 [place] mmol/L 12:59 AM [facility] Glucose 105 (H) 70 - 99 02/14/2019 [place] mg/dL 12:59 AM [facility] Urea Nitrogen 22 7 - 30 02/14/2019 [place] mg/dL 12:59 AM [facility] Creatinine 0.64 0.52 - 02/14/2019 [place] 1.04 mg/dL 12:59 AM [facility] GFR Estimate >90 >60 02/14/2019 [place] mL/min/{1. 12:59 AM [facility] 73_m2} HOSPITAL Comment: Non GFR Calc Starting 08/17/2018, serum creatinine ba sed estimated GFR (eGFR) will be calculated using the Chronic Kidney Dise [facility] Epidemiology Collaboration (CKD-EPI) equation. GFR Estimate If >90 >60 mL/min/{1.73_m2} 02/14/2019 12:59 AM [facility] Comment: GFR Calc Starting 08/17/2018, serum creatinine ba sed estimated GFR (eGFR) will be calculated using the Chronic Kidney Dise [facility] Epidemiology Collaboration (CKD-EPI) equation. Calcium 8.3 (L) 8.5 - 10.1 mg/dL 02/14/2019 12:59 AM [facility] Specimen Anatomical Collection Method Collection Time Receive d Time (Source) Location / / Volume Laterality Blood specimen 02/14/2019 12:29 9 (specimen) AM CDT 12:34 AM CDT Roman Rios MD LAB - BLOOD ORDERABLES Performing Organization Address City/State/ZIP Code Phon e Number M [facility] [address] [place] [address] [facility] [address], [place] [address], [facility] [phone] [facility] [address] [address], [facility] [phone] CBC + differential (02/14/2019 12:29 AM [facility]) [facility] gist Method Time Signature WBC 9.3 4.0 - 02/14/2019 [facility] 11.0 12:38 AM [facility] 10e9/L [facility] RBC Count 3.81 3.8 - 5.2 02/14/2019 [facility] 10e12/L 12:38 AM [facility] Hemoglobin 11.9 11.7 - 02/14/2019 [facility] 15.7 g/dL 12:38 AM [facility] Hematocrit 36.4 35.0 - 02/14/2019 [facility] 47.0 % 12:38 [facility] MCV 96 78 - 100 02/14/2019 [facility] fl 12:38 AM [facility] MCH 31.2 26.5 - 02/14/2019 [facility] 33.0 pg 12:38 [facility] MCHC 32.7 31.5 - 02/14/2019 [facility] 36.5 g/dL 12:38 AM [facility] RDW 13.8 10.0 - 02/14/2019 [facility] 15.0 % 12:38 [facility] Platelet Count 312 150 - 450 02/14/2019 [facility] 10e9/L 12:38 AM [facility] Diff Method Automated 02/14/2019 [facility] Method 12:38 AM [facility] % Neutrophils 56.7 % 02/14/2019 [facility] 12:38 [facility] % Lymphocytes 35.5 % 02/14/2019 [facility] 12:38 AM [facility] % Monocytes 5.7 % 02/14/2019 [facility] 12:38 AM [facility] % Eosinophils 1.3 % 02/14/2019 [facility] 12:38 [facility] % Basophils 0.6 % 02/14/2019 [facility] 12:38 AM [facility] % Immature 0.2 % 02/14/2019 [facility] Granulocytes 12:38 [facility] Nucleated RBCs 0 0 /100 02/14/2019 [facility] 12:38 [facility] Absolute 5.3 1.6 - 8.3 02/14/2019 [facility] Neutrophil 10e9/L 12:38 AM [facility] Absolute 3.3 0.8 - 5.3 02/14/2019 [place] Lymphocytes 10e9/L 12:38 AM [facility] Absolute 0.5 0.0 - 1.3 02/14/2019 [place] Monocytes 10e9/L 12:38 AM [facility] Absolute 0.1 0.0 - 0.7 02/14/2019 [place] Eosinophils 10e9/L 12:38 AM [facility] Absolute 0.1 0.0 - 0.2 02/14/2019 [place] Basophils 10e9/L 12:38 AM [facility] Abs Immature 0.0 0 - 0.4 02/14/2019 [place] Granulocytes 10e9/L 12:38 AM [facility] Absolute 0.0 02/14/2019 [place] Nucleated RBC 12:38 AM [facility] Specimen Anatomical Collection Method Collection Time Receive d Time (Source) Location / / Volume Laterality Blood specimen 02/14/2019 12:29 9 (specimen) AM CDT 12:34 AM CDT Roman Rios MD LAB - BLOOD ORDERABLES Performing Organization Address City/State/ZIP Code Phon e Number [place] [address] [phone] EKG 12 lead (02/13/2019 11:20 PM CDT) [facility] gist Method Time Signature Interpretation ECG Click View RADIOLOGY Image link RESULTS to view waveform and result Specimen (Source) Anatomical Collection Method Collection Time Re ceived Time Location / / Volume Laterality 02/13/2019 11:20 PM CDT Roman Rios MD ECG ORDERABLES Performing Organization Address City/State/ZIP [facility] Phon e Number RADIOLOGY RESULTS documented in this encounter Visit Diagnoses Diagnosis Anxiety Anxiety state, unspecified Weakness generalized Other malaise and fatigue documented in this encounter Administered Medications Inactive Administered Medications - up to 3 most recent administrations Medication Order MAR Action Action Date Dose Rate Site 0.9% sodium chloride BOLUS New Bag 02/14/2019 12:25 AM 1,000 mLs 1000 mL/hr Intravenous, 1,000 mL, CDT ONCE, at 1,000 mL/hr, Administer over 1 Hours, On 02/13/19 at 2335, For 1 dose LORazepam (ATIVAN) tablet 1 mg Given 02/14/2019 12:25 AM CDT 1 mg 1 mg, Oral, ONCE, On 02/13/19 at 2335, For 1 dose documented in this encounter Active and Recently Administered Medications Times are shown in CDT. Scheduled Medication Order 02/12/2019 02/13/2019 02/14/2019 0.9% sodium chloride BOLUS (COMPLETED) 002 (New Bag - Provider: Boyd Felix, RN)0204 (Stopped - Provider: Raven Leal, [place]) Intravenous, 1,000 mL, ONCE, at 1,000 mL /hr, Administer over 1 Hours, On 02/13/19 at 2335, For 1 dose LORazepam (ATIVAN) tablet 1 mg (COMPLETED) 24 (Given - Provider: Boyd Felix, [place]) 1 mg, Oral, ONCE, 02/13/19 at 2335, For 1 dose documented in this encounter Care Teams Technical Systems Architect Relationship Specialty Start Date End Date Clinic, [facility] PCP - General 02/13/19 11/19/[address] [place] [id number] documented as of this encounter
--- OUTSIDE RECORDS SUMMARY | 2022-08-12 22:23 | XMS_ITS | Encounter Summary ---
:1975 Author Organization [place] [facility] [place] [address] Care Team Providers Name Role Phone No Ref-Primary, Physician Primary Care Provider [phone] Reason for Visit Reason Comments Chest Pain Encounter Details Date Type Department Care Team Description 03/28/2013 Emergency [facility] Miguel Mace, Chest pain (Primary Dx); [facility] Emergency Dep t Back pain [address] [facility], [place] [address] [address] [facility] [address] [place] [address] (Wo rk) Social History Tobacco Use Types Packs/Day Years Used Date Smoking Tobacco: Never Assessed Sex Assigned at Date Recorded Not on file documented as of this encounter Last Filed Vital Signs Vital Sign Reading Time Taken Comments Blood Pressure 103/69 03/28/2013 3:50 PM CDT Pulse 64 03/28/2013 1:49 PM CDT Temperature 36.7 ??C (98.1 ??F) 03/28/2013 3:50 PM CDT Respiratory Rate 18 03/28/2013 3:50 PM CDT Oxygen Saturation 98% 03/28/2013 3:50 PM CDT Inhaled Oxygen Concentration - - Weight 71.7 kg (158 lb) 03/28/2013 1:49 PM CDT Height 165.1 cm (5' 5) 03/28/2013 1:49 PM CDT Body Mass Index 26.29 03/28/2013 1:49 PM CDT documented in this encounter Discharge Instructions Discharge InstructionsMiguel Lewis MD - 03/28/2013 3:11 PM CDT Discharge Instructions Chest Pain You have been seen today for chest pain or discomfort. At this time, your doctor has found no signs that your chest pain is due to a serious or life-threatening condition, (or you have declined more testing and/or admission to the hospital). However, sometimes there is a serious problem that does not show up right away. Your evaluation today may not be complete and you may need further testing and evaluation. You need to follow-up with your regular doctor within 3 days. Return to the Emergency Department if: Your chest pain changes, gets worse, starts to happen more often, or comes with less activity. You are short of breath. You get very weak or tired. You pass out or faint. You have any new symptoms, like fever, cough, numb legs, or you cough up blood You have anything else that worries you. Until you follow-up with your regular doctor please do the following: Take one aspirin daily unless you have an allergy or are told not to by your doctor. If a stress test appointment has been made, go to the appointment. If you have questions, contact your regular doctor. If your doctor today has told you to follow-up with your regular doctor, it is very important that you make an appointment with your clinic and go to the appointment. If you do not follow-up with your primary doctor, it may result in missing an important development which could result in permanent injury or disability and/or lasting pain. If there is any problem keeping your appointment, call your doctor or return to the Emergency Department. Remember that you can always come back to the Emergency Department if you are not able to see your regular doctor in the amount of time listed above, if you get any new symptoms, or if there is anything that worries you. documented in this encounter Medications at Time of Discharge Medication Sig Dispensed Refills Start Date End Date ibuprofen (ADVIL,MOTRIN) Take 3 tablets by 60 tablet 0 03/3102/13/2019 200 MG tablet mouth every 8 hours as needed for pain. oxyCODONE-acetaminophen Take 1 tablet by 20 tablet 0 201102/13/2019 (PERCOCET) 5-325 MG per mouth every 6 hours tablet as needed for pain. documented as of this encounter ED Notes Tri Miller RN - 03/28/2013 3:59 PM CDT Discharge instructions reviewed with patient. Patient verbalizes her understanding. All questions answered. Miguel Lewis MD - 03/28/2013 2:00 PM CDT History Chief Complaint: Chest Pain. MAME Garcia is a 37 year old female, history of gallstones and migraine, who presents to the ED at 1352 for evaluation of chest pain. The patient reports she developed midsternal chest pain which radiates directly through to her back and into her right arm approximately 3 days ago, noting this hasbeen intermittent and pressure-like in nature. The patient currently rates her pain as a 2/10 in severity. She states she has had associated lightheadedness, nausea, weakness, and headache since this onset of her chest pain. She denies recent vomiting, diarrhea, or URI symptoms. Of note, the patient indicates she has been doing cardiac exercises intermittently over the last week and states this has been going well without associated shortness of breath or chest pain upon exertion. Additionally, the patient indicates her symptoms are not similar in nature to prior symptoms she has experienced with gallstones. The patient voices no other concerns or complaints at this time. CARDIAC RISK FACTORS SEX: Female. Tobacco: Negative. Hypertension: Negative. Diabetes: Negative. Lipids: Negative. Family History: Negative. Exercise: The patient exercises frequently. PE/DVT Risk Factors: The patient denies a personal and family history of PE, DVT, or other clotting disorders. She deniesany recent travel, surgery, or other prolonged immobilization. She is not . She does not usebirth control or other estrogen-based medication. She denies a personal history of cancer. She does not smoke. Allergies: Penicillins. Medications: Percocet. Advil. Past Medical History: Migraine. Gallstones. Family History: Positive for possible stroke. Social History: The patient denies use of tobacco, alcohol, or illicit drugs. The patient's is present at the bedside. Review of Systems Constitutional: Negative for fever. HENT: Negative for congestion and rhinorrhea. Respiratory: Negative for cough and shortness of breath. Cardiovascular: Positive for chest pain. Gastrointestinal: Positive for nausea. Negative for vomiting and diarrhea. Neurological: Positive for weakness, light-headedness and headaches. All other systems reviewed and are negative. Physical Exam First Vitals: BP: 131/78 mmHg Pulse: 64 Temp: 98.2 ??F (36.8 ??C) Resp: 20 Height: 165.1 cm (5' 5) Weight: 71.668 kg (158 lb) SpO2: 94 % Physical Exam Constitutional: No distress. HENT: Mouth/Throat: Oropharynx is clear and moist. Eyes: Pupils are equal, round, and reactive to light. Neck: Normal range of motion. Cardiovascular: Normal heart sounds and intact distal pulses. Exam reveals no decreased pulses. Pulmonary/Chest: Effort normal. No respiratory distress. She exhibits tenderness. Abdominal: Soft. There is no tenderness. Musculoskeletal: Normal range of motion. She exhibits no tenderness. Lymphadenopathy: She has no cervical adenopathy. Neurological: She is alert. No cranial nerve deficit. Skin: No rash noted. Psychiatric: She has a normal mood and affect. Emergency Department Course EKG (1350): Normal sinus rhythm. Normal ECG. Vent rate 65 bpm, NJ interval 124 ms, QTc 416 ms, R-axis 26. Read at 1350. The patient was informed of these findings. Imaging: CXR PA/Lat: Negative. Per my read. The patient was informed of these findings. Laboratory: CBC: All WNL (WBC 9.6, HGB 13.5, HCT 40.3, PLT 340). CMP: All WNL (Cr 0.74). D-dimer: 0.5 (WNL). Lipase: 47 (WNL). Troponin POCT: 0.00. The patient was informed of these findings. ED Course: After reviewing nursing notes and the patient's past medical history, I examined the patient here inthe emergency department. I discussed with her the plan of care including laboratory workup, EKG, and X-ray imaging and she was in agreement with this plan. Peripheral IV was inserted and the patient received the above interventions. Blood was drawn and sent for laboratory testing, results above. Recheck. The patient is resting comfortably and is in no pain or distress after the above interventions. I discussed with the patient the results of the above procedures and she will be discharged to home. All questions were answered prior to discharge, and the patient was told to follow up with primary care doctor per discharge instructions. Reasons for return as well as follow up were reviewed withthe patient. She understands and agrees to this plan. Impression & Plan Medical Decision Making: The patient has few risk factors for ACS and therefore, I felt her pretest probability was low. She does have a family member who had a possible stroke, which would raise her risk somewhat. The fact the patient has had pain for some time now with a normal enzyme is reassuring. I did look for alternative causes and considered the possibility of PE or dissection. Her d-dimer is normal. There is no signof pneumonia on her chest x-ray. While the patient has complained of a history of gallstones, she states her pain now is now particularly worse with eating. Her LFTs are within normal limits, as is herlipase. The patient said she worked out the day before this started and this is another potential cause. Her chest pain was reproducible and I felt that outpatient follow up was appropriate. I instructed her to return if symptoms do worsen or change. She was discharged in good condition. Diagnosis: 1. Chest pain. 2. Back pain. I, Mary Beth Garvey, am serving as a scribe on 03/28/2013 at 2:00 PM to personally document services performed by Dr. Lewis based on my observations and the provider's statements to me. Miguel Lewis MD 03/28/13 1531 Lynnette Storm, [place] - 03/28/2013 1:56 PM CDT Labs drawn with IV insertion and held. ISTAT trop running at this time Nena Huang, [place] - 03/28/2013 1:51 PM CDT No active medications Nena Huang, RN - 03/28/2013 1:48 PM CDT Since Thursday. Today started numbness in right arm. Pain mid sternum radiates to right shoulder blade. Dizzy and short of breath. In Triage: ABC's intact. Alert and oriented x 3. documented in this encounter Plan of Treatment Not on filedocumented as of this encounter Procedures Procedure Name Priority Date/Time Associated Comments Diagnosis XR CHEST 2 VIEWS STAT 03/28/2013 3:01 PM Resul ts for this CDT procedure are i n the results section. TROPONIN POCT Routine 03/28/2013 1:55 PM Results for this CDT procedure are i n the results section. EKG 12-LEAD, TRACING STAT 03/28/2013 1:50 PM R esults for this ONLY CDT procedure are i n the results section. CBC WITH PLATELETS & STAT 03/28/2013 1:50 PM R esults for this DIFFERENTIAL CDT procedure are i n the results section. LIPASE STAT 03/28/2013 1:50 PM Results f or this CDT procedure are i n the results section. D DIMER QUANTITATIVE STAT 03/28/2013 1:50 PM R esults for this CDT procedure are i n the results section. COMPREHENSIVE STAT 03/28/2013 1:50 PM Results for this METABOLIC PANEL CDT procedure ar e in the results section. documented in this encounter Results XR Chest 2 Views (03/28/2013 3:01 PM CDT) Anatomical Region Laterality Modality Chest Other Specimen (Source) Anatomical Collection Method Collection Time Re ceived Time Location / / Volume Laterality 03/28/2013 3:01 PM CDT Impressions 03/28/2013 4:30 PM CDT IMPRESSION: ??Negative. NENA BRITT MD Narrative 03/28/2013 4:30 PM CDT CHEST 2 VIEW* ??03/28/2013 3:01 PM HISTORY: ??Chest pain. COMPARISON: ??None. Procedure Note Nena Britt MD - 3 CHEST 2 VIEW* 03/28/2013 3:01 PM HISTORY: Chest pain. COMPARISON: None. IMPRESSION IMPRESSION: Negative. NENA BRITT MD Miguel Lewis MD IMG DIAGNOSTIC IMAGING ORDER [place] Troponin POCT (03/28/2013 1:55 PM CDT) athologist Signature Troponin I 0.00 0.00 - 0.10 POINT OF CARE ug/L TEST, HANDHELD METER Specimen Anatomical Collection Method Collection Time Receive d Time (Source) Location / / Volume Laterality 03/28/2013 1:55 PM 3 2:10 CDT PM CDT Miguel Lewis MD LAB - ENTER/EDIT POCT Performing Organization Address City/State/ZIP Code Phon e Number FV POINT OF CARE TEST, HANDHELD METER POINT OF CARE TEST, HANDHELD METER EKG 12 lead (03/28/2013 1:50 PM CDT) [facility] gist Method Time Signature Interpretation ECG Click View RADIOLOGY Image link RESULTS to view waveform and result Specimen (Source) Anatomical Collection Method Collection Time Re ceived Time Location / / Volume Laterality 03/28/2013 1:50 PM CDT Jayden Rehman MD ECG ORDERABLES Performing Organization Address City/[facility]/ZIP [facility] Phon e Number RADIOLOGY RESULTS D dimer quantitative (03/28/2013 1:50 PM CDT) athologist [facility] D Dimer 0.5 0.0 - 0.50 [facility] ug/ml [facility] LAB Specimen Anatomical Collection Method Collection Time Receive d Time (Source) Location / / Volume Laterality Blood specimen 03/28/2013 1:50 PM 013 2:13 (specimen) CDT PM CDT Miguel Lewis MD LAB - BLOOD ORDERABLES Performing Organization Address City/[facility]/ZIP [facility] Phon e Number [facility] [address] [place], [place] [address] [facility] LAB Lipase (03/28/2013 1:50 PM CDT) athologist Signature Lipase 47 20 - 250 [facility] U/L [facility] LAB Specimen Anatomical Collection Method Collection Time Receive d Time (Source) Location / / Volume Laterality Blood specimen 03/28/2013 1:50 PM 013 2:13 (specimen) CDT PM CDT Miguel Lewis MD LAB - BLOOD ORDERABLES Performing Organization Address City/[facility]/ZIP Code Kelsey Ramos [facility] [address] [place], [place] [address] [facility] LAB Comprehensive metabolic panel (03/28/2013 1:50 PM CDT) athologist Signature Sodium 144 133 - 144 [place] mmol/L [facility] LAB Potassium 3.7 3.4 - 5.3 [place] mmol/L [facility] LAB Chloride 104 94 - 109 [place] mmol/L [facility] LAB Carbon Dioxide 25 20 - 32 [place] mmol/L [facility] LAB Anion Gap 15 6 - 17 [place] mmol/L [facility] LAB Glucose 82 60 - 99 [place] mg/dL [facility] LAB Urea Nitrogen 18 5 - 24 [place] mg/dL [facility] LAB Creatinine 0.74 0.52 [facility] 1[facility] mg/dL [facility] GFR Estimate 89 >60 [place] mL/min/1.[address] LAB GFR Estimate If >90 >60 [place] Black mL/min/[address] [place] [address] LAB Calcium 9.5 8.5 - 10.4 [place] mg/dL [facility] LAB Bilirubin Total 0.6 0.2 - 1.3 [place] mg/dL [facility] LAB Albumin 4.7 3.9 - 5.1 [place] g/dL [facility] LAB Protein Total 7.9 6.8 - 8.8 [place] g/dL [facility] LAB Alkaline 69 40 - 150 [place] Phosphatase U/L [facility] LAB ALT 33 0 - 50 U/L [facility] LAB AST 18 0 - 45 U/L [facility] LAB Specimen Anatomical Collection Method Collection Time Receive d Time (Source) Location / / Volume Laterality Blood specimen 03/28/2013 1:50 PM 013 2:13 (specimen) CDT PM CDT Miguel Lewis MD LAB - BLOOD ORDERABLES Performing Organization Address City/[facility]/ZIP Code Kelsey Ramos [facility] [address] [place], [place] [address] [facility] LAB CBC with platelets differential (03/28/2013 1:50 PM CDT) [facility] gist Method Time Signature WBC 9.6 4.0 - [place] [address] LAB RBC Count 4.38 3.8 - 5.2 [place] 10e12/L [facility] LAB Hemoglobin 13.5 11.7 - [place] 15.7 g/dL [facility] LAB Hematocrit 40.3 35.0 - [place] 47.0 % [facility] LAB MCV 92 78 - 100 [place] fl [facility] LAB MCH 30.8 26.5 - [place] 33.0 pg [facility] LAB MCHC 33.5 31.5 - [place] 36.5 g/dL [facility] LAB RDW 13.9 10.0 - [place] 15.0 % [facility] LAB Platelet Count 340 150 - [address] LAB Diff Method Automated [facility] LAB % Neutrophils 60.0 % [facility] LAB % Lymphocytes 33.6 % [facility] LAB % Monocytes 4.9 % [facility] LAB % Eosinophils 0.9 % [facility] LAB % Basophils 0.4 % [facility] LAB % Immature 0.2 % [place] Granulocytes [facility] LAB Absolute 5.8 1.6 - 8.3 [place] Neutrophil [address] LAB Absolute 3.2 0.8 - 5.3 [place] Lymphocytes [address] [place] [address] LAB Absolute 0.5 0.0 - 1.3 [place] Monocytes [address] [place] [address] LAB Absolute 0.1 0.0 - 0.7 [place] Eosinophils [address] [place] [address] LAB Absolute 0.0 0.0 - 0.2 [place] Basophils [address] [place] [address] LAB Abs Immature 0.0 0 - 0.4 [place] Granulocytes [address] [place] [address] LAB Specimen Anatomical Collection Method Collection Time Receive d Time (Source) Location / / Volume Laterality Blood specimen 03/28/2013 1:50 PM 013 2:13 (specimen) CDT PM CDT Miguel Lewis MD LAB - BLOOD ORDERABLES Performing Organization Address City/State/ZIP Code Phon e Number M [facility] [address] [place], [place] [address] [facility] LAB documented in this encounter Visit Diagnoses Diagnosis Chest pain - Primary Back pain Backache, unspecified documented in this encounter Active and Recently Administered Medications Care Teams Customer Service Attendant Relationship Specialty Start Date End Date No Ref-Primary, Physician PCP - General 03/28/13 02/12/19 documented as of this encounter
--- OUTSIDE RECORDS SUMMARY | 2022-08-12 22:23 | XMS_ITS | Encounter Summary ---
:1975 Author Organization [place] Address [address] [place] [address] Care Team Providers Name Role Phone System, Provider Not In Primary Care Provider Unavailable Reason for Visit Reason Comments Abdominal Pain Encounter Details Date Type Department Care Team Description 04/12/2012 [facility] Taye Jacobsen, Cholecystitis Emergency Dept [address] [facility] [phone] [facility] [phone] [place], [place] [phone] (Wo rk) Social History Tobacco Use Types Packs/Day Years Used Date Smoking Tobacco: Never Assessed Sex Assigned at Date Recorded Not on file documented as of this encounter Last Filed Vital Signs Vital Sign Reading Time Taken Comments Blood Pressure 123/91 04/12/2012 12:41 PM CDT Pulse - - Temperature 36.6 ??C (97.9 ??F) 04/12/2012 10:35 AM CDT Respiratory Rate 16 04/12/2012 12:41 PM CDT Oxygen Saturation 100% 04/12/2012 12:41 PM CDT Inhaled Oxygen Concentration - - Weight - - Height - - Body Mass Index - - documented in this encounter Discharge Instructions Discharge InstructionsJaime Jacobsen MD - 04/12/2012 12:29 PM CDT Please make an appointment to follow up with [facility] as soon as possible. AttachmentsThe following attachments cannot be sent through Care Everywhere. BILIARY COLIC WITH GALLSTONE (CONFIRMED) (DANISH)documented in this encounter Medications at Time of [...] documented as of this encounter ED Notes Jaime Jacobsen MD - 04/12/2012 10:59 AM CDT History Chief Complaint: Abdominal Pain MAME Garcia is a 36 year old female who presents to the ED for evaluation of abdominal pain. When the patient was 15 she was diagnosed with gall stones. With this she had some RUQ abdominal pain but this was controlled without surgery and the pain resolved. A couple of years ago the patient had the onset of RUQ abdominal pain once again that will become exacerbated after eating. This last week the pain became severely exacerbated and she had the onset of nausea and dizziness with the pain. Secondary to this she decided to come into the ED for evaluation. Currently she rates her pain as 10/10 and describes it as a sharp sensation. Palpation of the abdomen and eating will exacerbate the pain. Itdoes not radiate into any other location. She has not taken any medication for this. Otherwise the patient denies any fever, chills, vomiting, shortness of breath, cough, headache, rash, hematuria, dysuria or any other physical complaints at this time. Allergies: PCN Medications: The patient is currently on no regular medications. Past Medical History: Gall stones Past Surgical History: Tubal ligation Family/Social History: The patient denies any relevant family history. Marital status: Single The patient denies any tobacco or alcohol use. Patient presents to the ED with a female friend. Review of Systems Constitutional: Negative for fever and chills. Respiratory: Negative for cough and shortness of breath. Gastrointestinal: Positive for nausea and abdominal pain. Negative for vomiting. Genitourinary: Negative for dysuria and hematuria. Skin: Negative for rash. Neurological: Positive for dizziness. Negative for headaches. All other systems reviewed and are negative. Physical Exam First Vitals: BP: 110/91 mmHg Heart Rate: 100 Temp: 97.9 ??F (36.6 ??C) SpO2: 100 % Resp: 18 Physical Exam Constitutional: She is oriented to person, place, and time. She appears well- developed and well-nourished. No distress. HENT: Head: Normocephalic and atraumatic. Right Ear: External ear normal. Left Ear: External ear normal. Mouth/Throat: Oropharynx is clear and moist. No oropharyngeal exudate. Eyes: Conjunctivae and EOM are normal. Pupils are equal, round, and reactive to light. Right eye exhibits no discharge. Left eye exhibits no discharge. No scleral icterus. Neck: Normal range of motion. Neck supple. No JVD present. No tracheal deviation present. Cardiovascular: Normal rate, regular rhythm, normal heart sounds and intact distal pulses. Exam reveals no friction rub. No murmur heard. Pulmonary/Chest: Effort normal and breath sounds normal. No stridor. No respiratory distress. She has no wheezes. She has no rales. She exhibits no tenderness. Abdominal: Soft. Bowel sounds are normal. She exhibits no distension. There is tenderness. There is positive Krishna's sign. There is no rebound. Musculoskeletal: Normal range of motion. She exhibits no edema and no tenderness. Neurological: She is alert and oriented to person, place, and time. No cranial nerve deficit. She exhibits normal muscle tone. Coordination normal. Skin: Skin is warm and dry. No rash noted. She is not diaphoretic. No erythema. Psychiatric: She has a normal mood and affect. Her behavior is normal. Judgment and thought content normal. Emergency Department Course Imaging: US Abdomen limited: Cholelithiasis, and a positive sonographic Krishna's sign are identified. As such, this exam cannot exclude acute cholecystitis. HIDA scanning can provide further assessment if clinically relevant. No biliary dilatation. Reading per Dr. [place] Radiologist. Laboratory: CBC: WBC 7.5 (WNL) HGB 12.8 (WNL) PLT 314 (WNL) CMP: Cr 0.64 (WNL) Rest WNL Lipase: 50 (WNL) HCG qualitative urine: Negative UA: Clear, yellow urine; Bacteria (present) USQUE 6 (H) Mucous (present) Amorphous crystals (present) Interventions: NS, 1 L, IV ED Course: The patient was roomed. 11:00 AM The patient's medical charts were reviewed and I examined the patient. I discussed the planof care with the patient which included imaging studies, and laboratory work. The patient was placedon continuous cardiac technologist and pulse oximetry. IV was inserted and blood was drawn. Recheck. The patient is resting comfortably and is in no pain or distress after the above interventions. I discussed with the patient the results of the above procedures and she will be discharged to home with a prescription for Percocet and Ibuprofen. All questions were answered prior to discharge, and the patient was told to follow up with primary care doctor per discharge instructions. Reasons forreturn as well as follow up were reviewed with the patient. She understands and agrees to this plan. Impression & Plan Medical Decision Making: This patient has symptoms consistent with gallstones and biliary colic. Ultrasound has confirmed thepresence of gallstones. There is no clinical, laboratory, or ultrasound evidence of Choledocholithiasis, Gallstone Pancreatitis, or Ascending Cholangitis. I doubt GERD, gastritis, PUD, perforated ulcer, diverticulitis, colitis. The patient will be prescribed analgesics. The patient was educated to avoid fatty foods. The patient was told to return to ED for increasing pain, vomiting, chills, sweats, or fever. Follow up with general surgery is indicated for outpatient consultation, this may be arranged as soon as able. Diagnosis: Cholelithiasis Biliary Colic Plan: F/U with Surgery in 1-2 days return to ED immediately with worsening symptoms. Percocet Ibuprofen I, Rubens Merrill, am serving as a scribe on 04/12/2012 at 11:00 AM to personally document services performed by Dr. Jacobsen based on my observations and the provider's statements to me. Jaime Jacobsen MD 04/12/12 [id number] Brian Ramsey RN - 04/12/2012 10:33 AM CDT RUQ pain for long time increase pain lately. Nausea. Increased pain after eating. documented in this encounter Plan of Treatment Not on filedocumented as of this encounter Procedures Procedure Name Priority Date/Time Associated Comments Diagnosis US ABDOMEN LIMITED STAT 04/12/2012 12:07 Resul ts for this PM CDT procedure are i n the results section. HCG QUALITATIVE URINE STAT 04/12/2012 11:20 Re sults for this AM CDT procedure are i n the results section. ROUTINE UA WITH Routine 04/12/2012 11:20 Results for this MICROSCOPIC AM CDT procedure are i n the results section. CBC WITH PLATELETS & STAT 04/12/2012 11:00 Res ults for this DIFFERENTIAL AM CDT procedure are i n the results section. LIPASE STAT 04/12/2012 11:00 Results for this AM CDT procedure are i n the results section. COMPREHENSIVE STAT 04/12/2012 11:00 Results fo r this METABOLIC PANEL AM CDT procedure ar e in the results section. documented in this encounter Results US Abdomen Limited* (04/12/2012 12:07 PM CDT) Anatomical Region Laterality Modality Abdomen/Pelvis Other Specimen (Source) Anatomical Collection Method Collection Time Re ceived Time Location / / Volume Laterality 04/12/2012 12:07 PM CDT Impressions 04/12/2012 4:35 PM CDT ABDOMINAL ULTRASOUND LIMITED Apr 12 2 12:07:00 PM HISTORY: Right upper quadrant pain. COMPARISON: None. FINDINGS: ?? Gallbladder: Cholelithiasis. Positive so nographic Krishna's sign, but no gallbladder wall thickening. Bile ducts: CHD is normal diameter. No i ntrahepatic biliary dilatation. Liver: Normal. Pancreas: Partially obscured but grossly unremarkable. Right kidney: Normal. Aorta and IVC: Not specifically assessed . ?? IMPRESSION: Cholelithiasis, and a positi ve sonographic Krishna's sign are identified. As such, this exam canno t exclude acute cholecystitis. HIDA scanning can provide further assess ment if clinically relevant. No biliary dilatation. Jaime Jacobsen MD IMG US ORDERABLES HCG qualitative urine (04/12/2012 11:20 AM CDT) P athologist Signature HCG Qual Urine Negative NEG [facility] Specimen Anatomical Collection Method Collection Time Receive d Time (Source) Location / / Volume Laterality Urine specimen URINE SPECIMEN 04/12/2012 11:20 08 012 (specimen) OBTAINED BY CLEAN AM CDT 11:39 AM C DT CATCH PROCEDURE / Unknown Jaime Jacobsen MD LAB - URINE ORDERABLES Performing Organization Address City/[facility]/ZIP Code Phon e Number Rachel [facility] [address] [place], [place] [address] [facility] (ABNORMAL) Routine UA with microscopic (04/12/2012 11:20 AM CDT) [facility] Method Time Signature Color Urine Yellow [facility] Appearance Urine Clear [facility] Glucose Urine Negative NEG mg/dL [facility] Bilirubin Urine Negative NEG [facility] Ketones Urine Negative NEG mg/dL [facility] Specific [place] 1.024 1.003 - [place] Urine 1.035 [facility] Blood Urine Negative NEG [facility] pH Urine 5.5 5.0 - 7.0 [place] pH [facility] Protein Albumin Negative NEG mg/dL [facility] Urobilinogen Normal 0.0 - 2.0 [place] mg/dL mg/dL [facility] Nitrite Urine Negative NEG [facility] Leukocyte Negative NEG [place] Esterase Urine [facility] Source Midstream [facility] WBC Urine <1 0 - 2 [place] /[facility] RBC Urine 1 0 - 2 [place] /[facility] Bacteria Urine Few (A) NEG /HPF [facility] Squamous 6 (H) 0 - 1 [place] Epithelial /HPF /HPF [facility] Mucous Urine Present (A) NEG /LPF [facility] Amorphous Few (A) NEG /HPF [facility] Specimen Anatomical Collection Method Collection Time Receive d Time (Source) Location / / Volume Laterality Urine specimen URINE SPECIMEN 04/12/2012 11:20 012 (specimen) OBTAINED BY CLEAN AM CDT 11:39 AM C DT CATCH PROCEDURE / Unknown Jaime Jacobsen MD LAB - URINE ORDERABLES Performing Organization Address City/[facility] Phon e Number Rachel [facility] [address] [place], [place] [address] [facility] Lipase (04/12/2012 11:00 AM CDT) athologist Signature Lipase 50 20 - 250 [facility] U/L [facility] Specimen Anatomical Collection Method Collection Time Receive d Time (Source) Location / / Volume Laterality Blood specimen 04/12/2012 11:00 2 (specimen) AM CDT 11:15 AM CDT Jaime Jacobsen MD LAB - BLOOD ORDERABLES Performing Organization Address City/State/ZIP Code Phon e Number M [facility] [address] [place], [place] [address] [facility] Comprehensive metabolic panel (04/12/2012 11:00 AM CDT) athologist Signature Sodium 144 133 - 144 [place] mmol/L [facility] Potassium 4.0 3.4 - 5.3 [place] mmol/L [facility] Chloride 106 94 - 109 [place] mmol/L [facility] Carbon Dioxide 26 20 - 32 [place] mmol/L [facility] Anion Gap 13 6 - 17 [place] mmol/L [facility] Glucose 86 60 - 99 [place] mg/dL [facility] Urea Nitrogen 16 5 - 24 [place] mg/dL [facility] Creatinine 0.64 0.52 [facility] 1[facility] mg/dL [facility] GFR Estimate >90 >60 [place] mL/min/1.[address] LAB GFR Estimate If >90 >60 [place] Black mL/min/[address] [place] [address] LAB Calcium 9.0 8.5 - 10.4 [place] mg/dL [facility] Bilirubin Total 0.6 0.2 - 1.3 [place] mg/dL [facility] Albumin 4.5 3.9 - 5.1 [place] g/dL [facility] Protein Total 7.6 6.8 - 8.8 [place] g/dL [facility] Alkaline 69 40 - 150 [place] Phosphatase U/L [facility] ALT 11 0 - 50 U/L [facility] AST 17 0 - 45 U/L [facility] Specimen Anatomical Collection Method Collection Time Receive d Time (Source) Location / / Volume Laterality Blood specimen 04/12/2012 11:00 2 (specimen) AM CDT 11:15 AM CDT Jaime Jacobsen MD LAB - BLOOD ORDERABLES Performing Organization Address City/State/ZIP Code Phon e Number M [facility] [address] [place], [place] [address] [facility] CBC with platelets differential (04/12/2012 11:00 AM CDT) [facility] gist Method Time Signature WBC 7.5 4.0 - [place] 11.0 [facility] 10e9/[facility] RBC Count 4.14 3.8 - 5.2 [place] 10e12/L [facility] Hemoglobin 12.8 11.7 - [place] 15.7 g/dL [facility] Hematocrit 37.6 35.0 - [place] 47.0 % [facility] MCV 91 78 - 100 [place] fl [facility] MCH 30.9 26.5 - [place] 33.0 pg [facility] MCHC 34.0 31.5 - [place] 36.5 g/dL [facility] RDW 13.3 10.0 - [place] 15.0 % [facility] Platelet Count 314 150 - 450 [place] 10e9/[facility] Diff Method Automated [facility] % Neutrophils 55.2 40 - 75 % [facility] % Lymphocytes 37.3 20 - 48 % [facility] % Monocytes 5.5 0 - 12 % [facility] % Eosinophils 1.1 0 - 6 % [facility] % Basophils 0.8 0 - 2 % [facility] % Immature 0.1 0 - 0.4 % [place] Granulocytes [facility] Absolute 4.1 1.6 - 8.3 [place] Neutrophil 10e9/L [facility] Absolute 2.8 0.8 - 5.3 [place] Lymphocytes 10e9/L [facility] Absolute 0.4 0.0 - 1.3 [place] Monocytes 10e9/L [facility] Absolute 0.1 0.0 - 0.7 [place] Eosinophils 10e9/L [facility] Absolute 0.1 0.0 - 0.2 [place] Basophils 10e9/L [facility] Abs Immature 0.0 0 - 0.03 [place] Granulocytes 10e9/L [facility] Specimen Anatomical Collection Method Collection Time Receive d Time (Source) Location / / Volume Laterality Blood specimen 04/12/2012 11:00 2 (specimen) AM CDT 11:15 AM CDT Jaime Jacobsen MD LAB - BLOOD ORDERABLES Performing Organization Address City/State/ZIP Code Phon e Number M [facility] [address] [place], [place] [address] [facility] documented in this encounter Visit Diagnoses Diagnosis Cholecystitis Cholecystitis, unspecified documented in this encounter Administered Medications Inactive Administered Medications - up to 3 most recent administrations Medication Order MAR Action Action Date Dose Rate Site sodium chloride 0.9 % New Bag 04/12/2012 11:46 AM 1,000 mLs 1000 mL/hr BOLUS 1,000 mL CDT Intravenous, 1,000 mL, ONCE, at 1,000 mL/hr, Administer over 1 Hours, On Thu04/12/12 at 1100, For 1 dose documented in this encounter Active and Recently Administered Medications Times are shown in CDT. 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
--- OUTSIDE RECORDS SUMMARY | 2022-08-12 22:23 | XMS_ITS | Encounter Summary ---
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
[2022-08-12 23:07] LABS: Basophils Absolute Auto 0.06 K/uL (0.00-0.30); Basophils Percent Auto 0.6 % (0.0-3.0); Eosinophils Absolute Auto 0.43 K/uL (0.00-0.50); Eosinophils Percent Auto 4.2 % (0.0-7.0); Hematocrit 37.6 % (33.0-51.0); Hemoglobin* 12.4 gm/dL (12.0-16.0); Immature Granulocytes Abs Auto 0.05 K/uL (0.00-0.30); Immature Granulocytes Pct Auto 0.5 %; Lymphocytes Absolute Auto 3.05 K/uL (0.90-2.90); Lymphocytes Percent Auto 29.8 % (20-44); Mean Corpuscular HGB Conc 33 gm/dL (32-36); Mean Corpuscular Hemoglobin 31 pg (26-34); Mean Corpuscular Volume 92 fL (80-100); Monocytes Percent Auto 5.8 % (0.0-11.0); Neutrophils Absolute Auto 6.04 K/uL (1.7-7.0); Neutrophils Percent Auto 59.1 % (42.0-72.0); Platelet Count* 366 K/uL (140-440); RDW Coefficient of Variation % 13.6 % (11.5-15.5); Red Blood Count 4.07 m/uL (4.00-5.20); Slide Review Reflex No; White Blood Count* 10.22 K/uL (4.50-11.00)
[2022-08-12 23:12] LABS: Albumin* 4.2 g/dL (3.3-5.0)
[2022-08-12 23:15] LABS: Alkaline Phosphatase* 85 U/L (40-150); Aspartate Amino Transferase* 19 U/L (12-35); Bilirubin Direct* 0.1 mg/dL (0.0-0.5); Bilirubin Total* 0.3 mg/dL (0.1-1.5); Lipase* 75 U/L (23-300); Total Protein* 6.8 g/dL (6.0-8.3)
[2022-08-12 23:16] LABS: Alanine Aminotransferase* 18 U/L (4-35)
[2022-08-12 23:18] LABS: Chloride* 107 mmol/L (96-114); Potassium* 3.5 mmol/L (3.6-5.1); Sodium* 139 mmol/L (135-149)
[2022-08-12 23:21] LABS: Creatinine* 0.7 mg/dL (0.5-1.5); Est. Creatinine Clearance* 91.32; Estimated Glomerular Filt Rate 109 ml/min
[2022-08-12 23:22] LABS: Blood Urea Nitrogen* 24 mg/dL (5-24); Calcium* 9.1 mg/dL (8.4-10.6); Carbon Dioxide* 26 mmol/L (20-32); Glucose* 101 mg/dL (60-115)
[2022-08-12 23:29] LABS: C Reactive Protein* < 0.5 mg/dL (0.5-1.0)
[2022-08-12 23:50] VITALS: PULSE 69; RESP 12; O2SAT 95
--- NOTE | 2022-08-12 23:54 | ED.NURSE ---
Report given to GERMANIA Gould.
[2022-08-13 00:48] LABS: Appearance Urine Cloudy (Clear); Bilirubin Urine Negative (Negative); Blood Urine Trace-intact (Negative); Color Urine Yellow (Yellow); Glucose Urine Negative (Negative); Ketones Urine Trace (Negative); Leukocyte Esterase Urine Negative (Negative); Nitrite Urine Positive (Negative); Protein Urine Negative (Negative); Specific Gravity Urine >= 1.030 (1.000-1.030); Urobilinogen Urine 0.2 (0.2-1.0)
[2022-08-13] MEDS: predniSONE 20 MG TABLET 60 MG PO (00:50)
[2022-08-13 00:55] LABS: Bacteria Urine Many; RBC Urine 0-2 (0-2); Squamous Epithelial Cell Urine Few (None-Few)
[2022-08-13 00:56] LABS: Other Sediment Urine YEAST
[2022-08-13 01:10] VITALS: BP 115/85; PULSE 69; O2SAT 95
--- NOTE | 2022-08-16 11:18 | ED.NURSE ---
dr gongora did view the urine culture. no treatment indicated at this time.
== END 2022-08-13 01:15 | disposition home or self-care (01) ==
PROVIDERS: Emergency Provider Family Medicine; PCP Physician Assistant Medical
DX: J45.901 Unspecified asthma with (acute) exacerbation (principal); R10.13 Epigastric pain; E86.0 Dehydration
CPT/HCPCS: 36415; 80048; 80076; 81001; 83690; 84703; 85025; 86140; 87086; 87186; 94640; 94761; 99284; A9270; J7512

== ENCOUNTER 2022-12-23 14:15 | Emergency (ER) | payer MEDICAID, SELFPAY ==
[2022-12-23 14:32] VITALS: BP 148/92; PULSE 89; RESP 18; TEMP 36.2; O2SAT 98
[2022-12-23 14:51] LABS: Appearance Urine Cloudy (Clear); Bilirubin Urine Negative (Negative); Blood Urine 3+ (Negative); Color Urine Yellow (Yellow); Glucose Urine Negative (Negative); Ketones Urine 1+ (Negative); Leukocyte Esterase Urine 3+ (Negative); Nitrite Urine Negative (Negative); Protein Urine 3+ (Negative); Specific Gravity Urine 1.025 (1.000-1.030); Urobilinogen Urine 0.2 (0.2-1.0)
[2022-12-23 15:07] LABS: Bacteria Urine Few; Fine Granular Casts Urine Few; RBC Urine 25-50 (0-2); Squamous Epithelial Cell Urine Few (None-Few)
--- NOTE | 2022-12-23 15:57 | ED_ITS ---
HPI - General Adult General Chief complaint: Urogenital Problems, Female Stated complaint: Lower Abdominal Pain/Painful Urination Time Seen by Provider: 12/23/22 15:56 History of Present Illness HPI narrative: 47-year-old woman presenting to the emergency department with concern of 24 ho urs of lower abdominal pain, dysuria and some hematuria. No fever. No vomiting however she has been nauseated. She is feeling a metallic taste in her mouth. With more alarming to her is some drops of blood that she has been noting with significant dysuria. Hematuria is not part of urinary tract infections for her. She admits having some in the past but it has been awhile. Has had a little di arrhea recently as well. She denies a history of ovarian cysts. Usual menses is middle of the month and has already occurred. She is a little embarrassed to talk about this but 2 nights ago she did have intercourse with her . She notes she has had pain following intercourse in the past. She says she has seen the perineal area and there was no apparent injury. No medications tried. Related Data Home Medications Medication Instructions Recorded Confirmed albuterol sulfate 90 mcg/actuation 2 inh inhalation Q4H PRN 08/12/22 08/12/22 aerosol inhaler budesonide-formoterol HFA 160 1 inh inhalation QHS 08/12/22 08/12/22 mcg-4.5 mcg/actuation aerosol inhaler (Symbicort) cetirizine 10 mg tablet 10 mg PO DAILY 08/12/22 08/12/22 fluticasone furoate 100 1 inh inhalation DAILY 08/12/22 08/12/22 mcg-vilanterol 25 mcg/dose inhalation powder (Breo Ellipta) Previous Rx's Medication Instructions Recorded albuterol sulfate 90 mcg/actuation 2 inh inhalation QID PRN shortness 08/13/22 aerosol inhaler of breath or wheezing #8.5 grams omeprazole 40 mg capsule,delayed 40 mg PO DAILY 14 days #14 caps 08/13/22 release ondansetron 4 mg disintegrating 4 mg PO QID PRN nausea and 08/13/22 tablet vomiting #12 tabs prednisone 20 mg tablet 40 mg PO DAILY 4 days #8 tabs 08/13/22 Allergies Allergy/AdvReac Type Severity Reaction Status Date / Time oseltamivir [From Tamiflu] Allergy Mild Hives Verified 08/12/22 20:50 penicillin V Allergy Mild Rash Verified 03/18/22 11:57 dandelion (Taraxacum Allergy Unknown test Verified 08/12/22 20:50 officinale) indicated cat and dog Allergy Mild Congestion, Uncoded 03/18/22 11:57 shortness of breath grass, pollens Allergy Mild Congestion, Uncoded 03/18/22 11:57 shortness of breath PFSH PFSH Medical History Asthma ?J45.909 - Unspecified asthma, uncomplicated (ICD-10) Epiploic appendagitis ?K63.89 - Other specified diseases of intestine (ICD-10) History of severe acute respiratory syndrome coronavirus 2 (SARS-CoV-2) disease ?Z86.16 - Personal history of COVID-19 (ICD-10) Surgical History History of cholecystectomy ?Z90.49 - Acquired absence of other specified parts of digestive tract (ICD- 10) History of tubal ligation ?Z98.51 - Tubal ligation status (ICD-10) Family History Father Diabetes Gout High blood pressure Sister Diabetes mellitus during Maternal Grandmother Ovarian cancer Social History Narrative: Does not drink alcohol Does not use illicit drugs Non-smoker Smoking Status: Unknown if ever smoked Exam Narrative: Exam Narrative: Clearly very uncomfortable. Splinting a little bit and holding her hands at her left lower abdomen. Little tremulous. Breathing easily. Lungs appear to be clear. Abdomen soft and moderately tender without peritoneal signs in the left lower abdomen and across the suprapubic area. Some left flank tenderness as well. Heart is in a regular rate and rhythm. Const: Vital Signs, click to edit/add: Vital Signs - 24 hr 12/23/22 14:32 Temperature 97.1 F L Pulse Rate [Right Pulse Oximeter] 89 Respiratory Rate 18 Blood Pressure [Ri ght Upper Arm] 148/92 H Pulse Oximetry 98 Oxygen Delivery Me thod Room Air Documenting provider has reviewed patient's vital signs: yes Course Vital Signs Vital signs: Initial Vital Signs Temperature 97.1 F L 12/23/22 14:32 Temperature Source Temporal Artery Scan 12/23/22 14:32 Pulse Rate 89 12/23/22 14:32 Respiratory Rate 18 12/23/22 14:32 Blood Pressure 148/92 H 12/23/22 14:32 Blood Pressure Mean 110 H 12/23/22 14:32 Blood Pressure Position Sitting 12/23/22 14:32 Pulse Oximetry 98 12/23/22 14:32 Oxygen Delivery Method Room Air 12/23/22 14:32 Vital Signs Temperature 97.1 F L 12/23/22 14:32 Pulse Rate 89 12/23/22 14:32 Respiratory Rate 18 12/23/22 14:32 Blood Pressure 148/92 H 12/23/22 14:32 Pulse Oximetry 98 12/23/22 14:32 Oxygen Delivery Method Room Air 12/23/22 14:32 Temperature 97.1 F L 12/23/22 14:32 Pulse Rate 89 12/23/22 14:32 Respiratory Rate 18 12/23/22 14:32 Blood Pressure 148/92 H 12/23/22 14:32 Pulse Oximetry 98 12/23/22 14:32 Oxygen Delivery Method Room Air 12/23/22 14:32 Medical Decision Making MDM Narrative Medical decision making narrative: Does appear to have urinary tract infection. Further quick onset for any STI. Denies relation to menses temporally. I have reviewed urinalysis on with which does look to be infected. I think this is most likely the answer. Symptoms more consistent with this than ureteral stone. Patient denies visible trauma. Will be prescribing cephalexin and Zofran and Phenazopyridine from [facility]. Lab Data Labs: Lab Results 12/23/22 Range/Units 14:39 Urine Color Yellow (Yellow) Urine Appearance Cloudy A (Clear) Urine pH 6.0 (5.0-8.5) Ur Specific [place] 1.025 (1.000-1.030) Urine Protein 3+ A (Negative) Urine Glucose (UA) Negative (Negative) Urine Ketones 1+ A (Negative) Urine Blood 3+ A (Negative) Urine Nitrite Negative (Negative) Urine Bilirubin Negative (Negative) Urine Urobilinogen 0.2 (0.2-1.0) Ur Leukocyte Esterase 3+ A (Negative) Urine RBC 25-50 A (0-2) Urine WBC 10-25 A (0-5) Ur Squamous Epith Cells Few (None-Few) Urine Bacteria Few A (None) Fine Granular Casts Few A (None) Discharge Plan Discharge Clinical Impression: Cystitis Patient Disposition: Home w/ Parent or Adult Condition: Stable Additional Instructions: Focus on hydration with water. Be seen for marked increase in persistent pain, repeated vomiting, increasing fever. Urine culture will be pending here. We will let you know if the antibiotics you are receiving are potentially not effective; otherwise you should not receive a phone call. I would recommend in the future after relations with your , make sure you urinate if possible. This might prevent recurrent infections. Can take up to 800 mg of ibuprofen or up to 1000 mg of acetaminophen per dose. ; these can be combined as well. Conc?ntrese en la hidrataci?n con agua. Ser visto para el aumento marcado en el dolor persistente, v?mitos repetidos, aumento de la fiebre. El cultivo de orina estar? pendiente aqu?. Le informaremos si los antibi?ticos que est? recibiendo son potencialmente no efectivos; de lo contrario, no deber?a recibir adilene llamada telef?erick. Recomendar?a en el futuro despu?s de las relaciones con corcoran esposo, aseg?rese de orinar si es posible. [place] podr?a prevenir infecciones recurrentes. Puede bri hasta 800 mg de ibuprofeno o hasta 1000 mg de paracetamol por dosis. ; Estos tambi?n se pueden combinar Prescriptions: No Action cetirizine 10 mg tablet 10 mg PO DAILY albuterol sulfate 90 mcg/actuation HFA aerosol inhaler 2 inh INHALATION Q4H PRN budesonide-formoterol [Symbicort] 160-4.5 mcg/actuation HFA aerosol inhaler 1 inh inhalation QHS fluticasone furoate-vilanterol [Breo Ellipta] 100-25 mcg/dose blister with device 1 inh inhalation DAILY prednisone 20 mg tablet 40 mg PO DAILY 4 Days Qty: 8 1RF Rx Instructions: days 11-21 of therapy albuterol sulfate 90 mcg/actuation HFA aerosol inhaler 2 inh inhalation QID PRN (Reason: shortness of breath or wheezing) Qty: 8.5 1RF ondansetron 4 mg tablet,disintegrating 4 mg PO QID PRN (Reason: nausea and vomiting) Qty: 12 0RF Rx Instructions: dissolve in mouth omeprazole 40 mg capsule,delayed release(DR/EC) 40 mg PO DAILY 14 Days Qty: 14 0RF Follow Up/Referrals: Kathy Hou PA-C [Primary Care Provider] - Stand Alone Forms: [facility] Info Instructions
== END 2022-12-23 16:43 | disposition home or self-care (01) ==
LOC: ED 16:24
PROVIDERS: Emergency Provider Family Medicine; PCP Physician Assistant Medical
DX: N30.90 Cystitis, unspecified without hematuria (principal)
CPT/HCPCS: 81001; 87086; 87186; 99283

== ENCOUNTER 2023-05-16 22:38 | Outpatient (CLI) | payer MEDICAID, SELFPAY | END 2023-05-16 22:39 | disposition home or self-care (01) | LOC: AMB 06-23 13:06 | PROVIDERS: PCP Physician Assistant Medical; Visit Provider Family Medicine | DX: R06.09 Other forms of dyspnea (principal) | CPT/HCPCS: A0425; A0427 ==

== ENCOUNTER 2023-05-16 23:06 | Emergency (ER) | payer MEDICAID, SELFPAY ==
[2023-05-16 23:11] VITALS: BP 148/92; PULSE 106; RESP 22; TEMP 36.7; O2SAT 96
--- NOTE | 2023-05-16 23:11 | ED_ITS ---
HPI - General Adult General Chief complaint: Asthma Stated complaint: asthma Time Seen by Provider: 05/16/23 23:07 History of Present Illness HPI narrative: started 9pm. Pt took an AlkaSeltzer, pt had a asthma attack from that. Pt has a hx of this reaction. Pt given atrovent and albuterol neb via ems, than another albuterol neb and epi, IM 0. 3mg. pt initial sats 86 %. after treatments. sats 89%. epi given at 2300 47-year-old woman presenting to the emergency department via EMS with concern of potential allergic reaction. EMS noted on seen a believe to be satting 86% quite labored. She has received DuoNeb albuterol neb and epinephrine IM. She took an Fatoumata-Wiley and thinks might be reacting to this. Apparently she says ibuprofen can trigger asthma attacks in her. Not aware that she has been intubated before. Arrives on OxyMask high L flow. Usual state of health prior to this event. Related Data Home Medications Medication Instructions Recorded Confirmed albuterol sulfate 90 mcg/actuation 2 inh inhalation Q4H PRN 08/12/22 08/12/22 aerosol inhaler budesonide-formoterol HFA 160 1 inh inhalation QHS 08/12/22 08/12/22 mcg-4.5 mcg/actuation aerosol inhaler (Symbicort) cetirizine 10 mg tablet 10 mg PO DAILY 08/12/22 08/12/22 fluticasone furoate 100 1 inh inhalation DAILY 08/12/22 08/12/22 mcg-vilanterol 25 mcg/dose inhalation powder (Breo Ellipta) Previous Rx's Medication Instructions Recorded albuterol sulfate 90 mcg/actuation 2 inh inhalation QID PRN shortness 08/13/22 aerosol inhaler of breath or wheezing #8.5 grams omeprazole 40 mg capsule,delayed 40 mg PO DAILY 14 days #14 caps 08/13/22 release ondansetron 4 mg disintegrating 4 mg PO QID PRN nausea and 08/13/22 tablet vomiting #12 tabs prednisone 20 mg tablet 40 mg (2 x 20 mg) PO DAILY 4 days 08/13/22 #8 tabs Allergies Allergy/AdvReac Type Severity Reaction Status Date / Time oseltamivir [From Tamiflu] Allergy Mild Hives Verified 08/12/22 20:50 penicillin V Allergy Mild Rash Verified 03/18/22 11:57 dandelion (Taraxacum Allergy Unknown test Verified 08/12/22 20:50 officinale) indicated cat and dog Allergy Mild Congestion, Uncoded 03/18/22 11:57 shortness of breath grass, pollens Allergy Mild Congestion, Uncoded 03/18/22 11:57 shortness of breath Review of Systems Status of ROS: Reports: 6 or more systems reviewed and unremarkable except as noted in History and below [facility] Medical History Asthma ?J45.909 - Unspecified asthma, uncomplicated (ICD-10) Epiploic appendagitis ?K63.89 - Other specified diseases of intestine (ICD-10) History of severe acute respiratory syndrome coronavirus 2 (SARS-CoV-2) disease ?Z86.16 - Personal history of COVID-19 (ICD-10) Surgical History History of cholecystectomy ?Z90.49 - Acquired absence of other specified parts of digestive tract (ICD- 10) History of tubal ligation ?Z98.51 - Tubal ligation status (ICD-10) Family History Father Diabetes Gout High blood pressure Sister Diabetes mellitus during Maternal Grandmother Ovarian cancer Social History Narrative: Does not drink alcohol Does not use illicit drugs Non-smoker Smoking Status: Never smoker How often do you have a drink containing alcohol: never AUDIT-C Alcohol total score: 0 Non-prescribed substance use: denies use Exam Narrative: Exam Narrative: Eyes are watering. Quite labored in breathing. Tachypneic. Appears quite anxious. There is some inspiratory stridor. Trace wheeze in the right upper l salena with generally course breath sounds. Somewhat stridorous as well. Diaphoretic over her back. Heart is tachycardic in a regular rhythm. Skin is warm dry without rash. Oropharynx is moist. Const: Documenting provider has reviewed patient's vital signs: yes Course Vital Signs Vital signs: Initial Vital Signs Temperature 98.1 F 05/16/23 23:11 Temperature Source Temporal Artery Scan 05/16/23 23:11 Pulse Rate 106 H 05/16/23 23:11 Pulse Rhythm Regular 05/16/23 23:11 Respiratory Rate 22 05/16/23 23:11 Blood Pressure 148/92 H 05/16/23 23:11 Blood Pressure Mean 110 H 05/16/23 23:11 Blood Pressure Position Semi-Fowlers 05/16/23 23:11 Pulse Oximetry 96 05/16/23 23:11 Oxygen Delivery Method Aerosol Mask 05/16/23 23:11 Vital Signs Temperature 98.1 F 05/16/23 23:11 Pulse Rate 106 H 05/16/23 23:11 Respiratory Rate 22 05/16/23 23:11 Blood Pressure 148/92 H 05/16/23 23:11 Pulse Oximetry 96 05/16/23 23:11 Oxygen Delivery Method Aerosol Mask 05/16/23 23:11 Temperature 98.1 F 05/16/23 23:11 Pulse Rate 95 05/17/23 02:00 Respiratory Rate 22 05/16/23 23:11 Blood Pressure 109/82 05/17/23 01:02 Pulse Oximetry 90 05/17/23 02:00 Oxygen Delivery Method Room Air 05/17/23 01:10 Medical Decision Making MDM Narrative Medical decision making narrative: May well be an anaphylactic type reaction exacerbating asthma as well. Aspirin may have been involved here. No known cardiac history. Initiating another IV. One normal saline fluid. Will be given a racemic epinephrine neb, lorazepam, diphenhydramine. Contemplating BiPAP. Does feel more relaxed and does think that the nebulization helped. Admittedly is little less course/stridorous in her breath sounds. Still labored in her breathing and hypoxic with good pleth. Continuing to monitor. Solu-Medrol IV. Oxygenation still not coming up needing support with OxyMask though have managed to turn this down to 4 L. Still tight and with end-expiratory inspiratory wheezing. Presumably also have not seen effect of steroid. Ordering magnesium infusion. With continued monitoring and time in the emergency department less and less wheeze, still mildly harsh/stridor, she has actually been sleeping. Resolved to 99% on room air. See patient discharge plan Critical Care Time Critical Care Time Critical Care Time: Yes Attestation: The patient required my highest level preparedness to intervene emergently and I personally spent this critical care time directly and personally managing the patient. This critical care time included: Obtaining a history; Examining the patient; Pulse oximetry; Ordering and reviewing of studies; Arranging urgent treatment with development of a management plan; Evaluation of patients response to treatment; Frequent reassessment discussions with other providers. This critical care time was performed to assess and manage the high probability of imminent life-threatening deterioration that could result in multiorgan failure. It was exclusive of separate billable procedures and treating other patients and teaching time. Total Critical Care Time in Minutes: 45 Discharge Plan Discharge Clinical Impression: Asthma attack, Anxiety Patient Disposition: Home w/ Parent or Adult Condition: Improved Additional Instructions: Rest today. Continue with prednisone from [facility] as prescribed. Next dose can take around mid day today. If you prefer you can take 40 mg once daily as opposed to 20 mg 2 times daily. I understand you have a nebulizer at home. I would take this nebulizer tubing and cup in case yours needs to be updated. Albuterol at the pharmacy for you if you need it. I would use your albuterol regularly 3-4 times daily over the next 3 days. Return for persistent and increasing shortness of breath, associated fever. Descansa hoy. Contin?e con prednisona de [facility] seg?n lo prescrito. La siguiente dosis puede bri alrededor del mediod?a de hoy. Si lo prefiere, puede bri 40 mg adilene vez al d?a en lugar de 20 mg 2 veces al d?a. Entiendo que tienes un nebulizador en casa. Llevar?a pro tubo nebulizador y taza en enmanuel de que el suyo necesite ser actualizado. Albuterol en la farmacia para usted si lo necesita. Yo usar?a corcoran albuterol regularmente 3-4 veces al d?a maeve los pr?ximos 3 d?as. Retorno por dificultad respiratoria persistente y creciente, fiebre asociada Prescriptions: No Action cetirizine 10 mg tablet 10 mg PO DAILY albuterol sulfate 90 mcg/actuation HFA aerosol inhaler 2 inh INHALATION Q4H PRN budesonide-formoterol [Symbicort] 160-4.5 mcg/actuation HFA aerosol inhaler 1 inh inhalation QHS fluticasone furoate-vilanterol [Breo Ellipta] 100-25 mcg/dose blister with device 1 inh inhalation DAILY prednisone 20 mg tablet 40 mg PO DAILY 4 Days Qty: 8 1RF Rx Instructions: days 11-21 of therapy albuterol sulfate 90 mcg/actuation HFA aerosol inhaler 2 inh inhalation QID PRN (Reason: shortness of breath or wheezing) Qty: 8.5 1RF ondansetron 4 mg tablet,disintegrating 4 mg PO QID PRN (Reason: nausea and vomiting) Qty: 12 0RF Rx Instructions: dissolve in mouth omeprazole 40 mg capsule,delayed release(DR/EC) 40 mg PO DAILY 14 Days Qty: 14 0RF Follow Up/Referrals: Kathy Hou PA-C [Primary Care Provider] - Stand Alone Forms: [employer] Info Instructions
[2023-05-16 23:15] VITALS: PULSE 97; O2SAT 95
[2023-05-16] MEDS: RACEPINEPHRINE HCL 0.5 ML VIAL.NEB NEB (23:21)
[2023-05-16] MEDS: diphenhydrAMINE 50 MG/ML inj IVP (23:21)
[2023-05-16] MEDS: LORazepam 2 MG/ML inj 0.5 MG IVP (23:21)
[2023-05-16] MEDS: 0.9 % SODIUM CHLORIDE 1000 ml 1,000 ML 2000 ML IV (23:22)
[2023-05-16] MEDS: METHYLPREDNISOLONE SOD SUCC 62.5 MG/ML (125) 93.75 MG IVP (23:28)
[2023-05-16 23:29] VITALS: BP 131/94; PULSE 94; O2SAT 93
[2023-05-16 23:30] VITALS: PULSE 96; O2SAT 93
[2023-05-16] MEDS: ALBUTEROL SULFATE 2.5 MG/3 ML VIAL.NEB NEB (23:32)
[2023-05-16] MEDS: MAGNESIUM IV 2 GM/50 ML PIGGYBACK IVPB (23:41)
[2023-05-16 23:42] VITALS: BP 128/89; PULSE 99; O2SAT 97
[2023-05-16 23:46] VITALS: PULSE 95; O2SAT 96
[2023-05-17] VITALS (17 sets, daily range): BP systolic 109–126; BP diastolic 73–83; PULSE 94–101; O2SAT 90–99
--- NOTE | 2023-05-17 00:16 | ED.NURSE ---
Oxygen saturations currently 94% on 4 L oxymask.
--- NOTE | 2023-05-17 01:09 | ED.NURSE ---
oxygen saturations now 99% on room air, no wheezing noted. Patient walked to bathroom and back without any desaturations noted.
== END 2023-05-17 02:20 | disposition home or self-care (01) ==
PROVIDERS: Emergency Provider Family Medicine; PCP Physician Assistant Medical
DX: J45.909 Unspecified asthma, uncomplicated (principal); F41.9 Anxiety disorder, unspecified
CPT/HCPCS: 94640; 94761; 99284; 99291; J1200; J2060; J2930; J3475; J7030

== ENCOUNTER 2023-06-02 09:47 | Outpatient (CLI) | payer MEDICAID, SELFPAY | END 2023-06-02 09:48 | disposition home or self-care (01) | PROVIDERS: PCP Physician Assistant Medical; Visit Provider Nurse Practitioner Family | DX: Z00.00 Encounter for general adult medical examination without abnormal findings (principal); R79.89 Other specified abnormal findings of blood chemistry; Z79.899 Other long term (current) drug therapy | CPT/HCPCS: 82306; 84443 ==

== ENCOUNTER 2024-02-17 14:33 | Outpatient (CLI) | payer MEDICAID, SELFPAY ==
--- OUTSIDE RECORDS SUMMARY | 2024-02-17 14:40 | XMS_ITS | Encounter Summary ---
Author Organization [facility] Address [address] 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 Role Phone [facility] Primary Care Pr ovider Unavailable Enrique Saenz MD Unavailable Glendy Brush Unavailable [phone] Pat Chavez PA-C Unavailable [phone] [facility] Primary Care Provider Encounter Details Date Type Department Care Team (Late st Contact Info) Description 06/19/2022 My[facility] Medical Advice [address] [id number] Kathy Zepeda, [address] [address] Social History Tobacco Use Types Packs/Day Years Used Date Smoking Tobacco: Never Smokeless Tobacco: Never PHQ-2 Answer Date Recorded PHQ-2 Score 4 02/27/2022 Sex and Gender Information Value Date Recorded Sex Assigned at Not on file Gender Identity Not on file Sexual Orientation Not on file COVID-19 Exposure Response Date Recorded In the last 10 days, have yo u been in contact with someone who was confirmed or suspected to have Coronavirus/COVID-19? No / Unsure 05/20/2022 11:27 AM CDT documented as of this encounter Plan of Treatment Not on file documented as of this encounter Visit Diagnoses Not on filedocumented in this encounter Additional Health Concerns Assessment Noted Time PHQ-9 Depression Total Score: 11 022 9:09 AM CDT documented as of this encounter Care Teams Pigment Furnace Tender Relationship Specialty Start Date End Date Clinic, [facility] PCP - General 11/20/21 12/05/22 [facility], [address] [address] PCP - General 05/27/23 Enrique Saenz MD [address] [place] [id number] Cardiovascular Disease 02/27/22 Glendy Brush EP [address] [address] Cardiac Rehabilitation Therapist 03/25/22 03/25/23 Pat Chavez PARamaC [address] [place] [id number] Assigned Neuroscience Provider 03/01/22 08/28/23 documented as of this encounter
--- OUTSIDE RECORDS SUMMARY | 2024-02-17 14:40 | XMS_ITS | Referral Summary ---
Author Organization [place] Address [facility] [place] [address] Care Team Providers Care Bank Credit Card Collection Clerk Name Role Phone Enrique Saenz MD Unavailable [phone] [facility] Primary Care Provider Allergies Active Allergy Reactions Criticality Noted Date Comments Ibuprofen Anaphylaxis High 05/27/2023 Penicillins 04/12/2012 Acetaminophen Anaphylaxis High 05/27/2023 Medications Medication Sig Dispensed Refills Start Date End Date Status albuterol (PROVENTIL) (2.5 MG/3ML) 0.083% neb solutionIndication s:Severe persistent asthma with exacerbation (H28) Take 1 vial (2.5 mg) by nebulization every 6 hours as needed for shortness of breath / dyspnea or wheezing 30 mL 03/11/2021 Active EPINEPHrine (ANY BX GENERIC EQUIV) 0.3 MG/0.3ML injection 2-pack Inject 0.3 mLs (0.3 mg) into the muscle once as needed for anaphylaxis 0.6 mL 11/20/2021 Active budesonide-formote rol (SYMBICORT) 160-4.5 MCG/ACT InhalerIndications :Severe persistent asthma with exacerbation (H28) Inhale 2 puffs into the lungs daily 10 g 3 03/08/2022 Active albuterol (PROAIR HFA/PROVENTIL HFA/VENTOLIN HFA) 108 (90 Base) MCG/ACT inhalerIndications :Anaphylaxis, initial encounter Inhale 2 puffs into the lungs every 6 hours 18 g 11 03/08/2022 Active ipratropium - albuterol 0.5 mg/2.5 mg/3 mL (DUONEB) 0.5-2.5 (3) MG/3ML neb solution Take 1 vial (3 mLs) by nebulization every 6 hours as needed for shortness of breath / dyspnea or wheezing 90 mL 02/21/2022 2 Discontinued Active Problems Problem Noted Date Diagnosed Date Intermittent asthma with sta tus asthmaticus, unspecified asthma severity 03/07/2022 Elevated blood pressure read ing without diagnosis of hypertension 03/10/2021 Severe persistent asthma with exacerbation (H28) 03/10/2021 Acute respiratory failure with hypoxia Immunizations Name Administration Dates Next Due COVID-19 Monovalent 18+ (Moderna) 09/18/2021,01/2021,12/06/2020 Hepatitis B, Adult 07/18/2016 Influenza Vaccine >6 months,quad, PF 09/18/2021, 07/15/2016 MMR 12/13/2010 TDAP (Adacel,Boostrix) 07/18/2016 Td (Adult), Adsorbed 12/14/2010,03/30/2008 Social History Tobacco Use Types Packs/Day Years Used Date Smoking Tobacco: Never Smokeless Tobacco: Never Tobacco Cessation:Counseling Given: Not Answered PHQ-2 Answer Date Recorded PHQ-2 Score 4 02/27/2022 Adolescent Education Answer Date Record ed Getting School Help Needed Not on file 05/22 Sex and Gender Information Value Date Recorded Sex Assigned at Not on file Gender Identity Not on file Sexual Orientation Not on file Last Filed Vital Signs Vital Sign Reading Time Taken Comments Blood Pressure 148/91 05/27/2023 8:07 PM CDT Pulse 78 05/27/2023 8:07 PM CDT Temperature 36.6 ??C (97.8 ??F) 05/27/2023 8:07 PM CD T Respiratory Rate 14 05/27/2023 8:07 PM CDT Oxygen Saturation 100% 05/27/2023 8:07 PM CDT Inhaled Oxygen Concentration - - Weight 84.4 kg (186 lb) 05/27/2023 8:07 PM CDT Height 165.1 cm (5' 5) 05/27/2023 8:07 PM CDT Body Mass Index 30.95 05/27/2023 8:07 PM CDT Plan of Treatment Not on file Procedures Procedure Name Priority Date/Time Associated Diagnosis Comments COMPREHENSIVE METABOLIC PANEL STAT 05/27/2023 8:17 PM CDT from Last 3 Months or Most Recently Relevant to Health Maintenance Results * Comprehensive metabolic panel (05/27/2023 8:17 PM CDT) Sodium 141 135 - 145 mmol/L 05/27/2023 8:47 PM CDT [facility] Comment:Reference intervals for this test were updated on 05/26/2023 to more accurately reflect our healthy population. There may be differences in the flagging of prior results with similar values performed with this method. Interpretation of those prior results can be made in the context of the updated reference intervals. Potassium 4.4 3.4 - 5.3 mmol/L 05/27/2023 8:47 PM CDT LABORATORY Carbon Dioxide (CO2) 25 22 - 29 mmol/L 05/27/2023 8:47 PM CDT LABORATORY Anion Gap 9 7 - 15 mmol/L 05/27/2023 8:47 PM CDT LABORATORY Urea Nitrogen 15.4 6.0 - 20.0 mg/dL 05/27/2023 8:47 PM CDT LABORATORY Creatinine 0.69 0.51 - 0.95 mg/dL 05/27/2023 8:47 PM CDT LABORATORY GFR Estimate >90 >60 mL/min/1. 73m2 05/27/2023 8:47 PM CDT LABORATORY Calcium 9.2 8.6 - 10.0 mg/dL 05/27/2023 8:47 PM CDT LABORATORY Chloride 107 98 - 107 mmol/L 05/27/2023 8:47 PM CDT LABORATORY Glucose 99 70 - 99 mg/dL 05/27/2023 8:47 PM CDT LABORATORY Alkaline Phosphatase 73 35 - 104 U/L 05/27/2023 8:47 PM CDT LABORATORY AST 19 0 - 45 U/L 05/27/2023 8:47 PM CDT LABORATORY Comment:Reference intervals for this test were updated on 02/09/2023 to more accurately reflect our healthy population. There may be differences in the flagging of prior results with similar values performed with this method. Interpretation of those prior results can be made in the context of the updated reference intervals. ALT 15 0 - 50 U/L 05/27/2023 8:47 PM CDT LABORATORY Comment:Reference intervals for this test were updated on 02/09/2023 to more accurately reflect our healthy population. There may be differences in the flagging of prior results with similar values performed with this method. Interpretation of those prior results can be made in the context of the updated reference intervals. Protein Total 7.1 6.4 - 8.3 g/dL 05/27/2023 8:47 PM CDT LABORATORY Albumin 4.2 3.5 - 5.2 g/dL 05/27/2023 8:47 PM CDT LABORATORY Bilirubin Total <0.2 <=1.2 mg/dL 05/27/2023 8:47 PM CDT LABORATORY Blood STRUCTURE OF RIGHT UPPER LIMB / Unknown Venipuncture / Unknown 05/27/2023 8:17 PM CDT 05/27/2023 8:22 PM CDT Philomena Faustin DO [facility] - [facility]OD [place] Organization Address City/State/ZIP Co de Phone Number LABORATORY [facility] [address], [address] [place] [address], [facility] [phone] from Last 3 Months or Most Recently Relevant to Health Maintenance Advance Directives For more information, please contact: [phone] * Full Code (Latest Code Status on File) Date Activated Date Inactivated Comments 03/07/2022 5:56 PM 03/08/2022 5:27 PM All basic and advanced life-sustaining interventions are performed as appropriate Question Answer Comments Code status determined by: Discussion with lorenee nt/ legal decision maker * Full Code Date Activated Date Inactivated Comments 03/10/2021 9:22 AM 03/11/2021 11:56 AM All basic a nd advanced life-sustaining interventions are performed as appropriate Question Answer Comments Code status determined by: Discussion with joseluis nt/ legal decision maker Care Teams Bank Credit Card Collection Clerk Relationship Specialty Start Date End Date [facility], [address] [address] PCP - General 05/27/23 Enrique Saenz MD [address] [place] [address] Cardiovascular Disease 02/27/22
--- OUTSIDE RECORDS SUMMARY | 2024-02-17 14:40 | XMS_ITS | Encounter Summary ---
Author Organization [place] Address [facility] [place] [address] Care Team Providers Care Crime Scene Specialist Name Role Phone [facility] Primary Care Pr ovider Unavailable Enrique Saenz MD Unavailable Glendy Brush Unavailable [phone] Pat Chavez PA-C Unavailable [phone] [facility] Primary Care Provider Encounter Details Date Type Department Care Team (Late st Contact Info) Description 11/20/2021 Documentation Only INTERFACED REPORT Unknown, Provider Social History Tobacco Use Types Packs/Day Years Used Date Smoking Tobacco: Never Smokeless Tobacco: Never Sex and Gender Information Value Date Recorded Sex Assigned at Not on file Gender Identity Not on file Sexual Orientation Not on file documented as of this encounter Plan of Treatment Not on file documented as of this encounter Visit Diagnoses Not on filedocumented in this encounter Additional Health Concerns Infection Onset Date Last Indicated Resolved Time Rule Out COVID-19 02/23/2022 02/23/2022 02/23/2022 8:06 PM CDT Rule Out COVID-19 03/07/2022 03/07/2022 03/07/2022 7:11 AM CDT documented as of this encounter Care Teams Crime Scene Specialist Relationship Specialty Start Date End Date [facility] PCP - General 11/20/21 12/05/22 [facility] [address] [place] [address] PCP - General 05/27/23 Enrique Saenz MD [address] [place], [place] [id number] Cardiovascular Disease 02/27/22 Glendy Brush EP [facility] [address] [place] [address] Cardiac Rehabilitation Therapist 03/25/22 03/25/23 Pat Chavez, PARamaC [address] [place] [address] Assigned Neuroscience Provider 03/01/22 08/28/23 documented as of this encounter
--- OUTSIDE RECORDS SUMMARY | 2024-02-17 14:40 | XMS_ITS | Clinical Summary ---
Author Organization [facility] Address [address] [place] [address] Care Team Providers Care Director Information Name Role Phone Unavailable Primary Care Provider Unavailabl e Source Comments PLEASE NOTE, if this patient is a minor, it may be UNLAWFUL to discuss sensitive information that is contained in these records (such as FAMILY PLANNING, MENTAL HEALTH or SUBSTANCE ABUSE) with the minor patient's parent or other person without the patient's specific authorization.[facility] Social History Tobacco Use Types Packs/Day Years Used Date Smoking Tobacco: Never Assessed Social Connections Answer Date Recorded Social Connections and Isolation 0 07/11/2020 Financial Resource Strain Answer Date R ecorded Financial Resource Strain 0 2019 Stress Answer Date Recorded Stress 0 07/11/2020 Physical Activity Answer Date Recorded Physical Activity 0 07/11/2020 Food Insecurity Answer Date Recorded Food 0 07/11/2020 Transportation Needs Answer Date Record ed Transportation 0 07/11/2020 Housing Stability Answer Date Recorded Housing 0 07/11/2020 Safety and Environment Answer Date David rded Safety 0 07/11/2020 Utilities Answer Date Recorded Utilities 0 07/11/2020 Employment Answer Date Recorded Employment 0 07/11/2020 Sex and Gender Information Value Date Recorded Sex Assigned at Not on file Gender Identity Not on file Sexual Orientation Not on file Plan of Treatment Not on file
--- OUTSIDE RECORDS SUMMARY | 2024-02-17 14:40 | XMS_ITS | Clinical Summary ---
Author Organization [place] Address [address] [place] [address]. [place] [address] Care Team Providers Care Tin Cutter Name Role Phone Enrique Saenz MD Unavailable [facility] Primary Care Provider Allergies Active Allergy [...] 05/27/2023 8:07 PM CDT Plan of Treatment Health Maintenance Due Date Last Done Comments ADVANCE CARE PLANNING 1976 ANNUAL REVIEW OF HM ORDERS 1976 ASTHMA ACTION PLAN [address] COLONOGRAPHY 1976 DEPRESSION ACTION PLAN 1976 FIT 1976 FLEX SIG 1976 MAMMO SCREENING 1976 YEARLY PREVENTIVE VISIT 1976 sDNA (Cologuard) 1976 Pneumococcal Vaccine: Pediatrics (0 to 5 Years) and At-Risk Patients (6 to 64 Years) (1 of 2 - PCV) 1982 COLONOSCOPY 1986 COLORECTAL CANCER SCREENING 1986 HIV SCREENING 11/26/1991 HEPATITIS C SCREENING 1994 PAP 1997 HEPATITIS B IMMUNIZATION (2 of 3 - 19+ 3-dose series) 08/15/2016 07/18/2016 LIPID 2016 PHQ-9 08/29/2022 02/27/2022 COVID-19 Vaccine ( season) 2023 09/18/2021, 01/03/2021, 12/06/2020 INFLUENZA VACCINE (Season Ended) 2024 09/18/2021, 07/15/2016 GLUCOSE 05/27/2026 05/27/2023, 07/03/2022, 02/23/2022, Additional history exists DTAP/TDAP/TD IMMUNIZATION (5 - Td or Tdap) 07/18/2026 07/18/2016, 12/14/2010, 03/30/2008, Additional history exists HPV IMMUNIZATION Aged Out No longer e ligible based on patient's age to complete this topic IPV IMMUNIZATION Aged Out No longer e ligible based on patient's age to complete this topic MENINGITIS IMMUNIZATION Aged Out No l onger eligible based on patient's age to complete this topic RSV MONOCLONAL ANTIBODY Aged Out No l onger eligible based on patient's age to complete this topic Procedures Procedure Name Priority Date/Time Associated Diagnosis Comments COMPREHENSIVE METABOLIC PANEL STAT 05/27/2023 8:17 PM CDT from Last 3 Months or Most Recently Relevant to Health Maintenance Results * Comprehensive metabolic panel (05/27/2023 8:17 PM CDT) Sodium 141 135 - 145 mmol/L 05/27/2023 8:47 PM [facility] Comment:Reference intervals for this test were updated on 05/26/2023 to more accurately reflect our healthy population. There may be differences in the flagging of prior results with similar values performed with this method. Interpretation of those prior results can be made in the context of the updated reference intervals. Potassium 4.4 3.4 - 5.3 mmol/L 05/27/2023 8:47 PM [facility] Carbon Dioxide (CO2) 25 22 - 29 mmol/L 05/27/2023 8:47 PM [facility] Anion Gap 9 7 - 15 mmol/L 05/27/2023 8:47 PM [facility] Urea Nitrogen 15.4 6.0 - 20.0 mg/dL 05/27/2023 8:47 PM [facility] Creatinine 0.69 0.51 - 0.95 mg/dL 05/27/2023 8:47 PM [facility] GFR Estimate >90 >60 mL/min/1. 73m2 05/27/2023 8:47 PM [facility] Calcium 9.2 8.6 - 10.0 mg/dL 05/27/2023 8:47 PM [facility] Chloride 107 98 - 107 mmol/L 05/27/2023 8:47 PM [facility] Glucose 99 70 - 99 mg/dL 05/27/2023 8:47 PM [facility] Alkaline Phosphatase 73 35 - 104 U/L 05/27/2023 8:47 PM [facility] AST 19 0 - 45 U/L 05/27/2023 8:47 PM [facility] Comment:Reference intervals for this test were updated on 02/09/2023 to more accurately reflect our healthy population. There may be differences in the flagging of prior results with similar values performed with this method. Interpretation of those prior results can be made in the context of the updated reference intervals. ALT 15 0 - 50 U/L 05/27/2023 8:47 PM [facility] Comment:Reference intervals for this test were [...] CDT Philomena Faustin DO LAB - BLOOD [place] [facility] [address], [address] [place] [address], [facility] [phone] from Last 3 Months or Most Recently Relevant to Health Maintenance Advance Directives For more information, please contact: [phone] * Full Code (Latest Code Status on File) Date Activated Date Inactivated Comments 03/07/2022 5:56 PM 03/08/2022 5:27 PM All basic and advanced life-sustaining interventions are performed as appropriate Question Answer Comments Code status determined by: Discussion with patie nt/ legal decision maker * Full Code Date Activated Date Inactivated Comments 03/10/2021 9:22 AM 03/11/2021 11:56 AM All basic a nd advanced life-sustaining interventions are performed as appropriate Question Answer Comments Code status determined by: Discussion with joseluis nt/ legal decision maker Care Teams Tin Cutter Relationship Specialty Start Date End Date [facility], [address] [address] PCP - General 05/27/23 Enrique Saenz MD [address] [place] [address] Cardiovascular Disease 02/27/22
--- OUTSIDE RECORDS SUMMARY | 2024-02-17 14:40 | XMS_ITS | Encounter Summary ---
Author Organization [facility] Address [address] [place] [address] Care Team Providers Care Water Resource Engineer Name Role Phone Unavailable Primary Care Provider Unavailabl e Reason for Visit * Reason Comments Office Visit: Converted Data Conversion Encounter Details Date Type Department Care Team (Late st Contact Info) Description 06/12/2020 Dental Interim Note [facility] [address] [place] [phone] Default, [facility] Provider [place] Social History Tobacco Use Types Packs/Day Years Used Date Smoking Tobacco: Never Assessed Sex and Gender Information Value Date Recorded Sex Assigned at Not on file Gender Identity Not on file Sexual Orientation Not on file documented as of this encounter Plan of Treatment Scheduled Orders Name Type Priority Associated Diagnoses Order Schedule 5 O AMALGAM - 1 SURFACE, PRIMARY OR PERMANENT Dental Procedures Routine 1 Occurrences starting 06/07/2020 5 ENDODONTIC THERAPY, PREMOLAR TOOTH (EXCLUDING FINAL TAOIST) Dental Procedures Routine 1 Occurrences starting 06/07/2020 5 CROWN - PORCELAIN FUSED TO HIGH OH METAL Dental Procedures Routine 1 Occurrences starting 06/07/2020 5 PREFABRICATED POST AND CORE IN ADDITION TO CROWN Dental Procedures Routine 1 Occurrences starting 06/07/2020 documented as of this encounter Visit Diagnoses Not on filedocumented in this encounter
== END 2024-02-17 14:34 | disposition home or self-care (01) ==
PROVIDERS: PCP Physician Assistant Medical; Visit Provider Physician Assistant Medical
DX: R53.83 Other fatigue (principal); R79.89 Other specified abnormal findings of blood chemistry; Z11.3 Encounter for screening for infections with a predominantly sexual mode of transmission; R82.90 Unspecified abnormal findings in urine; R06.01 Orthopnea
CPT/HCPCS: 80053; 82306; 82607; 82728; 83540; 83550; 83880; 84443; 86703; 86803; 87086; 87186

== ENCOUNTER 2024-03-08 09:51 | Outpatient (CLI) | payer MEDICAID, SELFPAY ==
--- OUTSIDE RECORDS SUMMARY | 2024-03-08 09:53 | XMS_ITS | Encounter Summary ---
Author Organization [facility] Address [address] [place] [address] Care Team Providers Care Institute Director Name Role Phone Unavailable Primary Care Provider Unavailabl e Reason for Visit * Reason Comments Office Visit: Converted Data Conversion Encounter Details Date Type Department Care Team (Late st Contact Info) Description 06/12/2020 Dental Interim Note [facility] [address] [place] [phone] Default, [facility] Provider [place] Social History Tobacco Use Types [...] 5 ENDODONTIC THERAPY, PREMOLAR TOOTH (EXCLUDING FINAL RELIGIOUS) Dental Procedures Routine 1 Occurrences starting 06/07/2020 5 CROWN - PORCELAIN FUSED TO HIGH OH METAL Dental Procedures Routine 1 Occurrences starting 06/07/2020 5 PREFABRICATED POST AND CORE IN ADDITION TO CROWN Dental Procedures Routine 1 Occurrences starting 06/07/2020 documented as of this encounter Visit Diagnoses Not on filedocumented in this encounter
--- OUTSIDE RECORDS SUMMARY | 2024-03-08 09:53 | XMS_ITS | Clinical Summary ---
Author Organization [place] Address [address] [place] [address]. [place] [address] Care Team Providers Care Bpm Solution Architect Name Role Phone Enrique Saenz MD Unavailable [facility] Primary Care Provider Allergies Active Allergy [...] season) 2023 09/18/2021, 01/03/2021, 12/06/2020 INFLUENZA VACCINE (#1) 2024 09/18/2021, 2015 GLUCOSE 05/27/2026 05/27/2023, 07/03/2022, 02/23/2022, Additional history [...] 135 - 145 mmol/L 05/27/2023 8:47 PM [facility] Comment:Reference intervals for this test were updated on 05/26/2023 to more accurately reflect our healthy population. There may be differences in the flagging of prior results with similar values performed with this method. Interpretation of those prior results can be made in the context of the updated reference intervals. Potassium 4.4 3.4 - 5.3 mmol/L 05/27/2023 8:47 PM [facility] Carbon Dioxide (CO2) 25 22 - 29 mmol/L 05/27/2023 8:47 PM [facility] Anion Gap 9 7 - 15 mmol/L 05/27/2023 8:47 PM [facility] Urea Nitrogen 15.4 6.0 - 20.0 mg/dL 05/27/2023 8:47 PM [facility] Creatinine 0.69 0.51 - 0.95 mg/dL 05/27/2023 8:47 PM [facility] GFR Estimate >90 >60 mL/min/1. 73m2 05/27/2023 8:47 PM [facility] Calcium 9.2 8.6 - 10.0 mg/dL 05/27/2023 8:47 PM [facility] Chloride 107 98 - 107 mmol/L 05/27/2023 8:47 PM [facility] Glucose 99 70 - 99 mg/dL 05/27/2023 8:47 PM [facility] Alkaline Phosphatase 73 35 - 104 U/L 05/27/2023 8:47 PM [facility] AST 19 0 - 45 U/L 05/27/2023 8:47 PM [facility] Comment:Reference intervals for this test were updated on 02/09/2023 to more accurately reflect our healthy population. There may be differences in the flagging of prior results with similar values performed with this method. Interpretation of those prior results can be made in the context of the updated reference intervals. ALT 15 0 - 50 U/L 05/27/2023 8:47 PM [facility] Comment:Reference intervals for this test were [...] DO LAB - BLOOD [facility] [address], [address] [place] [address], [facility] [phone] from Last 3 Months or Most Recently Relevant to Health Maintenance Advance Directives For more information, please contact: [phone] * Full Code (Latest Code Status on [...] joseluis nt/ legal decision maker Care Teams Bpm Solution Architect Relationship Specialty Start Date End Date [facility], [address] [address] PCP - General 05/27/23 Enrique Saenz MD [address] [place] [address] Cardiovascular Disease 02/27/22
--- OUTSIDE RECORDS SUMMARY | 2024-03-08 09:53 | XMS_ITS | Clinical Summary ---
Author Organization [facility] Address [address] [place] [address] Care Team Providers Care Population Health Coach Name Role Phone Unavailable Primary Care Provider [...]
--- OUTSIDE RECORDS SUMMARY | 2024-03-08 09:54 | XMS_ITS | Encounter Summary ---
Author Organization [place] Address [facility] hospital[facility] [place] [address] Care Team Providers Care Capper Machine Operator Name Role Phone [facility] Primary Care Pr ovider Unavailable Enrique Saenz MD Unavailable Glendy Brush Unavailable [phone] Pat Chavez PA-C Unavailable [phone] [facility], [facility] Primary Care Provider Encounter Details Date Type [...] documented as of this encounter Care Teams Capper Machine Operator Relationship Specialty Start Date End Date [facility] PCP - General 11/20/21 12/05/22 [facility], [facility] [address] [place] [address] PCP - General 05/27/23 Enrique Saenz MD [address] [place], [place] [address] Cardiovascular Disease 02/27/22 Glendy Brush EP [facility] [address] [place] [address] Cardiac Rehabilitation Therapist 03/25/22 03/25/23 Pat Chavez, PARamaC [address] [place] [address] Assigned Neuroscience Provider 03/01/22 08/28/23 documented as of this encounter
--- OUTSIDE RECORDS SUMMARY | 2024-03-08 09:54 | XMS_ITS | Encounter Summary ---
Author Organization [place] Address [address] [place] [address] Care Team Providers Care Corporate Travel Manager Name Role Phone [facility] Primary Care Pr ovider Unavailable Enrique Saenz MD Unavailable Glendy Brush Unavailable [phone] Pat Chavez PA-C Unavailable [phone] [facility] Primary Care Provider Encounter Details Date Type Department Care Team (Late st Contact Info) Description 06/19/2022 [facility] Medical Advice [address] [phone] Kathy Zepeda, [address] [address] Social History Tobacco Use Types [...] documented as of this encounter Care Teams Corporate Travel Manager Relationship Specialty Start Date End Date Clinic, [facility] PCP - General 11/20/21 12/05/22 [facility], [address] [address] PCP - General 05/27/23 Enrique Saenz MD [address] [place] [address] Cardiovascular Disease 02/27/22 Glendy Brush EP [address] [address] Cardiac Rehabilitation Therapist 03/25/22 03/25/23 Pat Chavez PARamaC [address] [place] [id number] Assigned Neuroscience Provider 03/01/22 08/28/23 documented as of this encounter
--- OUTSIDE RECORDS SUMMARY | 2024-03-08 09:54 | XMS_ITS | Referral Summary ---
Author Organization [place] Address [facility] [place] [address] Care Team Providers Care Snow Removal Supervisor Name Role Phone Enrique Saenz MD Unavailable [facility] Primary Care Provider Allergies Active Allergy [...] CDT Philomena Faustin DO LAB - BLOOD [place] [facility] Organization Address City/State/ZIP Co de Phone Number LABORATORY [facility] [address], [address] [place] [address], [facility] [phone] from Last 3 Months or Most Recently Relevant to Health Maintenance Advance Directives For more information, please contact: [phone] * Full Code (Latest Code Status on [...] joseluis nt/ legal decision maker Care Teams Snow Removal Supervisor Relationship Specialty Start Date End Date [facility], [address] [address] PCP - General 05/27/23 Enrique Saenz MD [address] [place] [address] Cardiovascular Disease 02/27/22
== END 2024-03-08 09:52 | disposition home or self-care (01) ==
LOC: OP CLINIC 09:52
PROVIDERS: PCP Physician Assistant Medical; Visit Provider Internal Medicine
DX: Z53.9 Procedure and treatment not carried out, unspecified reason (principal)

== ENCOUNTER 2024-09-15 09:59 | Emergency (ER) | payer MEDICAID, SELFPAY ==
[2024-09-15] VITALS (7 sets, daily range): BP systolic 117–140; BP diastolic 77–95; PULSE 91–101; RESP 20; TEMP 36.8–37.3; O2SAT 92–94
--- OUTSIDE RECORDS SUMMARY | 2024-09-15 10:02 | XMS_ITS | Clinical Summary ---
Author Organization [facility] Address [address] [place] [address] Care Team Providers Care Flight Attendant/Inflight Manager Name Role Phone Unavailable Primary Care Provider [...] Employment Answer Date Recorded Employment 0 07/11/2020 Comments Unknown Sex and Gender Information Value Date Recorded Sex Assigned at Not on file Legal Sex Female 1:03 PM PST Gender Identity Not on file Sexual Orientation Not on file Plan of Treatment Health Maintenance Due Date Last Done Comments Diabetes Screening 1976 HPV Screening 1976 Hepatitis C Screening 1976 Lipid Screening 1976 Pap + HPV 1976 Tobacco Screening 1976 HIV Screening 11/26/1991 Relationship Safety Screening/Counseling 11/26/1991 Hypertension Screening (#1) 1994 Imm-DTaP/Tdap/Td (1 - Tdap) 11/26/1995 Imm-Hepatitis B (1 of 3 - 19+ 3-dose series) 6 Cervical Cancer Screening 1997 Pap Smear 1997 Breast Cancer Screening (Mammogram) 2016 CT Colonography 2021 Colonoscopy 2021 Colorectal Cancer Screening 2021 FIT/gFOBT 2021 Fecal DNA 2021 Flexible Sigmoidoscopy 2021 [id number] () 05/01/2024 Imm-Influenza (#1) 2024 Alcohol and Drug Screen 08/31/2024 Depression Annual Screen 08/31/2024 Cervical Ablation/Cold-Knife Conization Discontinued Cervical Cryotherapy Discontinued Colposcopy Discontinued Endometrial Biopsy Discontinued Excision/Leep Discontinued HPV Genotyping Discontinued Vaginal Pap Discontinued Vulvoscopy Discontinued
--- OUTSIDE RECORDS SUMMARY | 2024-09-15 10:02 | XMS_ITS | Encounter Summary ---
Author Organization [place] Address [address] [facility] [place] [address] Care Team Providers Care Hog Buyer Name Role Phone [facility] Primary Care Pr ovider Unavailable Enrique Saenz MD Unavailable Glendy Brush Unavailable [phone] Pat Chavez PA-C Unavailable [phone] [facility] Primary Care Provider Encounter Details Date Type Department Care Team (Late st Contact Info) Description 06/19/2022 MyC Medical Advice [address] [place] [address] Kathy Zepeda, [address] [address] Social History Tobacco Use Types Packs/Day Years Used Date Smoking Tobacco: Never Smokeless Tobacco: Never PHQ-2 Answer Date Recorded PHQ-2 Score 4 02/27/2022 Comments No Sex and Gender Information Value Date Recorded Sex Assigned at Not on file 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 Gender Identity Not on file Sexual Orientation [...] documented as of this encounter Care Teams Hog Buyer Relationship Specialty Start Date End Date Clinic, [facility] PCP - General 11/20/21 12/05/22 [facility], [address] [address] PCP - General 05/27/23 Enrique Saenz MD [address] [place] [address] Cardiovascular Disease 02/27/22 Glendy Brush EP [address] [address] Cardiac Rehabilitation Therapist 03/25/22 03/25/23 Pat Chavez [facility] [address] [place] [id number] Assigned Neuroscience Provider 03/01/22 08/28/23 documented as of this encounter
--- OUTSIDE RECORDS SUMMARY | 2024-09-15 10:02 | XMS_ITS | Clinical Summary ---
Author Organization [place] Address [facility] [place] [address] Care Team Providers Care Sterile Processing Technologist Name Role Phone Enrique Saenz MD Unavailable [phone] [facility] Primary Care Provider Allergies Active Allergy Reactions Criticality Noted Date Comments Ibuprofen Anaphylaxis High 05/27/2023 Penicillins 04/12/2012 Acetaminophen Anaphylaxis High 05/27/2023 Medications albuterol (PROVENTIL) (2.5 MG/3ML) 0.083% neb solutionIndicat ions:Severe persistent asthma with exacerbation (H) Take 1 vial (2.5 mg) by nebulization every 6 hours as needed for shortness of breath / dyspnea or wheezing 30 mL 03/11/20 21 Active EPINEPHrine (ANY BX GENERIC EQUIV) 0.3 MG/0.3ML injection 2-pack Inject 0.3 mLs (0.3 mg) into the muscle once as needed for anaphylaxis 0.6 mL 11/21/19 22 Active budesonide-form oterol (SYMBICORT) 160-4.5 MCG/ACT InhalerIndicati ons:Severe persistent asthma with exacerbation (H) Inhale 2 puffs into the lungs daily 10 g 3 03/08/20 22 Active albuterol (PROAIR HFA/PROVENTIL HFA/VENTOLIN HFA) 108 (90 Base) MCG/ACT inhalerIndicati ons:Anaphylaxis , initial encounter Inhale 2 puffs into the lungs every 6 hours 18 g 11 03/08/20 22 Active ipratropium - albuterol 0.5 mg/2.5 mg/3 mL (DUONEB) 0.5-2.5 (3) MG/3ML neb solution Take 1 vial (3 mLs) by nebulization every 6 hours as needed for shortness of breath / dyspnea or wheezing 90 mL 02/22/20 22 2021 Discontinued Active Problems Problem Noted Date Diagnosed Date Intermittent asthma with sta tus asthmaticus, unspecified asthma severity 03/07/2022 Elevated blood pressure read ing without diagnosis of hypertension 03/10/2021 Severe persistent asthma with exacerbation 03/10 Acute respiratory failure with hypoxia Immunizations Name [...] School Help Needed Not on file 05/22 Comments No Sex and Gender Information Value Date Recorded Sex Assigned at Not on file 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 Gender Identity Not on file Sexual Orientation Not on file Last Filed Vital Signs Vital Sign Reading Time Taken Comments Blood Pressure 148/91 05/27/2023 8:07 PM CDT Pulse 78 05/27/2023 8:07 PM CDT Temperature 36.6 C (97.8 F) 05/27/2023 8:07 PM CDT Respiratory Rate 14 05/27/2023 8:07 PM CDT [...] 1976 FLEX SIG 1976 MAMMO SCREENING 1976 sDNA (Cologuard) 1976 YEARLY PREVENTIVE VISIT 11/26/1979 COLONOSCOPY 1986 COLORECTAL CANCER SCREENING 1986 HIV SCREENING 11/26/1991 HEPATITIS C SCREENING 1994 Pneumococcal Vaccine: Pediatrics (0 to 5 Years) and At-Risk Patients (6 to 49 Years) (1 of 2 - PCV) 11/26/1995 PAP 1997 HEPATITIS B IMMUNIZATION (2 of 3 - 19+ 3-dose series) 08/15/2016 07/18/2016 LIPID 2016 PHQ-9 08/29/2022 02/27/2022 COVID-19 Vaccine ( - season) 2024 09/18/2021, 01/03/2021, 12/06/2020 INFLUENZA VACCINE (#1) 2024 09/18/2021, 2015 GLUCOSE 05/27/2026 05/27/2023, 07/03/2022, 02/23/2022, Additional history exists DTAP/TDAP/TD IMMUNIZATION (5 - Td or Tdap) 07/18/2026 07/18/2016, 12/14/2010, 03/30/2008, Additional history exists RSV VACCINE (1 - 1-dose 75+ series) 11/26/2051 HPV IMMUNIZATION Aged Out No longer e [...] Comprehensive metabolic panel (05/27/2023 8:17 PM CDT) [facility] Sodium 141 135 - 145 mmol/L 05/27/2023 8:47 PM CDT LABORATORY Comment:Reference intervals [...] 8:17 PM CDT 05/27/2023 8:22 PM CDT us Philomena Faustin DO LAB - BLOOD ORDERABLES F inal Result LABORATORY [facility] Acute Care Lab [address], [address] [place] [address], [facility] [phone] from Last 3 Months or Most Recently Relevant to Health Maintenance Insurance [facility] Advance Directives For more information, please contact: [phone] * Full Code (Latest Code Status on [...] Discussion with lorenee nt/ legal decision maker Care Teams Sterile Processing Technologist Relationship Specialty Start Date End Date [employer], [address] [address] PCP - General 05/27/23 Enrique Saenz MD [address] [place] [address] Cardiovascular Disease 02/27/22
--- OUTSIDE RECORDS SUMMARY | 2024-09-15 10:02 | XMS_ITS | Encounter Summary ---
Author Organization [facility] Address [address] [place] [address] Care Team Providers Care Hull Drafter Name Role Phone Unavailable Primary Care Provider Unavailabl e Reason for Visit * Reason Comments Office Visit: Converted Data Conversion Encounter Details Date Type Department Care Team (Late st Contact Info) Description 06/12/2020 Dental Interim Note [facility] [address] [place] [id number] Default, Schs Provider [place] Social History Tobacco Use Types Packs/Day Years Used Date Smoking Tobacco: Never Assessed Comments Unknown Sex and Gender Information Value [...] 5 ENDODONTIC THERAPY, PREMOLAR TOOTH (EXCLUDING FINAL ANABAPTISM) Dental Procedures Routine 1 Occurrences starting 06/07/2020 5 CROWN - PORCELAIN FUSED TO HIGH OH METAL Dental Procedures Routine 1 Occurrences starting 06/07/2020 5 PREFABRICATED POST AND CORE IN ADDITION TO CROWN Dental Procedures Routine 1 Occurrences starting 06/07/2020 documented as of this encounter Visit Diagnoses Not on filedocumented in this encounter
--- OUTSIDE RECORDS SUMMARY | 2024-09-15 10:02 | XMS_ITS | Referral Summary ---
Author Organization [place] Address [address] [facility] 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 Gender Identity Not on file Sexual Orientation [...] CDT Philomena Faustin DO LAB - BLOOD ORDERABLES F inal Result LABORATORY [facility] Acute Care Lab [address], [address] [place] [address], [facility] [phone] from Last 3 Months or Most Recently Relevant to Health Maintenance Insurance [facility] Advance Directives For more information, please contact: [phone] * Full Code (Latest Code Status on File) Date Activated Date Inactivated Comments 03/07/2022 5:56 PM 03/08/2022 5:27 PM All basic and advanced life-sustaining interventions are performed as appropriate Question Answer Comments Code status determined by: Discussion with joseluis nt/ legal decision maker * Full Code Date Activated Date Inactivated Comments 03/10/2021 9:22 AM 03/11/2021 11:56 AM All basic a nd advanced life-sustaining interventions are performed as appropriate Question Answer Comments Code status determined by: Discussion with joseluis nt/ legal decision maker Care Teams Medical Records Secretary Relationship Specialty Start Date End Date [facility], [address] [address] PCP - General 05/27/23 Enrique Saenz MD [address] [place] [address] Cardiovascular Disease 02/27/22
--- OUTSIDE RECORDS SUMMARY | 2024-09-15 10:02 | XMS_ITS | Encounter Summary ---
Author Organization [place] Address [address] [facility] [place] [address] Care Team Providers Care Warehouse Loader Name Role Phone [facility] Primary Care Pr ovider Unavailable Enrique Saenz MD Unavailable Glendy Brush Unavailable [phone] Pat Chavez PA-C Unavailable [phone] [facility] Primary Care Provider Encounter Details Date Type Department Care Team (Late st Contact Info) Description 11/20/2021 Documentation Only INTERFACED REPORT Unknown, Provider Social History Tobacco Use Types Packs/Day Years Used Date Smoking Tobacco: Never Smokeless Tobacco: Never Comments No Sex and Gender Information Value Date Recorded Sex Assigned at Not on file 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 Gender Identity Not on file Sexual Orientation [...] documented as of this encounter Care Teams Warehouse Loader Relationship Specialty Start Date End Date [facility] PCP - General 11/20/21 12/05/22 [facility] [address] [place] [address] PCP - General 05/27/23 Enrique Saenz MD [address] [place] [address] Cardiovascular Disease 02/27/22 Glendy Brush EP [facility] [address] [place] [address] Cardiac Rehabilitation Therapist 03/25/22 03/25/23 Pat Chavez PARama[facility] [address] [place] [address] Assigned Neuroscience Provider 03/01/22 08/28/23 documented as of this encounter
--- NOTE | 2024-09-15 11:05 | ED.CHESTPAIN ---
HPI - Chest Pain General Date Seen: 09/15/24 Chief Complaint: Chest Pain Stated Complaint: SOB/Chest Pain-Burning Time Seen by Provider: 09/15/24 11:04 History of Present Illness HPI narrative: 48-year-old female with a past medical history of asthma, anxiety, depression, migraine headaches, presenting to the ER today with her family. 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 The patient is fairly bilingual and her daughter and are fluidly bilingual. She has a history of asthma. She does not usually use inhalers. She has had a cough for about the past 3 weeks or maybe a little bit longer but has been getting worse since sometime last week with worsening cough. It is productive of some greenish sputum. With that she has had feet subjective fevers and chills but no objectively measured high temperature. She has had body aches, fatigue, shortness of breath and also for the past several days has had some burning in her chest and the back of her lungs when she breathes. No palpitations. She has been nauseous but not vomiting. The she came to the ER today because her cough is just not getting better. She is worried she might have pneumonia. Her has had a similar illness but less severe and her daughter is not been sick. Related Data Home Medications ?Medication ?Instructions ?Recorded ?Confirmed cetirizine 10 mg tablet 10 mg PO DAILY 08/12/22 10/02/23 fluticasone furoate 100 1 inh inhalation DAILY 08/12/22 10/02/23 mcg-vilanterol 25 mcg/dose inhalation powder (Breo Ellipta) Previous Rx's ?Medication ?Instructions ?Recorded sumatriptan succinate 25 mg tablet See Rx Instructions PO .COMPLEX 06/02/23 (Imitrex) #30 tabs albuterol sulfate 90 mcg/actuation 2 inh inhalation QID PRN shortness 02/17/24 aerosol inhaler of breath or wheezing #8.5 grams albuterol sulfate 2.5 mg/3 mL 2.5 mg (3 mL) inhalation QID PRN 02/24/24 (0.083 %) solution for nebulization shortness of breath or wheezing #180 mL budesonide-formoterol HFA 160 1 inh inhalation BID #10.2 grams 02/25/24 mcg-4.5 mcg/actuation aerosol inhaler (Symbicort) peg 3350-electrolytes 236 240 ml PO Q10M #4,000 mL 03/02/24 gram-22.74 gram-6.74 gram-5.86 gram solution (Golytely) peg 3350-electrolytes 236 240 ml PO ONCE #8,000 mL 03/08/24 gram-22.74 gram-6.74 gram-5.86 gram solution (Golytely) peg 3350-electrolytes 236 240 ml PO ONCE #8,000 mL 03/15/24 gram-22.74 gram-6.74 gram-5.86 gram solution (Golytely) cholecalciferol (vitamin D3) 1,250 1,250 mcg PO QWEEK #12 caps 05/16/24 mcg (50,000 unit) capsule montelukast 10 mg tablet 10 mg PO QDAY #90 tabs 05/16/24 albuterol sulfate 2.5 mg/3 mL 2.5 mg (3 mL) inhalation Q4H PRN 09/15/24 (0.083 %) solution for nebulization #75 mL prednisone 20 mg tablet 60 mg (3 x 20 mg) PO DAILY 5 days 09/15/24 #15 tabs Allergies Allergy/AdvReac Type Severity Reaction Status Date / Time oseltamivir (From Tamiflu) Allergy Mild Hives Verified 02/17/24 14:19 penicillin V Allergy Mild Rash Verified 02/17/24 14:19 dandelion ([place] Allergy Unknown test Verified 02/17/24 14:19 [place]) indicated acetaminophen (From Tylenol) AdvReac Verified 02/17/24 14:19 aspirin (From [place]) AdvReac Verified 02/17/24 14:19 citric acid (From AdvReac Verified 02/17/24 14:19 [place]) ibuprofen AdvReac Verified 02/17/24 14:19 sodium bicarbonate (From AdvReac Verified 02/17/24 14:19 [place]) cat and dog Allergy Mild Congestion, Uncoded 02/17/24 14:19 shortness of breath grass, pollens Allergy Mild Congestion, Uncoded 02/17/24 14:19 [address] [facility] Medical History (Updated 09/15/24 @ 12:55 by Enrique Dsouza MD) Passive suicidal ideations ?R45.921 - Suicidal ideations (ICD-10) Migraine ?G43.909 - Migraine, unspecified, not intractable, without status migrainosus (ICD-10) Asthma ?J45.909 - Unspecified asthma, uncomplicated (ICD-10) Epiploic appendagitis ?K63.89 - Other specified diseases of intestine (ICD-10) History of severe acute respiratory syndrome coronavirus 2 (SARS-CoV-2) disease ?Z86.16 - Personal history of COVID-19 (ICD-10) Surgical History History of tubal ligation ?Z98.51 - Tubal ligation status (ICD-10) History of cholecystectomy ?Z90.49 - Acquired absence of other specified parts of digestive tract (ICD-10) Family History Father Diabetes Gout High blood pressure Sister Diabetes mellitus during Maternal Grandmother Ovarian cancer Social History Narrative: Does not drink alcohol Does not use illicit drugs Non-smoker Smoking Status: Never smoker How often do you have a drink containing alcohol: never AUDIT-C Alcohol total score: 0 Non-prescribed substance use: denies use Exam Narrative Exam Narrative: Constitutional: Appears well-developed and well-nourished. Alert. Conversant. Non toxic. HENT: Head: Atraumatic. Nose: Nose normal. Mouth/Throat: Oral mucosa is clear and moist. no trismus. Pharynx normal. Tonsils symmetric. No tonsillar enlargement, erythema, or exudate. Eyes: Conjunctivae mildly injected bilaterally. EOM normal. Pupils equal, round, and reactive to light. No scleral icterus. Neck: Normal range of motion. Neck supple. No tracheal deviation present. Cardiovascular: Normal rate, regular rhythm. No gallop. No friction rub. No murmur heard. Symmetric radial artery pulses Pulmonary/Chest: Effort normal. Frequent cough triggered by breathing. No stridor. No respiratory distress. No wheezes. No rales. No rhonchi . No tenderness. Abdominal: Soft. No distension. No mass. No tenderness. No rebound. No guarding. Musculoskeletal: RUE: Normal range of motion. No tenderness. No deformity LUE: Normal range of motion. No tenderness. No deformity RLE: Normal range of motion. No edema. No tenderness. No deformity LLE: Normal range of motion. No edema. No tenderness. No deformity Lymph: No cervical adenopathy. Neurological: Alert and oriented to person, place, and time. Normal strength. CN II-VII intact. No sensory deficit. GCS eye subscore is 4. GCS verbal subscore is 5. GCS motor subscore is 6. Normal coordination Skin: Skin is warm and dry. No rash noted. No pallor. Normal capillary refill. Psychiatric: Normal mood. Normal affect. Const Vital Signs, click to edit/add: Vital Signs - 24 hr 09/15/24 10:14 09/15/24 10:30 09/15/24 10:31 Temperature 98.3 F Pulse Rate 101 H 96 Respiratory Rate Blood Pressure 140/90 H 118/77 Pulse Oximetry 92 94 09/15/24 11:01 09/15/24 11:31 09/15/24 12:01 Temperature Pulse Rate 96 92 91 Respiratory Rate Blood Pressure 117/95 H 125/94 H 136/90 H Pulse Oximetry 93 94 94 09/15/24 13:02 Temperature 99.1 F Pulse Rate Respiratory Rate 20 Blood Pressure Pulse Oximetry Course Vital Signs Vital signs: Initial Vital Signs Pulse Rate 101 H 09/15/24 10:14 Blood Pressure 140/90 H 09/15/24 10:14 Blood Pressure Mean 106 H 09/15/24 10:14 Pulse Oximetry 92 09/15/24 10:14 Vital Signs Pulse Rate 101 H 09/15/24 10:14 Blood Pressure 140/90 H 09/15/24 10:14 Pulse Oximetry 92 09/15/24 10:14 Temperature 99.1 F 09/15/24 13:02 Pulse Rate 91 09/15/24 12:01 Respiratory Rate 20 09/15/24 13:02 Blood Pressure 136/90 H 09/15/24 12:01 Pulse Oximetry 94 09/15/24 12:01 Medications Administered Medications: Discontinued Medications Generic Name Dose Route Start Last Admin Trade Name Freq PRN Reason Stop Dose Admin Albuterol/Ipratropium 1 neb 09/15/24 11:28 09/15/24 11:48 Iprat-Albut 0.5-2.5 Mg/3 Ml Neb IH 09/15/24 11:29 1 neb ONCE ONE Administration MDM - Chest Pain MDM Narrative Medical decision making narrative: This patient presents to the ER today for evaluation of a couple weeks history of cough now associated with worsening cough and production of sputum, burning chest discomfort, fatigue, subjective fevers and chills, and body aches. Differential was broad. He symptoms would suggest probable infectious illness. Currently there is a influenza and coronavirus epidemic. Patient's nasal PCR is actually positive for RSV. Chest x-rays obtained to look for a superimposed bacterial pneumonia and is normal. No evidence of palpitations, syncope or other cardiac dysrhythmia. We considered possible ACS, however workup with EKG and troponin is negative. Given time since onset of her burning discomfort (but present for the past several days), I do not think the patient needs to be admitted for further sets of enzymes. EKG shows no evidence for pericarditis. Clinical presentation not suggestive of myocarditis. Chest x-ray shows no evidence for pneumonia, pneumothorax, pulmonary edema, pleural effusion, rib fracture, cardiomegaly. Mediastinum is normal on the x-ray. The patient has no ripping or tearing pain through to the back and has symmetric pulses on exam, no other acute neuro findings so I doubt aortic dissection. Risk of radiation and contrast exposure would outweigh the benefit of CT angiogram. We considered PE for this patient. Overall very low risk so would hold off on D-dimer or CT PA for now. No wheezing or bronchospasm to suggest COPD/asthma. She does have a history of asthma and significant cough here in the ER. After neb lung sounds are unchanged but she notes significant less coughing. Suspect she is probably having some bronchospasm triggered by RSV. Will start her on prednisone and give her refill for her albuterol nebulizer which she has at home. At this point no hypoxia, significant respiratory distress requiring oxygen supplementation, BiPAP, intubation, or hospitalization. No signs of chest wall cellulitis, shingles, injury. With reasonable clinical confidence, I think the patient is safe for outpatient follow up. Discussed return precautions. Questions answered. Patient voices comfort with the plan. Lab Data Labs: Lab Results 09/15/24 09/15/24 Range/Units 10:20 11:29 WBC 5.84 (4.50-11.00) K/uL RBC 4.17 (4.00-5.20) m/uL Hgb 12.1 (12.0-16.0) gm/dL Hct 37.4 (33.0-51.0) % MCV 90 (80-100) fL MCH 29 (26-34) pg MCHC 32 (32-36) gm/dL RDW Coeff of Suzie 15.9 H (11.5-15.5) % Plt Count 359 (140-440) K/uL Neut % (Auto) 58.4 (42.0-72.0) % Lymph % (Auto) 25.7 (20-44) % [place] % (Auto) 11.8 H (0.0-11.0) % Eos % (Auto) 2.9 (0.0-7.0) % Baso % (Auto) 1.0 (0.0-3.0) % Neut # (Auto) 3.41 (1.7-7.0) K/uL Lymph # (Auto) 1.50 (0.90-2.90) K/uL [place] # (Auto) 0.70 (0.00-0.90) K/UL Eos # (Auto) 0.17 (0.00-0.50) K/uL Baso # (Auto) 0.06 (0.00-0.30) K/uL Abs Immat Gran (auto) 0.01 (0.00-0.30) K/uL Imm/Tot Granulo (auto) 0.2 % Sodium 138 (135-149) mmol/L Potassium 3.4 L (3.6-5.1) mmol/L Chloride 105 (96-114) mmol/L Carbon Dioxide 23 (20-32) mmol/L Anion Gap 10 (7-15) mEq/L BUN 14 (5-24) mg/dL Creatinine 0.7 (0.5-1.5) mg/dL Estimated GFR 107 ml/min Glucose 110 (60-115) mg/dL Calcium 9.1 (8.4-10.6) mg/dL SARS-CoV-2 (PCR) Negative SARS-CoV-2 (Negative) Influenza Type A (PCR) Negative PCR FLU A (Negative) Influenza Type B (PCR) Negative PCR FLU B (Negative) RSV (PCR) POSITIVE PCR RSV A (Negative) POC Troponin I 0.00 L (0.01-0.04) ng/ml Imaging Data Chest x-ray: Attestation: I have reviewed the pertinent imaging results. Radiologist's impression: Findings/Impression: Cardiovascular and mediastinum: Normal heart size with mild aortic tortuosity. Lungs and pleural spaces: Lungs are clear. No sign of infiltrate or mass. No sign of pleural effusion. No pneumothorax. Bones and soft tissues: Upper abdominal surgical clips. ECG Data Attestation: I personally reviewed and interpreted this ECG as follows: Interpretation: Normal sinus rhythm Rate: 98 FL: 118 QRS axis: Normal ST segment/T wave: Nonspecific T-wave flattening. Nonspecific T-wave inversion in V3. No ST segment elevation or depression QTc: 405 Discharge Plan Discharge Clinical Impression: RSV (respiratory syncytial virus infection), Asthma attack Patient Disposition: Home, Self-Care Condition: Stable Instructions: Asthma (DC), RSV (Respiratory Syncytial Virus) Infection (ED) Additional Instructions: As we discussed use your prednisone and albuterol to help treat your cough and wheezing. To drink plenty of fluids and stay hydrated. Rest. Stay home from work until you are feeling better and your fever has been gone for 24 hours. After that it is okay to go back to work Return to the ER right away if you have worsening symptoms or any problems. Prescriptions: New albuterol sulfate 2.5 mg /3 mL (0.083 %) solution for nebulization 2.5 mg inhalation Q4H PRNQty: 75 0RF prednisone 20 mg tablet 60 mg PO DAILY 5 Days Qty: 15 0RF No Action sumatriptan succinate [Imitrex] 25 mg tablet See Rx Instructions PO .COMPLEX Qty: 30 0RF Rx Instructions: take 1 tab at onset of headache; if no relief may repeat 1 tab after at least 2 hrs; max = 4 tabs/24 hr PO albuterol sulfate 90 mcg/actuation HFA aerosol inhaler 2 inh inhalation QID PRN (Reason: shortness of breath or wheezing) Qty: 8.5 1RF cetirizine 10 mg tablet 10 mg PO DAILY fluticasone furoate-vilanterol [Breo Ellipta] 100-25 mcg/dose blister with device 1 inh inhalation DAILY albuterol sulfate 2.5 mg /3 mL (0.083 %) solution for nebulization 2.5 mg inhalation QID PRN (Reason: shortness of breath or wheezing) Qty: 180 1RF budesonide-formoterol [Symbicort] 160-4.5 mcg/actuation HFA aerosol inhaler 1 inh inhalation BID Qty: 10.2 0RF Rx Instructions: One puff twice daily for asthma peg 3350-electrolytes [Golytely] 236-22.74-6.74 -5.86 gram recon soln 240 ml PO Q10M Qty: 4000 0RF Rx Instructions: until fecal effluent is clear peg 3350-electrolytes [Golytely] 236-22.74-6.74 -5.86 gram recon soln 240 ml PO ONCE Qty: 8000 0RF Rx Instructions: 4pm 2 days prior to procedure. Drink 8oz glass every 15 minutes until 1/2 of solution is gone. At 9am day prior to procedure. Drink 8oz glass every 15 minutes until remaining solution of first gallon gone. 4pm day prior to procedure. Drink 8oz glass every 15 minutes until 1/2 of second gallon is gone. 6 hours prior to your procedure time drink 8oz glass every 15 minutes until remaining solution is gone. peg 3350-electrolytes [Golytely] 236-22.74-6.74 -5.86 gram recon soln 240 ml PO ONCE Qty: 8000 0RF Rx Instructions: 4pm 2 days prior to procedure, drink 8oz glass of solution every 15 minutes until 1/2 of solution from first gallon is gone. 9am day prior to procedure. Drink 8oz glass every 15 minutes until remining solution from first gallon is gone. 4pm day prior to procedure. Drink 8oz glass of solution every 15 minutes until 1/2 of solution from second gallon is gone. 6 hours prior to procedure drink an 8oz glass every 15 minutes until the remaining solution is gone. montelukast 10 mg tablet 10 mg PO QDAY Qty: 90 0RF Rx Instructions: one tablet once daily for asthma cholecalciferol (vitamin D3) 1,250 mcg (50,000 unit) capsule 1,250 mcg PO QWEEK Qty: 12 0RF Rx Instructions: Once weekly for vitamin-D deficiency Follow Up/Referrals: Kathy Hou PA-C [Primary Care Provider] - Stand Alone Forms: [facility] Info Instructions
--- NOTE | 2024-09-15 11:28 | CRLHL7_ITS ---
For Patients: As a result of the Cures Act, medical imaging exams and procedure reports are released immediately into your electronic medical record. You may view this report before your referring provider. If you have questions, please contact your health care provider. Indication: Cough, chest burning and fever Technique: Chest 2 views Comparison: None Findings/Impression: Cardiovascular and mediastinum: Normal heart size with mild aortic tortuosity. Lungs and pleural spaces: Lungs are clear. No sign of infiltrate or mass. No sign of pleural effusion. No pneumothorax. Bones and soft tissues: Upper abdominal surgical clips. Dictated by Makr Alegre MD @ 09/15/2024 11:49:20 AM (Electronically Signed)
[2024-09-15 11:45] LABS: Basophils Absolute Auto 0.06 K/uL (0.00-0.30); Eosinophils Absolute Auto 0.17 K/uL (0.00-0.50); Eosinophils Percent Auto 2.9 % (0.0-7.0); Hematocrit 37.4 % (33.0-51.0); Hemoglobin* 12.1 gm/dL (12.0-16.0); Immature Granulocytes Abs Auto 0.01 K/uL (0.00-0.30); Immature Granulocytes Pct Auto 0.2 %; Lymphocytes Percent Auto 25.7 % (20-44); Mean Corpuscular HGB Conc 32 gm/dL (32-36); Mean Corpuscular Hemoglobin 29 pg (26-34); Mean Corpuscular Volume 90 fL (80-100); Monocytes Percent Auto 11.8 % (0.0-11.0); Neutrophils Absolute Auto 3.41 K/uL (1.7-7.0); Neutrophils Percent Auto 58.4 % (42.0-72.0); Platelet Count* 359 K/uL (140-440); RDW Coefficient of Variation % 15.9 % (11.5-15.5); Red Blood Count 4.17 m/uL (4.00-5.20); White Blood Count* 5.84 K/uL (4.50-11.00)
[2024-09-15] MEDS: IPRAT-ALBUT 0.5-2.5 MG/3 ML NEB 1 NEB IH (11:48)
[2024-09-15 11:51] LABS: Slide Review Reflex No
[2024-09-15 12:02] LABS: Chloride* 105 mmol/L (96-114)
[2024-09-15 12:03] LABS: Potassium* 3.4 mmol/L (3.6-5.1); Sodium* 138 mmol/L (135-149)
[2024-09-15 12:05] LABS: Creatinine* 0.7 mg/dL (0.5-1.5); Estimated Glomerular Filt Rate 107 ml/min
[2024-09-15 12:06] LABS: Anion Gap 10 mEq/L (7-15); Blood Urea Nitrogen* 14 mg/dL (5-24); Calcium* 9.1 mg/dL (8.4-10.6); Carbon Dioxide* 23 mmol/L (20-32); Glucose* 110 mg/dL (60-115)
[2024-09-15 12:15] LABS: PCR FLU A Negative PCR FLU A (Negative); PCR FLU B Negative PCR FLU B (Negative); PCR RSV POSITIVE PCR RSV (Negative); SARS PCR* Negative SARS-CoV-2 (Negative)
== END 2024-09-15 13:31 | disposition home or self-care (01) ==
PROVIDERS: Emergency Provider Emergency Medicine; PCP Physician Assistant Medical
DX: J22 Unspecified acute lower respiratory infection (principal); J45.901 Unspecified asthma with (acute) exacerbation
CPT/HCPCS: 36415; 71046; 80048; 84484; 85025; 87631; 99284; T1013

== ENCOUNTER 2025-02-06 15:58 | Outpatient (CLI) | payer MEDICAID, SELFPAY | END 2025-02-06 15:59 | disposition home or self-care (01) | PROVIDERS: PCP Physician Assistant Medical; Visit Provider Physician Assistant Medical | DX: D64.9 Anemia, unspecified (principal); E55.9 Vitamin D deficiency, unspecified; R53.83 Other fatigue; R42 Dizziness and giddiness; S60.862A Insect bite (nonvenomous) of left wrist, initial encounter; Z79.899 Other long term (current) drug therapy | CPT/HCPCS: 80076; 82306; 82607; 82728; 83540; 83550; 86618; 87468; 87469; 87484; 87798 ==